=== PATIENT | male | born 1930 | race Caucasian/White ===

== ENCOUNTER 2017-01-13 08:23 | Inpatient (IN) | payer OTHER ==
[~2017-01-13] VITALS: Ht 170.2 cm; Wt 98.9 kg
[~2017-01-13 08:23] MED LIST: AMBIEN (MONOGRAP5 MG PO; ATORVASTATIN CA10 MG PO; AUGMENTIN 875875 MG PO; CARDIZEM CD360 MG PO; CENTRUM SILVER1 CTB PO; CLARITIN10 MG PO; CLOPIDOGREL75 MG PO; COUMADIN 3 MG TA3 MG PO; COZAAR 100MG T100 MG PO; CRESTOR20 MG PO; DILTIAZEM HCL180 MG PO; DILTIAZEM HCL240 MG PO; DILTIAZEM HCL300 MG PO; FUROSEMIDE20 MG PO; LEVAQUIN500 M1 PO; LOSARTAN POTAS100 MG PO; MASON NATURAL1200 MG PO; NATURAL IRON65 MG PO; NITROGLYCER PAT; NITROSTAT0.4 MG; NITROSTAT0.4 MG PO; PERCOCET 5-3251 EACH PO; PROAIR HFA0.09 MG/Ac INH; TESSALON PERLE100 MG PO; TRAMADOL50 MG PO; VITAMIN B121000 MC2 PO; WARFARIN SODIU2.5 MG PO; WARFARIN SODIUM5 MG PO; XARELTO20 MG PO
--- NOTE | 2017-01-13 08:56 | ED UPPER/LOWER EXTREMITY COMPL ---
History of Present Illness General Chief Complaint: Lower Extremity Problems Stated Complaint: LEFT LEG PAIN Source: patient, family Exam Limitations: no limitations Vital Signs & Intake/Output Vital Signs & Intake/Output Vital Signs Date Time Temp Pulse Resp B/P B/P Pulse O2 O2 Flow FiO2 Mean Ox Delivery Rate 01/13 2238 99.7 89 20 108/52 94 Nasal 3.0L Cannula 01/130 Nasal 3.0L Cannula 01/13 2007 99.0 01/13 1744 99.0 105 22 122/60 96 Nasal 3.0L Cannula 01/13 1717 96 Nasal 3.0L Cannula 01/13 1700 100.1 01/13 1657 92 20 97 Aerosol Mask 01/13 1648 96 01/13 1646 100.1 90 22 92 Room Air 01/13 1516 99.2 65 120/59 01/13 1415 79 20 97/55 94 Room Air 01/13 1346 100.6 84 18 97/55 94 01/13 1324 98 01/13 1304 99.1 01/13 1304 99.1 01/13 1116 98.9 81 18 112/53 95 Room Air 01/13 0827 98.7 110 16 128/84 96 Room Air Allergies Coded Allergies: NO KNOWN ALLERGIES (11/15/15) Reconcile Medications Albuterol Sulfate (Proair Hfa) 0.09 MG/Actuation KANWAL 2 PUFF INH Q4-6H PRN DYSPNEA (Reported) Atorvastatin Calcium (Lipitor) 10 MG TABLET 1 TAB PO DAILY CHOLESTEROL ( Reported) DILTIAZEM HCL (Cardizem Cd) 360 MG C24 1 CAP PO DAILY HEART (Reported) Furosemide 20 MG TAB 1 TAB PO DAILY WATER PILL (Reported) Losartan (Cozaar) 100 MG TABLET 1 TAB PO DAILY BP/HEART (Reported) Rivaroxaban (Xarelto) 20 MG TAB 1 TAB PO QPM BLOOD THINNER (Reported) with food Triage Note: 87 Y/O MALE C/O L LOWER EXTREMITY PAIN AND SWELLING SINCE YESTERDAY. DENIES INJURIES OR TRAUMA STATING PAIN BEGAN SUDDENLY. SWELLING NOTED TO L KNEE. PT REPORTS PAIN FROM KNEE DOWN INTO FOOT. REQUIRING MUCH ASSISTANCE TO GET FROM W/C TO STRETCHER Triage Nurses Notes Reviewed? yes Onset: Abrupt Duration: day(s): (1) Timing: multiple episodes today Severity: moderate, severe Method of Injury: unknown Modifying Factors: Worsens With: movement. Associated Symptoms: swelling, fever, chills HPI: 87 year old male presents to the ER with moderate to severe left knee pain that [facility] He states that he was sitting at a computer and when he went to stand up noted severe pain. He used a cane yesterday to walk. He reported shakes and chills yesterday. Today he needed a walker and needed a wheelchair to get to the ER today. Denies trauma to the knee. It appears swollen but not red. Patient states he cannot bear any weight on the knee. Past History Travel History Traveled to [place] past 21 day No Medical History Any Pertinent Medical History? 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 No Review of Systems Review of Systems Constitutional: Reports: chills, fever. EENTM: Reports: no symptoms. Respiratory: Reports: short of breath. Denies: cough, sputum production. Cardiovascular: Denies: chest pain, palpitations, peripheral edema. Gastrointestinal/Abdominal: Denies: abdominal pain. Genitourinary: Reports: no symptoms. Musculoskeletal: Reports: joint pain, joint swelling. Denies: muscle pain, muscle stiffness. Skin: Reports: no symptoms. Neurological/Psychological: Reports: no symptoms. Hematologic/Endocrine: Denies: bruising, bleeding, polyuria, polydipsia. Immunological: Reports: no symptoms. All Other Systems: Reviewed and Negative Physical Exam Physical Exam General Appearance: well developed/nourished, alert, awake, mild distress Head: atraumatic Eyes: Bilateral: PERRL, EOMI. Ears, Nose, Throat: normal pharynx, normal ENT inspection, hearing grossly normal Neck: normal inspection, supple Cardiovascular/Respiratory: regular rate/rhythm Peripheral Pulses: 2+ radial (R), 2+ radial (L) Gastrointestinal: soft nontender, obese Back: normal inspection Leg Left: normal range of motion, normal inspection Leg Right: normal range of motion, normal inspection Hip Left: normal range of motion, normal inspection Hip Right: normal range of motion, normal inspection Knee Left: swelling, tenderness, joint effusion, pain, limited range of motion Knee Right: normal range of motion, normal inspection, SURGICAL SCAR Foot Left: normal inspection, normal range of motion Foot Right: normal inspection, normal range of motion Neurologic/Tendon: normal sensation, normal motor functions, normal tendon functions Skin: intact, normal color, warm/dry Lymphatic: no anterior cervical precious ED Sepsis Exam Date of Focused Sepsis Exam: 01/13/17 Time of Focused Sepsis Exam: 1304 Sepsis Cardiac Exam: Tachycardia Sepsis Resp Exam: WHEEZING Sepsis Cap Refill Exam: <2 Sec Sepsis Peripheral Pulse Exam: Normal Sepsis Peripheral Pulse Location: Radial Sepsis Skin Color Exam: Normal for Ethnicity Skin Temp/Moisture Exam: Warm/Dry Progress Differential Diagnosis: SEPTIC JOINT, UTI, PNEUMONIA, Plan of Care: Orders Procedure Date/time Status Nothing by Mouth 01/14 B Active CBC WITHOUT DIFFERENTIAL 01/14 06 Active BASIC ELECTROLYTES PLUS BUN&CR 01/14 06 Active Consistent Carbohydrate 2 01/13 D Complete RT: Evaluation 01/13 2217 Active OXYGEN SETUP (GEN) 01/13 2152 Complete THERAPIST ORDERS 01/13 2150 Complete FingerStick- Glucose 01/13 2028 Active Vital Signs 01/13 1835 Active Teach/Educate 01/13 1835 Active Pain Treatment and Response 01/13 183 Active Nutritional Intake, Monitor 01/13 1835 Active Isolation 01/13 1835 Active Intake & Output 01/13 1835 Active Patient Care Conference 01/13 1835 Active Activity/Ambulation 01/13 1835 Active URINE TOTAL PROT/CREAT RATIO 01/13 1713 Active RT ED ORDERS 01/13 1642 Active LACTIC ACID 01/13 1632 Active Pathway - chart 01/13 1558 Active TRC EVALUATION (GEN) 01/13 1557 Complete Pathway - chart 01/13 1557 Active House Staff 01/13 1557 Active Code Status 01/13 1557 Active LACTIC ACID 01/13 1548 Active CULTURE,BODY FLUID 01/13 1448 Complete Patient Data 01/13 1447 Active ED Holding Orders 01/13 1445 Active Admit to inpatient 01/13 1445 Active Vital Signs 01/13 1445 Active Code Status 01/13 1445 Complete SYNOVIAL FLUID CELL COUNT 01/13 1405 Complete Add-on Test (ER Only) 01/13 1332 Active LACTIC ACID 01/13 1332 Active CULTURE,URINE 01/13 1251 Active URINALYSIS 01/13 1251 Complete RT ED ORDERS 01/13 1249 Active BLOOD CULTURE 01/13 1248 Active LACTIC ACID 01/13 1248 Active EKG 01/13 1248 Active CULTURE,BODY FLUID 01/13 1038 Active SYNOVIAL FLUID CELL COUNT 01/13 1038 Complete BODY FLUID TOTAL PROTEIN 01/13 1038 Complete BODY FLUID GLUCOSE 01/13 1038 Complete LACTIC ACID 01/13 0907 Active GLYCOSYLATED HGB 01/13 0907 Active GAMMA GLUTAMYL TRANSFERASE 01/13 0907 Active WESTERGREN SED RATE 01/13 0855 Complete COMPREHENSIVE METABOLIC PANEL 01/13 0855 Active CBC WITHOUT DIFFERENTIAL 01/13 0855 Complete Intake & Output 01/13 0847 Active US-LIMITED ABDOMEN 01/13 UNK Active TRC EVALUATION (GEN) 01/13 UNK Complete Lab Add-on Test 01/13 UNK Active VTE Mechanical Prophylaxis 01/13 UNK Active Current Medications Sig/Festus Start time Last Medication Dose Stop Time Status Admin Ceftriaxone Sodium 2,000 MG DAILY@1400 01/14 1400 AC (Rocephin) Albuterol Sulfate 3 ML TID 01/14 1000 AC (Proventil) Diltiazem HCl 360 MG DAILY 01/14 1000 AC (Cardizem CD) Rivaroxaban 15 MG DAILY 01/14 1000 AC (Xarelto) Insulin Aspart 0 TIDAC 01/14 0800 AC (NovoLOG) Albuterol Sulfate 3 ML Q4H PRN 01/13 1645 AC (Proventil) Ipratropium [place] 2.5 ML Q4 HRS NEEDED PRN 01/13 1645 AC (Atrovent) Atorvastatin Calcium 10 MG DAILY 01/13 1642 AC 01/13 (Lipitor) 2012 Acetaminophen 650 MG Q6P PRN 01/13 1600 AC 01/13 (Tylenol) 1700 Acetaminophen 1,000 MG Q6P PRN 01/13 1600 AC (Ofirmev) Lidocaine 1 PAT Q24H 01/13 1600 AC 01/13 (Lidoderm) 2017 Morphine Sulfate 2 MG Q4P PRN 01/13 1600 AC (Morphine) Laboratory Tests 01/13/17 1656: Urine Color YEL, Urine Clarity CLDY H, Urine pH 6.0, Ur Specific [place] 1.025, Urine Protein 100 H, Urine Ketones NEG, Urine Nitrite NEG, Urine Bilirubin NEG, Urine Urobilinogen 1.0, Ur Leukocyte Esterase NEG, Ur Microscopic SEDIMENT EXAMINED, Urine RBC 15-25 H, Urine WBC 5-10 H, Ur Epithelial Cells MOD H, Urine Bacteria FEW H, Urine Hemoglobin MOD H, Urine Glucose NEG 01/13/17 1405: Lymphocytes 1, % Normal PMNs 94, Misc Hematology Test , Fluid WBC 206524 H, Fld Total RBCs Counted 6050 H 01/13/17 1040: Fluid WBC 54491 H, Fld Mesothelial Cells , Fld Total RBCs Counted 3658 H 01/13/17 1040: Lymphocytes 5, % Normal PMNs 92, Fluid Glucose ND, Fluid Total Protein ND 01/13/17 0907: Anion Gap 14, Estimated GFR 25 L, BUN/Creatinine Ratio 14.8, Glucose 125 H, Hemoglobin A1c Pending, Lactic Acid 2.1, Calcium 8.8, Total Bilirubin 1.4 H, GGT 119 H, AST 26, ALT 29, Alkaline Phosphatase 138 H, Total Protein 7.1, Albumin 4.1, Globulin 3.0, Albumin/Globulin Ratio 1.4, CBC w Diff NO MAN DIFF REQ, RBC 3.99 L, MCV 89.5, MCH 28.8, RDW 14.3, MPV 8.4, Gran % 82.4 H, Lymphocytes % 7.0 L, Monocytes % 9.9 H, Eosinophils % 0.1, Basophils % 0.6, Absolute Granulocytes 6.7 H, Absolute Lymphocytes 0.6 L, Absolute Monocytes 0.8 H, Absolute Eosinophils 0, Absolute Basophils 0, PUBS MCHC 32.1 L, ESR Westergren 69 H Microbiology 01/13 1656 URINE ROUT: Urine Culture - RECD 01/13 1455 BODY FLUID: Body Fluid Culture - COMP 01/13 1455 BODY FLUID: Gram Stain - COMP 01/13 1405 BLOOD: Blood Culture - RECD 01/13 1347 BLOOD: Blood Culture - RECD 01/13 1040 BODY FLUID: Body Fluid Culture - RES 01/13 1040 BODY FLUID: Gram Stain - RES xray, u/s ,labs, sed rate ordered. radiographic studies negative, arthrocentesis performed. 40 ml viscous/turbid yellow fluid obtained. d/w dr delacruz, will consult on patient in the ED 12:49 PM PATIENT NOW RIGORING. TEMP 99.1. IV, CULTUERS ORDERED. DUONEB, CXR ORDERED. I DISCUSSSED CASE WITH DR DELACRUZ REGARDING CELL COUNT. PENDING GRAM STAIN. 1:15 PM D/W DR DELACRUZ. DR SALGADO PAGED FOR ADMISSION. (EMILY THOMPSON,IBETH) Diagnostic Imaging: Viewed by Me: Radiology Read, Ultrasound. Discussed w/RAD: Radiology Read, Ultrasound. Radiology Impression: PATIENT: FARTUN SIM PRESENT AGE: 87 PATIENT ACCOUNT NO: [id number] : 30 LOCATION: ER ORDERING PHYSICIAN: IBETH DIAZ MD SERVICE DATE: 01/13/17 EXAM TYPE: RAD - XRY -KNEE COMPLETE LEFT EXAMINATION: LEFT KNEE 3 VIEWS CLINICAL INFORMATION: Left knee pain. COMPARISON: None. TECHNIQUE: AP, lateral, oblique views of the left knee were obtained. FINDINGS: A left knee prosthesis is intact. There is a moderate knee joint effusion. There are no acute fractures. IMPRESSION: Intact left knee prosthesis. Moderate knee joint effusion. DICTATED BY: MARY ARROYO MD DATE/TIME DICTATED:01/13/17934 [employer] DATE/TIME TRANSCRIBED:01/13/17934 CONFIDENTIAL, DO NOT COPY WITHOUT APPROPRIATE AUTHORIZATION. <Electronically signed in Other Vendor System> SIGNED BY: MARY ARROYO MD 01/13/17 0939, PATIENT: FARTUN SIM PRESENT AGE: 87 PATIENT ACCOUNT NO: [id number] : 30 LOCATION: ER ORDERING PHYSICIAN: IBETH DIAZ MD SERVICE DATE: 01/13/17 EXAM TYPE: US - US-UNILATERAL VENOUS DOPPLER EXAMINATION: US TRIPLEX LOWER EXTREMITY, LEFT CLINICAL INFORMATION: Left lower extremity pain. COMPARISON: None TECHNIQUE: Color-flow triplex imaging with spectral analysis and compression Doppler were performed on the lower extremity. FINDINGS: Respiratory variation, normal compression and augmented flow are noted throughout the left lower extremity. The visualized common femoral vein, superficial femoral vein, profunda femoral vein, popliteal vein and midcalf peroneal and posterior tibial venous segments show no evidence of deep venous thrombosis. There is no Rodriguez's cyst. IMPRESSION : Normal triplex scan without evidence of deep venous thrombosis involving the lower extremity. DICTATED BY: MARY ARROYO MD DATE/TIME DICTATED:01/13/17947 [employer] DATE/TIME TRANSCRIBED:01/13/17947 CONFIDENTIAL, DO NOT COPY WITHOUT APPROPRIATE AUTHORIZATION. <Electronically signed in Other Vendor System> SIGNED BY: MARY ARROYO MD 01/13/17950 CXR Impression: PATIENT: FARTUN SIM PRESENT AGE: 87 PATIENT ACCOUNT NO: [id number] : 30 LOCATION: [facility] ORDERING PHYSICIAN: IBETH DIAZ MD SERVICE DATE: 01/13/17 EXAM TYPE: RAD - XRY-PORTABLE CHEST XRAY EXAMINATION: XR PORTABLE CHEST CLINICAL INFORMATION: Wheezing. Chills. Evaluate for pneumonia. COMPARISON: Previous chest x-rays most recent June [address] scans most recent April 2016 TECHNIQUE: Portable frontal view of the chest was obtained. FINDINGS: The cardiac silhouette is enlarged but stable. There is a left subclavian single chamber pacemaker in satisfactory position. Hilar and mediastinal contours are unremarkable. The lungs are clear without evidence of pneumonia. There is no pleural effusion or pneumothorax. There are degenerative changes of the spine and at the shoulder joints. IMPRESSION: Stable enlargement of the cardiac silhouette. No evidence of pneumonia. DICTATED BY: IVETTE NAIR MD DATE/TIME DICTATED:01/13/171329 [employer] DATE/TIME TRANSCRIBED:01/13/171329 CONFIDENTIAL, DO NOT COPY WITHOUT APPROPRIATE AUTHORIZATION. <Electronically signed in Other Vendor System> SIGNED BY: IVETTE NAIR MD 01/13/171334 Pre-Hospital EKG: AFIB Departure Departure Disposition: STILL A PATIENT Condition: Stable Clinical Impression Primary Impression: Septic joint Secondary Impressions: Effusion of left knee joint, Lactic acidosis Referrals: ANJALI SALGADO MD (PCP/Family) Departure Forms: Customer Survey General Discharge Information Admission Note Spoke With: ANJALI SALGADO MD Documentation of Exam: Documentation of any treatments & extenuating circumstances including Concerns Regarding Discharge (functional status, medication knowledge or non-compliance, living conditions, etc.) that warrant an admission rather than observation: [IV ABX, IV FLUIDS, pain control, rest of the leg, for washout in OR with dr delacruz, f/u blood and arthrocentesis culture, urine culture] Procedures Additional Procedures Additional Procedures: LEFT KNEE ARTHROCENTESIS Progress: Patient sterily prepared and draped. 2% lidocaine 3ml used for local. Patient sprayed with ethyl chloride. With 16G needle 40 cc of viscous yellow fluid removed. patient tolerated procedure well.
[2017-01-13 09:25] LABS: ABSOLUTE BASOPHIL COUNT 0 /CUMM (0.0-0.2); ABSOLUTE EOSINOPHIL COUNT 0 /CUMM (0.0-0.7); ABSOLUTE GRANULOCYTE CT 6.7 /CUMM (1.4-6.5); ABSOLUTE LYMPH COUNT 0.6 /CUMM (1.2-3.4); ABSOLUTE MONOCYTE COUNT 0.8 /CUMM (0.10-0.60); BASOPHIL % 0.6 % (0.0-2.0); EOSINOPHIL % 0.1 % (0-5); GRANULOCYTE % 82.4 % (42.2-75.2); HEMATOCRIT 35.8 % (42-52); MEAN CORPUSCULAR HGB 28.8 PG (27.0-31.0); MEAN CORPUSCULAR HGB CONC 32.1 G/DL (33.0-37.0); MEAN CORPUSCULAR VOLUME 89.5 FL (80.0-94.0); MEAN PLATELET VOLUME 8.4 FL (7.4-10.4); PLATELET COUNT 210 /CUMM (130-400); RBC DISTRIBUTION WIDTH 14.3 % (11.5-14.5); RED BLOOD CELL CT 3.99 /CUMM (4.70-6.10); WHITE BLOOD CELL COUNT 8.1 /CUMM (4.8-10.8)
--- NOTE | 2017-01-13 09:39 | RADIOLOGY REPORT ---
EXAMINATION: LEFT KNEE 3 VIEWS CLINICAL INFORMATION: Left knee pain. COMPARISON: None. TECHNIQUE: AP, lateral, oblique views of the left knee were obtained. FINDINGS: A left knee prosthesis is intact. There is a moderate knee joint effusion. There are no acute fractures. IMPRESSION: Intact left knee prosthesis. Moderate knee joint effusion.
--- NOTE | 2017-01-13 09:51 | ULTRASOUND REPORT ---
EXAMINATION: US TRIPLEX LOWER EXTREMITY, LEFT CLINICAL INFORMATION: Left lower extremity pain. COMPARISON: None TECHNIQUE: Color-flow triplex imaging with spectral analysis and compression Doppler were performed on the lower extremity. FINDINGS: Respiratory variation, normal compression and augmented flow are noted throughout the left lower extremity. The visualized common femoral vein, superficial femoral vein, profunda femoral vein, popliteal vein and midcalf peroneal and posterior tibial venous segments show no evidence of deep venous thrombosis. There is no Rodriguez's cyst. IMPRESSION: Normal triplex scan without evidence of deep venous thrombosis involving the lower extremity.
--- NOTE | 2017-01-13 13:35 | RADIOLOGY REPORT ---
EXAMINATION: XR PORTABLE CHEST CLINICAL INFORMATION: Wheezing. Chills. Evaluate for pneumonia. COMPARISON: Previous chest x-rays most recent June [address] scans most recent April 2016 TECHNIQUE: Portable frontal view of the chest was obtained. FINDINGS: The cardiac silhouette is enlarged but stable. There is a left subclavian single chamber pacemaker in satisfactory position. Hilar and mediastinal contours are unremarkable. The lungs are clear without evidence of pneumonia. There is no pleural effusion or pneumothorax. There are degenerative changes of the spine and at the shoulder joints. IMPRESSION: Stable enlargement of the cardiac silhouette. No evidence of pneumonia.
--- NOTE | 2017-01-13 15:23 | History & Physical ---
See Addendum General Information and HPI MD Statement: I have seen and personally examined FARTUN SIM and documented this H&P. The patient is a 87 year old M who presented with a patient stated chief complaint of [join pain]. Source of Information: patient, family, old records Exam Limitations: no limitations History of Present Illness: 87-year-old gentleman was brought in for left knee pain and swelling. 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 According to patient, he was at his normal state of health up until yesterday. When he reportedly has episodes of Gio's has spikes of temperature. By the time patient reported minor soreness in his left knee. The remainder of the review of system I that time was negative. This morning patient found his left knee swelled, red, warm, with severely restricted range of motion due to effusion and pain. Patient denies any systematic symptoms including fever, Riggors, dizziness, chest pain, palpitation. Allergies/Medications Allergies: Coded Allergies: NO KNOWN ALLERGIES (11/15/15) Home Med list Albuterol Sulfate (Proair Hfa) 0.09 MG/Actuation KANWAL 2 PUFF INH Q4-6H PRN DYSPNEA (Reported) Atorvastatin Calcium (Lipitor) 10 MG TABLET 1 TAB PO DAILY CHOLESTEROL ( Reported) DILTIAZEM HCL (Cardizem Cd) 360 MG C24 1 CAP PO DAILY HEART (Reported) Furosemide 20 MG TAB 1 TAB PO DAILY WATER PILL (Reported) Losartan (Cozaar) 100 MG TABLET 1 TAB PO DAILY BP/HEART (Reported) Rivaroxaban (Xarelto) 20 MG TAB 1 TAB PO QPM BLOOD THINNER (Reported) with food Compliance With Home Meds: GOOD Past History Travel History Traveled to [place] past 21 day No Medical History Neurological: NONE EENT: NONE Cardiovascular: AFIB, HTN, 1 STENT, 4 ANGIOPLAS Respiratory: asthma Gastrointestinal: PANCREATITIS Hepatic: NONE Renal: NONE Musculoskeletal: CHRONIC BACK PAIN Psychiatric: NONE Endocrine: NONE Blood Disorders: NONE Cancer(s): 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 yes Functional Ability ADLs Independent: dressing, eating, toileting, bathing. Ambulation: independent IADLs Independent: shopping, housework, finances, food prep, telephone, transportation , medication admin. Review of Systems Review of Systems Constitutional: Reports: see HPI, chills, fever. Cardiovascular: Reports: see HPI. Denies: chest pain, edema, orthopena, palpitations, peripheral edema, syncope. Respiratory: Reports: see HPI. GI: Reports: see HPI. Genitourinary: Reports: see HPI. Musculoskeletal: Reports: see HPI, joint pain, joint swelling. Skin: Reports: see HPI, change in skin color, erythema. Neurological/Psychological: Reports: see HPI. Exam & Diagnostic Data Last 24 Hrs of Vital Signs/I&O Vital Signs Date Time Temp Pulse Resp B/P B/P Pulse O2 O2 Flow FiO2 Mean Ox Delivery Rate 01/13 1516 99.2 65 120/59 01/13 1415 79 20 97/55 94 Room Air 01/13 1346 100.6 84 18 97/55 94 01/13 1324 98 01/13 1304 99.1 01/13 1304 99.1 01/13 1116 98.9 81 18 112/53 95 Room Air 01/13 0827 98.7 110 16 128/84 96 Room Air Intake & Output 01/13 1600 01/13 0800 01/13 0000 Intake Total 2000 Output Total 300 Balance 1700 Intake, IV 2000 Intake, Oral 0 Output, Urine 300 Patient 218 lb Weight Weight Reported by Patient Measurement Method Physical Exam General Appearance Alert, Oriented X3, Cooperative, No Acute Distress Skin redness and warmth of the left knee HEENT Atraumatic, PERRLA, EOMI, Mucous Membr. moist/pink Neck No JVD, No thryomegaly, +2 Carotid Pulse wo Bruit Lymphatic Axillary nl, Cervical nl Cardiovascular Normal S1, Normal S2, No Murmurs, pacemaker on the left upper chest Lungs mild end expiratory wheezing, decreased air entery Abdomen Soft, No Tenderness Neurological Normal Speech Extremities No Cyanosis, No Edema, erythema and redness of the left knee, restricted ROM Assessment/Plan Assessment: 87 years old man with multiple comorbidities and significant PMH was admitted for septic joint of the left knee. Pertinent data Left knee XRAY: A left knee prosthesis is intact. There is a moderate knee joint effusion. There are no acute fractures No DVT on dopp;er US. CBC: WBC 8.1 with left shift or bandemia, H&H: 11.5/35.8, platelet 210, sodium 140, BUN 37, creatinine 2.5 Vital signs: 100.6/80/79/18/97/55 received 2 L of normal saline blood pressure increased to 120s systolic. Left knee arthrocentesis: Cell counts [id number] WBC, Gross Pus, joint fluid cultures and gram stain are pending List of active problems #1 septic joint: Immunocompetent patients/ based on description of fluid joints (Gorge Pus), and W BC count of more than 50,000, There is a high chance for MRSA infection. preliminary report from lab showed Gram nagrative rods x2. * Admit to general medical floor * Awaiting orthopedic procedure this evening for joint wash out * Started patient on vancomycin 1000 mg IV daily * Check Vanco trough on the fourth day * Check C BC and BEP, daily; follow-up on infection and kidney function * Follow microbiology tests including blood culture and joints fluids Gram stain and cultures #2 history of atrial fibrillation status post pacemaker placement, currently rate controlled-continue Cardizem 360 mg CD for rate control; elevated CHA2D2- VASc and on Xarelto 20 mg po daily. #3 history of diabetes not on diabetic medication. Diabetes diets, fingersticks 3 times a day before meals, insulin aspart ss 3 times a day before meals, check HbA1c #4 History of hypertension- hold lisinopril and Lasix #5 history of CKD (gradual worsening of renal function) possibly due to uncontrolled diabetes or uncontrolled hypertension. Placed nephrology consult in the a.m. check urine creatinine albumin ratio. #6 history of COPD on albuterol- incentive spirometry, TRC Neb [id number]-mte-parsf as needed, patient was to see Evan Cantu MD on Sunday #7 history of coronary artery disease: Atorvastatin 10 mg po daily Pain management with Tylenol and morphine-avoidance NSAIDs Full code As Ranked By This Provider Problem List: 1. Afib 2. Septic joint Core Measures/Miscellaneous Acute Coronary Syndrome ACS Diagnosis: No Cerebrovascular Accident CVA/TIA Diagnosis: No Congestive Heart Failure CHF Diagnosis: No VTE (View Protocol) VTE Risk Factors: Acute medical illness, Age > 40, Immobility, paresis No Mech VTE prophylaxis d/t: No contraindications No VTE Pharm Prophylaxis d/t: No contraindications VTE Diagnosis: No VTE Type: NONE VTE Confirmed by (Test): NONE Sepsis (View Protocol) Severe Sepsis Present: No Septic Shock Septic Shock Present: No BC x2: Yes Lactic Acid: No IV ABX Broad Spectrum: Yes Focused Exam Completed: Yes NS/LR 30ml/kg w/in 3hrs: Yes IV Vasopressors started: No Miscellaneous Documentation Attending Case Discussed With: ANJALI SALGADO MD Primary Care Physician: ANJALI SALGADO MD 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
[2017-01-13 17:44] VITALS: BP 122/60
--- NOTE | 2017-01-13 18:24 | Cons- Orthopedic ---
General Information and HPI Consulting Request Date of Consult: 01/13/17 Requested By: ANJALI SALGADO MD Reason for Consult: SWELLING PAIN LEFT KNEE ACUTE ONSET History of Present Illness: THE PATIENT STATES HE WAS in his usual state of health until yesterday when he started to have some pain in the left knee. He did not have any trauma to the knee 2 days ago he did have his nails clipped by a branch examiner but they did not, blood they did not cause any septicemia. He states otherwise he has been feeling good. He has bilateral total knee prostheses in that a been in for about 18 years. He denies any other recent infectious processes. I came in consult on him in the emergency room aspirated his left knee and the fluid did look very thick and deep yellow. This was sent and cell count came back at 100, 000 cells he also had some rare gram-negative rods we are waiting on the cultures. I had a long discussion with the patient and the family today that we have an taken to the operating room for an arthroscopic washout of his knee trying to retain the prosthesis. I did tell him that we may at some point have to remove the prosthesis in place an antibiotic spacer in his knee. We then try to avoid that due to his age. They are agreeable with the arthroscopic irrigation debridement to start off with. Allergies/Medications Allergies: Coded Allergies: NO KNOWN ALLERGIES (11/15/15) Home Med List: Albuterol Sulfate (Proair Hfa) 0.09 MG/Actuation KANWAL 2 PUFF INH Q4-6H PRN DYSPNEA (Reported) Atorvastatin Calcium (Lipitor) 10 MG TABLET 1 TAB PO DAILY CHOLESTEROL ( Reported) DILTIAZEM HCL (Cardizem Cd) 360 MG C24 1 CAP PO DAILY HEART (Reported) Furosemide 20 MG TAB 1 TAB PO DAILY WATER PILL (Reported) Losartan (Cozaar) 100 MG TABLET 1 TAB PO DAILY BP/HEART (Reported) Rivaroxaban (Xarelto) 20 MG TAB 1 TAB PO QPM BLOOD THINNER (Reported) with food Past History Medical History Neurological: NONE EENT: NONE Cardiovascular: AFIB, HTN, 1 STENT, 4 ANGIOPLAS Respiratory: asthma Gastrointestinal: PANCREATITIS Hepatic: NONE Renal: NONE Musculoskeletal: CHRONIC BACK PAIN Psychiatric: NONE Endocrine: NONE Blood Disorders: NONE 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 yes Functional Ability ADLs Independent: dressing, eating, toileting, bathing. Ambulation: independent IADLs Independent: shopping, housework, finances, food prep, telephone, transportation , medication admin. Exam & Diagnostic Data Vital Signs and I&O Vital Signs Date Time Temp Pulse Resp B/P B/P Pulse O2 O2 Flow FiO2 Mean Ox Delivery Rate 01/13 1744 99.0 105 22 122/60 96 Nasal 3.0L Cannula 01/13 1700 100.1 01/13 1657 92 20 97 Aerosol Mask 01/13 1648 96 01/13 1646 100.1 90 22 92 Room Air 01/13 1516 99.2 65 120/59 01/13 1415 79 20 97/55 94 Room Air 01/13 1346 100.6 84 18 97/55 94 01/13 1324 98 01/13 1304 99.1 01/13 1304 99.1 01/13 1116 98.9 81 18 112/53 95 Room Air 01/13 0827 98.7 110 16 128/84 96 Room Air Intake & Output 01/13 1600 01/13 0800 01/13 0000 01/12 1600 01/12 0800 01/12 0000 Intake Total 2000 Output Total 300 Balance 1700 Intake, IV 2000 Intake, Oral 0 Output, Urine 300 Patient 218 lb Weight Weight Reported by Patient Measurement Method Physical Exam: PATIENT ANJU NOW HAD SWELLING LEFT KLNE i TAPPEDTHIS IN THE er FLUID CAME BACK 100,000 WBC AND RARE GRAM NEG RODS . I COULD BEND HIS KNE FROM 0-60 BUT HAS PAIN NO ERYTHEMA LIGAMENTS NORMAL.NO OTHER OBVIOUS SOURCE. Assessment/Plan Assessment/Plan PATIENT HAS PROBABLE SEPTIC LEFT KNEE WILL PLAN ON ARTHROSCOPIC IRRIGATION AND DEBRIDEMENT IN THE AM. I SPOKE WITH THE PATIENT AND FAMILY ABOUT THE CHANCE OF HAVING TO TAKE THE PROSTHESIS OUT WE WILL TRY TO RETAIN THE PROSTHESIS. THE FAMILY AND THE PATIENT ARE AGREEABLE AND A CONSENT WAS SIGNED. Consult Acknowledgment - Thank you for your consult request.
--- NOTE | 2017-01-13 18:45 | Admission Certification ---
Admission Certification Certification Statement - As attending physician, I certify that at the time of - admission, based on clinical presentation, severity of - symptoms, need for further diagnostic testing and - therapeutic interventions, and risk of adverse outcomes - without in-hospital treatment, in my clinical assessment, - this patient requires an acute hospital stay for a minimum - of two nights or longer. I have also considered psychsocial - factors such as support system, advanced age, financial - issues, cognitive issues, and failed out-patient treatments, - past re-admission history, safety of patient, and lack of - compliance as applicable. Specific rationale supporting this admission is: Knee pain, septic joint
--- NOTE | 2017-01-13 18:48 | PN- Att Addend ---
Attending Addendum Attending Brief Note 87-year-old active male with many comorbidities my had seen him couple of days ago for his routine visit. Stated after that that having pain in the knee he denies any trauma. Patient is on anticoagulation. He came to the emergency room was examined was tapped was seen in orthopedic consultation by Dr. Leyva who is taking him to the operating room tomorrow to wash the joint, also patient will continue on antibiotics per infectious diseases recommendations. Follow his white count. Laboratory Tests 01/13 01/13 01/13 1656 1405 1040 Hematology Lymphocytes (%) 1 % Normal PMNs (%) 94 Misc Hematology Test (%) Other Body Source Fluid WBC (0 - 5 /CUMM) 110015 H 93386 H Fld Mesothelial Cells (%) Fld Total RBCs Counted (0 /CUMM) 6050 H 3658 H Urines Urine Color (YEL,AMB,STR) YEL Urine Clarity (CLEAR) CLDY H Urine pH (5.0 - 8.0) 6.0 Ur Specific [place] (1.001 - 1.035) 1.025 Urine Protein (NEG,<30 MG/DL) 100 H Urine Ketones (NEG) NEG Urine Nitrite (NEG) NEG Urine Bilirubin (NEG) NEG Urine Urobilinogen (0.1 - 1.0 EU/dl) 1.0 Ur Leukocyte Esterase (NEG) NEG Ur Microscopic SEDIMENT EXAMINED Urine RBC (0 - 5 /HPF) 15-25 H Urine WBC (0 - 2 /HPF) 5-10 H Ur Epithelial Cells (NONE,FEW) MOD H Urine Bacteria (NEG/NONE) FEW H Urine Hemoglobin (NEG) MOD H Urine Glucose (N MG/DL) NEG 01/13 01/13 1040 0907 Chemistry Sodium (137 - 145 mmol/L) 140 Potassium (3.5 - 5.1 mmol/L) 4.0 Chloride (98 - 107 mmol/L) 104 Carbon Dioxide (22 - 30 mmol/L) 22 Anion Gap (5 - 16) 14 BUN (9 - 20 mg/dL) 37 H Creatinine (0.7 - 1.2 mg/dL) 2.5 H Estimated GFR (>60 ml/min) 25 L BUN/Creatinine Ratio (7 - 25 %) 14.8 Glucose (65 - 99 mg/dL) 125 H Hemoglobin A1c (4.2 - 5.8 %) Pending Lactic Acid (0.7 - 2.1 mmol/L) 2.1 Calcium (8.4 - 10.2 mg/dL) 8.8 Total Bilirubin (0.2 - 1.3 mg/dL) 1.4 H GGT (15 - 73 U/L) 119 H AST (17 - 59 U/L) 26 ALT (21 - 72 U/L) 29 Alkaline Phosphatase (< 127 U/L) 138 H Total Protein (6.3 - 8.2 g/dL) 7.1 Albumin (3.5 - 5.0 g/dL) 4.1 Globulin (1.9 - 4.2 gm/dL) 3.0 Albumin/Globulin Ratio (1.1 - 2.2 %) 1.4 Hematology CBC w Diff NO MAN DIFF REQ WBC (4.8 - 10.8 /CUMM) 8.1 RBC (4.70 - 6.10 /CUMM) 3.99 L Hgb (14.0 - 18.0 G/DL) 11.5 L Hct (42 - 52 %) 35.8 L MCV (80.0 - 94.0 FL) 89.5 MCH (27.0 - 31.0 PG) 28.8 RDW (11.5 - 14.5 %) 14.3 Plt Count (130 - 400 /CUMM) 210 MPV (7.4 - 10.4 FL) 8.4 Gran % (42.2 - 75.2 %) 82.4 H Lymphocytes % (20.5 - 51.1 %) 7.0 L Monocytes % (1.7 - 9.3 %) 9.9 H Eosinophils % (0 - 5 %) 0.1 Basophils % (0.0 - 2.0 %) 0.6 Absolute Granulocytes (1.4 - 6.5 /CUMM) 6.7 H Absolute Lymphocytes (1.2 - 3.4 /CUMM) 0.6 L Lymphocytes (%) 5 Absolute Monocytes (0.10 - 0.60 /CUMM) 0.8 H Absolute Eosinophils (0.0 - 0.7 /CUMM) 0 Absolute Basophils (0.0 - 0.2 /CUMM) 0 % Normal PMNs (%) 92 PUBS MCHC (33.0 - 37.0 G/DL) 32.1 L ESR [place] (0 - 10 MM) 69 H Other Body Source Fluid Glucose (mg/dL) ND Fluid Total Protein (g/dL) ND
[2017-01-13 22:38] VITALS: BP 108/52
[2017-01-14 07:29] VITALS: BP 142/64
--- NOTE | 2017-01-14 08:19 | PN- Housestaff ---
See Addendum Subjective Follow-up For: Left knee septic arthritis Acute kidney injury Chronic kidney disease History of atrial fibrillation Complaints: pain scale (0-10) Subjective: Patient was seen and examined this afternoon. He is alert awake and oriented to time place and person. No acute events noticed overnight. He is status post Left knee arthroscopic irrigation and debridement with synovectomy. toletrated the procedure Still nothing by mouth waiting to go for abdominal ultrasound Offers no complaints at bedside Vitals stable afebrile, heart rate 80, respiratory rate 20, blood pressure 130/ 70, saturating at 95 on room air. Watch sugar 96 Review of Systems Constitutional: Reports: see HPI. Objective Last 24 Hrs of Vital Signs/I&O Vital Signs Date Time Temp Pulse Resp B/P B/P Pulse O2 O2 Flow FiO2 Mean Ox Delivery Rate 01/14 0800 99 Nasal 3.0L Cannula 01/14 0729 99.6 98 20 142/64 98 01/14 0000 93 Nasal 3.0L Cannula 01/13 2238 99.7 89 20 108/52 94 Nasal 3.0L Cannula 01/13 2150 Nasal 3.0L Cannula 01/13 2007 99.0 01/13 1744 99.0 105 22 122/60 96 Nasal 3.0L Cannula 01/13 1717 96 Nasal 3.0L Cannula 01/13 1700 100.1 01/13 1657 92 20 97 Aerosol Mask 01/13 1648 96 01/13 1646 100.1 90 22 92 Room Air 01/13 1516 99.2 65 120/59 01/13 1415 79 20 97/55 94 Room Air 01/13 1346 100.6 84 18 97/55 94 01/13 1324 98 01/13 1304 99.1 01/13 1304 99.1 Intake & Output 01/14 1600 01/14 0800 01/14 0000 Intake Total 200 Output Total 250 350 Balance -250 -150 Intake, Oral 200 Output, Urine 250 350 Patient 98.883 kg Weight Weight Reported by Patient Measurement Method Physical Exam General Appearance: Alert, Oriented X3, Cooperative, No Acute Distress Skin: No Rashes, No Breakdown, left knee dressing intact HEENT: Atraumatic, PERRLA, EOMI, Mucous Membr. moist/pink Neck: Supple, No JVD Lymphatic: Cervical nl Cardiovascular: Normal S1, Normal S2 Lungs: Normal Air Movement Abdomen: Normal Bowel Sounds, Soft, No Tenderness Neurological: Strength at 5/5 X4 Ext, Sensation Intact, Cranial Nerves 3-12 NL Extremities: No Clubbing, No Cyanosis, No Edema Vascular: Pulses Symmetrical Current Medications: Current Medications Sig/Festus Start time Last Medication Dose Route Stop Time Status Admin Acetaminophen 0 .STK-MED ONE 01/13 1704 DC PO Acetaminophen 650 MG Q6P PRN 01/13 1600 AC 01/13 PO 1700 Acetaminophen 1,000 MG Q6P PRN 01/13 1600 AC IV Acetaminophen 0 .STK-MED ONE 01/13 1306 DC IV Acetaminophen 1,000 MG ONCE ONE 01/13 1300 DC 01/13 N/A 1 UNIT IV 01/13 1314 1304 Albuterol Sulfate 3 ML TID 01/14 1000 AC INH Albuterol Sulfate 3 ML ONCE ONE 01/13 1645 DC 01/13 INH 01/13 1646 1643 Albuterol Sulfate 3 ML Q4H PRN 01/13 1645 AC INH Albuterol Sulfate 3 ML ONCE ONE 01/13 1300 DC 01/13 INH 01/13 1301 1300 Atorvastatin Calcium 10 MG DAILY 01/13 1642 AC 01/13 PO 2012 Ceftriaxone Sodium 2,000 MG DAILY@1400 01/14 1400 AC IV Ceftriaxone Sodium 0 .STK-MED ONE 01/13 1411 DC .ROUTE Ceftriaxone Sodium 2,000 MG ONCE ONE 01/13 1345 DC 01/13 IV 01/13 1346 1413 Diltiazem HCl 360 MG DAILY 01/14 1000 AC PO Insulin Aspart 0 TIDAC 01/14 0800 AC SC Ipratropium [place] 2.5 ML ONCE ONE 01/13 1645 DC 01/13 INH 01/13 1646 1643 Ipratropium [place] 2.5 ML Q4 HRS NEEDED PRN 01/13 1645 AC INH Ipratropium [place] 2.5 ML ONCE ONE 01/13 1300 DC 01/13 INH 01/13 1301 1300 Lidocaine 1 PAT Q24H 01/13 1600 AC 01/13 EXT 2017 Lidocaine 0 .STK-MED ONE 01/13 1441 DC .ROUTE Morphine Sulfate 2 MG Q4P PRN 01/13 1600 AC IV Rivaroxaban 15 MG DAILY 01/14 1000 AC PO Sodium Chloride 1,000 ML BOLUS ONE 01/13 1500 DC 01/13 IV 01/13 1559 1500 Sodium Chloride 1,000 ML BOLUS ONE 01/13 1345 DC 01/13 IV 01/13 1444 1413 Vancomycin HCl 1,000 MG DAILY@1600 01/13 1600 DC Sodium Chloride 250 ML IV Last 24 Hrs of Lab/Federico Results Last 24 Hrs of Labs/Mics: Laboratory Tests 01/14/17 0614: Anion Gap 10, Estimated GFR 21 L, BUN/Creatinine Ratio 14.8, CBC w Diff NO MAN DIFF REQ, RBC 3.60 L, MCV 89.5, MCH 29.0, RDW 14.4, MPV 8.5, Gran % 82.3 H, Lymphocytes % 7.4 L, Monocytes % 10.1 H, Eosinophils % 0, Basophils % 0.2, Absolute Granulocytes 7.7 H, Absolute Lymphocytes 0.7 L, Absolute Monocytes 0.9 H, Absolute Eosinophils 0, Absolute Basophils 0, PUBS MCHC 32.4 L 01/13/17 1713: Ur Random Creatinine Cancelled, U Random Total Protein Cancelled 01/13/17 1656: Urine Color YEL, Urine Clarity CLDY H, Urine pH 6.0, Ur Specific [place] 1.025, Urine Protein 100 H, Urine Ketones NEG, Urine Nitrite NEG, Urine Bilirubin NEG, Urine Urobilinogen 1.0, Ur Leukocyte Esterase NEG, Ur Microscopic SEDIMENT EXAMINED, Urine RBC 15-25 H, Urine WBC 5-10 H, Ur Epithelial Cells MOD H, Urine Bacteria FEW H, Urine Hemoglobin MOD H, Urine Glucose NEG 01/13/17 1632: Lactic Acid Cancelled 01/13/17 1548: Lactic Acid Cancelled 01/13/17 1405: Lymphocytes 1, % Normal PMNs 94, Misc Hematology Test , Fluid WBC 547702 H, Fld Total RBCs Counted 6050 H 01/13/17 1332: Lactic Acid Cancelled Microbiology 01/14 UNK EXTREMITIE: Gross Specimen Examination - CAN Cancelled: OE 01/14 UNK EXTREMITIE: Gram Stain - CAN Cancelled: OE 01/14 0847 BODY FLUID: Body Fluid Culture - RES 01/14 0847 BODY FLUID: Gram Stain - RES 01/13 1656 URINE ROUT: Urine Culture - COMP 01/13 1455 BODY FLUID: Body Fluid Culture - COMP 01/13 1455 BODY FLUID: Gram Stain - COMP 01/13 1405 BLOOD: Blood Culture - RES 01/13 1347 BLOOD: Blood Culture - RES Assessment/Plan Assessment: This is a 87-year-old male with past medical history significant for coronary artery disease status post angioplasty left circumflex artery 3 times, atrial fibrillation on Cardizem and xaralto, 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 Vitals on presentation afebrile, heart rate 110 respiratory rate 16, blood pressure 128/54, saturating at 96 on room air. Hemoglobin 11.5 and hematocrit 35.8, WBC 8.1. Creatinine 2.5 on admission left knee xray A left knee prosthesis is intact. There is a moderate knee joint effusion. There are no acute fractures No DVT on doppler US. cxr- negative Problem list 1. Left knee septic arthritis 2. Status post left knee arthroscopy 3. Coronary artery disease status post angioplasty 4. History of atrial fibrillation 5. Diabetes mellitus 6. Hypertension 7. Hyperlipidemia 8. Chronic lower extremity swelling 9. COPD history Left knee septic arthritis Patient presented to the hospital with left knee pain, swelling, redness. Off note he is status post bilateral knee replacements 12 years ago. On admission he is afebrile however spiked a temperature 100.6 after several hours. WBC count 8000. Left knee x-ray showed Intact prosthesis with moderate joint effusion. He is status post a left knee joint arthrocentesis twice in the emergency room. Fluid WBC were elevated [id number]. cultures positive for gram-negative rods * Admitted to general medicine floor for further management and surgical procedure * He is status post left knee arthroscopic irrigation and debridement with synovectomy- day1 * he may be able to resolve this infection without removal of the prosthesis, * His bilirubin and alkaline phosphatase are elevated, suggesting a possible biliary source, though he has no GI symptoms and his abdominal exam is benign. * Ultrasound abdomen to rule out GI source * Continue antibiotics ceftriaxone 2000 g daily IV- day 2 * Follow-up or cultures * Out of bed with physical therapy * patient is weightbearing as tolerated * PRN pain medication * GI and DVT prophylaxis * Okay to restart Xarelto * Tight glycemic control Left knee arthrocentesis Left knee arthrocentesis twice in the emergency room * Left knee arthrocentesis: Cell counts [id number] WBC, * Gross Pus, * Positive for gram-negative rods * joint fluid final cultures and gram stain are pending #2 history of atrial fibrillation status post pacemaker placement, currently rate controlled-continue Cardizem 360 mg CD for rate control; elevated [id number] and on Xarelto 20 mg po daily. #3 history of diabetes not on diabetic medication. Diabetes diets, fingersticks 3 times a day before meals, insulin aspart ss 3 times a day before meals, check HbA1c #4 History of hypertension- hold losartan and Lasix cr 2.9 on admission Avoid nsaids Avoid nephrotoxins Will provide gentle hydration #5 history of CKD (gradual worsening of renal function) possibly due to uncontrolled diabetes or uncontrolled hypertension. Placed nephrology consult in the a.m. check urine creatinine albumin ratio. 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 Chronic extremity swelling Lasix 20 mg at home Hold the Lasix for now Because of acute kidney injury Pain management with Tylenol and morphine-avoidance NSAIDs Full code DVT prophylaxis-xaralto cc2 diet Problem List: 1. Acute kidney injury 2. Effusion of left knee joint 3. Septic joint Pain Ratin Pain Location: left knee Pain Goal: Remain pain free Pain Plan: tylinol Tomorrow's Labs & Rationales: cbc bep
[2017-01-14 08:31] LABS: ABSOLUTE BASOPHIL COUNT 0 /CUMM (0.0-0.2); ABSOLUTE EOSINOPHIL COUNT 0 /CUMM (0.0-0.7); ABSOLUTE GRANULOCYTE CT 7.7 /CUMM (1.4-6.5); ABSOLUTE LYMPH COUNT 0.7 /CUMM (1.2-3.4); ABSOLUTE MONOCYTE COUNT 0.9 /CUMM (0.10-0.60); BASOPHIL % 0.2 % (0.0-2.0); EOSINOPHIL % 0 % (0-5); GRANULOCYTE % 82.3 % (42.2-75.2); HEMATOCRIT 32.3 % (42-52); MEAN CORPUSCULAR HGB CONC 32.4 G/DL (33.0-37.0); MEAN CORPUSCULAR VOLUME 89.5 FL (80.0-94.0); MEAN PLATELET VOLUME 8.5 FL (7.4-10.4); PLATELET COUNT 168 /CUMM (130-400); RBC DISTRIBUTION WIDTH 14.4 % (11.5-14.5); WHITE BLOOD CELL COUNT 9.3 /CUMM (4.8-10.8)
--- NOTE | 2017-01-14 08:45 | Cons- Infect Disease ---
General Information and HPI Consulting Request Date of Consult: 01/14/17 Requested By: ANJALI SALGADO MD Reason for Consult: Septic left knee joint Source of Information: patient, old records History of Present Illness: This is an 87-year-old man with a history of hypertension, diabetes, chronic renal insufficiency, coronary artery disease, status post angioplasty, atrial fibrillation, maintained on Xarelto, tachybradycardia syndrome, status post pacemaker placement 2 years prior to admission, status post post bilateral knee replacements 12 years prior to admission, status post clipping of his toenails several days prior to admission admitted on January 13 with the acute onset of pain and swelling of the left knee. On admission he was initially afebrile but did develop a low-grade fever to 100.6 after several hours. Laboratory data revealed a white blood cell count of 8000, ESR 69, BUN/creatinine 37 and 2.5, lactic acid 2.1, bilirubin 1.4, alk phosphatase 138, GGT 119. Urinalysis 15-25 RBC/5-10 WBC. Chest x-ray was negative for any acute process. X-ray of the left knee revealed an intact prosthesis with a moderate joint effusion. Doppler of the left leg was negative. He underwent arthrocentesis in the emergency room which yielded thick and deep yellow fluid, with cell count initially revealing over 75,000 white blood cells, with a repeat cell count revealing over 114,000 white blood cells and with the gram stain revealing gram-negative rods. He was begun on Ceftriaxone. He has been afebrile overnight and is being taken to the OR today for an arthroscopic irrigation and debridement. At present he does report pain in the left knee but has no other complaints. Allergies/Medications Allergies: Coded Allergies: NO KNOWN ALLERGIES (11/15/15) Home Med List: Albuterol Sulfate (Proair Hfa) 0.09 MG/Actuation KANWAL 2 PUFF INH Q4-6H PRN DYSPNEA (Reported) Atorvastatin Calcium (Lipitor) 10 MG TABLET 1 TAB PO DAILY CHOLESTEROL ( Reported) DILTIAZEM HCL (Cardizem Cd) 360 MG C24 1 CAP PO DAILY HEART (Reported) Furosemide 20 MG TAB 1 TAB PO DAILY WATER PILL (Reported) Losartan (Cozaar) 100 MG TABLET 1 TAB PO DAILY BP/HEART (Reported) Rivaroxaban (Xarelto) 20 MG TAB 1 TAB PO QPM BLOOD THINNER (Reported) with food Past History Travel History Traveled to [place] past 21 day No Medical History Neurological: NONE EENT: NONE Cardiovascular: AFIB, CAD (s/p angioplasty), hypertension, tachy-rosalva syndrome Respiratory: asthma Gastrointestinal: PANCREATITIS Hepatic: NONE Renal: NONE Musculoskeletal: CHRONIC BACK PAIN Psychiatric: NONE Endocrine: diabetes Blood Disorders: NONE Cancer(s): bladder cancer 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 yes Functional Ability ADLs Independent: dressing, eating, toileting, bathing. Ambulation: independent IADLs Independent: shopping, housework, finances, food prep, telephone, transportation , medication admin. Review of Systems Review of Systems All Other Systems: Reviewed and Negative Exam & Diagnostic Data Last 24 Hrs of Vital Signs/I&O Vital Signs Date Time Temp Pulse Resp B/P B/P Pulse O2 O2 Flow FiO2 Mean Ox Delivery Rate 01/14 0729 99.6 98 20 142/64 98 01/14 0000 93 Nasal 3.0L Cannula 01/13 2238 99.7 89 20 108/52 94 Nasal 3.0L Cannula 01/13 2150 Nasal 3.0L Cannula 01/13 2007 99.0 01/13 1744 99.0 105 22 122/60 96 Nasal 3.0L Cannula 01/13 1717 96 Nasal 3.0L Cannula 01/13 1700 100.1 01/13 1657 92 20 97 Aerosol Mask 01/13 1648 96 01/13 1646 100.1 90 22 92 Room Air 01/13 1516 99.2 65 120/59 01/13 1415 79 20 97/55 94 Room Air 01/13 1346 100.6 84 18 97/55 94 01/13 1324 98 01/13 1304 99.1 01/13 1304 99.1 01/13 1116 98.9 81 18 112/53 95 Room Air Intake & Output 01/14 1600 01/14 0800 01/14 0000 Intake Total 200 Output Total 250 350 Balance -250 -150 Intake, Oral 200 Output, Urine 250 350 Patient 218 lb Weight Weight Reported by Patient Measurement Method Physical Exam Other Physical Findings: He is awake and alert in no acute distress. MAXIMUM TEMPERATURE 100.6. Skin reveals no rash. HEENT exam [address]. Neck is supple with no adenopathy. Lungs are clear. Heart irregular rhythm with no murmur. Abdomen is soft, nontender with positive bowel sounds. Back no CVA tenderness. Extremities left knee warmth, swelling and tenderness, with no erythema; decreased range of motion; left foot with no inflammation; no cyanosis, clubbing or edema of the lower extremities; right knee with no inflammation. Neuro is without focality. Last 24 Hours of Lab Results: Laboratory Tests 01/14 01/13 01/13 0614 1656 1405 Chemistry Sodium (137 - 145 mmol/L) 138 Potassium (3.5 - 5.1 mmol/L) 4.5 Chloride (98 - 107 mmol/L) 106 Carbon Dioxide (22 - 30 mmol/L) 22 Anion Gap (5 - 16) 10 BUN (9 - 20 mg/dL) 43 H Creatinine (0.7 - 1.2 mg/dL) 2.9 H Estimated GFR (>60 ml/min) 21 L BUN/Creatinine Ratio (7 - 25 %) 14.8 Hematology CBC w Diff Pending WBC Pending RBC Pending Hgb Pending Hct Pending MCV Pending MCH Pending RDW Pending Plt Count Pending MPV Pending Lymphocytes (%) 1 % Normal PMNs (%) 94 PUBS MCHC Pending [facility] [place] Hematology Test (%) Other Body Source Fluid WBC (0 - 5 /CUMM) 799386 H Fld Total RBCs Counted (0 /CUMM) 6050 H Urines Urine Color (YEL,AMB,STR) YEL Urine Clarity (CLEAR) CLDY H Urine pH (5.0 - 8.0) 6.0 Ur Specific [place] (1.001 - 1.035) 1.025 Urine Protein (NEG,<30 MG/DL) 100 H Urine Ketones (NEG) NEG Urine Nitrite (NEG) NEG Urine Bilirubin (NEG) NEG Urine Urobilinogen (0.1 - 1.0 EU/dl) 1.0 Ur Leukocyte Esterase (NEG) NEG Ur Microscopic SEDIMENT EXAMINED Urine RBC (0 - 5 /HPF) 15-25 H Urine WBC (0 - 2 /HPF) 5-10 H Ur Epithelial Cells (NONE,FEW) MOD H Urine Bacteria (NEG/NONE) FEW H Urine Hemoglobin (NEG) MOD H Urine Glucose (N MG/DL) NEG 01/13 01/13 01/13 1040 1040 0907 Chemistry Sodium (137 - 145 mmol/L) 140 Potassium (3.5 - 5.1 mmol/L) 4.0 Chloride (98 - 107 mmol/L) 104 Carbon Dioxide (22 - 30 mmol/L) 22 Anion Gap (5 - 16) 14 BUN (9 - 20 mg/dL) 37 H Creatinine (0.7 - 1.2 mg/dL) 2.5 H Estimated GFR (>60 ml/min) 25 L BUN/Creatinine Ratio (7 - 25 %) 14.8 Glucose (65 - 99 mg/dL) 125 H Hemoglobin A1c (4.2 - 5.8 %) Pending Lactic Acid (0.7 - 2.1 mmol/L) 2.1 Calcium (8.4 - 10.2 mg/dL) 8.8 Total Bilirubin (0.2 - 1.3 mg/dL) 1.4 H GGT (15 - 73 U/L) 119 H AST (17 - 59 U/L) 26 ALT (21 - 72 U/L) 29 Alkaline Phosphatase (< 127 U/L) 138 H Total Protein (6.3 - 8.2 g/dL) 7.1 Albumin (3.5 - 5.0 g/dL) 4.1 Globulin (1.9 - 4.2 gm/dL) 3.0 Albumin/Globulin Ratio (1.1 - 2.2 %) 1.4 Hematology CBC w Diff NO MAN DIFF REQ WBC (4.8 - 10.8 /CUMM) 8.1 RBC (4.70 - 6.10 /CUMM) 3.99 L Hgb (14.0 - 18.0 G/DL) 11.5 L Hct (42 - 52 %) 35.8 L MCV (80.0 - 94.0 FL) 89.5 MCH (27.0 - 31.0 PG) 28.8 RDW (11.5 - 14.5 %) 14.3 Plt Count (130 - 400 /CUMM) 210 MPV (7.4 - 10.4 FL) 8.4 Gran % (42.2 - 75.2 %) 82.4 H Lymphocytes % (20.5 - 51.1 %) 7.0 L Monocytes % (1.7 - 9.3 %) 9.9 H Eosinophils % (0 - 5 %) 0.1 Basophils % (0.0 - 2.0 %) 0.6 Absolute Granulocytes (1.4 - 6.5 /CUMM) 6.7 H Absolute Lymphocytes (1.2 - 3.4 /CUMM) 0.6 L Lymphocytes (%) 5 Absolute Monocytes (0.10 - 0.60 /CUMM) 0.8 H Absolute Eosinophils (0.0 - 0.7 /CUMM) 0 Absolute Basophils (0.0 - 0.2 /CUMM) 0 % Normal PMNs (%) 92 PUBS MCHC (33.0 - 37.0 G/DL) 32.1 L ESR Westergren (0 - 10 MM) 69 H Other Body Source Fluid WBC (0 - 5 /CUMM) 89233 H Fld Mesothelial Cells (%) Fld Total RBCs Counted (0 /CUMM) 3658 H Fluid Glucose (mg/dL) ND Fluid Total Protein (g/dL) ND Last 24 Hours of Federico Results: Blood cultures 2 January 13 negative Urine culture January 13 pending Left knee synovial fluid culture positive for Escherichia coli Diagnostic Data Recent Imaging Findings: Chest x-ray was negative for any acute process. X-ray of the left knee revealed an intact prosthesis with a moderate joint effusion. Doppler of the left leg was negative. Assessment/Plan Assessment/Plan Impression: This is an 87-year-old man with diabetes, hypertension, chronic renal insufficiency, coronary artery disease, atrial fibrillation, status post pacemaker, status post bilateral knee replacements 12 years prior to admission, admitted on January 13 with a one-day history of pain and swelling of the left knee , found to have a significantly elevated white blood cell count in the synovial fluid with the culture growing Escherichia coli. His clinical picture is consistent with a septic left knee prosthesis and he is being taken to the OR today for arthroscopic irrigation and debridement. Given the acuity of his symptoms he may be able to resolve this infection without removal of the prosthesis, though this remains a possibility and, if he does not improve, this may be necessary. The source of his Escherichia coli infection is unclear. He did have recent podiatric intervention though this would be an unusual source for gram-negative rods. His bilirubin and alkaline phosphatase are elevated, suggesting a possible biliary source, though he has no GI symptoms and his abdominal exam is benign. He does have a history of bladder cancer and his urinalysis does reveal 5-10 white blood cells but he has no urinary symptoms. Of note his creatinine has increased further today, possibly secondary to ATN from sepsis or prerenal and this may warrant further evaluation. Suggestion: 1. Await arthroscopic irrigation and debridement today 2. Consider Renal evaluation if his creatinine does not improve 3. Follow-up recent cultures 4. Will consider further evaluation for the source of his gram negative rods based on above 5. Continue Ceftriaxone 2 g IV every 24 hours Consult Acknowledgment - Thank you for your consult request.
--- NOTE | 2017-01-14 09:33 | Operative Report ---
Operative/Inv Procedure Report Surgery Date: 01/14/17 Name of Procedure: Left knee arthroscopic irrigation and debridement with synovectomy Pre-Operative Diagnosis: Left knee septic arthritis Post-Operative Diagnosis: Left knee septic arthritis Estimated Blood Loss: scant Surgeon/Triage Registered Nurse: Dr. Keyon Leyva Anesthesia: laryngeal mask airway Microbiology: Fluid from the left knee joint was sent to microbiology for culture and Gram stain and cell count. Operative/Procedure Note Note: Patient was brought to the operating room placed on the operative table in the supine position. His left knee was placed in the standard knee kahn. Left knee was then prepped and draped in usual sterile fashion. 2 arthroscopy portals were made at the inferior patellar area. Fluid from the knee joint was sent for culture. 2 g of Kefzol antibiotics were given to the patient. We did an appropriate timeout prior to procedure indicate left knee was indeed the operative knee. Diagnostic exam of the knee was then carried out. In this patella pouch she had significant hypertrophic synovitis using a motorized resector this was all resected. The patellar prosthesis seemed to be stable that was probed. Scope was then brought down into the medial compartment and again hypertrophic synovitis noted. Again using arthroscopic shaver that was removed. Scope was brought into the intercondylar notch again the femoral component seemed intact. Some more synovitis was removed from the intercondylar notch and from the anterior aspect of the lateral compartment. Tibial component was also seemed to be intact. After extensive debridement and synovectomy in the knee itself and removal of all free loose tissue thorough irrigation was carried out we did use one 3 L bag of bacitracin irrigation. There were used to other bags of straight saline. All instruments were then removed and the portals were closed with nylon sutures each and the patient was sent back to recovery room in stable condition complications and a dictation by Dr. Leyva thank you
--- NOTE | 2017-01-14 09:45 | PN- Orthopedic ---
Subjective Subjective: The patient is seen this morning postoperatively. He reports that his pain is under adequate control and has no other complaints at the current time. Objective Vital Signs and I&Os Vital Signs Date Time Temp Pulse Resp B/P B/P Pulse O2 O2 Flow FiO2 Mean Ox Delivery Rate 01/14 0729 99.6 98 20 142/64 98 01/14 0000 93 Nasal 3.0L Cannula 01/13 2238 99.7 89 20 108/52 94 Nasal 3.0L Cannula 01/13 2150 Nasal 3.0L Cannula 01/13 2007 99.0 01/13 1744 99.0 105 22 122/60 96 Nasal 3.0L Cannula 01/13 1717 96 Nasal 3.0L Cannula 01/13 1700 100.1 01/13 1657 92 20 97 Aerosol Mask 01/13 1648 96 01/13 1646 100.1 90 22 92 Room Air 01/13 1516 99.2 65 120/59 01/13 1415 79 20 97/55 94 Room Air 01/13 1346 100.6 84 18 97/55 94 01/13 1324 98 01/13 1304 99.1 01/13 1304 99.1 01/13 1116 98.9 81 18 112/53 95 Room Air Intake & Output 01/14 1600 01/14 0800 01/14 0000 01/13 1600 01/13 0800 01/13 0000 Intake Total 200 2000 Output Total 250 350 300 Balance -250 -150 1700 Intake, IV 2000 Intake, Oral 200 0 Output, Urine 250 350 300 Patient 218 lb 218 lb Weight Weight Reported by Patient Reported by Patient Measurement Method Physical Exam: Gen.: Alert and in no obvious distress Skin: Warm and dry Extremities: Bilateral lower extremities are warm without calf tenderness or significant edema. Gross motor and sensory are intact. Left knee surgical dressing is clean, dry, and intact. Assessment/Plan Assessment/Plan Assessment: 87-year-old male status post arthroscopic I&D/debridement of left infected knee. Postoperative the patient is progressing as expected and his pain is under adequate control. Recommendations: Continue antibiotics per infectious disease recommendations Follow-up or cultures Out of bed with physical therapy patient is weightbearing as tolerated PRN pain medication GI and DVT prophylaxis Okay to restart Xarelto today Tight glycemic control Continue care per primary team
[2017-01-14 14:25] VITALS: BP 121/83
--- NOTE | 2017-01-14 15:47 | Event Note ---
Event Note Event Note: 345 Rapid Response Called Patient had increased work of breathing and desaturated to 84%. Respiratory arrived and began the patient on breathing treatment. Other vitals stable. Attending physician Dr. Aguillon was present. Chest x-ray, VQ scan, ABG ordered. Recommended that the patient should be transferred to the intensive care unit for close monitoring. Resident signed out to the ICU Team. Formal paper work filled by the resident.
--- NOTE | 2017-01-14 16:37 | RADIOLOGY REPORT ---
EXAMINATION: XR PORTABLE CHEST CLINICAL INFORMATION: Shortness of breath, desaturation to 84% COMPARISON: Multiple previous, most recent 01/13/2017 TECHNIQUE: Portable AP view of the chest was obtained. FINDINGS: There is persistent cardiac enlargement. A single lead pacemaker projects over the left upper chest. There is bibasilar atelectasis, left greater than right. There is partial obscuration of the left hemidiaphragm posterior to the cardiac silhouette. No definite effusion.. IMPRESSION: Possible left lower lobe consolidation. Lateral view would be helpful. Otherwise, stable examination compared to previous.
--- NOTE | 2017-01-14 19:35 | RADIOLOGY REPORT ---
EXAMINATION:\H\ \N\XR CHEST CLINICAL INFORMATION: Shortness of breath, fever, desaturation. COMPARISON: Multiple priors, most recent chest radiograph done 01/14/2017 at 3:48 PM. TECHNIQUE: Lateral view of the chest was obtained. FINDINGS: No left lower lobe consolidation. Cardiomegaly is redemonstrated. An AICD is again noted. IMPRESSION: No left lower lobe consolidation.
[2017-01-14 22:00] VITALS: BP 117/59
[2017-01-15 05:25] LABS: ABSOLUTE BASOPHIL COUNT 0 /CUMM (0.0-0.2); ABSOLUTE EOSINOPHIL COUNT 0 /CUMM (0.0-0.7); ABSOLUTE GRANULOCYTE CT 4.8 /CUMM (1.4-6.5); ABSOLUTE LYMPH COUNT 0.5 /CUMM (1.2-3.4); ABSOLUTE MONOCYTE COUNT 0.9 /CUMM (0.10-0.60); BASOPHIL % 0.1 % (0.0-2.0); EOSINOPHIL % 0.6 % (0-5); GRANULOCYTE % 76.9 % (42.2-75.2); HEMATOCRIT 29.3 % (42-52); MEAN CORPUSCULAR HGB CONC 32.3 G/DL (33.0-37.0); MEAN CORPUSCULAR VOLUME 89.7 FL (80.0-94.0); MEAN PLATELET VOLUME 8.8 FL (7.4-10.4); PLATELET COUNT 157 /CUMM (130-400); RBC DISTRIBUTION WIDTH 14.9 % (11.5-14.5); RED BLOOD CELL CT 3.27 /CUMM (4.70-6.10); WHITE BLOOD CELL COUNT 6.2 /CUMM (4.8-10.8)
--- NOTE | 2017-01-15 07:35 | PN- Housestaff ---
Assessment/Plan Assessment: This is a 87-year-old male with past medical history significant for coronary artery disease status post angioplasty left circumflex artery 3 times, atrial fibrillation on Cardizem and xaralto, 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 Vitals on presentation afebrile, heart rate 110 respiratory rate 16, blood pressure 128/54, saturating at 96 on room air. Hemoglobin 11.5 and hematocrit 35.8, WBC 8.1. Creatinine 2.5 on admission left knee xray A left knee prosthesis is intact. There is a moderate knee joint effusion. There are no acute fractures No DVT on doppler US. cxr- negative Problem list 1. Left knee septic arthritis 2. Status post left knee arthroscopy 3. Coronary artery disease status post angioplasty 4. History of atrial fibrillation 5. Diabetes mellitus 6. Hypertension 7. Hyperlipidemia 8. Chronic lower extremity swelling 9. COPD history Left knee septic arthritis Patient presented to the hospital with left knee pain, swelling, redness. Off note he is status post bilateral knee replacements 12 years ago. On admission he is afebrile however spiked a temperature 100.6 after several hours. WBC count 8000. Left knee x-ray showed Intact prosthesis with moderate joint effusion. He is status post a left knee joint arthrocentesis twice in the emergency room. Fluid WBC were elevated 162008. cultures positive for gram-negative rods * Admitted to general medicine floor for further management and surgical procedure * He is status post left knee arthroscopic irrigation and debridement with synovectomy- day1 * he may be able to resolve this infection without removal of the prosthesis, * His bilirubin and alkaline phosphatase are elevated, suggesting a possible biliary source, though he has no GI symptoms and his abdominal exam is benign. * Ultrasound abdomen to rule out GI source * Continue antibiotics ceftriaxone 2000 g daily IV- day 2 * Follow-up or cultures * Out of bed with physical therapy * patient is weightbearing as tolerated * PRN pain medication * GI and DVT prophylaxis * Okay to restart Xarelto * Tight glycemic control Left knee arthrocentesis Left knee arthrocentesis twice in the emergency room * Left knee arthrocentesis: Cell counts 513342 WBC, * Gross Pus, * Positive for gram-negative rods * joint fluid final cultures and gram stain are pending #2 history of atrial fibrillation status post pacemaker placement, currently rate controlled-continue Cardizem 360 mg CD for rate control; elevated [id number] and on Xarelto 20 mg po daily. #3 history of diabetes not on diabetic medication. Diabetes diets, fingersticks 3 times a day before meals, insulin aspart ss 3 times a day before meals, check HbA1c #4 History of hypertension- hold losartan and Lasix cr 2.9 on admission Avoid nsaids Avoid nephrotoxins Will provide gentle hydration #5 history of CKD (gradual worsening of renal function) possibly due to uncontrolled diabetes or uncontrolled hypertension. Placed nephrology consult in the a.m. check urine creatinine albumin ratio. cr 2.9 on admission Avoid nsaids Avoid nephrotoxins Will provide gentle hydration #6 history of COPD on albuterol- incentive spirometry, TRC Neb [id number] as needed, patient want to see Evan Cantu MD on Sunday #7 history of coronary artery disease: status post angioplasty left circumflex artery Atorvastatin 10 mg po daily #8. tachy-rosalva syndrome Status post single pacemaker placement 9. Chronic extremity swelling Lasix 20 mg at home Hold the Lasix for now Because of acute kidney injury Pain management with Tylenol and morphine-avoidance NSAIDs Full code DVT prophylaxis-xaralto cc2 diet
--- NOTE | 2017-01-15 07:35 | PN- Resident CRCU ---
Subjective HPI/CRCU Issues: Left knee septic arthritis Acute kidney injury Chronic kidney disease History of atrial fibrillation 24 Hour Events: VS stable. Does not endrose any complaint. No acute o/n event. Objective Vital Signs & I&O Last 8 Hrs of Vitals and I&O: Intake & Output 01/16 0800 Intake Total 840 Output Total 350 Balance 490 Intake, IV 600 Intake, Oral 240 Number 0 Bowel Movements Output, Urine 350 Exam General Appearance: well developed/nourished, no apparent distress, alert, awake Current Medications: Current Medications Sig/Festus Start time Last Medication Dose Route Stop Time Status Admin Acetaminophen 650 MG Q6P PRN 01/13 1600 AC 01/14 PO 1726 Acetaminophen 1,000 MG Q6P PRN 01/13 1600 AC 01/15 IV 0528 Albuterol Sulfate 3 ML TID 01/14 1000 AC 01/15 INH 2026 Albuterol Sulfate 3 ML Q4H PRN 01/13 1645 AC INH Atorvastatin Calcium 10 MG DAILY 01/13 1642 AC 01/15 PO 1516 Ceftriaxone Sodium 2,000 MG DAILY@1400 01/14 1400 DC 01/14 IV 1529 Ciprofloxacin 750 MG DAILY 01/15 1119 AC 01/15 PO 01/19 1118 1516 Diltiazem HCl 360 MG DAILY 01/14 1000 AC 01/15 PO 1516 Insulin Aspart 0 TIDAC 01/14 0800 AC SC Ipratropium [place] 2.5 ML Q4 HRS NEEDED PRN 01/13 1645 AC INH Lidocaine 1 PAT Q24H 01/13 1600 AC 01/15 EXT 1650 Morphine Sulfate 2 MG ONCE ONE 01/16 0100 DC 01/16 IV 01/16 0101 0056 Morphine Sulfate 2 MG Q4P PRN 01/13 1600 AC 01/16 IV 0558 Rivaroxaban 15 MG DAILY 01/14 1000 AC 01/15 PO 1517 Sodium Chloride 1,000 ML Q13H 01/15 1330 DC 01/15 IV 01/16 0229 1517 Impression/Plan Impression/Problem List Impression: This is a 87-year-old male with past medical history significant for coronary artery disease status post angioplasty left circumflex artery 3 times, atrial fibrillation on Cardizem and xaralto, 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 Vitals on presentation afebrile, heart rate 110 respiratory rate 16, blood pressure 128/54, saturating at 96 on room air. Hemoglobin 11.5 and hematocrit 35.8, WBC 8.1. Creatinine 2.5 on admission left knee xray A left knee prosthesis is intact. There is a moderate knee joint effusion. There are no acute fractures No DVT on doppler US. cxr- negative Problem list 1. Left knee septic arthritis 2. Status post left knee arthroscopy 3. Coronary artery disease status post angioplasty 4. History of atrial fibrillation 5. Diabetes mellitus 6. Hypertension 7. Hyperlipidemia 8. Chronic lower extremity swelling 9. COPD history Left knee septic arthritis Patient presented to the hospital with left knee pain, swelling, redness. Off note he is status post bilateral knee replacements 12 years ago. On admission he is afebrile however spiked a temperature 100.6 after several hours. WBC count 8000. Left knee x-ray showed Intact prosthesis with moderate joint effusion. He is status post a left knee joint arthrocentesis twice in the emergency room. Fluid WBC were elevated [id number]. cultures positive for gram-negative rods * He is status post left knee arthroscopic irrigation and debridement with synovectomy- day2 * Gram negative rods, which is not typical pathogen for prostethic septic arthritis. His bilirubin and alkaline phosphatase are elevated, suggesting a possible biliary source, However U/S in negative for any biliary pathology, denies any abdominal pain. * Switched to Cipro 750 mg po qd * Follow-up or cultures * Out of bed with physical therapy * patient is weightbearing as tolerated * PRN pain medication * GI and DVT prophylaxis * Okay to restart Xarelto * Tight glycemic control Left knee arthrocentesis Left knee arthrocentesis twice in the emergency room * Left knee arthrocentesis: Cell counts [id number] WBC, * Gross Pus, * Positive for gram-negative rods growing vail sensitive E.coli. #2 history of atrial fibrillation status post pacemaker placement, currently rate controlled-continue Cardizem 360 mg CD for rate control; elevated [id number] and on Xarelto 20 mg po daily. #3 history of diabetes not on diabetic medication. Diabetes diets, fingersticks 3 times a day before meals, insulin aspart ss 3 times a day before meals, check HbA1c #4 History of hypertension- hold on Lasix for now cr3.6 today Avoid nsaids Avoid nephrotoxins Will provide gentle hydration #5Acute on chronic CKD (gradual worsening of renal function) possibly in the setting of infectious etiology (which increases risk for ATN), prerenal azotemia could be contributory , however will await spot sodium and creatinine to further assess. Placed nephrology consult in the a.m. 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 Chronic extremity swelling Hold the Lasix for now 2/2 to acute worsening of renal function Problem List: 1. Septic joint 2. Effusion of left knee joint 3. Acute kidney injury Pain Ratin Tomorrow's Labs & Rationales: ICU BUNDLE Plan DVT/Prophylaxis: pharmacological
--- NOTE | 2017-01-15 07:49 | PN- Orthopedic ---
Subjective Subjective: Pt transferred to ICU overnight due to decreased saturation This morning, awake, alert, feels well, no specific complaints, pain controlled Objective Vital Signs and I&Os Vital Signs Date Time Temp Pulse Resp B/P B/P Pulse O2 O2 Flow FiO2 Mean Ox Delivery Rate 01/15 0642 101.0 01/15 0528 101.4 01/15 0400 97 Nasal 2.0L Cannula 01/15 0017 93 Nasal 2.0L Cannula 01/14 2200 97.6 72 14 117/59 95 Nasal 2.0L Cannula 01/14 2001 97 Nasal 2.0L Cannula 01/14 1833 97.9 01/14 1726 100.7 01/14 1723 98 Nasal 2.0L Cannula 01/14 1545 92 Nasal 6.0L Cannula 01/14 1425 98.4 83 20 121/83 98 Nasal 4.0L Cannula 01/14 1300 95 Nasal 4.0L Cannula 01/14 0800 99 Nasal 3.0L Cannula Intake & Output 01/15 0800 01/15 0000 01/14 1600 01/14 0800 01/14 0000 01/13 1600 Intake Total 500 800 370 155 5551 Output Total 200 350 250 350 300 Balance 300 800 130 -250 -150 1700 Intake, IV 477 954 8200 Intake, Oral 300 480 200 0 Number 0 Bowel Movements Output, Urine 200 350 250 350 300 Patient 218 lb 218 lb Weight Weight Reported by Patient Reported by Patient Measurement Method Physical Exam: Tmax 101.4 Sat 97% on 2LNC RR 14 General: alert and oriented times three Chest: clear anteriorly bilaterally, RRR Abd: soft, good bs Ext: warm, no edema Wound: dressed, dry Current Medications: Current Medications Sig/Festus Start time Last Medication Dose Route Stop Time Status Admin Acetaminophen 650 MG .STK-MED ONE 01/14 1716 DC PO 01/14 1717 Acetaminophen 650 MG Q6P PRN 01/13 1600 AC 01/14 PO 1726 Acetaminophen 1,000 MG Q6P PRN 01/13 1600 AC 01/15 IV 0528 Albuterol Sulfate 3 ML TID 01/14 1000 AC 01/14 INH 1558 Albuterol Sulfate 3 ML Q4H PRN 01/13 1645 AC INH Atorvastatin Calcium 10 MG DAILY 01/13 1642 AC 01/14 PO 1528 Ceftriaxone Sodium 2,000 MG DAILY@1400 01/14 1400 AC 01/14 IV 1529 Diltiazem HCl 360 MG DAILY 01/14 1000 AC 01/14 PO 1527 Hydromorphone HCl 2 MG .STK-MED ONE 01/14 1005 DC IM 01/14 1006 Hydromorphone HCl 2 MG .STK-MED ONE 01/14 0949 DC IM 01/14 0950 Insulin Aspart 0 TIDAC 01/14 0800 AC SC Ipratropium [place] 2.5 ML Q4 HRS NEEDED PRN 01/13 1645 AC INH Lidocaine 1 PAT Q24H 01/13 1600 AC 01/14 EXT 1833 Meperidine HCl 50 MG .STK-MED ONE 01/14 0949 DC IM 01/14 0950 Morphine Sulfate 2 MG Q4P PRN 01/13 1600 AC 01/14 IV 1852 Rivaroxaban 15 MG DAILY 01/14 1000 AC 01/14 PO 1528 Sodium Chloride 1,000 ML Q10H 01/14 1800 DC 01/14 IV 01/15 0359 1833 Results Last 48 Hours of Labs: Laboratory Tests 01/15 01/14 01/14 0430 1655 1620 Chemistry Sodium (137 - 145 mmol/L) 138 Cancelled 139 Potassium (3.5 - 5.1 mmol/L) 4.5 Cancelled 4.6 Chloride (98 - 107 mmol/L) 107 Cancelled 104 Carbon Dioxide (22 - 30 mmol/L) 19 L Cancelled 21 L Anion Gap (5 - 16) 12 Cancelled 13 BUN (9 - 20 mg/dL) 51 H Cancelled 47 H Creatinine (0.7 - 1.2 mg/dL) 3.6 H Cancelled 3.1 H Estimated GFR (>60 ml/min) 16 L 19 L Glucose (65 - 99 mg/dL) 105 H Cancelled 96 Calcium (8.4 - 10.2 mg/dL) 7.9 L Cancelled 8.3 L Phosphorus (2.5 - 4.5 mg/dL) 4.5 Cancelled 4.7 H Magnesium (1.6 - 2.3 mg/dL) 2.2 Cancelled 2.1 Total Bilirubin (0.2 - 1.3 mg/dL) 0.8 Cancelled 1.2 Direct Bilirubin (< 0.4 mg/dL) 1.0 H AST (17 - 59 U/L) 50 Cancelled 65 H ALT (21 - 72 U/L) 29 Cancelled 34 Alkaline Phosphatase (< 127 U/L) 124 Troponin I (<0.11 ng/ml) 0.03 Total Protein (6.3 - 8.2 g/dL) 6.7 Albumin (3.5 - 5.0 g/dL) 3.1 L Cancelled 3.6 Coagulation D-Dimer High Sensitivty (0 - 243 ng/ml) 530 H Hematology CBC w Diff NO MAN DIFF REQ WBC (4.8 - 10.8 /CUMM) 6.2 RBC (4.70 - 6.10 /CUMM) 3.27 L Hgb (14.0 - 18.0 G/DL) 9.5 L Hct (42 - 52 %) 29.3 L MCV (80.0 - 94.0 FL) 89.7 MCH (27.0 - 31.0 PG) 29.0 RDW (11.5 - 14.5 %) 14.9 H Plt Count (130 - 400 /CUMM) 157 MPV (7.4 - 10.4 FL) 8.8 Gran % (42.2 - 75.2 %) 76.9 H Lymphocytes % (20.5 - 51.1 %) 8.6 L Monocytes % (1.7 - 9.3 %) 13.8 H Eosinophils % (0 - 5 %) 0.6 Basophils % (0.0 - 2.0 %) 0.1 Absolute Granulocytes (1.4 - 6.5 /CUMM) 4.8 Absolute Lymphocytes (1.2 - 3.4 /CUMM) 0.5 L Absolute Monocytes (0.10 - 0.60 /CUMM) 0.9 H Absolute Eosinophils (0.0 - 0.7 /CUMM) 0 Absolute Basophils (0.0 - 0.2 /CUMM) 0 PUBS MCHC (33.0 - 37.0 G/DL) 32.3 L 01/14 01/14 1610 UNK Blood Gas pH (7.35 - 7.45 PH) 7.34 L pCO2 (35 - 45 TORR) 36 pO2 (80 - 100 TORR) 87 HCO3 (21 - 28 MEQ/L) 19 L ABG O2 Sat (Measured) (>96.0 %) 96.0 Carboxyhemoglobin (1.5 - 5.0 %) 1.2 L O2 Concentration % 6L O2 Delivery Method NC Chemistry Sodium Cancelled Potassium Cancelled Chloride Cancelled Carbon Dioxide Cancelled Anion Gap Cancelled BUN Cancelled Creatinine Cancelled Glucose Cancelled Calcium Cancelled Phosphorus Cancelled Magnesium Cancelled Total Bilirubin Cancelled AST Cancelled ALT Cancelled Albumin Cancelled Miscellaneous Phlebotomy Draw Site RIGHT RADIAL 01/14 01/13 6248 9235 Chemistry Sodium (137 - 145 mmol/L) 138 Potassium (3.5 - 5.1 mmol/L) 4.5 Chloride (98 - 107 mmol/L) 106 Carbon Dioxide (22 - 30 mmol/L) 22 Anion Gap (5 - 16) 10 BUN (9 - 20 mg/dL) 43 H Creatinine (0.7 - 1.2 mg/dL) 2.9 H Estimated GFR (>60 ml/min) 21 L BUN/Creatinine Ratio (7 - 25 %) 14.8 Hematology CBC w Diff NO MAN DIFF REQ WBC (4.8 - 10.8 /CUMM) 9.3 RBC (4.70 - 6.10 /CUMM) 3.60 L Hgb (14.0 - 18.0 G/DL) 10.5 L Hct (42 - 52 %) 32.3 L MCV (80.0 - 94.0 FL) 89.5 MCH (27.0 - 31.0 PG) 29.0 RDW (11.5 - 14.5 %) 14.4 Plt Count (130 - 400 /CUMM) 168 MPV (7.4 - 10.4 FL) 8.5 Gran % (42.2 - 75.2 %) 82.3 H Lymphocytes % (20.5 - 51.1 %) 7.4 L Monocytes % (1.7 - 9.3 %) 10.1 H Eosinophils % (0 - 5 %) 0 Basophils % (0.0 - 2.0 %) 0.2 Absolute Granulocytes (1.4 - 6.5 /CUMM) 7.7 H Absolute Lymphocytes (1.2 - 3.4 /CUMM) 0.7 L Absolute Monocytes (0.10 - 0.60 /CUMM) 0.9 H Absolute Eosinophils (0.0 - 0.7 /CUMM) 0 Absolute Basophils (0.0 - 0.2 /CUMM) 0 PUBS MCHC (33.0 - 37.0 G/DL) 32.4 L Urines Ur Random Creatinine Cancelled U Random Total Protein Cancelled 01/13 01/13 1656 1632 Chemistry Lactic Acid Cancelled Urines Urine Color (YEL,AMB,STR) YEL Urine Clarity (CLEAR) CLDY H Urine pH (5.0 - 8.0) 6.0 Ur Specific [place] (1.001 - 1.035) 1.025 Urine Protein (NEG,<30 MG/DL) 100 H Urine Ketones (NEG) NEG Urine Nitrite (NEG) NEG Urine Bilirubin (NEG) NEG Urine Urobilinogen (0.1 - 1.0 EU/dl) 1.0 Ur Leukocyte Esterase (NEG) NEG Ur Microscopic SEDIMENT EXAMINED Urine RBC (0 - 5 /HPF) 15-25 H Urine WBC (0 - 2 /HPF) 5-10 H Ur Epithelial Cells (NONE,FEW) MOD H Urine Bacteria (NEG/NONE) FEW H Urine Hemoglobin (NEG) MOD H Urine Glucose (N MG/DL) NEG 01/13 01/13 01/13 01/13 1548 1405 1332 1248 Chemistry Lactic Acid Cancelled Cancelled Cancelled Hematology Lymphocytes (%) 1 % Normal PMNs (%) 94 Misc Hematology Test (%) Other Body Source Fluid WBC (0 - 5 /CUMM) 300957 H Fld Total RBCs Counted (0 /CUMM) 6050 H 01/13 01/13 01/13 1040 1040 0907 Chemistry Sodium (137 - 145 mmol/L) 140 Potassium (3.5 - 5.1 mmol/L) 4.0 Chloride (98 - 107 mmol/L) 104 Carbon Dioxide (22 - 30 mmol/L) 22 Anion Gap (5 - 16) 14 BUN (9 - 20 mg/dL) 37 H Creatinine (0.7 - 1.2 mg/dL) 2.5 H Estimated GFR (>60 ml/min) 25 L BUN/Creatinine Ratio (7 - 25 %) 14.8 Glucose (65 - 99 mg/dL) 125 H Hemoglobin A1c (4.2 - 5.8 %) Pending Lactic Acid (0.7 - 2.1 mmol/L) 2.1 Calcium (8.4 - 10.2 mg/dL) 8.8 Total Bilirubin (0.2 - 1.3 mg/dL) 1.4 H GGT (15 - 73 U/L) 119 H AST (17 - 59 U/L) 26 ALT (21 - 72 U/L) 29 Alkaline Phosphatase (< 127 U/L) 138 H Total Protein (6.3 - 8.2 g/dL) 7.1 Albumin (3.5 - 5.0 g/dL) 4.1 Globulin (1.9 - 4.2 gm/dL) 3.0 Albumin/Globulin Ratio (1.1 - 2.2 %) 1.4 Hematology CBC w Diff NO MAN DIFF REQ WBC (4.8 - 10.8 /CUMM) 8.1 RBC (4.70 - 6.10 /CUMM) 3.99 L Hgb (14.0 - 18.0 G/DL) 11.5 L Hct (42 - 52 %) 35.8 L MCV (80.0 - 94.0 FL) 89.5 MCH (27.0 - 31.0 PG) 28.8 RDW (11.5 - 14.5 %) 14.3 Plt Count (130 - 400 /CUMM) 210 MPV (7.4 - 10.4 FL) 8.4 Gran % (42.2 - 75.2 %) 82.4 H Lymphocytes % (20.5 - 51.1 %) 7.0 L Monocytes % (1.7 - 9.3 %) 9.9 H Eosinophils % (0 - 5 %) 0.1 Basophils % (0.0 - 2.0 %) 0.6 Absolute Granulocytes (1.4 - 6.5 /CUMM) 6.7 H Absolute Lymphocytes (1.2 - 3.4 /CUMM) 0.6 L Lymphocytes (%) 5 Absolute Monocytes (0.10 - 0.60 /CUMM) 0.8 H Absolute Eosinophils (0.0 - 0.7 /CUMM) 0 Absolute Basophils (0.0 - 0.2 /CUMM) 0 % Normal PMNs (%) 92 PUBS MCHC (33.0 - 37.0 G/DL) 32.1 L ESR Westergren (0 - 10 MM) 69 H Other Body Source Fluid WBC (0 - 5 /CUMM) 15336 H Fld Mesothelial Cells (%) Fld Total RBCs Counted (0 /CUMM) 3658 H Fluid Glucose (mg/dL) ND Fluid Total Protein (g/dL) ND Recent Imaging Studies: CXR last night - LLL consolidation Assessment/Plan Assessment/Plan 87 yo male s/p L septic knee washout POD 1 with multiple medical comorbidities including tachy/rosalva syndrome, s/p ppm, chronic renal insufficiency Pt will be weight bear as tolerated Recommend PT if safe to get OOB Acute on chronic renal failure - creatinine 3.6 today - ?renal consult Continue xarelto rocephin per ID follow up OR cultures Plans per medical team Core Measures/Miscellaneous Venous Thromboembolism VTE Risk Factors: Age > 40, Surgery VTE Contraindications: No Contraindications VTE Diagnosis: No VTE Type: NONE VTE Confirmed by (Test): NONE Beta Mary Beth Is Beta Mary Beth a Home Med? No Antibiotics Is Patient on Antibiotics? Yes If Yes: infection
[2017-01-15 08:00] VITALS: BP 98/58
--- NOTE | 2017-01-15 10:02 | ULTRASOUND REPORT ---
EXAMINATION: US ABDOMEN LIMITED CLINICAL INFORMATION: Bilirubin elevation. COMPARISON: None TECHNIQUE: Real-time imaging of the right upper quadrant abdominal viscera. FINDINGS: PANCREAS: Normal. LIVER: Normal. The liver has normal size, contour and echotexture. No focal lesion or intrahepatic biliary duct dilatation. GALLBLADDER: Normal. The gallbladder is physiologically distended without evidence of stones, sludge, polyps, wall thickening or pericholecystic fluid. COMMON BILE DUCT: Normal in caliber measuring 0.4 cm in diameter. RIGHT KIDNEY: Normal. No hydronephrosis. No renal calculi or focal parenchymal lesions. The kidney measures 12.6 cm in maximum dimension. FREE FLUID: None. IMPRESSION: No significant sonographic abnormalities in the examined right upper quadrant. Liver echotexture is within normal range. No evidence of cholelithiasis or biliary tract obstruction.
--- NOTE | 2017-01-15 10:52 | PN- Infect Dx ---
Subjective Subjective: MAXIMUM TEMPERATURE 101.4. He was moved to ICU yesterday afternoon because of respiratory distress and hypoxia. He feels comfortable presently with no pain in the left knee and with no respiratory distress. Objective Last 24 Hrs of Vital Signs/I&O Vital Signs Date Time Temp Pulse Resp B/P B/P Pulse O2 O2 Flow FiO2 Mean Ox Delivery Rate 01/15 0810 98 Nasal 2.0L Cannula 01/15 0642 101.0 01/15 0528 101.4 01/15 0400 97 Nasal 2.0L Cannula 01/15 0017 93 Nasal 2.0L Cannula 01/14 2200 97.6 72 14 117/59 95 Nasal 2.0L Cannula 01/14 2001 97 Nasal 2.0L Cannula 01/14 1833 97.9 01/14 1726 100.7 01/14 1723 98 Nasal 2.0L Cannula 01/14 1545 92 Nasal 6.0L Cannula 01/14 1425 98.4 83 20 121/83 98 Nasal 4.0L Cannula 01/14 1300 95 Nasal 4.0L Cannula Intake & Output 01/15 1600 01/15 0800 01/15 0000 Intake Total 500 800 Output Total 200 Balance 300 800 Intake, IV 500 500 Intake, Oral 300 Output, Urine 200 Physical Exam Other Physical Findings: He appears comfortable in no acute distress Chest pacemaker in the left upper chest with no inflammation at the site Lungs are clear Heart regular rhythm with no murmur Abdomen is soft, nontender with positive bowel sounds Extremities left knee dressing intact Results Last 24 Hours of Lab Results: Laboratory Tests 01/15 01/14 01/14 0430 1655 1620 Chemistry Sodium (137 - 145 mmol/L) 138 Cancelled 139 Potassium (3.5 - 5.1 mmol/L) 4.5 Cancelled 4.6 Chloride (98 - 107 mmol/L) 107 Cancelled 104 Carbon Dioxide (22 - 30 mmol/L) 19 L Cancelled 21 L Anion Gap (5 - 16) 12 Cancelled 13 BUN (9 - 20 mg/dL) 51 H Cancelled 47 H Creatinine (0.7 - 1.2 mg/dL) 3.6 H Cancelled 3.1 H Estimated GFR (>60 ml/min) 16 L 19 L Glucose (65 - 99 mg/dL) 105 H Cancelled 96 Calcium (8.4 - 10.2 mg/dL) 7.9 L Cancelled 8.3 L Phosphorus (2.5 - 4.5 mg/dL) 4.5 Cancelled 4.7 H Magnesium (1.6 - 2.3 mg/dL) 2.2 Cancelled 2.1 Total Bilirubin (0.2 - 1.3 mg/dL) 0.8 Cancelled 1.2 Direct Bilirubin (< 0.4 mg/dL) 1.0 H AST (17 - 59 U/L) 50 Cancelled 65 H ALT (21 - 72 U/L) 29 Cancelled 34 Alkaline Phosphatase (< 127 U/L) 124 Troponin I (<0.11 ng/ml) 0.03 Total Protein (6.3 - 8.2 g/dL) 6.7 Albumin (3.5 - 5.0 g/dL) 3.1 L Cancelled 3.6 Coagulation D-Dimer High Sensitivty (0 - 243 ng/ml) 530 H Hematology CBC w Diff NO MAN DIFF REQ WBC (4.8 - 10.8 /CUMM) 6.2 RBC (4.70 - 6.10 /CUMM) 3.27 L Hgb (14.0 - 18.0 G/DL) 9.5 L Hct (42 - 52 %) 29.3 L MCV (80.0 - 94.0 FL) 89.7 MCH (27.0 - 31.0 PG) 29.0 RDW (11.5 - 14.5 %) 14.9 H Plt Count (130 - 400 /CUMM) 157 MPV (7.4 - 10.4 FL) 8.8 Gran % (42.2 - 75.2 %) 76.9 H Lymphocytes % (20.5 - 51.1 %) 8.6 L Monocytes % (1.7 - 9.3 %) 13.8 H Eosinophils % (0 - 5 %) 0.6 Basophils % (0.0 - 2.0 %) 0.1 Absolute Granulocytes (1.4 - 6.5 /CUMM) 4.8 Absolute Lymphocytes (1.2 - 3.4 /CUMM) 0.5 L Absolute Monocytes (0.10 - 0.60 /CUMM) 0.9 H Absolute Eosinophils (0.0 - 0.7 /CUMM) 0 Absolute Basophils (0.0 - 0.2 /CUMM) 0 PUBS MCHC (33.0 - 37.0 G/DL) 32.3 L 01/14 1610 Blood Gas pH (7.35 - 7.45 PH) 7.34 L pCO2 (35 - 45 TORR) 36 pO2 (80 - 100 TORR) 87 HCO3 (21 - 28 MEQ/L) 19 L ABG O2 Sat (Measured) (>96.0 %) 96.0 Carboxyhemoglobin (1.5 - 5.0 %) 1.2 L O2 Concentration % 6L O2 Delivery Method NC Miscellaneous Phlebotomy Draw Site RIGHT RADIAL Last 24 Hours of Federico Results: Blood cultures January 13 negative Blood cultures January 14 negative Left knee synovial fluid culture January 13 positive for Escherichia coli sensitive to all antibiotics tested OR culture left knee synovial fluid January 14 negative Urine culture January 13 multiple colony types consistent with contamination Recent Imaging Studies: Chest x-ray January 14 negative Right upper quadrant ultrasound January 15 negative Assessment/Plan Impression: Stable status post arthroscopic irrigation and debridement yesterday for 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 He was febrile overnight though his white blood cell count remains normal on Ceftriaxone. His creatinine continues to increase, possibly secondary to urinary retention versus ATN from sepsis and he will need further evaluation. His respiratory status appears to be stable with recent chest x-ray negative. The source of his Escherichia coli remains unclear. It is unlikely related to his recent podiatric visit, as he only had his toenails clipped, and a gram-negative zackary would be unusual in this setting. I am more concerned about a GI, though he has no GI symptoms or abdominal tenderness and his right upper quadrant ultrasound is negative, or a process, with chronic urinary complaints of hesitancy and occasional dysuria, with his urine culture contaminated with mixed gram-positive organisms. Suggestion: 1. Bladder scan and straight cath if high residual 2. CT of the abdomen and pelvis without IV contrast 3. Renal consult 4. Follow-up final cultures 5. Discontinue Ceftriaxone 6. Begin Ciprofloxacin 750 mg po every 24 hours
--- NOTE | 2017-01-15 10:57 | PN- Att Addend ---
Attending Addendum Attending Brief Note Events from yesterday noted patient originally admitted for a septic joint, had surgical procedure done the morning he did well but later on that afternoon, a rapid response was called due to increased shortness of breath and hypoxemia transferred to ICU, to be followed by cardiology and pulmonary today is feeling better not short of breath workup continues to find out the etiology of the episode. The cultures of the knee were noted also working up the cause of the infection infectious diseases involved in the decision of the antibiotic treatment, he will be needing long time antibiotic therapy.. 24 TOTALS 01/15 0000 01/14 0000 Intake Total 1280 2200 Output Total 600 650 Balance 680 1550 Intake, IV 500 2000 Intake, Oral 780 200 Number 0 Bowel Movements Output, Urine 600 650 Patient 218 lb Weight Weight Reported by Patient Measurement Method Current Medications Sig/Festus Start time Last Medication Dose Route Stop Time Status Admin Acetaminophen 650 MG .STK-MED ONE 01/14 1716 DC PO 01/14 1717 Acetaminophen 650 MG Q6P PRN 01/13 1600 AC 01/14 PO 1726 Acetaminophen 1,000 MG Q6P PRN 01/13 1600 AC 01/15 IV 0528 Albuterol Sulfate 3 ML TID 01/14 1000 AC 01/15 INH 0807 Albuterol Sulfate 3 ML Q4H PRN 01/13 1645 AC INH Atorvastatin Calcium 10 MG DAILY 01/13 1642 AC 01/14 PO 1528 Ceftriaxone Sodium 2,000 MG DAILY@1400 01/14 1400 AC 01/14 IV 1529 Diltiazem HCl 360 MG DAILY 01/14 1000 AC 01/14 PO 1527 Insulin Aspart 0 TIDAC 01/14 0800 AC SC Ipratropium [place] 2.5 ML Q4 HRS NEEDED PRN 01/13 1645 AC INH Lidocaine 1 PAT Q24H 01/13 1600 AC 01/14 EXT 1833 Morphine Sulfate 2 MG Q4P PRN 01/13 1600 AC 01/14 IV 1852 Rivaroxaban 15 MG DAILY 01/14 1000 AC 01/14 PO 1528 Sodium Chloride 1,000 ML Q10H 01/14 1800 DC 01/14 IV 01/15 0359 1833 Laboratory Tests 01/15/ 0430: Anion Gap 12, Estimated GFR 16 L, Glucose 105 H, Calcium 7.9 L, Phosphorus 4.5, Magnesium 2.2, Total Bilirubin 0.8, AST 50, ALT 29, Albumin 3.1 L, CBC w Diff NO MAN DIFF REQ, RBC 3.27 L, MCV 89.7, MCH 29.0, RDW 14.9 H, MPV 8.8, Gran % 76.9 H, Lymphocytes % 8.6 L, Monocytes % 13.8 H, Eosinophils % 0.6, Basophils % 0.1, Absolute Granulocytes 4.8, Absolute Lymphocytes 0.5 L, Absolute Monocytes 0.9 H, Absolute Eosinophils 0, Absolute Basophils 0, PUBS MCHC 32.3 L 01/14/17 1655: Sodium Cancelled, Potassium Cancelled, Chloride Cancelled, Carbon Dioxide Cancelled, Anion Gap Cancelled, BUN Cancelled, Creatinine Cancelled, Glucose Cancelled, Calcium Cancelled, Phosphorus Cancelled, Magnesium Cancelled, Total Bilirubin Cancelled, AST Cancelled, ALT Cancelled, Albumin Cancelled 01/14/17 1620: Anion Gap 13, Estimated GFR 19 L, Glucose 96, Calcium 8.3 L, Phosphorus 4.7 H , Magnesium 2.1, Total Bilirubin 1.2, Direct Bilirubin 1.0 H, AST 65 H, ALT 34 , Alkaline Phosphatase 124, Troponin I 0.03, Total Protein 6.7, Albumin 3.6, D- Dimer High Sensitivty 530 H 01/14/17 1610: pH 7.34 L, pCO2 36, pO2 87, HCO3 19 L, ABG O2 Sat (Measured) 96.0, Carboxyhemoglobin 1.2 L, O2 Concentration % 6L, O2 Delivery Method NC, Phlebotomy Draw Site RIGHT RADIAL 01/14/17 1000: Sodium Cancelled, Potassium Cancelled, Chloride Cancelled, Carbon Dioxide Cancelled, Anion Gap Cancelled, BUN Cancelled, Creatinine Cancelled, Glucose Cancelled, Calcium Cancelled, Phosphorus Cancelled, Magnesium Cancelled, Total Bilirubin Cancelled, AST Cancelled, ALT Cancelled, Albumin Cancelled 01/14/17 0614: Anion Gap 10, Estimated GFR 21 L, BUN/Creatinine Ratio 14.8, CBC w Diff NO MAN DIFF REQ, RBC 3.60 L, MCV 89.5, MCH 29.0, RDW 14.4, MPV 8.5, Gran % 82.3 H, Lymphocytes % 7.4 L, Monocytes % 10.1 H, Eosinophils % 0, Basophils % 0.2, Absolute Granulocytes 7.7 H, Absolute Lymphocytes 0.7 L, Absolute Monocytes 0.9 H, Absolute Eosinophils 0, Absolute Basophils 0, PUBS MCHC 32.4 L 01/13/17 1713: Ur Random Creatinine Cancelled, U Random Total Protein Cancelled 01/13/17 1656: Urine Color YEL, Urine Clarity CLDY H, Urine pH 6.0, Ur Specific [place] 1.025, Urine Protein 100 H, Urine Ketones NEG, Urine Nitrite NEG, Urine Bilirubin NEG, Urine Urobilinogen 1.0, Ur Leukocyte Esterase NEG, Ur Microscopic SEDIMENT EXAMINED, Urine RBC 15-25 H, Urine WBC 5-10 H, Ur Epithelial Cells MOD H, Urine Bacteria FEW H, Urine Hemoglobin MOD H, Urine Glucose NEG 01/13/17 1632: Lactic Acid Cancelled 01/13/17 1548: Lactic Acid Cancelled 01/13/17 1405: Lymphocytes 1, % Normal PMNs 94, Misc Hematology Test , Fluid WBC 264446 H, Fld Total RBCs Counted 6050 H 01/13/17 1332: Lactic Acid Cancelled 01/13/17 1248: Lactic Acid Cancelled Microbiology 01/13 1656 URINE ROUT: Urine Culture - COMP 01/13 1455 BODY FLUID: Body Fluid Culture - COMP 01/13 1455 BODY FLUID: Gram Stain - COMP Monitoring renal function closely.
--- NOTE | 2017-01-15 13:05 | NUCLEAR MEDICINE REPORT ---
EXAMINATION: PULMONARY VENTILATION PERFUSION STUDY CLINICAL INFORMATION: Hypoxic, increasing O2 requirements. COMPARISON: No previous radionuclide lung scan is available for comparison. Radiographs of the chest dated 01/14/2017 are available for comparison. TECHNIQUE: Serial gamma scintillation camera images were obtained over the posterior chest during the single breath, equilibrium rebreathing and washout of 10.1 mCi Xe 133 gas. The patient then received 4.4 mCi Tc-99m MAA intravenously and a 6-view perfusion study was performed. FINDINGS: Ventilation images: On the single breath and equilibrium images there is homogeneous distribution of gas bilaterally. During the washout phase there is no abnormal retention. Perfusion images: No segmental perfusion defects are present. There is homogeneous distribution of activity bilaterally. There are no focal anatomic appearing perfusion defects present. The cardiac silhouette and mediastinum appear dilated. IMPRESSION: Very low probability of pulmonary embolism. Cardiomegaly.
--- NOTE | 2017-01-15 13:35 | CT SCAN REPORT ---
EXAMINATION: CT ABDOMEN AND PELVIS WITHOUT CONTRAST CLINICAL INFORMATION: GI acute infection. Gram-negative growth in knee aspirate. COMPARISON: CT chest abdomen pelvis 11/15/2015. TECHNIQUE: Multidetector volumetric imaging was performed from the superior aspect of the liver through the pubic symphysis. Sagittal and coronal reformatted images were obtained on the technologist's workstation. DLP: 1008 mGy-cm FINDINGS: Examination is limited secondary to intravenous contrast. LUNG BASES: There is a chronic 0.4 cm right lower lobe pulmonary nodule on image 8/97. Nonspecific tiny subpleural nodular opacity at the left lung base on image 13/97, unchanged compared to prior exam. No pleural effusion. LIVER, GALLBLADDER, AND BILIARY TREE: The liver is normal in size, shape, and attenuation. No focal hepatic lesion or biliary ductal dilatation is present. Hyperdense biliary sludge within the gallbladder lumen. No calcified gallstones or evidence of cholecystitis. PANCREAS: Unremarkable. SPLEEN: Mildly enlarged at 13.6 cm (previously 12.4 cm). ADRENAL GLANDS: Unremarkable. KIDNEYS AND URETERS: There is nonspecific bilateral perinephric stranding which was present on prior exam. No hydronephrosis. No renal or ureteral calculi demonstrated. Chronic cyst along the posterior medial right mid kidney measuring 1.7 cm in diameter BLADDER: Incompletely distended. GASTROINTESTINAL TRACT: Bowel gas pattern is nonobstructive. Equivocal mural thickening of the transverse colon, which is incompletely distended. No other evidence of acute large or small bowel inflammation. Scattered clonic diverticula. ABDOMINAL WALL: No significant hernia is appreciated. LYMPH NODES: No adenopathy. VASCULAR: Scattered atherosclerotic calcification including coronary artery calcification. Pacing lead in the right heart. PELVIC VISCERA: Punctate calcifications in the central prostate gland. Seminal vesicles are unremarkable. No free pelvic fluid. Surgical clips in the right inguinal region. OSSEOUS STRUCTURES: No acute osseous abnormalities. Multilevel degenerative changes of the spine. Degenerative changes at the hips. IMPRESSION: 1. Equivocal mild mural thickening of the transverse colon, which is incompletely distended. It is unclear whether this reflects technical factors or low level bowel inflammation. No surrounding inflammatory stranding. 2. Bilateral nonspecific perinephric stranding was present on prior CT scan. Please correlate with urinalysis to assess for genitourinary infection. 3. Scattered atherosclerotic disease including coronary artery calcification. 4. Examination mildly limited secondary to lack of intravenous contrast. 5. Additional findings as above.
--- NOTE | 2017-01-15 14:55 | Cons- Nephrology ---
General Information and HPI Consulting Request Date of Consult: 01/15/17 Requested By: ANJALI SALGADO MD Reason for Consult: Acute Superimposed on chronic kidney disease Source of Information: patient, old records Exam Limitations: no limitations History of Present Illness: Is 87-year-old gentleman was admitted with left knee pain, found to have an infected left knee with Escherichia coli. He says he was feeling well up until then. His his son reports that his father did look poorly and had pain on Father's Day. He then went for a washout of the knee yesterday. Otherwise he has a history of chronic kidney disease for which he had been seen by Sumit Donohue MD. His most recent visit was in April of this year. Serum creatinine was 2.0 time. Otherwise he has no history of kidney stones kidney infections. Reports feeling much better since the left knee was drained. Otherwise no history of kidney stones kidney infections. Allergies/Medications Allergies: Coded Allergies: NO KNOWN ALLERGIES (11/15/15) Home Med List: Albuterol Sulfate (Proair Hfa) 0.09 MG/Actuation [place]ANWAL 2 PUFF INH Q4-6H PRN DYSPNEA (Reported) Atorvastatin Calcium (Lipitor) 10 MG TABLET 1 TAB PO DAILY CHOLESTEROL ( Reported) DILTIAZEM HCL (Cardizem Cd) 360 MG C24 1 CAP PO DAILY HEART (Reported) Furosemide 20 MG TAB 1 TAB PO DAILY WATER PILL (Reported) Losartan (Cozaar) 100 MG TABLET 1 TAB PO DAILY BP/HEART (Reported) Rivaroxaban (Xarelto) 20 MG TAB 1 TAB PO QPM BLOOD THINNER (Reported) with food Review of Systems Review of Systems Constitutional: Denies: chills, malaise, weakness. EENTM: Reports: blurred vision, visual changes. Denies: double vision, throat pain, throat swelling, mouth pain. Cardiovascular: Denies: chest pain, edema, orthopena, palpitations, peripheral edema. Respiratory: Reports: short of breath. Denies: cough, orthopnea. GI: Reports: constipation, distention. Denies: bloating, diarrhea, melena, nausea, vomiting. Genitourinary: Denies: dysuria, frequency, hematuria, hesitation. Musculoskeletal: Denies: back pain, joint pain, joint swelling. Skin: Denies: rash. Neurological/Psychological: Denies: tremors, tonic-clonic seizures. Hematologic/Endocrine: Denies: bruising, bleeding. Past History Travel History Traveled to [place] past 21 day No Medical History Neurological: NONE EENT: reports that he has issues with his vision. He is due to see his hospital carrier on February 08. He apparently had implants presumably after cataracts. 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 His creatinine at that point was 2.0. 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 yes Functional Ability ADLs Independent: dressing, eating, toileting, bathing. Ambulation: independent IADLs Independent: shopping, housework, finances, food prep, telephone, transportation , medication admin. Exam & Diagnostic Data Vital Signs and I&O Vital Signs Date Time Temp Pulse Resp B/P B/P Pulse O2 O2 Flow FiO2 Mean Ox Delivery Rate 01/15 0810 98 Nasal 2.0L Cannula 01/15 0642 101.0 01/15 0528 101.4 01/15 0400 97 Nasal 2.0L Cannula 01/15 0017 93 Nasal 2.0L Cannula 01/14 2200 97.6 72 14 117/59 95 Nasal 2.0L Cannula 01/14 2001 97 Nasal 2.0L Cannula 01/14 1833 97.9 01/14 1726 100.7 01/14 1723 98 Nasal 2.0L Cannula 01/14 1545 92 Nasal 6.0L Cannula Intake & Output 01/15 1600 01/15 0400 01/14 1600 01/14 0400 01/13 1600 01/13 040 Intake Total 500 800 059 803 8601 Output Total 200 600 350 300 Balance 300 800 -120 -150 1700 Intake, IV 249 563 2871 Intake, Oral 300 480 200 0 Number 0 Bowel Movements Output, Urine 200 600 350 300 Patient 218 lb 218 lb Weight Weight Reported by Patient Reported by Patient Measurement Method Physical Exam General Appearance: well developed/nourished, no apparent distress, obese Head: atraumatic Eyes: Bilateral: EOMI, pale conjunctivae. Neck: trachea mid line, no midline tenderness Respiratory: decreased breath sounds, both bases Cardiovascular: regular rate/rhythm Gastrointestinal: normal bowel sounds, soft, non-tender Back: normal inspection Extremities: pedal edema Neurologic/Psych: part of hearing Skin: intact Results Pertinent Lab Results: Laboratory Tests 01/15 01/14 01/14 0430 1655 1620 Chemistry Sodium (137 - 145 mmol/L) 138 Cancelled 139 Potassium (3.5 - 5.1 mmol/L) 4.5 Cancelled 4.6 Chloride (98 - 107 mmol/L) 107 Cancelled 104 Carbon Dioxide (22 - 30 mmol/L) 19 L Cancelled 21 L Anion Gap (5 - 16) 12 Cancelled 13 BUN (9 - 20 mg/dL) 51 H Cancelled 47 H Creatinine (0.7 - 1.2 mg/dL) 3.6 H Cancelled 3.1 H Estimated GFR (>60 ml/min) 16 L 19 L Glucose (65 - 99 mg/dL) 105 H Cancelled 96 Calcium (8.4 - 10.2 mg/dL) 7.9 L Cancelled 8.3 L Phosphorus (2.5 - 4.5 mg/dL) 4.5 Cancelled 4.7 H Magnesium (1.6 - 2.3 mg/dL) 2.2 Cancelled 2.1 Total Bilirubin (0.2 - 1.3 mg/dL) 0.8 Cancelled 1.2 Direct Bilirubin (< 0.4 mg/dL) 1.0 H AST (17 - 59 U/L) 50 Cancelled 65 H ALT (21 - 72 U/L) 29 Cancelled 34 Alkaline Phosphatase (< 127 U/L) 124 Troponin I (<0.11 ng/ml) 0.03 Total Protein (6.3 - 8.2 g/dL) 6.7 Albumin (3.5 - 5.0 g/dL) 3.1 L Cancelled 3.6 Coagulation D-Dimer High Sensitivty (0 - 243 ng/ml) 530 H Hematology CBC w Diff NO MAN DIFF REQ WBC (4.8 - 10.8 /CUMM) 6.2 RBC (4.70 - 6.10 /CUMM) 3.27 L Hgb (14.0 - 18.0 G/DL) 9.5 L Hct (42 - 52 %) 29.3 L MCV (80.0 - 94.0 FL) 89.7 MCH (27.0 - 31.0 PG) 29.0 RDW (11.5 - 14.5 %) 14.9 H Plt Count (130 - 400 /CUMM) 157 MPV (7.4 - 10.4 FL) 8.8 Gran % (42.2 - 75.2 %) 76.9 H Lymphocytes % (20.5 - 51.1 %) 8.6 L Monocytes % (1.7 - 9.3 %) 13.8 H Eosinophils % (0 - 5 %) 0.6 Basophils % (0.0 - 2.0 %) 0.1 Absolute Granulocytes (1.4 - 6.5 /CUMM) 4.8 Absolute Lymphocytes (1.2 - 3.4 /CUMM) 0.5 L Absolute Monocytes (0.10 - 0.60 /CUMM) 0.9 H Absolute Eosinophils (0.0 - 0.7 /CUMM) 0 Absolute Basophils (0.0 - 0.2 /CUMM) 0 PUBS MCHC (33.0 - 37.0 G/DL) 32.3 L 01/14 01/14 1610 UNK Blood Gas pH (7.35 - 7.45 PH) 7.34 L pCO2 (35 - 45 TORR) 36 pO2 (80 - 100 TORR) 87 HCO3 (21 - 28 MEQ/L) 19 L ABG O2 Sat (Measured) (>96.0 %) 96.0 Carboxyhemoglobin (1.5 - 5.0 %) 1.2 L O2 Concentration % 6L O2 Delivery Method NC Chemistry Sodium Cancelled Potassium Cancelled Chloride Cancelled Carbon Dioxide Cancelled Anion Gap Cancelled BUN Cancelled Creatinine Cancelled Glucose Cancelled Calcium Cancelled Phosphorus Cancelled Magnesium Cancelled Total Bilirubin Cancelled AST Cancelled ALT Cancelled Albumin Cancelled Miscellaneous Phlebotomy Draw Site RIGHT RADIAL 01/14 01/13 1792 1713 Chemistry Sodium (137 - 145 mmol/L) 138 Potassium (3.5 - 5.1 mmol/L) 4.5 Chloride (98 - 107 mmol/L) 106 Carbon Dioxide (22 - 30 mmol/L) 22 Anion Gap (5 - 16) 10 BUN (9 - 20 mg/dL) 43 H Creatinine (0.7 - 1.2 mg/dL) 2.9 H Estimated GFR (>60 ml/min) 21 L BUN/Creatinine Ratio (7 - 25 %) 14.8 Hematology CBC w Diff NO MAN DIFF REQ WBC (4.8 - 10.8 /CUMM) 9.3 RBC (4.70 - 6.10 /CUMM) 3.60 L Hgb (14.0 - 18.0 G/DL) 10.5 L Hct (42 - 52 %) 32.3 L MCV (80.0 - 94.0 FL) 89.5 MCH (27.0 - 31.0 PG) 29.0 RDW (11.5 - 14.5 %) 14.4 Plt Count (130 - 400 /CUMM) 168 MPV (7.4 - 10.4 FL) 8.5 Gran % (42.2 - 75.2 %) 82.3 H Lymphocytes % (20.5 - 51.1 %) 7.4 L Monocytes % (1.7 - 9.3 %) 10.1 H Eosinophils % (0 - 5 %) 0 Basophils % (0.0 - 2.0 %) 0.2 Absolute Granulocytes (1.4 - 6.5 /CUMM) 7.7 H Absolute Lymphocytes (1.2 - 3.4 /CUMM) 0.7 L Absolute Monocytes (0.10 - 0.60 /CUMM) 0.9 H Absolute Eosinophils (0.0 - 0.7 /CUMM) 0 Absolute Basophils (0.0 - 0.2 /CUMM) 0 PUBS MCHC (33.0 - 37.0 G/DL) 32.4 L Urines Ur Random Creatinine Cancelled U Random Total Protein Cancelled 01/13 01/13 1656 1632 Chemistry Lactic Acid Cancelled Urines Urine Color (YEL,AMB,STR) YEL Urine Clarity (CLEAR) CLDY H Urine pH (5.0 - 8.0) 6.0 Ur Specific [place] (1.001 - 1.035) 1.025 Urine Protein (NEG,<30 MG/DL) 100 H Urine Ketones (NEG) NEG Urine Nitrite (NEG) NEG Urine Bilirubin (NEG) NEG Urine Urobilinogen (0.1 - 1.0 EU/dl) 1.0 Ur Leukocyte Esterase (NEG) NEG Ur Microscopic SEDIMENT EXAMINED Urine RBC (0 - 5 /HPF) 15-25 H Urine WBC (0 - 2 /HPF) 5-10 H Ur Epithelial Cells (NONE,FEW) MOD H Urine Bacteria (NEG/NONE) FEW H Urine Hemoglobin (NEG) MOD H Urine Glucose (N MG/DL) NEG 01/13 01/13 01/13 01/13 1548 1405 1332 1248 Chemistry Lactic Acid Cancelled Cancelled Cancelled Hematology Lymphocytes (%) 1 % Normal PMNs (%) 94 Misc Hematology Test (%) Other Body Source Fluid WBC (0 - 5 /CUMM) 886130 H Fld Total RBCs Counted (0 /CUMM) 6050 H 01/13 01/13 01/13 1040 1040 0907 Chemistry Sodium (137 - 145 mmol/L) 140 Potassium (3.5 - 5.1 mmol/L) 4.0 Chloride (98 - 107 mmol/L) 104 Carbon Dioxide (22 - 30 mmol/L) 22 Anion Gap (5 - 16) 14 BUN (9 - 20 mg/dL) 37 H Creatinine (0.7 - 1.2 mg/dL) 2.5 H Estimated GFR (>60 ml/min) 25 L BUN/Creatinine Ratio (7 - 25 %) 14.8 Glucose (65 - 99 mg/dL) 125 H Hemoglobin A1c (4.2 - 5.8 %) 6.1 H Lactic Acid (0.7 - 2.1 mmol/L) 2.1 Calcium (8.4 - 10.2 mg/dL) 8.8 Total Bilirubin (0.2 - 1.3 mg/dL) 1.4 H GGT (15 - 73 U/L) 119 H AST (17 - 59 U/L) 26 ALT (21 - 72 U/L) 29 Alkaline Phosphatase (< 127 U/L) 138 H Total Protein (6.3 - 8.2 g/dL) 7.1 Albumin (3.5 - 5.0 g/dL) 4.1 Globulin (1.9 - 4.2 gm/dL) 3.0 Albumin/Globulin Ratio (1.1 - 2.2 %) 1.4 Hematology CBC w Diff NO MAN DIFF REQ WBC (4.8 - 10.8 /CUMM) 8.1 RBC (4.70 - 6.10 /CUMM) 3.99 L Hgb (14.0 - 18.0 G/DL) 11.5 L Hct (42 - 52 %) 35.8 L MCV (80.0 - 94.0 FL) 89.5 MCH (27.0 - 31.0 PG) 28.8 RDW (11.5 - 14.5 %) 14.3 Plt Count (130 - 400 /CUMM) 210 MPV (7.4 - 10.4 FL) 8.4 Gran % (42.2 - 75.2 %) 82.4 H Lymphocytes % (20.5 - 51.1 %) 7.0 L Monocytes % (1.7 - 9.3 %) 9.9 H Eosinophils % (0 - 5 %) 0.1 Basophils % (0.0 - 2.0 %) 0.6 Absolute Granulocytes (1.4 - 6.5 /CUMM) 6.7 H Absolute Lymphocytes (1.2 - 3.4 /CUMM) 0.6 L Lymphocytes (%) 5 Absolute Monocytes (0.10 - 0.60 /CUMM) 0.8 H Absolute Eosinophils (0.0 - 0.7 /CUMM) 0 Absolute Basophils (0.0 - 0.2 /CUMM) 0 % Normal PMNs (%) 92 PUBS MCHC (33.0 - 37.0 G/DL) 32.1 L ESR Westergren (0 - 10 MM) 69 H Other Body Source Fluid WBC (0 - 5 /CUMM) 49571 H Fld Mesothelial Cells (%) Fld Total RBCs Counted (0 /CUMM) 3658 H Fluid Glucose (mg/dL) ND Fluid Total Protein (g/dL) ND Assessment/Plan Assessment/Recommendations Assessment: 1. Acute kidney injury. Gentleman with left knee pain also Escherichia coli in his left knee. No blood cultures are positive. Nonsteroidal anti-inflammatory drugs taken. He received 1 dose of Vanco. He is not received any gentamicin. This may represent ATN related to his knee. Of note, his blood cultures have been negative. 2. Chronic kidney disease. [place] to be hypertensive nephrosclerosis. 3. Coronary artery disease 4. History of pancreatitis Recommendations: 1. Send a urine sodium and creatinine. If the fractional excretion of sodium is less than 1 or the urinary sodium is low and this may reflect some degree of intravascular volume depletion. 2. Strict intakes and outputs daily weights 3. Check BMP in the morning. 4. Recheck bladder scan, may need to consider Knott catheter.
[2017-01-15 16:00] VITALS: BP 118/70
[2017-01-16] VITALS: BP 124/58
[2017-01-16 04:14] LABS: ABSOLUTE BASOPHIL COUNT 0 /CUMM (0.0-0.2); ABSOLUTE EOSINOPHIL COUNT 0.1 /CUMM (0.0-0.7); ABSOLUTE GRANULOCYTE CT 5.3 /CUMM (1.4-6.5); ABSOLUTE LYMPH COUNT 0.5 /CUMM (1.2-3.4); ABSOLUTE MONOCYTE COUNT 0.7 /CUMM (0.10-0.60); BASOPHIL % 0.2 % (0.0-2.0); EOSINOPHIL % 0.8 % (0-5); GRANULOCYTE % 80.1 % (42.2-75.2); HEMATOCRIT 28.4 % (42-52); MEAN CORPUSCULAR HGB 28.8 PG (27.0-31.0); MEAN CORPUSCULAR HGB CONC 32.3 G/DL (33.0-37.0); MEAN CORPUSCULAR VOLUME 89.3 FL (80.0-94.0); MEAN PLATELET VOLUME 8.6 FL (7.4-10.4); PLATELET COUNT 152 /CUMM (130-400); RBC DISTRIBUTION WIDTH 14.6 % (11.5-14.5); RED BLOOD CELL CT 3.17 /CUMM (4.70-6.10); WHITE BLOOD CELL COUNT 6.6 /CUMM (4.8-10.8)
--- NOTE | 2017-01-16 07:47 | PN- Resident CRCU ---
Subjective HPI/CRCU Issues: Left knee septic arthritis Acute kidney injury Chronic kidney disease History of atrial fibrillation 24 Hour Events: [facility] O/n event of mild hematuria s/p painting catheter noted. VS stable. no other acute o/n event reported. Objective Vital Signs & I&O Last 8 Hrs of Vitals and I&O: Vital Signs Date Time Temp Pulse Resp B/P B/P Pulse O2 O2 Flow FiO2 Mean Ox Delivery Rate 01/16 0921 99.4 01/16 0850 94 Room Air 01/16 0000 97 Nasal 1.0L Cannula 01/16 0000 98.3 88 20 124/58 97 Nasal 1.0L Cannula 01/158 94 Nasal 1.0L Cannula 01/15 1600 98 Nasal 1.0L Cannula 01/15 1600 99.5 66 17 118/70 99 Nasal 1.0L Cannula Intake & Output 01/16 1600 01/16 0800 01/16 0000 Intake Total 840 1050 Output Total 350 500 Balance 490 550 Intake, IV 600 700 Intake, Oral 240 350 Number 0 Bowel Movements Output, Urine 350 500 Exam General Appearance: alert, awake Other Physical Findings: Skin: No Rashes, No Breakdown, left knee dressing intact HEENT: Atraumatic, PERRLA, EOMI, Mucous Membr. moist/pink Neck: Supple, No JVD Lymphatic: Cervical nl Cardiovascular: Normal S1, Normal S2 Lungs: Normal Air Movement Abdomen: Normal Bowel Sounds, Soft, No Tenderness Neurological: Strength at 5/5 X4 Ext, Sensation Intact, Cranial Nerves 3-12 NL Extremities: No Clubbing, No Cyanosis, No Edema Vascular: Pulses Symmetrical Other: Painting intact. Slight Hematuria noted in painting bag. No clots seen. Current Medications: Current Medications Sig/Festus Start time Last Medication Dose Route Stop Time Status Admin Acetaminophen 1,000 MG .STK-MED ONE 01/16 1844 DC IV 01/16 1845 Acetaminophen 650 MG Q6P PRN 01/13 1600 AC 01/14 PO 1726 Acetaminophen 1,000 MG Q6P PRN 01/13 1600 AC 01/16 IV 1841 Albuterol Sulfate 3 ML TID 01/14 1000 AC 01/17 INH 0556 Albuterol Sulfate 3 ML Q4H PRN 01/13 1645 AC INH Atorvastatin Calcium 10 MG 1500 01/17 1500 AC PO Atorvastatin Calcium 10 MG DAILY 01/13 1642 DC 01/16 PO 1620 Bisacodyl 10 MG ONCE ONE 01/16 0830 DC 01/16 CO 01/16 0831 0919 Ciprofloxacin 750 MG DAILY 01/15 1119 AC 01/16 PO 01/19 1118 1620 Diltiazem HCl 360 MG 1500 01/17 1500 AC PO Diltiazem HCl 360 MG DAILY 01/14 1000 DC 01/16 PO 1620 Finasteride 5 MG DAILY 01/17 1000 AC PO Insulin Aspart 0 TIDAC 01/14 0800 AC 01/16 SC 1200 Ipratropium [place] 2.5 ML Q4 HRS NEEDED PRN 01/13 1645 AC INH Lidocaine 1 PAT Q24H 01/13 1600 AC 01/16 EXT 1620 Morphine Sulfate 2 MG Q4P PRN 01/13 1600 AC 01/16 IV 0558 Rivaroxaban 15 MG DAILY 01/14 1000 DC 01/15 PO 1517 Sodium Chloride 1,000 ML Q13H 01/16 1615 DC 01/16 IV 01/17 0514 1620 Impression/Plan Impression/Problem List Impression: This is a 87-year-old male with past medical history significant for coronary artery disease status post angioplasty left circumflex artery 3 times, atrial fibrillation on Cardizem and xaralto, 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 Vitals on presentation afebrile, heart rate 110 respiratory rate 16, blood pressure 128/54, saturating at 96 on room air. Hemoglobin 11.5 and hematocrit 35.8, WBC 8.1. Creatinine 2.5 on admission left knee xray A left knee prosthesis is intact. There is a moderate knee joint effusion. There are no acute fractures No DVT on doppler US. cxr- negative Problem list 1. Left knee septic arthritis and Bacteremia 2. Status post left knee arthroscopy 3. Hematuria 4. History of atrial fibrillation 5. Diabetes mellitus 6. Hypertension 7. Hyperlipidemia 8. Chronic lower extremity swelling 9. COPD history 10,3. Coronary artery disease status post angioplasty Left knee septic arthritis Left knee arthrocentesis cultures positive for E.coli, with his 01/13 BC positive for E.coli too.Patient presented to the hospital with left knee pain, swelling, redness. Off note he is status post bilateral knee replacements 12 years ago. On admission he is afebrile however spiked a temperature 100.6 after several hours. WBC count 8000. Left knee x-ray showed Intact prosthesis with moderate joint effusion. He is status post a left knee joint arthrocentesis twice in the emergency room. Fluid WBC were elevated [id number]. cultures positive for gram-negative rods. * He is status post left knee arthroscopic irrigation and debridement with synovectomy- day4. Knee area examined today with surgical PA. No acute obvious sign of infection. * Gram negative rods, which is not typical pathogen for prostethic septic arthritis. His bilirubin and alkaline phosphatase are elevated, suggesting a possible biliary source, However U/S in negative for any biliary pathology, denies any abdominal pain. * Continue Cipro 750 mg po qd * Out of bed with physical therapy * patient is weightbearing as tolerated, underwent PT today. * PRN pain medication * GI and DVT prophylaxis * Okay to restart Xarelto * Tight glycemic control #Hematuria Most likely secondry to painting trauma as patient reports tagging and inadverdently pulling painting. Worsened by Xarelto use. H/H stable. Will irrigate prn q shift and continue to monitor for any worsening hematuria. Will hold Xarelto today, per urology reccomendation (Consult placed, will be seen by Dr Henderson). Left knee arthrocentesis Left knee arthrocentesis twice in the emergency room * Left knee arthrocentesis: Cell counts [id number] WBC, on cipro * Gross Pus, * Positive for gram-negative rods (E.COLI) #history of atrial fibrillation status post pacemaker placement, currently rate controlled-continue Cardizem 360 mg CD for rate control; elevated [id number] and on Xarelto 20 mg po daily. #history of diabetes not on diabetic medication. Diabetes diets, fingersticks 3 times a day before meals, insulin aspart ss 3 times a day before meals, check HbA1c # History of hypertension- hold on Lasix for now cr3.6 today Avoid nsaids Avoid nephrotoxins Will provide gentle hydration #Acute on chronic CKD Improving s/p NS hydartion. The gradual worsening of renal function seen on previous days is possibly in the setting of infectious etiology (which increases risk for ATN), prerenal azotemia could be contributory, however will await spot sodium and creatinine to further assess. #history of COPD on albuterol- incentive spirometry, TRC Neb [id number] as needed, #history of coronary artery disease: status post angioplasty left circumflex artery Atorvastatin 10 mg po daily #tachy-rosalva syndrome Status post single pacemaker placement. 9. Chronic extremity swelling Hold the Lasix for now 2/2 to acute worsening of renal function Problem List: 1. Septic joint 2. Effusion of left knee joint 3. Acute kidney injury Pain Ratin Tomorrow's Labs & Rationales: ICU BUNDLE Plan DVT/Prophylaxis: mechanical
[2017-01-16 08:00] VITALS: BP 132/64
--- NOTE | 2017-01-16 08:52 | PN- Orthopedic ---
Subjective Subjective: pod#2 s/p arthoscopic washout of left tka no knee complaints today Objective Vital Signs and I&Os Vital Signs Date Time Temp Pulse Resp B/P B/P Pulse O2 O2 Flow FiO2 Mean Ox Delivery Rate 01/16 0000 97 Nasal 1.0L Cannula 01/16 0000 98.3 88 20 124/58 97 Nasal 1.0L Cannula 01/16 2028 94 Nasal 1.0L Cannula 01/16 1600 98 Nasal 1.0L Cannula 01/15 1600 99.5 66 17 118/70 99 Nasal 1.0L Cannula Intake & Output 01/16 1600 01/16 0800 01/16 0000 01/15 1600 01/15 0800 01/15 0000 Intake Total 840 1050 400 500 800 Output Total 350 500 300 200 Balance 490 550 100 300 800 Intake, IV 600 700 500 500 Intake, Oral 240 350 400 300 Number 0 0 Bowel Movements Output, Urine 350 500 300 200 Physical Exam: left knee: no effusion present w/o erythema, warmth no pain with passive rom no wound drainage Assessment/Plan Assessment/Plan pod#2 s/p left knee arthoscopic i+d plan cxs' to date for left knee - e.coli on cipro po per id will await final recs fro abx by id dry sterile drsg daily may be oob wbat left le left knee sutures may be removed in 10 days f/u with dr delacruz upon d/c - call for appt
--- NOTE | 2017-01-16 09:51 | PN- Att Addend ---
Attending Addendum Attending Brief Note Patient in no acute distress, states he needs to have a bowel movement. A Knott catheter was inserted for better intake and output measurements noted appreciate nephrologists input and recommendations. Patient is a febrile. Blood cultures seem negative,BUN 50 creatinine 3.2 white count within normal limits. We'll continue IV antibiotics, continue monitoring blood work 24 TOTALS 01/16 0000 01/15 0000 Intake Total 1950 1280 Output Total 1000 600 Balance 950 680 Intake, IV 1200 500 Intake, Oral 750 780 Number 0 0 Bowel Movements Output, Urine 1000 600 Current Medications Sig/Festus Start time Last Medication Dose Route Stop Time Status Admin Acetaminophen 650 MG Q6P PRN 01/13 1600 AC 01/14 PO 1726 Acetaminophen 1,000 MG Q6P PRN 01/13 1600 AC 01/16 IV 0921 Albuterol Sulfate 3 ML TID 01/14 1000 AC 01/16 INH 0840 Albuterol Sulfate 3 ML Q4H PRN 01/13 1645 AC INH Atorvastatin Calcium 10 MG DAILY 01/13 1642 AC 01/15 PO 1516 Bisacodyl 10 MG ONCE ONE 01/16 0830 DC 01/16 VA 01/16 0831 0919 Ceftriaxone Sodium 2,000 MG DAILY@1400 01/14 1400 DC 01/14 IV 1529 Ciprofloxacin 750 MG DAILY 01/15 1119 AC 01/15 PO 01/19 1118 1516 Diltiazem HCl 360 MG DAILY 01/14 1000 AC 01/15 PO 1516 Insulin Aspart 0 TIDAC 01/14 0800 AC SC Ipratropium [place] 2.5 ML Q4 HRS NEEDED PRN 01/13 1645 AC INH Lidocaine 1 PAT Q24H 01/13 1600 AC 01/15 EXT 1650 Morphine Sulfate 2 MG ONCE ONE 01/16 0100 DC 01/16 IV 01/16 0101 0056 Morphine Sulfate 2 MG Q4P PRN 01/13 1600 AC 01/16 IV 0558 Rivaroxaban 15 MG DAILY 01/14 1000 AC 01/15 PO 1517 Sodium Chloride 1,000 ML Q13H 01/15 1330 DC 01/15 IV 01/16 0229 1517 Laboratory Tests 01/16/17 0347: Anion Gap 11, Estimated GFR 18 L, Glucose 116 H, Calcium 8.0 L, Phosphorus 3.8, Magnesium 2.4 H, Total Bilirubin 0.8, AST 50, ALT 37, Albumin 3.2 L, CBC w Diff NO MAN DIFF REQ, RBC 3.17 L, MCV 89.3, MCH 28.8, RDW 14.6 H, MPV 8.6, Gran % 80.1 H, Lymphocytes % 8.1 L, Monocytes % 10.8 H, Eosinophils % 0.8, Basophils % 0.2, Absolute Granulocytes 5.3, Absolute Lymphocytes 0.5 L, Absolute Monocytes 0.7 H, Absolute Eosinophils 0.1, Absolute Basophils 0, PUBS MCHC 32.3 L 01/15/17 1630: Urinalysis MOD H, Urine Color FRANCES, Urine Clarity HAZY H, Urine pH 6.0, Ur Specific [place] 1.025, Urine Protein 100 H, Urine Ketones NEG, Urine Nitrite NEG, Urine Bilirubin NEG, Urine Urobilinogen 1.0, Ur Leukocyte Esterase NEG, Ur Microscopic SEDIMENT EXAMINED, Urine RBC 25-50 H, Urine WBC 15-25 H, Ur Epithelial Cells FEW, Urine Bacteria MANY H, Urine Hemoglobin LARGE H, Urine Glucose NEG 01/15/17 1630: Ur Random Creatinine 166.2, Ur Random Sodium 18 L, Ur Random Potassium 40.4, Fraction Sodium Excret 0.3 01/15/17 0430: Anion Gap 12, Estimated GFR 16 L, Glucose 105 H, Calcium 7.9 L, Phosphorus 4.5, Magnesium 2.2, Total Bilirubin 0.8, AST 50, ALT 29, Albumin 3.1 L, CBC w Diff NO MAN DIFF REQ, RBC 3.27 L, MCV 89.7, MCH 29.0, RDW 14.9 H, MPV 8.8, Gran % 76.9 H, Lymphocytes % 8.6 L, Monocytes % 13.8 H, Eosinophils % 0.6, Basophils % 0.1, Absolute Granulocytes 4.8, Absolute Lymphocytes 0.5 L, Absolute Monocytes 0.9 H, Absolute Eosinophils 0, Absolute Basophils 0, PUBS MCHC 32.3 L 01/14/17 1655: Sodium Cancelled, Potassium Cancelled, Chloride Cancelled, Carbon Dioxide Cancelled, Anion Gap Cancelled, BUN Cancelled, Creatinine Cancelled, Glucose Cancelled, Calcium Cancelled, Phosphorus Cancelled, Magnesium Cancelled, Total Bilirubin Cancelled, AST Cancelled, ALT Cancelled, Albumin Cancelled 01/14/17 1620: Anion Gap 13, Estimated GFR 19 L, Glucose 96, Calcium 8.3 L, Phosphorus 4.7 H , Magnesium 2.1, Total Bilirubin 1.2, Direct Bilirubin 1.0 H, AST 65 H, ALT 34 , Alkaline Phosphatase 124, Troponin I 0.03, Total Protein 6.7, Albumin 3.6, D- Dimer High Sensitivty 530 H 01/14/17 1610: pH 7.34 L, pCO2 36, pO2 87, HCO3 19 L, ABG O2 Sat (Measured) 96.0, Carboxyhemoglobin 1.2 L, O2 Concentration % 6L, O2 Delivery Method NC, Phlebotomy Draw Site RIGHT RADIAL 01/14/17 1000: Sodium Cancelled, Potassium Cancelled, Chloride Cancelled, Carbon Dioxide Cancelled, Anion Gap Cancelled, BUN Cancelled, Creatinine Cancelled, Glucose Cancelled, Calcium Cancelled, Phosphorus Cancelled, Magnesium Cancelled, Total Bilirubin Cancelled, AST Cancelled, ALT Cancelled, Albumin Cancelled Microbiology 01/14 1635 UPPER RESP: Surveillance Culture - COMP 01/14 1635 GI: Surveillance Culture - COMP Microbiology Date/Time Procedure - Status Source Growth 01/15 163 Urine Culture - RES URINE ROUT
--- NOTE | 2017-01-16 11:17 | PN- Infect Dx ---
Subjective Subjective: Afebrile. He feels poorly with abdominal discomfort and depression Objective Last 24 Hrs of Vital Signs/I&O Vital Signs Date Time Temp Pulse Resp B/P B/P Pulse O2 O2 Flow FiO2 Mean Ox Delivery Rate 01/16 0921 99.4 01/16 0850 94 Room Air 01/16 0000 97 Nasal 1.0L Cannula 01/16 0000 98.3 88 20 124/58 97 Nasal 1.0L Cannula 01/158 94 Nasal 1.0L Cannula 01/15 1600 98 Nasal 1.0L Cannula 01/15 1600 99.5 66 17 118/70 99 Nasal 1.0L Cannula Intake & Output 01/16 1600 01/16 0800 01/16 0000 Intake Total 840 1050 Output Total 350 500 Balance 490 550 Intake, IV 600 700 Intake, Oral 240 350 Number 0 Bowel Movements Output, Urine 350 500 Physical Exam Other Physical Findings: He appears dejected but in no acute distress Lungs are clear Heart regular rhythm with no murmur Abdomen is distended, nontender with positive bowel sounds Extremities left knee mildly tender to palpation, with decreased range of motion Knott catheter is in place Results Last 24 Hours of Lab Results: Laboratory Tests 01/16 01/15 0347 1630 Chemistry Sodium (137 - 145 mmol/L) 138 Potassium (3.5 - 5.1 mmol/L) 4.5 Chloride (98 - 107 mmol/L) 107 Carbon Dioxide (22 - 30 mmol/L) 20 L Anion Gap (5 - 16) 11 BUN (9 - 20 mg/dL) 50 H Creatinine (0.7 - 1.2 mg/dL) 3.2 H Estimated GFR (>60 ml/min) 18 L Glucose (65 - 99 mg/dL) 116 H Calcium (8.4 - 10.2 mg/dL) 8.0 L Phosphorus (2.5 - 4.5 mg/dL) 3.8 Magnesium (1.6 - 2.3 mg/dL) 2.4 H Total Bilirubin (0.2 - 1.3 mg/dL) 0.8 AST (17 - 59 U/L) 50 ALT (21 - 72 U/L) 37 Albumin (3.5 - 5.0 g/dL) 3.2 L Hematology CBC w Diff NO MAN DIFF REQ WBC (4.8 - 10.8 /CUMM) 6.6 RBC (4.70 - 6.10 /CUMM) 3.17 L Hgb (14.0 - 18.0 G/DL) 9.1 L Hct (42 - 52 %) 28.4 L MCV (80.0 - 94.0 FL) 89.3 MCH (27.0 - 31.0 PG) 28.8 RDW (11.5 - 14.5 %) 14.6 H Plt Count (130 - 400 /CUMM) 152 MPV (7.4 - 10.4 FL) 8.6 Gran % (42.2 - 75.2 %) 80.1 H Lymphocytes % (20.5 - 51.1 %) 8.1 L Monocytes % (1.7 - 9.3 %) 10.8 H Eosinophils % (0 - 5 %) 0.8 Basophils % (0.0 - 2.0 %) 0.2 Absolute Granulocytes (1.4 - 6.5 /CUMM) 5.3 Absolute Lymphocytes (1.2 - 3.4 /CUMM) 0.5 L Absolute Monocytes (0.10 - 0.60 /CUMM) 0.7 H Absolute Eosinophils (0.0 - 0.7 /CUMM) 0.1 Absolute Basophils (0.0 - 0.2 /CUMM) 0 PUBS MCHC (33.0 - 37.0 G/DL) 32.3 L Urines Urinalysis MOD H Urine Color (YEL,AMB,STR) FRANCES Urine Clarity (CLEAR) HAZY H Urine pH (5.0 - 8.0) 6.0 Ur Specific [place] (1.001 - 1.035) 1.025 Urine Protein (NEG,<30 MG/DL) 100 H Urine Ketones (NEG) NEG Urine Nitrite (NEG) NEG Urine Bilirubin (NEG) NEG Urine Urobilinogen (0.1 - 1.0 EU/dl) 1.0 Ur Leukocyte Esterase (NEG) NEG Ur Microscopic SEDIMENT EXAMINED Urine RBC (0 - 5 /HPF) 25-50 H Urine WBC (0 - 2 /HPF) 15-25 H Ur Epithelial Cells (NONE,FEW) FEW Urine Bacteria (NEG/NONE) MANY H Urine Hemoglobin (NEG) LARGE H Urine Glucose (N MG/DL) NEG 01/15 1630 Urines Ur Random Creatinine (mg/dL) 166.2 Ur Random Sodium (30 - 90 mmol/L) 18 L Ur Random Potassium (mmol/L) 40.4 Fraction Sodium Excret (<1% %) 0.3 Last 24 Hours of Federico Results: Blood cultures January 13 negative Blood cultures January 14 negative Urine culture January 15 negative OR culture January 14 left knee synovial fluid positive for Escherichia coli Recent Imaging Studies: V/Q scan January [address] of the abdomen and pelvis without contrast January 15 reveals equivocal mild mural thickening of the transverse colon; bilateral perinephric stranding Assessment/Plan Impression: Stable status post arthroscopic irrigation and debridement 2 days ago for 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 He is afebrile with white blood cell count remaining normal now on Ciprofloxacin. His renal function is improving, with no evidence of urinary retention, and was likely secondary to ATN from sepsis. The source of his Escherichia coli remains unclear, with the recent right upper quadrant ultrasound and CT of the abdomen and pelvis nonrevealing. It is unlikely related to his recent podiatric visit, as he only had his toenails clipped, and a gram-negative zackary would be unusual in this setting. Suggestion: 1. Would remove Knott catheter when okay with Renal 2. Continue Ciprofloxacin
--- NOTE | 2017-01-16 12:26 | PN- Nephrology ---
Assessment/Plan Assessment: 1. Acute kidney injury. 850 mL out so far today 2. Infection of the left knee. 3. History of chronic kidney disease previous baseline around 2 4. Hematuria. Likely Knott trauma. Suggestion: 1. Would maintain Knott for now 2. Continue with strict I's and O's daily weights Subjective Subjective: Patient sitting up in a bedside chair. Objective Vital Signs and I&Os Vital Signs Date Time Temp Pulse Resp B/P B/P Pulse O2 O2 Flow FiO2 Mean Ox Delivery Rate 01/16 0921 99.4 01/16 0850 94 Room Air 01/16 0000 97 Nasal 1.0L Cannula 01/16 0000 98.3 88 20 124/58 97 Nasal 1.0L Cannula 01/16 2028 94 Nasal 1.0L Cannula 01/15 1600 98 Nasal 1.0L Cannula 01/15 1600 99.5 66 17 118/70 99 Nasal 1.0L Cannula Intake & Output 01/16 1600 01/16 0400 01/15 1600 01/15 0400 01/14 1600 01/14 0400 Intake Total 840 1050 900 800 480 200 Output Total 350 500 500 600 350 Balance 490 550 400 800 -120 -150 Intake, IV 600 700 500 500 Intake, Oral 240 350 400 300 480 200 Number 0 0 0 Bowel Movements Output, Urine 350 500 500 600 350 Patient 218 lb 218 lb Weight Weight Reported by Patient Measurement Method Physical Exam: General Appearance: well developed/nourished, no apparent distress, obese Head: atraumatic Eyes: Bilateral: EOMI, pale conjunctivae. Neck: trachea mid line, no midline tenderness Respiratory: Clear to auscultation and percussion Cardiovascular: regular rate/rhythm Gastrointestinal: normal bowel sounds, soft, non-tender Back: normal inspection Extremities: pedal edema left knee not examined Neurologic/Psych: Hard of hearing, aside from that, no gross neurologic deficit. Skin: intact Current Medications: Current Medications Sig/Festus Start time Last Medication Dose Route Stop Time Status Admin Acetaminophen 650 MG Q6P PRN 01/13 1600 AC 01/14 PO 1726 Acetaminophen 1,000 MG Q6P PRN 01/13 1600 AC 01/16 IV 0921 Albuterol Sulfate 3 ML TID 01/14 1000 AC 01/16 INH 0840 Albuterol Sulfate 3 ML Q4H PRN 01/13 1645 AC INH Atorvastatin Calcium 10 MG DAILY 01/13 1642 AC 01/15 PO 1516 Bisacodyl 10 MG ONCE ONE 01/16 0830 DC 01/16 ID 01/16 0831 0919 Ciprofloxacin 750 MG DAILY 01/15 1119 AC 01/15 PO 01/19 1118 1516 Diltiazem HCl 360 MG DAILY 01/14 1000 AC 01/15 PO 1516 Insulin Aspart 0 TIDAC 01/14 0800 AC SC Ipratropium [place] 2.5 ML Q4 HRS NEEDED PRN 01/13 1645 AC INH Lidocaine 1 PAT Q24H 01/13 1600 AC 01/15 EXT 1650 Morphine Sulfate 2 MG ONCE ONE 01/16 0100 DC 01/16 IV 01/16 0101 0056 Morphine Sulfate 2 MG Q4P PRN 01/13 1600 AC 01/16 IV 0558 Rivaroxaban 15 MG DAILY 01/14 1000 AC 01/15 PO 1517 Sodium Chloride 1,000 ML Q13H 01/15 1330 DC 01/15 IV 01/16 0229 1517 Results Pertinent Lab Results: Laboratory Tests 01/16 01/15 0347 1630 Chemistry Sodium (137 - 145 mmol/L) 138 Potassium (3.5 - 5.1 mmol/L) 4.5 Chloride (98 - 107 mmol/L) 107 Carbon Dioxide (22 - 30 mmol/L) 20 L Anion Gap (5 - 16) 11 BUN (9 - 20 mg/dL) 50 H Creatinine (0.7 - 1.2 mg/dL) 3.2 H Estimated GFR (>60 ml/min) 18 L Glucose (65 - 99 mg/dL) 116 H Calcium (8.4 - 10.2 mg/dL) 8.0 L Phosphorus (2.5 - 4.5 mg/dL) 3.8 Magnesium (1.6 - 2.3 mg/dL) 2.4 H Total Bilirubin (0.2 - 1.3 mg/dL) 0.8 AST (17 - 59 U/L) 50 ALT (21 - 72 U/L) 37 Albumin (3.5 - 5.0 g/dL) 3.2 L Hematology CBC w Diff NO MAN DIFF REQ WBC (4.8 - 10.8 /CUMM) 6.6 RBC (4.70 - 6.10 /CUMM) 3.17 L Hgb (14.0 - 18.0 G/DL) 9.1 L Hct (42 - 52 %) 28.4 L MCV (80.0 - 94.0 FL) 89.3 MCH (27.0 - 31.0 PG) 28.8 RDW (11.5 - 14.5 %) 14.6 H Plt Count (130 - 400 /CUMM) 152 MPV (7.4 - 10.4 FL) 8.6 Gran % (42.2 - 75.2 %) 80.1 H Lymphocytes % (20.5 - 51.1 %) 8.1 L Monocytes % (1.7 - 9.3 %) 10.8 H Eosinophils % (0 - 5 %) 0.8 Basophils % (0.0 - 2.0 %) 0.2 Absolute Granulocytes (1.4 - 6.5 /CUMM) 5.3 Absolute Lymphocytes (1.2 - 3.4 /CUMM) 0.5 L Absolute Monocytes (0.10 - 0.60 /CUMM) 0.7 H Absolute Eosinophils (0.0 - 0.7 /CUMM) 0.1 Absolute Basophils (0.0 - 0.2 /CUMM) 0 PUBS MCHC (33.0 - 37.0 G/DL) 32.3 L Urines Urinalysis MOD H Urine Color (YEL,AMB,STR) FRANCES Urine Clarity (CLEAR) HAZY H Urine pH (5.0 - 8.0) 6.0 Ur Specific [place] (1.001 - 1.035) 1.025 Urine Protein (NEG,<30 MG/DL) 100 H Urine Ketones (NEG) NEG Urine Nitrite (NEG) NEG Urine Bilirubin (NEG) NEG Urine Urobilinogen (0.1 - 1.0 EU/dl) 1.0 Ur Leukocyte Esterase (NEG) NEG Ur Microscopic SEDIMENT EXAMINED Urine RBC (0 - 5 /HPF) 25-50 H Urine WBC (0 - 2 /HPF) 15-25 H Ur Epithelial Cells (NONE,FEW) FEW Urine Bacteria (NEG/NONE) MANY H Urine Hemoglobin (NEG) LARGE H Urine Glucose (N MG/DL) NEG 01/15 01/15 01/14 1630 0430 1655 Chemistry Sodium (137 - 145 mmol/L) 138 Cancelled Potassium (3.5 - 5.1 mmol/L) 4.5 Cancelled Chloride (98 - 107 mmol/L) 107 Cancelled Carbon Dioxide (22 - 30 mmol/L) 19 L Cancelled Anion Gap (5 - 16) 12 Cancelled BUN (9 - 20 mg/dL) 51 H Cancelled Creatinine (0.7 - 1.2 mg/dL) 3.6 H Cancelled Estimated GFR (>60 ml/min) 16 L Glucose (65 - 99 mg/dL) 105 H Cancelled Calcium (8.4 - 10.2 mg/dL) 7.9 L Cancelled Phosphorus (2.5 - 4.5 mg/dL) 4.5 Cancelled Magnesium (1.6 - 2.3 mg/dL) 2.2 Cancelled Total Bilirubin (0.2 - 1.3 mg/dL) 0.8 Cancelled AST (17 - 59 U/L) 50 Cancelled ALT (21 - 72 U/L) 29 Cancelled Albumin (3.5 - 5.0 g/dL) 3.1 L Cancelled Hematology CBC w Diff NO MAN DIFF REQ WBC (4.8 - 10.8 /CUMM) 6.2 RBC (4.70 - 6.10 /CUMM) 3.27 L Hgb (14.0 - 18.0 G/DL) 9.5 L Hct (42 - 52 %) 29.3 L MCV (80.0 - 94.0 FL) 89.7 MCH (27.0 - 31.0 PG) 29.0 RDW (11.5 - 14.5 %) 14.9 H Plt Count (130 - 400 /CUMM) 157 MPV (7.4 - 10.4 FL) 8.8 Gran % (42.2 - 75.2 %) 76.9 H Lymphocytes % (20.5 - 51.1 %) 8.6 L Monocytes % (1.7 - 9.3 %) 13.8 H Eosinophils % (0 - 5 %) 0.6 Basophils % (0.0 - 2.0 %) 0.1 Absolute Granulocytes (1.4 - 6.5 /CUMM) 4.8 Absolute Lymphocytes (1.2 - 3.4 /CUMM) 0.5 L Absolute Monocytes (0.10 - 0.60 /CUMM) 0.9 H Absolute Eosinophils (0.0 - 0.7 /CUMM) 0 Absolute Basophils (0.0 - 0.2 /CUMM) 0 PUBS MCHC (33.0 - 37.0 G/DL) 32.3 L Urines Ur Random Creatinine (mg/dL) 166.2 Ur Random Sodium (30 - 90 mmol/L) 18 L Ur Random Potassium (mmol/L) 40.4 Fraction Sodium Excret (<1% %) 0.3 01/14 01/14 01/14 1620 1610 UNK Blood Gas pH (7.35 - 7.45 PH) 7.34 L pCO2 (35 - 45 TORR) 36 pO2 (80 - 100 TORR) 87 HCO3 (21 - 28 MEQ/L) 19 L ABG O2 Sat (Measured) (>96.0 %) 96.0 Carboxyhemoglobin (1.5 - 5.0 %) 1.2 L O2 Concentration % 6L O2 Delivery Method NC Chemistry Sodium (137 - 145 mmol/L) 139 Cancelled Potassium (3.5 - 5.1 mmol/L) 4.6 Cancelled Chloride (98 - 107 mmol/L) 104 Cancelled Carbon Dioxide (22 - 30 mmol/L) 21 L Cancelled Anion Gap (5 - 16) 13 Cancelled BUN (9 - 20 mg/dL) 47 H Cancelled Creatinine (0.7 - 1.2 mg/dL) 3.1 H Cancelled Estimated GFR (>60 ml/min) 19 L Glucose (65 - 99 mg/dL) 96 Cancelled Calcium (8.4 - 10.2 mg/dL) 8.3 L Cancelled Phosphorus (2.5 - 4.5 mg/dL) 4.7 H Cancelled Magnesium (1.6 - 2.3 mg/dL) 2.1 Cancelled Total Bilirubin (0.2 - 1.3 mg/dL) 1.2 Cancelled Direct Bilirubin (< 0.4 mg/dL) 1.0 H AST (17 - 59 U/L) 65 H Cancelled ALT (21 - 72 U/L) 34 Cancelled Alkaline Phosphatase (< 127 U/L) 124 Troponin I (<0.11 ng/ml) 0.03 Total Protein (6.3 - 8.2 g/dL) 6.7 Albumin (3.5 - 5.0 g/dL) 3.6 Cancelled Coagulation D-Dimer High Sensitivty (0 - 243 ng/ml) 530 H Miscellaneous Phlebotomy Draw Site RIGHT RADIAL 01/14 01/13 0614 1713 Chemistry Sodium (137 - 145 mmol/L) 138 Potassium (3.5 - 5.1 mmol/L) 4.5 Chloride (98 - 107 mmol/L) 106 Carbon Dioxide (22 - 30 mmol/L) 22 Anion Gap (5 - 16) 10 BUN (9 - 20 mg/dL) 43 H Creatinine (0.7 - 1.2 mg/dL) 2.9 H Estimated GFR (>60 ml/min) 21 L BUN/Creatinine Ratio (7 - 25 %) 14.8 Hematology CBC w Diff NO MAN DIFF REQ WBC (4.8 - 10.8 /CUMM) 9.3 RBC (4.70 - 6.10 /CUMM) 3.60 L Hgb (14.0 - 18.0 G/DL) 10.5 L Hct (42 - 52 %) 32.3 L MCV (80.0 - 94.0 FL) 89.5 MCH (27.0 - 31.0 PG) 29.0 RDW (11.5 - 14.5 %) 14.4 Plt Count (130 - 400 /CUMM) 168 MPV (7.4 - 10.4 FL) 8.5 Gran % (42.2 - 75.2 %) 82.3 H Lymphocytes % (20.5 - 51.1 %) 7.4 L Monocytes % (1.7 - 9.3 %) 10.1 H Eosinophils % (0 - 5 %) 0 Basophils % (0.0 - 2.0 %) 0.2 Absolute Granulocytes (1.4 - 6.5 /CUMM) 7.7 H Absolute Lymphocytes (1.2 - 3.4 /CUMM) 0.7 L Absolute Monocytes (0.10 - 0.60 /CUMM) 0.9 H Absolute Eosinophils (0.0 - 0.7 /CUMM) 0 Absolute Basophils (0.0 - 0.2 /CUMM) 0 PUBS MCHC (33.0 - 37.0 G/DL) 32.4 L Urines Ur Random Creatinine Cancelled U Random Total Protein Cancelled 01/13 01/13 1656 1632 Chemistry Lactic Acid Cancelled Urines Urine Color (YEL,AMB,STR) YEL Urine Clarity (CLEAR) CLDY H Urine pH (5.0 - 8.0) 6.0 Ur Specific [place] (1.001 - 1.035) 1.025 Urine Protein (NEG,<30 MG/DL) 100 H Urine Ketones (NEG) NEG Urine Nitrite (NEG) NEG Urine Bilirubin (NEG) NEG Urine Urobilinogen (0.1 - 1.0 EU/dl) 1.0 Ur Leukocyte Esterase (NEG) NEG Ur Microscopic SEDIMENT EXAMINED Urine RBC (0 - 5 /HPF) 15-25 H Urine WBC (0 - 2 /HPF) 5-10 H Ur Epithelial Cells (NONE,FEW) MOD H Urine Bacteria (NEG/NONE) FEW H Urine Hemoglobin (NEG) MOD H Urine Glucose (N MG/DL) NEG 01/13 01/13 01/13 01/13 1548 1405 1332 1248 Chemistry Lactic Acid Cancelled Cancelled Cancelled Hematology Lymphocytes (%) 1 % Normal PMNs (%) 94 Misc Hematology Test (%) Other Body Source Fluid WBC (0 - 5 /CUMM) 670367 H Fld Total RBCs Counted (0 /CUMM) 6050 H
[2017-01-16 16:00] VITALS: BP 110/60
[2017-01-16 18:46] LABS: ABSOLUTE BASOPHIL COUNT 0 /CUMM (0.0-0.2); ABSOLUTE EOSINOPHIL COUNT 0.1 /CUMM (0.0-0.7); ABSOLUTE GRANULOCYTE CT 5.8 /CUMM (1.4-6.5); ABSOLUTE LYMPH COUNT 0.4 /CUMM (1.2-3.4); ABSOLUTE MONOCYTE COUNT 0.7 /CUMM (0.10-0.60); BASOPHIL % 0.1 % (0.0-2.0); EOSINOPHIL % 1.9 % (0-5); GRANULOCYTE % 82.5 % (42.2-75.2); HEMATOCRIT 28.1 % (42-52); MEAN CORPUSCULAR HGB 28.9 PG (27.0-31.0); MEAN CORPUSCULAR HGB CONC 32.6 G/DL (33.0-37.0); MEAN CORPUSCULAR VOLUME 88.8 FL (80.0-94.0); MEAN PLATELET VOLUME 8.6 FL (7.4-10.4); PLATELET COUNT 168 /CUMM (130-400); RBC DISTRIBUTION WIDTH 14.9 % (11.5-14.5); RED BLOOD CELL CT 3.17 /CUMM (4.70-6.10); WHITE BLOOD CELL COUNT 7.1 /CUMM (4.8-10.8)
--- NOTE | 2017-01-16 19:17 | Cons- Urology ---
General Information and HPI Consulting Request Date of Consult: 01/16/17 Requested By: ANJALI SALGADO MD Reason for Consult: gross hematuria post painting insertion Source of Information: patient, old records Exam Limitations: dementia, poor historian History of Present Illness: 87 year old with ARF, and multiple med hx. admitted with Gio's exacerbation and left knee pain/swelling. painting inserted for Iand O and resulted in light pink U/O-no clots. Pt reports minimal voiding difficulties at home. Allergies/Medications Allergies: Coded Allergies: NO KNOWN ALLERGIES (11/15/15) Home Med List: Albuterol Sulfate (Proair Hfa) 0.09 MG/Actuation KANWAL 2 PUFF INH Q4-6H PRN DYSPNEA (Reported) Atorvastatin Calcium (Lipitor) 10 MG TABLET 1 TAB PO DAILY CHOLESTEROL ( Reported) Ciprofloxacin HCl 750 MG TABLET 1 TAB PO DAILY knee infection please take ciprofloxacin daily one tablet till February 25. DILTIAZEM HCL (Cardizem Cd) 360 MG C24 1 CAP PO DAILY HEART (Reported) Finasteride 5 MG TABLET 5 MG PO DAILY urine retention Furosemide 20 MG TAB 1 TAB PO DAILY WATER PILL (Reported) Losartan (Cozaar) 100 MG TABLET 1 TAB PO DAILY BP/HEART (Reported) Rivaroxaban (Xarelto) 20 MG TAB 1 TAB PO QPM BLOOD THINNER (Reported) with food Tamsulosin HCl (Flomax) 0.4 MG CAP.ER.24H 1 TAB PO DAILY BPH Current Medications: Current Medications Sig/Festus Start time Last Medication Dose Route Stop Time Status Admin Acetaminophen 650 MG Q6P PRN 01/13 1600 AC 01/14 PO 1726 Acetaminophen 1,000 MG Q6P PRN 01/13 1600 AC 01/16 IV 1841 Albuterol Sulfate 3 ML TID 01/14 1000 AC 01/16 INH 1634 Albuterol Sulfate 3 ML Q4H PRN 01/13 1645 AC INH Atorvastatin Calcium 10 MG DAILY 01/13 1642 AC 01/16 PO 1620 Bisacodyl 10 MG ONCE ONE 01/16 0830 DC 01/16 UT 01/16 0831 0919 Ciprofloxacin 750 MG DAILY 01/15 1119 AC 01/16 PO 01/19 1118 1620 Diltiazem HCl 360 MG DAILY 01/14 1000 AC 01/16 PO 1620 Insulin Aspart 0 TIDAC 01/14 0800 AC 01/16 SC 1200 Ipratropium [place] 2.5 ML Q4 HRS NEEDED PRN 01/13 1645 AC INH Lidocaine 1 PAT Q24H 01/13 1600 AC 01/16 EXT 1620 Morphine Sulfate 2 MG ONCE ONE 01/16 0100 DC 01/16 IV 01/16 0101 0056 Morphine Sulfate 2 MG Q4P PRN 01/13 1600 AC 01/16 IV 0558 Rivaroxaban 15 MG DAILY 01/14 1000 AC 01/15 PO 1517 Sodium Chloride 1,000 ML Q13H 01/16 1615 AC 01/16 IV 01/17 0514 1620 Sodium Chloride 1,000 ML Q13H 01/15 1330 DC 01/15 IV 01/16 0229 1517 Past History Medical History Neurological: NONE EENT: reports that he has issues with his vision. 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 He apparently had implants presumably after cataracts. 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 His creatinine at that point was 2.0. 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 yes Functional Ability ADLs Independent: dressing, eating, toileting, bathing. Ambulation: independent IADLs Independent: shopping, housework, finances, food prep, telephone, transportation , medication admin. Employment History Retired? yes Review of Systems Review of Systems Constitutional: Reports: weakness. EENTM: Denies: no symptoms. Cardiovascular: Denies: no symptoms. Respiratory: Denies: no symptoms. Genitourinary: Reports: frequency. Musculoskeletal: Reports: muscle stiffness. Skin: Denies: no symptoms. Exam & Diagnostic Data Vital Signs and I&O Vital Signs Date Time Temp Pulse Resp B/P B/P Pulse O2 O2 Flow FiO2 Mean Ox Delivery Rate 01/16 1636 92 Room Air Room Air 01/16 1600 98.4 87 18 110/60 92 Room Air 01/16 0921 99.4 01/16 0850 94 Room Air 01/16 0800 99.7 96 18 132/64 92 Nasal 1.0L Cannula 01/16 0000 97 Nasal 1.0L Cannula 01/16 0000 98.3 88 20 124/58 97 Nasal 1.0L Cannula 01/16 2028 94 Nasal 1.0L Cannula Intake & Output 01/16 1600 01/16 0800 01/16 0000 01/15 1600 01/15 0800 01/15 0000 Intake Total 406 954 4225 400 500 800 Output Total 400 350 500 300 200 Balance 440 490 550 100 300 800 Intake, IV 120 600 700 500 500 Intake, Oral 660 240 350 400 300 Intake, Other 60 Number 1 0 0 Bowel Movements Output, Urine 400 350 500 300 200 Patient 218 lb Weight Physical Exam General Appearance: well developed/nourished, no apparent distress, obese Head: atraumatic Eyes: Bilateral: normal appearance. Ears, Nose, Throat: normal pharynx Neck: normal inspection, supple, full range of motion Respiratory: normal breath sounds Cardiovascular: regular rate/rhythm Gastrointestinal: normal bowel sounds, soft, non-tender Back: no vertebral tenderness Extremities: normal inspection Skin: intact, normal color, warm/dry Reproductive: Normal male genitalia (painting in place; foreskin exces) Last 24 Hours of Labs: Laboratory Tests 01/16 01/16 1800 0347 Chemistry Sodium (137 - 145 mmol/L) 138 Potassium (3.5 - 5.1 mmol/L) 4.5 Chloride (98 - 107 mmol/L) 107 Carbon Dioxide (22 - 30 mmol/L) 20 L Anion Gap (5 - 16) 11 BUN (9 - 20 mg/dL) 50 H Creatinine (0.7 - 1.2 mg/dL) 3.2 H Estimated GFR (>60 ml/min) 18 L Glucose (65 - 99 mg/dL) 116 H Calcium (8.4 - 10.2 mg/dL) 8.0 L Phosphorus (2.5 - 4.5 mg/dL) 3.8 Magnesium (1.6 - 2.3 mg/dL) 2.4 H Total Bilirubin (0.2 - 1.3 mg/dL) 0.8 AST (17 - 59 U/L) 50 ALT (21 - 72 U/L) 37 Albumin (3.5 - 5.0 g/dL) 3.2 L Hematology CBC w Diff NO MAN DIFF REQ NO MAN DIFF REQ WBC (4.8 - 10.8 /CUMM) 7.1 6.6 RBC (4.70 - 6.10 /CUMM) 3.17 L 3.17 L Hgb (14.0 - 18.0 G/DL) 9.2 L 9.1 L Hct (42 - 52 %) 28.1 L 28.4 L MCV (80.0 - 94.0 FL) 88.8 89.3 MCH (27.0 - 31.0 PG) 28.9 28.8 RDW (11.5 - 14.5 %) 14.9 H 14.6 H Plt Count (130 - 400 /CUMM) 168 152 MPV (7.4 - 10.4 FL) 8.6 8.6 Gran % (42.2 - 75.2 %) 82.5 H 80.1 H Lymphocytes % (20.5 - 51.1 %) 5.1 L 8.1 L Monocytes % (1.7 - 9.3 %) 10.4 H 10.8 H Eosinophils % (0 - 5 %) 1.9 0.8 Basophils % (0.0 - 2.0 %) 0.1 0.2 Absolute Granulocytes (1.4 - 6.5 /CUMM) 5.8 5.3 Absolute Lymphocytes (1.2 - 3.4 /CUMM) 0.4 L 0.5 L Absolute Monocytes (0.10 - 0.60 /CUMM) 0.7 H 0.7 H Absolute Eosinophils (0.0 - 0.7 /CUMM) 0.1 0.1 Absolute Basophils (0.0 - 0.2 /CUMM) 0 0 PUBS MCHC (33.0 - 37.0 G/DL) 32.6 L 32.3 L Imaging Results: PATIENT: FARTUN SIM PRESENT AGE: 87 PATIENT ACCOUNT NO: [id number] : 30 LOCATION: [facility] ORDERING PHYSICIAN: CYNDY PAULINO MD SERVICE DATE: 01/15/17- EXAM TYPE: CAT - CT ABD & PELVIS W/O IV CONTRAS EXAMINATION: CT ABDOMEN AND PELVIS WITHOUT CONTRAST CLINICAL INFORMATION: GI acute infection. Gram-negative growth in knee aspirate. COMPARISON: CT chest abdomen pelvis 11/15/2015. TECHNIQUE: Multidetector volumetric imaging was performed from the superior aspect of the liver through the pubic symphysis. Sagittal and coronal reformatted images were obtained on the technologist's workstation. DLP: 1008 mGy-cm FINDINGS: Examination is limited secondary to intravenous contrast. LUNG BASES: There is a chronic 0.4 cm right lower lobe pulmonary nodule on image 8/97. Nonspecific tiny subpleural nodular opacity at the left lung base on image 13/97, unchanged compared to prior exam. No pleural effusion. LIVER, GALLBLADDER, AND BILIARY TREE: The liver is normal in size, shape, and attenuation. No focal hepatic lesion or biliary ductal dilatation is present. Hyperdense biliary sludge within the gallbladder lumen. No calcified gallstones or evidence of cholecystitis. PANCREAS: Unremarkable. SPLEEN: Mildly enlarged at 13.6 cm (previously 12.4 cm). ADRENAL GLANDS: Unremarkable. KIDNEYS AND URETERS: There is nonspecific bilateral perinephric stranding which was present on prior exam. No hydronephrosis. No renal or ureteral calculi demonstrated. Chronic cyst along the posterior medial right mid kidney measuring 1.7 cm in diameter BLADDER: Incompletely distended. GASTROINTESTINAL TRACT: Bowel gas pattern is nonobstructive. Equivocal mural thickening of the transverse colon, which is incompletely distended. No other evidence of acute large or small bowel inflammation. Scattered clonic diverticula. ABDOMINAL WALL: No significant hernia is appreciated. LYMPH NODES: No adenopathy. VASCULAR: Scattered atherosclerotic calcification including coronary artery calcification. Pacing lead in the right heart. PELVIC VISCERA: Punctate calcifications in the central prostate gland. Seminal vesicles are unremarkable. No free pelvic fluid. Surgical clips in the right inguinal region. OSSEOUS STRUCTURES: No acute osseous abnormalities. Multilevel degenerative changes of the spine. Degenerative changes at the hips. IMPRESSION: 1. Equivocal mild mural thickening of the transverse colon, which is incompletely distended. It is unclear whether this reflects technical factors or low level bowel inflammation. No surrounding inflammatory stranding. 2. Bilateral nonspecific perinephric stranding was present on prior CT scan. Please correlate with urinalysis to assess for genitourinary infection. 3. Scattered atherosclerotic disease including coronary artery calcification. 4. Examination mildly limited secondary to lack of intravenous contrast. 5. Additional findings as above. Assessment/Plan Assessment/Plan gross hematuria exacerbated by painting insertion (for strict I&O) while pt on xeralto. Plan: hold anti-coag. today and manually irrigate painting q 2 hrs PRN gross hematuria with 30ccsterile H2O. Resume xeralto tomorrow if urine output clear. Start Proscar 5mg PO daily. Void trial when pt ready for discharge. Copies To: HELEN THOMPSON,HAIR Consult Acknowledgment - Thank you for your consult request. Attending MD Review Statement Attending Statement Attending MD Statement: examined this patient, discuss w/resident/PA/[employer] Attending Assessment/Plan: gross hematuria likely due to mild trauma from painting insertion, exacerbated by Xeralto. If no improvement in 24-48 hours, or if hematuria worsens with obstructing clots, will cystoscope.
[2017-01-16 22:11] VITALS: BP 122/60
[2017-01-17 06:39] VITALS: BP 118/70
--- NOTE | 2017-01-17 08:13 | PN- Housestaff ---
Subjective Follow-up For: Left knee septic arthritis-s/p wasout procedure Acute kidney injury Chronic kidney disease Bacteremia Gross hematuria secondary to Painting's trauma History of atrial fibrillation Complaints: pain scale (0-10) Subjective: Patient was seen and examined this afternoon. He is alert awake and oriented to time place and person. No acute events noticed overnight. He is status post Left knee arthroscopic irrigation and debridement with synovectomy. toletrated the procedure Reports mild pain and discomfort to left knee Continues to have blood in urine 950 mL urine overnight Offers no other complaints at bedside Raymond any fever, chills, abdominal pain, change in bladder or bowel habits. Vitals stable afebrile, heart rate 80, respiratory rate 20, blood pressure 130/ 70, saturating at 95 on room air. Review of Systems Constitutional: Reports: see HPI. Objective Last 24 Hrs of Vital Signs/I&O Vital Signs Date Time Temp Pulse Resp B/P B/P Pulse O2 O2 Flow FiO2 Mean Ox Delivery Rate 01/17 0639 97.8 87 22 118/70 91 Room Air 01/17 0557 Room Air 01/16 2211 97.6 90 24 122/60 93 Room Air 01/16 1636 92 Room Air Room Air 01/16 1600 92 Room Air 01/16 1600 98.4 87 18 110/60 92 Room Air Intake & Output 01/17 1600 01/17 0800 01/17 0000 Intake Total 300 720 590 Output Total 600 375 Balance 300 120 215 Intake, IV 600 300 Intake, Oral 300 120 200 Intake, Other 90 Number 0 Bowel Movements Output, Urine 600 375 Physical Exam General Appearance: Alert, Oriented X3, Cooperative, No Acute Distress Skin: No Rashes, No Breakdown, left knee synovectomy HEENT: Atraumatic, PERRLA, EOMI, Mucous Membr. moist/pink Neck: Supple, No JVD, No thryomegaly Lymphatic: Cervical nl Cardiovascular: Normal S1, Normal S2 Lungs: Normal Air Movement Abdomen: Normal Bowel Sounds, Soft, No Tenderness Extremities: No Clubbing, No Cyanosis, No Edema Vascular: Pulses Symmetrical Current Medications: Current Medications Sig/Festus Start time Last Medication Dose Route Stop Time Status Admin Acetaminophen 1,000 MG .STK-MED ONE 01/16 1844 DC IV 01/16 184 Acetaminophen 650 MG Q6P PRN 01/13 1600 AC 01/14 PO 1726 Acetaminophen 1,000 MG Q6P PRN 01/13 1600 AC 01/16 IV 1841 Albuterol Sulfate 3 ML TID 01/14 1000 AC 01/17 INH 0556 Albuterol Sulfate 3 ML Q4H PRN 01/13 1645 AC INH Atorvastatin Calcium 10 MG 1500 01/17 1500 AC PO Atorvastatin Calcium 10 MG DAILY 01/13 1642 DC 01/16 PO 1620 Ciprofloxacin 750 MG DAILY 01/15 1119 AC 01/17 PO 01/19 1118 0912 Diltiazem HCl 360 MG 1500 01/17 1500 AC PO Diltiazem HCl 360 MG DAILY 01/14 1000 DC 01/16 PO 1620 Finasteride 5 MG DAILY 01/17 1000 AC 01/17 PO 0912 Insulin Aspart 0 TIDAC 01/14 0800 AC 01/16 SC 1200 Ipratropium [place] 2.5 ML Q4 HRS NEEDED PRN 01/13 1645 AC INH Lidocaine 1 PAT Q24H 01/13 1600 AC 01/16 EXT 1620 Morphine Sulfate 2 MG Q4P PRN 01/13 1600 AC 01/17 IV 1222 Patient Medication 1 ED .STK-MED ONE 01/17 1336 TX Teaching ED 01/17 1337 Rivaroxaban 15 MG DAILY 01/14 1000 DC 01/15 PO 1517 Sodium Chloride 1,000 ML Q13H 01/16 1615 DC 01/16 IV 01/17 0514 1620 Last 24 Hrs of Lab/Federico Results Last 24 Hrs of Labs/Mics: Laboratory Tests 01/17/17 1312: Anion Gap 11, Estimated GFR 23 L, BUN/Creatinine Ratio 19.2, CBC w Diff Pending , WBC Pending, RBC Pending, Hgb Pending, Hct Pending, MCV Pending, MCH Pending, RDW Pending, Plt Count Pending, MPV Pending, Gran % Pending, Lymphocytes % Pending, Monocytes % Pending, Eosinophils % Pending, Basophils % Pending, Absolute Granulocytes Pending, Absolute Lymphocytes Pending, Absolute Monocytes Pending, Absolute Eosinophils Pending, Absolute Basophils Pending, PUBS MCHC Pending, ESR [place] Pending 01/16/17 1800: CBC w Diff NO MAN DIFF REQ, RBC 3.17 L, MCV 88.8, MCH 28.9, RDW 14.9 H, MPV 8.6, Gran % 82.5 H, Lymphocytes % 5.1 L, Monocytes % 10.4 H, Eosinophils % 1.9, Basophils % 0.1, Absolute Granulocytes 5.8, Absolute Lymphocytes 0.4 L, Absolute Monocytes 0.7 H, Absolute Eosinophils 0.1, Absolute Basophils 0, PUBS MCHC 32.6 L Assessment/Plan Assessment: This is a 87-year-old male with past medical history significant for coronary artery disease status post angioplasty left circumflex artery 3 times, atrial fibrillation on Cardizem and xaralto, 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 Vitals on presentation afebrile, heart rate 110 respiratory rate 16, blood pressure 128/54, saturating at 96 on room air. Hemoglobin 11.5 and hematocrit 35.8, WBC 8.1. Creatinine 2.5 on admission left knee xray A left knee prosthesis is intact. There is a moderate knee joint effusion. There are no acute fractures No DVT on doppler US. cxr- negative Problem list 1. Left knee septic arthritis 2. Status post left knee arthroscopy 3. Coronary artery disease status post angioplasty 4. History of atrial fibrillation 5. Diabetes mellitus 6. Hypertension 7. Hyperlipidemia 8. Chronic lower extremity swelling 9. COPD history Left knee septic arthritis Patient presented to the hospital with left knee pain, swelling, redness. Off note he is status post bilateral knee replacements 12 years ago. On admission he is afebrile however spiked a temperature 100.6 after several hours. WBC count 8000. Left knee x-ray showed Intact prosthesis with moderate joint effusion. He is status post a left knee joint arthrocentesis twice in the emergency room. Fluid WBC were elevated [id number]. cultures positive for gram-negative rods- ecoli. * Admitted to general medicine floor for further management and surgical procedure * He is status post left knee arthroscopic irrigation and debridement with synovectomy- day4 * he is able to resolve this infection without removal of the prosthesis, * His bilirubin and alkaline phosphatase are elevated, suggesting a possible biliary source, though he has no GI symptoms and his abdominal exam is benign. * Ultrasound abdomen and CT ABDOMEN was done- to rule out GI source -negative * Continue antibiotics -ciprofloxicin 750 mg by mouth daily - day 3 * Follow-up or cultures- ecoli * blood culturesx2 - ecoli- no source of infection found so far * Out of bed with physical therapy * patient is weightbearing as tolerated * PRN pain medication * GI and DVT prophylaxis Left knee arthrocentesis Left knee arthrocentesis twice in the emergency room * Left knee arthrocentesis: Cell counts 555123 WBC, * Gross Pus, * Positive for gram-negative rods- e.coli * blood cultures positive for Escherichia coli bacteremia #2 history of atrial fibrillation status post pacemaker placement, currently rate controlled-continue Cardizem 360 mg CD for rate control; elevated [id number] and on Xarelto 20 mg po daily. holding Xarelto for now because of gross hematuria #3 history of diabetes not on diabetic medication. Diabetes diets, fingersticks 3 times a day before meals, insulin aspart ss 3 times a day before meals, HbA1c - 6.1 #4 History of hypertension- hold losartan and Lasix cr 2.9, raised to 3.6 on admission Avoid nsaids Avoid nephrotoxins on gentle hydration #5. LALO ON history of CKD (gradual worsening of renal function) possibly due to sepsis versus uncontrolled diabetes or uncontrolled hypertension. * Placed nephrology consult in the a.m. * cr 2.9 on admission * cr raised to 3.6 * Avoid nsaids * Avoid nephrotoxins * gentle hydration- improved to 2.6 * On Foleys catheter * Monitoring ins and outs * nephrology on board Gross hematuria s/p Foleys insertion painting was inserted for I and O and resulted in light pink U/O-no clots. Pt reports minimal voiding difficulties at home. * gross hematuria likely due to mild trauma from painting insertion, exacerbated by Xeralto. * hold anti-coag- xaralto. * manually irrigate painting q 2 hrs PRN gross hematuria with 30ccsterile H2O. * will Resume xeralto if urine output clear. * Started Proscar 5mg PO daily. * Appreciate urology recommendations * If no improvement in 24-48 hours, or if hematuria worsens with obstructing clots, will cystoscope. 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 Chronic extremity swelling Lasix 20 mg at home Hold the Lasix for now Because of acute kidney injury Pain management with Tylenol and morphine-avoidance NSAIDs Full code DVT prophylaxis-xaralto cc2 diet Problem List: 1. Septic joint 2. Acute kidney injury Pain Ratin Pain Location: left knee Pain Goal: Remain pain free Pain Plan: tylinol Tomorrow's Labs & Rationales: cbc bep
--- NOTE | 2017-01-17 09:01 | PN- Nephrology ---
Assessment/Plan Assessment: 1. Acute kidney injury. Await today's labs. 975 mL of urine out so far today. Again, he had an infected knee coupled with Escherichia coli bacteremia. 2. Infection of the left knee. 3. History of chronic kidney disease previous baseline around 2 4. Hematuria. Likely Knott trauma. Suggestion: 1. Would maintain Knott for now 2. Continue with strict I's and O's daily weights Subjective Subjective: Patient feels okay. He is about to eat breakfast. This consisted of eggs and stokes. Given his history, the sodium restriction may need to be revisited. Objective Vital Signs and I&Os Vital Signs Date Time Temp Pulse Resp B/P B/P Pulse O2 O2 Flow FiO2 Mean Ox Delivery Rate 01/17 0639 97.8 87 22 118/70 91 Room Air 01/17 0557 Room Air 01/16 2211 97.6 90 24 122/60 93 Room Air 01/16 1636 92 Room Air Room Air 01/16 1600 92 Room Air 01/16 1600 98.4 87 18 110/60 92 Room Air Intake & Output 01/17 1600 01/17 0400 01/16 1600 01/16 0400 01/15 1600 01/15 0400 Intake Total 068 208 5197 1050 900 800 Output Total 600 375 750 500 500 Balance 120 215 930 550 400 800 Intake, IV 600 300 720 700 500 500 Intake, Oral 120 200 900 350 400 300 Intake, Other 90 60 Number 0 1 0 Bowel Movements Output, Urine 600 375 750 500 500 Patient 218 lb Weight Physical Exam: General Appearance: well developed/nourished, no apparent distress, obese Head: atraumatic Eyes: Bilateral: EOMI, pale conjunctivae. Neck: trachea mid line, no midline tenderness Respiratory: Clear to auscultation and percussion Cardiovascular: regular rate/rhythm Gastrointestinal: normal bowel sounds, soft, non-tender Back: normal inspection Extremities: pedal edema, left knee not examined Neurologic/Psych: Hard of hearing, aside from that, no gross neurologic deficit. Skin: intact Current Medications: Current Medications Sig/Festus Start time Last Medication Dose Route Stop Time Status Admin Acetaminophen 1,000 MG .STK-MED ONE 01/16 1844 DC IV 01/16 184 Acetaminophen 650 MG Q6P PRN 01/13 1600 AC 01/14 PO 1726 Acetaminophen 1,000 MG Q6P PRN 01/13 1600 AC 01/16 IV 1841 Albuterol Sulfate 3 ML TID 01/14 1000 AC 01/17 INH 0556 Albuterol Sulfate 3 ML Q4H PRN 01/13 1645 AC INH Atorvastatin Calcium 10 MG 1500 01/17 1500 AC PO Atorvastatin Calcium 10 MG DAILY 01/13 1642 DC 01/16 PO 1620 Ciprofloxacin 750 MG DAILY 01/15 1119 AC 01/16 PO 01/19 1118 1620 Diltiazem HCl 360 MG 1500 01/17 1500 AC PO Diltiazem HCl 360 MG DAILY 01/14 1000 DC 01/16 PO 1620 Finasteride 5 MG DAILY 01/17 1000 AC PO Insulin Aspart 0 TIDAC 01/14 0800 AC 01/16 SC 1200 Ipratropium [place] 2.5 ML Q4 HRS NEEDED PRN 01/13 1645 AC INH Lidocaine 1 PAT Q24H 01/13 1600 AC 01/16 EXT 1620 Morphine Sulfate 2 MG Q4P PRN 01/13 1600 AC 01/17 IV 0831 Rivaroxaban 15 MG DAILY 01/14 1000 DC 01/15 PO 1517 Sodium Chloride 1,000 ML Q13H 01/16 1615 DC 01/16 IV 01/17 0514 1620 Results Pertinent Lab Results: Laboratory Tests 01/16 01/16 1800 0347 Chemistry Sodium (137 - 145 mmol/L) 138 Potassium (3.5 - 5.1 mmol/L) 4.5 Chloride (98 - 107 mmol/L) 107 Carbon Dioxide (22 - 30 mmol/L) 20 L Anion Gap (5 - 16) 11 BUN (9 - 20 mg/dL) 50 H Creatinine (0.7 - 1.2 mg/dL) 3.2 H Estimated GFR (>60 ml/min) 18 L Glucose (65 - 99 mg/dL) 116 H Calcium (8.4 - 10.2 mg/dL) 8.0 L Phosphorus (2.5 - 4.5 mg/dL) 3.8 Magnesium (1.6 - 2.3 mg/dL) 2.4 H Total Bilirubin (0.2 - 1.3 mg/dL) 0.8 AST (17 - 59 U/L) 50 ALT (21 - 72 U/L) 37 Albumin (3.5 - 5.0 g/dL) 3.2 L Hematology CBC w Diff NO MAN DIFF REQ NO MAN DIFF REQ WBC (4.8 - 10.8 /CUMM) 7.1 6.6 RBC (4.70 - 6.10 /CUMM) 3.17 L 3.17 L Hgb (14.0 - 18.0 G/DL) 9.2 L 9.1 L Hct (42 - 52 %) 28.1 L 28.4 L MCV (80.0 - 94.0 FL) 88.8 89.3 MCH (27.0 - 31.0 PG) 28.9 28.8 RDW (11.5 - 14.5 %) 14.9 H 14.6 H Plt Count (130 - 400 /CUMM) 168 152 MPV (7.4 - 10.4 FL) 8.6 8.6 Gran % (42.2 - 75.2 %) 82.5 H 80.1 H Lymphocytes % (20.5 - 51.1 %) 5.1 L 8.1 L Monocytes % (1.7 - 9.3 %) 10.4 H 10.8 H Eosinophils % (0 - 5 %) 1.9 0.8 Basophils % (0.0 - 2.0 %) 0.1 0.2 Absolute Granulocytes (1.4 - 6.5 /CUMM) 5.8 5.3 Absolute Lymphocytes (1.2 - 3.4 /CUMM) 0.4 L 0.5 L Absolute Monocytes (0.10 - 0.60 /CUMM) 0.7 H 0.7 H Absolute Eosinophils (0.0 - 0.7 /CUMM) 0.1 0.1 Absolute Basophils (0.0 - 0.2 /CUMM) 0 0 PUBS MCHC (33.0 - 37.0 G/DL) 32.6 L 32.3 L 01/15 01/15 1630 1630 Urines Urinalysis MOD H Urine Color (YEL,AMB,STR) FRANCES Urine Clarity (CLEAR) HAZY H Urine pH (5.0 - 8.0) 6.0 Ur Specific [place] (1.001 - 1.035) 1.025 Urine Protein (NEG,<30 MG/DL) 100 H Urine Ketones (NEG) NEG Urine Nitrite (NEG) NEG Urine Bilirubin (NEG) NEG Urine Urobilinogen (0.1 - 1.0 EU/dl) 1.0 Ur Leukocyte Esterase (NEG) NEG Ur Microscopic SEDIMENT EXAMINED Urine RBC (0 - 5 /HPF) 25-50 H Urine WBC (0 - 2 /HPF) 15-25 H Ur Epithelial Cells (NONE,FEW) FEW Urine Bacteria (NEG/NONE) MANY H Urine Hemoglobin (NEG) LARGE H Ur Random Creatinine (mg/dL) 166.2 Ur Random Sodium (30 - 90 mmol/L) 18 L Ur Random Potassium (mmol/L) 40.4 Fraction Sodium Excret (<1% %) 0.3 Urine Glucose (N MG/DL) NEG 01/15 01/14 01/14 0430 1655 1620 Chemistry Sodium (137 - 145 mmol/L) 138 Cancelled 139 Potassium (3.5 - 5.1 mmol/L) 4.5 Cancelled 4.6 Chloride (98 - 107 mmol/L) 107 Cancelled 104 Carbon Dioxide (22 - 30 mmol/L) 19 L Cancelled 21 L Anion Gap (5 - 16) 12 Cancelled 13 BUN (9 - 20 mg/dL) 51 H Cancelled 47 H Creatinine (0.7 - 1.2 mg/dL) 3.6 H Cancelled 3.1 H Estimated GFR (>60 ml/min) 16 L 19 L Glucose (65 - 99 mg/dL) 105 H Cancelled 96 Calcium (8.4 - 10.2 mg/dL) 7.9 L Cancelled 8.3 L Phosphorus (2.5 - 4.5 mg/dL) 4.5 Cancelled 4.7 H Magnesium (1.6 - 2.3 mg/dL) 2.2 Cancelled 2.1 Total Bilirubin (0.2 - 1.3 mg/dL) 0.8 Cancelled 1.2 Direct Bilirubin (< 0.4 mg/dL) 1.0 H AST (17 - 59 U/L) 50 Cancelled 65 H ALT (21 - 72 U/L) 29 Cancelled 34 Alkaline Phosphatase (< 127 U/L) 124 Troponin I (<0.11 ng/ml) 0.03 Total Protein (6.3 - 8.2 g/dL) 6.7 Albumin (3.5 - 5.0 g/dL) 3.1 L Cancelled 3.6 Coagulation D-Dimer High Sensitivty (0 - 243 ng/ml) 530 H Hematology CBC w Diff NO MAN DIFF REQ WBC (4.8 - 10.8 /CUMM) 6.2 RBC (4.70 - 6.10 /CUMM) 3.27 L Hgb (14.0 - 18.0 G/DL) 9.5 L Hct (42 - 52 %) 29.3 L MCV (80.0 - 94.0 FL) 89.7 MCH (27.0 - 31.0 PG) 29.0 RDW (11.5 - 14.5 %) 14.9 H Plt Count (130 - 400 /CUMM) 157 MPV (7.4 - 10.4 FL) 8.8 Gran % (42.2 - 75.2 %) 76.9 H Lymphocytes % (20.5 - 51.1 %) 8.6 L Monocytes % (1.7 - 9.3 %) 13.8 H Eosinophils % (0 - 5 %) 0.6 Basophils % (0.0 - 2.0 %) 0.1 Absolute Granulocytes (1.4 - 6.5 /CUMM) 4.8 Absolute Lymphocytes (1.2 - 3.4 /CUMM) 0.5 L Absolute Monocytes (0.10 - 0.60 /CUMM) 0.9 H Absolute Eosinophils (0.0 - 0.7 /CUMM) 0 Absolute Basophils (0.0 - 0.2 /CUMM) 0 PUBS MCHC (33.0 - 37.0 G/DL) 32.3 L 01/14 01/14 1610 UNK Blood Gas pH (7.35 - 7.45 PH) 7.34 L pCO2 (35 - 45 TORR) 36 pO2 (80 - 100 TORR) 87 HCO3 (21 - 28 MEQ/L) 19 L ABG O2 Sat (Measured) (>96.0 %) 96.0 Carboxyhemoglobin (1.5 - 5.0 %) 1.2 L O2 Concentration % 6L O2 Delivery Method NC Chemistry Sodium Cancelled Potassium Cancelled Chloride Cancelled Carbon Dioxide Cancelled Anion Gap Cancelled BUN Cancelled Creatinine Cancelled Glucose Cancelled Calcium Cancelled Phosphorus Cancelled Magnesium Cancelled Total Bilirubin Cancelled AST Cancelled ALT Cancelled Albumin Cancelled Miscellaneous Phlebotomy Draw Site RIGHT RADIAL
--- NOTE | 2017-01-17 11:02 | PN- Orthopedic ---
Subjective Subjective: PATIENT states doing better mild pain in the knee minimal swelling on oral cipro. ambulated with PT today. Objective Vital Signs and I&Os Vital Signs Date Time Temp Pulse Resp B/P B/P Pulse O2 O2 Flow FiO2 Mean Ox Delivery Rate 01/17 0639 97.8 87 22 118/70 91 Room Air 01/17 0557 Room Air 01/16 2211 97.6 90 24 122/60 93 Room Air 01/16 1636 92 Room Air Room Air 01/16 1600 92 Room Air 01/16 1600 98.4 87 18 110/60 92 Room Air Intake & Output 01/17 1600 01/17 0800 01/17 0000 01/16 1600 01/16 0800 01/16 0000 Intake Total 720 590 081 085 9369 Output Total 600 375 400 350 500 Balance 120 215 440 490 550 Intake, IV 600 300 120 600 700 Intake, Oral 120 200 660 240 350 Intake, Other 90 60 Number 0 1 0 Bowel Movements Output, Urine 600 375 400 350 500 Patient 218 lb Weight Physical Exam: patient alert oriented left knee minimal swelling. moving the knee better did ambulate should use walker for safety. Assessment/Plan Assessment/Plan doing well on oral antibiotics trying to save his knee joint he can ambulate WBAT will follow Core Measures/Miscellaneous Venous Thromboembolism VTE Risk Factors: Age > 40, Surgery VTE Contraindications: No Contraindications VTE Diagnosis: No VTE Type: NONE VTE Confirmed by (Test): NONE Beta Mary Beth Is Beta Mary Beth a Home Med? No Antibiotics Is Patient on Antibiotics? Yes If Yes: infection Attending MD Review Statement Attending Statement Attending MD Statement: examined this patient
--- NOTE | 2017-01-17 13:01 | PN- Infect Dx ---
Subjective Subjective: Afebrile. He notes mild discomfort in the left knee. He continues to feel depressed at times and was apparently tearful this morning Objective Last 24 Hrs of Vital Signs/I&O Vital Signs Date Time Temp Pulse Resp B/P B/P Pulse O2 O2 Flow FiO2 Mean Ox Delivery Rate 01/17 0639 97.8 87 22 118/70 91 Room Air 01/17 0557 Room Air 01/16 2211 97.6 90 24 122/60 93 Room Air 01/16 1636 92 Room Air Room Air 01/16 1600 92 Room Air 01/16 1600 98.4 87 18 110/60 92 Room Air Intake & Output 01/17 1600 01/17 0800 01/17 0000 Intake Total 300 720 590 Output Total 600 375 Balance 300 120 215 Intake, IV 600 300 Intake, Oral 300 120 200 Intake, Other 90 Number 0 Bowel Movements Output, Urine 600 375 Physical Exam Other Physical Findings: He appears comfortable in no acute distress Lungs are clear Heart regular rhythm with no murmur Extremities increased range of motion left knee with no erythema or drainage Knott catheter remains in place Results Last 24 Hours of Lab Results: Laboratory Tests 01/16 1800 Hematology CBC w Diff NO MAN DIFF REQ WBC (4.8 - 10.8 /CUMM) 7.1 RBC (4.70 - 6.10 /CUMM) 3.17 L Hgb (14.0 - 18.0 G/DL) 9.2 L Hct (42 - 52 %) 28.1 L MCV (80.0 - 94.0 FL) 88.8 MCH (27.0 - 31.0 PG) 28.9 RDW (11.5 - 14.5 %) 14.9 H Plt Count (130 - 400 /CUMM) 168 MPV (7.4 - 10.4 FL) 8.6 Gran % (42.2 - 75.2 %) 82.5 H Lymphocytes % (20.5 - 51.1 %) 5.1 L Monocytes % (1.7 - 9.3 %) 10.4 H Eosinophils % (0 - 5 %) 1.9 Basophils % (0.0 - 2.0 %) 0.1 Absolute Granulocytes (1.4 - 6.5 /CUMM) 5.8 Absolute Lymphocytes (1.2 - 3.4 /CUMM) 0.4 L Absolute Monocytes (0.10 - 0.60 /CUMM) 0.7 H Absolute Eosinophils (0.0 - 0.7 /CUMM) 0.1 Absolute Basophils (0.0 - 0.2 /CUMM) 0 PUBS MCHC (33.0 - 37.0 G/DL) 32.6 L Last 24 Hours of Federico Results: Blood cultures January 13 positive for Escherichia coli Blood cultures January 14 negative Urine culture January 15 negative Assessment/Plan Impression: Stable with temperatures and white blood cell count remaining normal on Ciprofloxacin now 3 days status post arthroscopic irrigation and debridement for 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 His blood cultures from admission are also positive for Escherichia coli, suggesting that he seeded the left knee from the bacteremia, though the source of this bacteremia remains unclear, with CT of the abdomen and pelvis and right upper quadrant ultrasound nonrevealing and with his urine culture contaminated with mixed gram-positive cocci. His renal function was slightly improved yesterday, with no labs obtained yet today. He was offered psychiatric input for his depression, which he declines at this time.. Suggestion: 1. Repeat BUN/creatinine 2. Would check a new postop baseline ESR 3. Would remove Knott catheter as soon as feasible 4. Continue Ciprofloxacin
[2017-01-17 13:24] LABS: ABSOLUTE BASOPHIL COUNT 0 /CUMM (0.0-0.2); ABSOLUTE EOSINOPHIL COUNT 0.1 /CUMM (0.0-0.7); ABSOLUTE GRANULOCYTE CT 5.5 /CUMM (1.4-6.5); ABSOLUTE LYMPH COUNT 0.3 /CUMM (1.2-3.4); ABSOLUTE MONOCYTE COUNT 0.6 /CUMM (0.10-0.60); BASOPHIL % 0.1 % (0.0-2.0); HEMATOCRIT 27.3 % (42-52); MEAN CORPUSCULAR HGB 28.5 PG (27.0-31.0); MEAN CORPUSCULAR VOLUME 89.1 FL (80.0-94.0); MEAN PLATELET VOLUME 8.3 FL (7.4-10.4); PLATELET COUNT 183 /CUMM (130-400); RBC DISTRIBUTION WIDTH 14.7 % (11.5-14.5); RED BLOOD CELL CT 3.07 /CUMM (4.70-6.10); WHITE BLOOD CELL COUNT 6.6 /CUMM (4.8-10.8)
[2017-01-17 14:08] LABS: GRANULOCYTE % 84.6 % (42.2-75.2)
[2017-01-17 15:11] VITALS: BP 130/80
--- NOTE | 2017-01-17 15:13 | PN- Att Addend ---
Attending Addendum Attending Brief Note Patient sitting in the chair little discouraged about situation. Vital signs are stable no fever no major changes on physical the knee still is sore. His white count is still within normal limits. Appreciate infectious diseases input and recommendations regarding how patient got an infected knee. The first 2 blood cultures were positive for Escherichia coli the patient on Cipro delay this 2 blood cultures were negative so far is still having some hematuria we'll monitor him I need neurology follow-up for this will be able to discontinue the K[place]t soon after his labs 24 TOTALS 01/17 0000 01/16 0000 Intake Total 2270 1950 Output Total 1125 1000 Balance 1145 950 Intake, IV 1020 1200 Intake, Oral 1100 750 Intake, Other 150 Number 1 0 Bowel Movements Output, Urine 1125 1000 Patient 218 lb Weight Current Medications Sig/Festus Start time Last Medication Dose Route Stop Time Status Admin Acetaminophen 1,000 MG .STK-MED ONE 01/16 1844 DC IV 01/16 1845 Acetaminophen 650 MG Q6P PRN 01/13 1600 AC 01/14 PO 1726 Acetaminophen 1,000 MG Q6P PRN 01/13 1600 AC 01/16 IV 1841 Albuterol Sulfate 3 ML TID 01/14 1000 AC 01/17 INH 1354 Albuterol Sulfate 3 ML Q4H PRN 01/13 1645 AC INH Atorvastatin Calcium 10 MG 1500 01/17 1500 AC PO Atorvastatin Calcium 10 MG DAILY 01/13 1642 DC 01/16 PO 1620 Ciprofloxacin 750 MG DAILY 01/15 1119 AC 01/17 PO 01/19 1118 0912 Diltiazem HCl 360 MG 1500 01/17 1500 AC PO Diltiazem HCl 360 MG DAILY 01/14 1000 DC 01/16 PO 1620 Finasteride 5 MG DAILY 01/17 1000 AC 01/17 PO 0912 Insulin Aspart 0 TIDAC 01/14 0800 AC 01/16 SC 1200 Ipratropium [place] 2.5 ML Q4 HRS NEEDED PRN 01/13 1645 AC INH Lidocaine 1 PAT Q24H 01/13 1600 AC 01/16 EXT 1620 Morphine Sulfate 2 MG Q4P PRN 01/13 1600 AC 01/17 IV 1222 Patient Medication 1 ED .STK-MED ONE 01/17 1336 DC Teaching ED 01/17 1337 Rivaroxaban 15 MG DAILY 01/14 1000 DC 01/15 PO 1517 Sodium Chloride 1,000 ML Q13H 01/16 1615 DC 01/16 IV 01/17 0514 1620 Laboratory Tests 01/17/17 1312: Anion Gap 11, Estimated GFR 23 L, BUN/Creatinine Ratio 19.2, CBC w Diff NO MAN DIFF REQ, RBC 3.07 L, MCV 89.1, MCH 28.5, RDW 14.7 H, MPV 8.3, Gran % 84.6 H, Lymphocytes % 4.8 L, Monocytes % 9.5 H, Eosinophils % 1.0, Basophils % 0.1, Absolute Granulocytes 5.5, Absolute Lymphocytes 0.3 L, Absolute Monocytes 0.6, Absolute Eosinophils 0.1, Absolute Basophils 0, PUBS MCHC 32.0 L, ESR [place] 130 H 01/16/17 1800: CBC w Diff NO MAN DIFF REQ, RBC 3.17 L, MCV 88.8, MCH 28.9, RDW 14.9 H, MPV 8.6, Gran % 82.5 H, Lymphocytes % 5.1 L, Monocytes % 10.4 H, Eosinophils % 1.9, Basophils % 0.1, Absolute Granulocytes 5.8, Absolute Lymphocytes 0.4 L, Absolute Monocytes 0.7 H, Absolute Eosinophils 0.1, Absolute Basophils 0, PUBS MCHC 32.6 L 01/16/17 0347: Anion Gap 11, Estimated GFR 18 L, Glucose 116 H, Calcium 8.0 L, Phosphorus 3.8, Magnesium 2.4 H, Total Bilirubin 0.8, AST 50, ALT 37, Albumin 3.2 L, CBC w Diff NO MAN DIFF REQ, RBC 3.17 L, MCV 89.3, MCH 28.8, RDW 14.6 H, MPV 8.6, Gran % 80.1 H, Lymphocytes % 8.1 L, Monocytes % 10.8 H, Eosinophils % 0.8, Basophils % 0.2, Absolute Granulocytes 5.3, Absolute Lymphocytes 0.5 L, Absolute Monocytes 0.7 H, Absolute Eosinophils 0.1, Absolute Basophils 0, PUBS MCHC 32.3 L 01/15/17 1630: Urinalysis MOD H, Urine Color FRANCES, Urine Clarity HAZY H, Urine pH 6.0, Ur Specific [place] 1.025, Urine Protein 100 H, Urine Ketones NEG, Urine Nitrite NEG, Urine Bilirubin NEG, Urine Urobilinogen 1.0, Ur Leukocyte Esterase NEG, Ur Microscopic SEDIMENT EXAMINED, Urine RBC 25-50 H, Urine WBC 15-25 H, Ur Epithelial Cells FEW, Urine Bacteria MANY H, Urine Hemoglobin LARGE H, Urine Glucose NEG 01/15/17 1630: Ur Random Creatinine 166.2, Ur Random Sodium 18 L, Ur Random Potassium 40.4, Fraction Sodium Excret 0.3 01/15/17 0430: Anion Gap 12, Estimated GFR 16 L, Glucose 105 H, Calcium 7.9 L, Phosphorus 4.5, Magnesium 2.2, Total Bilirubin 0.8, AST 50, ALT 29, Albumin 3.1 L, CBC w Diff NO MAN DIFF REQ, RBC 3.27 L, MCV 89.7, MCH 29.0, RDW 14.9 H, MPV 8.8, Gran % 76.9 H, Lymphocytes % 8.6 L, Monocytes % 13.8 H, Eosinophils % 0.6, Basophils % 0.1, Absolute Granulocytes 4.8, Absolute Lymphocytes 0.5 L, Absolute Monocytes 0.9 H, Absolute Eosinophils 0, Absolute Basophils 0, PUBS MCHC 32.3 L 01/14/17 1655: Sodium Cancelled, Potassium Cancelled, Chloride Cancelled, Carbon Dioxide Cancelled, Anion Gap Cancelled, BUN Cancelled, Creatinine Cancelled, Glucose Cancelled, Calcium Cancelled, Phosphorus Cancelled, Magnesium Cancelled, Total Bilirubin Cancelled, AST Cancelled, ALT Cancelled, Albumin Cancelled 01/14/17 1620: Anion Gap 13, Estimated GFR 19 L, Glucose 96, Calcium 8.3 L, Phosphorus 4.7 H , Magnesium 2.1, Total Bilirubin 1.2, Direct Bilirubin 1.0 H, AST 65 H, ALT 34 , Alkaline Phosphatase 124, Troponin I 0.03, Total Protein 6.7, Albumin 3.6, D- Dimer High Sensitivty 530 H 01/14/17 1610: pH 7.34 L, pCO2 36, pO2 87, HCO3 19 L, ABG O2 Sat (Measured) 96.0, Carboxyhemoglobin 1.2 L, O2 Concentration % 6L, O2 Delivery Method NC, Phlebotomy Draw Site RIGHT RADIAL Microbiology 01/15 163 URINE ROUT: Urine Culture - COMP 01/14 1800 BLOOD: Blood Culture - RES 01/14 1800 BLOOD: Blood Culture - RES 01/14 1728 LOWER RESP: Respiratory Culture - CAN Cancelled: SPECIMEN NOT RECEIVED IN LABORATORY 01/14 1728 LOWER RESP: Gram Stain - CAN Cancelled: SPECIMEN NOT RECEIVED IN LABORATORY 01/14 1635 UPPER RESP: Surveillance Culture - COMP 01/14 1635 GI: Surveillance Culture - COMP Microbiology 01/15 1630 URINE ROUT: Urine Culture - COMP 01/14 1800 BLOOD: Blood Culture - RES 01/14 1800 BLOOD: Blood Culture - RES 01/14 1728 LOWER RESP: Respiratory Culture - CAN Cancelled: SPECIMEN NOT RECEIVED IN LABORATORY 01/14 172 LOWER RESP: Gram Stain - CAN Cancelled: SPECIMEN NOT RECEIVED IN LABORATORY 01/14 163 UPPER RESP: Surveillance Culture - COMP 01/14 163 GI: Surveillance Culture - COMP Vital Signs Date Time Temp Pulse Resp B/P B/P Pulse O2 O2 Flow FiO2 Mean Ox Delivery Rate 01/17 1511 99.1 96 22 130/80 99 01/17 0639 97.8 87 22 118/70 91 Room Air 01/17 0557 Room Air 01/16 2211 97.6 90 24 122/60 93 Room Air 01/16 1636 92 Room Air Room Air 01/16 1600 92 Room Air 01/16 1600 98.4 87 18 110/60 92 Room Air
[2017-01-17 23:04] VITALS: BP 132/58
[2017-01-18 05:58] VITALS: BP 120/70
--- NOTE | 2017-01-18 07:32 | PN- Housestaff ---
Subjective Follow-up For: Left knee septic arthritis-s/p washout procedure Acute kidney injury Chronic kidney disease Bacteremia Gross hematuria secondary to Painting's trauma History of atrial fibrillation Complaints: pain scale (0-10) Subjective: Patient was seen and examined this afternoon. He is alert awake and oriented to time place and person. No acute events noticed overnight. He is status post Left knee arthroscopic irrigation and debridement with synovectomy. toletrated the procedure Reports mild pain and discomfort to left knee denies any blood in urine Offers no other complaints at bedside Raymond any fever, chills, abdominal pain, change in bladder or bowel habits. Vitals stable afebrile, heart rate 80, respiratory rate 20, blood pressure 130/ 70, saturating at 95 on room air. Foleys Catheter removed Review of Systems Constitutional: Reports: see HPI. Objective Last 24 Hrs of Vital Signs/I&O Vital Signs Date Time Temp Pulse Resp B/P B/P Pulse O2 O2 Flow FiO2 Mean Ox Delivery Rate 01/18 0827 94 Room Air 01/18 0558 99.2 82 20 120/70 94 Room Air 01/17 2304 98.4 96 22 132/58 92 Room Air 01/17 1720 94 Room Air Room Air 01/17 1511 99.1 96 22 130/80 99 Intake & Output 01/18 1600 01/18 0800 01/18 0000 Intake Total 780 Output Total 600 350 350 Balance -600 -350 430 Intake, IV 600 Intake, Oral 180 Output, Urine 600 350 350 Physical Exam General Appearance: Alert, Oriented X3, Cooperative, No Acute Distress Skin: No Rashes, No Breakdown HEENT: Atraumatic, PERRLA, EOMI, Mucous Membr. moist/pink Neck: Supple, No JVD Lymphatic: Cervical nl Cardiovascular: Normal S1, Normal S2, No Murmurs Lungs: Normal Air Movement Abdomen: Normal Bowel Sounds, Soft, No Tenderness Extremities: No Clubbing, No Cyanosis, No Edema Vascular: Pulses Symmetrical Current Medications: Current Medications Sig/Festus Start time Last Medication Dose Route Stop Time Status Admin Acetaminophen 650 MG Q6P PRN 01/13 1600 AC 01/18 PO 0940 Acetaminophen 1,000 MG Q6P PRN 01/13 1600 AC 01/16 IV 1841 Albuterol Sulfate 3 ML TID 01/14 1000 AC 01/18 INH 1325 Albuterol Sulfate 3 ML Q4H PRN 01/13 1645 AC INH Atorvastatin Calcium 10 MG 1500 01/17 1500 AC 01/17 PO 1607 Ciprofloxacin 750 MG DAILY 01/15 1119 AC 01/18 PO 01/19 1118 0920 Diltiazem HCl 360 MG 1500 01/17 1500 AC 01/17 PO 1607 Finasteride 5 MG DAILY 01/17 1000 AC 01/18 PO 0920 Insulin Aspart 0 TIDAC 01/14 0800 AC 01/16 SC 1200 Ipratropium [place] 2.5 ML Q4 HRS NEEDED PRN 01/13 1645 AC INH Lidocaine 1 PAT Q24H 01/13 1600 AC 01/17 EXT 1609 Morphine Sulfate 2 MG ONCE ONE 01/18 1045 DC 01/18 IV 01/18 1046 1041 Morphine Sulfate 2 MG Q4P PRN 01/13 1600 AC 01/18 IV 0648 Rivaroxaban 15 MG DAILY 01/18 1000 AC 01/18 PO 1204 Sodium Chloride 1,000 ML Q13H 01/18 0845 AC 01/18 IV 01/18 2144 0920 Sodium Chloride 1,000 ML Q13H 01/17 1800 DC 01/17 IV 01/18 0659 1825 Last 24 Hrs of Lab/Federico Results Last 24 Hrs of Labs/Mics: Laboratory Tests 01/18/17 0620: Anion Gap 8, Estimated GFR 25 L, BUN/Creatinine Ratio 19.2, CBC w Diff NO MAN DIFF REQ, RBC 2.88 L, MCV 88.4, MCH 29.2, RDW 14.3, MPV 8.9, Gran % 76.0 H, Lymphocytes % 11.2 L, Monocytes % 8.9, Eosinophils % 3.7, Basophils % 0.2, Absolute Granulocytes 4.5, Absolute Lymphocytes 0.7 L, Absolute Monocytes 0.5, Absolute Eosinophils 0.2, Absolute Basophils 0, PUBS MCHC 33.1 Assessment/Plan Assessment: This is a 87-year-old male with past medical history significant for coronary artery disease status post angioplasty left circumflex artery 3 times, atrial fibrillation on Cardizem and xaralto, 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 Vitals on presentation afebrile, heart rate 110 respiratory rate 16, blood pressure 128/54, saturating at 96 on room air. Hemoglobin 11.5 and hematocrit 35.8, WBC 8.1. Creatinine 2.5 on admission left knee xray A left knee prosthesis is intact. There is a moderate knee joint effusion. There are no acute fractures No DVT on doppler US. cxr- negative Problem list 1. Left knee septic arthritis 2. Status post left knee arthroscopy 3. Coronary artery disease status post angioplasty 4. History of atrial fibrillation 5. Diabetes mellitus 6. Hypertension 7. Hyperlipidemia 8. Chronic lower extremity swelling 9. COPD history Left knee septic arthritis Patient presented to the hospital with left knee pain, swelling, redness. Off note he is status post bilateral knee replacements 14 years ago. On admission he is afebrile however spiked a temperature 100.6 after several hours. WBC count 8000. Left knee x-ray showed Intact prosthesis with moderate joint effusion. He is status post a left knee joint arthrocentesis twice in the emergency room. Fluid WBC were elevated [id number]. cultures positive for gram-negative rods- ecoli. * Admitted to general medicine floor for further management and surgical procedure * He is status post left knee arthroscopic irrigation and debridement with synovectomy- day5 * he is able to resolve this infection without removal of the prosthesis, * His bilirubin and alkaline phosphatase are elevated, suggesting a possible biliary source, though he has no GI symptoms and his abdominal exam is benign. * Ultrasound abdomen and CT ABDOMEN was done- to rule out GI source -negative * Continue antibiotics -ciprofloxicin 750 mg by mouth daily - day4. he needs 4-6 weeks of antibiotics. * Follow-up or cultures- ecoli * blood culturesx2 - ecoli- no source of infection found so far * Out of bed with physical therapy * patient is weightbearing as tolerated * Recommended short-term rehabilitation * PRN pain medication * GI and DVT prophylaxis Left knee arthrocentesis Left knee arthrocentesis twice in the emergency room * Left knee arthrocentesis: Cell counts [id number] WBC, * Gross Pus, * Positive for gram-negative rods- e.coli * blood cultures positive for Escherichia coli bacteremia * On ciprofloxacin day4. * Needs 4-6 weeks of antibiotics as per ID #2 history of atrial fibrillation status post pacemaker placement, currently rate controlled-continue Cardizem 360 mg CD for rate control; elevated [id number] and on Xarelto 20 mg po daily. Resumed xaralto as urine is clear now without blood #3 history of diabetes not on diabetic medication. Diabetes diets, fingersticks 3 times a day before meals, insulin aspart ss 3 times a day before meals, HbA1c - 6.1 #4 History of hypertension- hold losartan and Lasix cr 2.9, raised to 3.6 on admission. Improving creatinine with hydration Avoid nsaids Avoid nephrotoxins continue gentle hydration #5. LALO ON history of CKD (gradual worsening of renal function) possibly due to sepsis versus uncontrolled diabetes or uncontrolled hypertension. * nephrology consulted * cr 2.9 on admission * cr raised to 3.6 * Avoid nsaids * Avoid nephrotoxins * gentle hydration- improved to 2.6 * Foleys catheter d/c * Monitoring ins and outs * Daily weights * nephrology on board Gross hematuria s/p Foleys insertion painting was inserted for I and O and resulted in light pink U/O-no clots. Pt reports minimal voiding difficulties at home. * gross hematuria likely due to mild trauma from painting insertion, exacerbated by Xeralto. * Resumed xeralto as urine output clear now. * Started Proscar 5mg PO daily. * Appreciate urology recommendations. 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 Chronic extremity swelling Lasix 20 mg at home Hold the Lasix for now Because of acute kidney injury Pain management with Tylenol and morphine-avoidance NSAIDs Full code DVT prophylaxis-xaralto cc2 diet Problem List: 1. Septic joint Pain Ratin Pain Location: left knee Pain Goal: Remain pain free Pain Plan: Tylenol Morphine Tomorrow's Labs & Rationales: CB C in the setting of anemia and hematuria BEP in the setting of acute kidney
[2017-01-18 08:02] LABS: ABSOLUTE BASOPHIL COUNT 0 /CUMM (0.0-0.2); ABSOLUTE EOSINOPHIL COUNT 0.2 /CUMM (0.0-0.7); ABSOLUTE GRANULOCYTE CT 4.5 /CUMM (1.4-6.5); ABSOLUTE LYMPH COUNT 0.7 /CUMM (1.2-3.4); ABSOLUTE MONOCYTE COUNT 0.5 /CUMM (0.10-0.60); BASOPHIL % 0.2 % (0.0-2.0); EOSINOPHIL % 3.7 % (0-5); HEMATOCRIT 25.5 % (42-52); MEAN CORPUSCULAR HGB 29.2 PG (27.0-31.0); MEAN CORPUSCULAR HGB CONC 33.1 G/DL (33.0-37.0); MEAN CORPUSCULAR VOLUME 88.4 FL (80.0-94.0); MEAN PLATELET VOLUME 8.9 FL (7.4-10.4); PLATELET COUNT 178 /CUMM (130-400); RBC DISTRIBUTION WIDTH 14.3 % (11.5-14.5); RED BLOOD CELL CT 2.88 /CUMM (4.70-6.10)
--- NOTE | 2017-01-18 09:01 | Discharge Summary ---
See Addendum Visit Information Visit Dates Admission Date: 01/13/17 Discharge Date: 01/22/2017 Hospital Course Course Attending Physician: DAMIAN THOMPSON,ANJALI Primary Care Physician: DAMIAN THOMPSON,[facility] Course: This is an 87-year-old man with a history of hypertension, diabetes, chronic renal insufficiency, coronary artery disease, status post angioplasty, atrial fibrillation, maintained on Xarelto, tachybradycardia syndrome, status post pacemaker placement 2 years prior to admission, status post post bilateral knee replacements 12 years prior to admission. CC: January 13 he came in with the acute onset of pain and swelling of the left knee status post clipping of his toenails several days prior to admission. During course of admission pt required transient ICU admission for hypoxia and palpitation but required no aggressive intervention and was subsequently transferred back to [facility] for reminder of hospital admission. ED work up showed: Laboratory data revealed a white blood cell count of 8000, ESR 69, BUN/ creatinine 37 and 2.5, lactic acid 2.1, bilirubin 1.4, alk phosphatase 138, GGT 119. Urinalysis 15-25 RBC/5-10 WBC. Chest x-ray was negative for any acute process. X-ray of the left knee revealed an intact prosthesis with a moderate joint effusion. Doppler of the left leg was negative. Pt seen for following problems: Septic joint: He underwent arthrocentesis in the emergency room which yielded thick and deep yellow fluid, with cell count initially revealing over 75,000 white blood cells, with a repeat cell count revealing over 114,000 white blood cells and with the gram stain revealing gram-negative rods. He was begun on Ceftriaxone. * His joint aspirates and blood Cx grew Ecoli and Antibiotic was switched from cefteriaxone to PO Ciprofloxacin for total duration of 4-6 weeks per ID * On the second day patient went underwent left knee arthroscopic irrigation and debridement with synovectomy. * Overnight patient had rapid response and was trasferred to ICU for palpitation and hypoxia. During his stay in ICU patient did not requrired any life support measure. LALO on CKD: Patient also was seen by food service utility worker for gradual increase in BUN and Cr and hematuria. 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 There was Hx of bladder scar and food service utility worker recommended painting placment, which inadverantely traumatized the patient and casued hematuria without any significant hemodynamic compromise. * Pt recommended to go out on Painting catheter until he sees Dr. Henderson, urologist on 01/25 * Cont' proscar Concern for urologic malignancy: During work up of hematura pt had urine cytology with " MARKEDLY ATYPICAL EPITHELIAL CELLS FAVORING DIAGNOSIS OF CARCINOMA. RECOMMEND CYSTOSCOPY." The matter was discussed with the family and patient. They are aware. * Cystoscopy with Dr. Henderson on 01/25. Complications: Painting catheter placement resulted in hematuria. Patient was discharged with painting catheter to follow up with Dr. Henderson. Allergies: Coded Allergies: NO KNOWN ALLERGIES (11/15/15) Pertinent Lab Results: Ct scan of the abdomen and pelvic w/o IV contrast was done to screen for the occult (source)/cause(s) bacteremia. Ct scan reveals equivocal mild mural thickening of the transverse colon; bilateral perinephric stranding. Laboratory Tests 01/21 01/20 0755 0725 Chemistry Sodium (137 - 145 mmol/L) 139 139 Potassium (3.5 - 5.1 mmol/L) 5.0 5.2 H Chloride (98 - 107 mmol/L) 107 107 Carbon Dioxide (22 - 30 mmol/L) 21 L 21 L Anion Gap (5 - 16) 11 12 BUN (9 - 20 mg/dL) 40 H 44 H Creatinine (0.7 - 1.2 mg/dL) 2.0 H 2.2 H Estimated GFR (>60 ml/min) 32 L 28 L BUN/Creatinine Ratio (7 - 25 %) 20.0 20.0 Hematology CBC w Diff NO MAN DIFF REQ NO MAN DIFF REQ WBC (4.8 - 10.8 /CUMM) 7.1 6.7 RBC (4.70 - 6.10 /CUMM) 3.09 L 3.06 L Hgb (14.0 - 18.0 G/DL) 8.9 L 8.9 L Hct (42 - 52 %) 27.2 L 27.4 L MCV (80.0 - 94.0 FL) 88.1 89.6 MCH (27.0 - 31.0 PG) 28.7 29.2 RDW (11.5 - 14.5 %) 14.6 H 14.6 H Plt Count (130 - 400 /CUMM) 356 290 MPV (7.4 - 10.4 FL) 8.4 8.3 Gran % (42.2 - 75.2 %) 78.3 H 74.3 Lymphocytes % (20.5 - 51.1 %) 7.6 L 10.3 L Monocytes % (1.7 - 9.3 %) 10.0 H 12.1 H Eosinophils % (0 - 5 %) 3.8 3.0 Basophils % (0.0 - 2.0 %) 0.3 0.3 Absolute Granulocytes (1.4 - 6.5 /CUMM) 5.5 4.9 Absolute Lymphocytes (1.2 - 3.4 /CUMM) 0.5 L 0.7 L Absolute Monocytes (0.10 - 0.60 /CUMM) 0.7 H 0.8 H Absolute Eosinophils (0.0 - 0.7 /CUMM) 0.3 0.2 Absolute Basophils (0.0 - 0.2 /CUMM) 0 0 PUBS MCHC (33.0 - 37.0 G/DL) 32.6 L 32.6 L 01/19 01/19 01/19 1130 0635 0449 Chemistry Sodium (137 - 145 mmol/L) 141 Potassium (3.5 - 5.1 mmol/L) 4.8 Chloride (98 - 107 mmol/L) 109 H Carbon Dioxide (22 - 30 mmol/L) 19 L Anion Gap (5 - 16) 13 BUN (9 - 20 mg/dL) 46 H Creatinine (0.7 - 1.2 mg/dL) 2.3 H Estimated GFR (>60 ml/min) 27 L BUN/Creatinine Ratio (7 - 25 %) 20.0 Troponin I (<0.11 ng/ml) < 0.01 Hematology CBC w Diff NO MAN DIFF REQ WBC (4.8 - 10.8 /CUMM) 7.2 RBC (4.70 - 6.10 /CUMM) 3.27 L Hgb (14.0 - 18.0 G/DL) 9.5 L Hct (42 - 52 %) 29.1 L MCV (80.0 - 94.0 FL) 89.2 MCH (27.0 - 31.0 PG) 28.9 RDW (11.5 - 14.5 %) 14.6 H Plt Count (130 - 400 /CUMM) 249 MPV (7.4 - 10.4 FL) 8.6 Gran % (42.2 - 75.2 %) 83.9 H Lymphocytes % (20.5 - 51.1 %) 4.6 L Monocytes % (1.7 - 9.3 %) 8.8 Eosinophils % (0 - 5 %) 2.4 Basophils % (0.0 - 2.0 %) 0.3 Absolute Granulocytes (1.4 - 6.5 /CUMM) 6.0 Absolute Lymphocytes (1.2 - 3.4 /CUMM) 0.3 L Absolute Monocytes (0.10 - 0.60 /CUMM) 0.6 Absolute Eosinophils (0.0 - 0.7 /CUMM) 0.2 Absolute Basophils (0.0 - 0.2 /CUMM) 0 PUBS MCHC (33.0 - 37.0 G/DL) 32.5 L Urines Urine Color Cancelled Urine Clarity Cancelled Urine pH Cancelled Ur Specific [place] Cancelled Urine Protein Cancelled Urine Ketones Cancelled Urine Nitrite Cancelled Urine Bilirubin Cancelled Urine Urobilinogen Cancelled Ur Leukocyte Esterase Cancelled Ur Microscopic Cancelled Urine Hemoglobin Cancelled Urine Glucose Cancelled Disposition Summary Disposition Principal Diagnosis: Septic joint Additional Diagnosis: 1) URINE: MARKEDLY ATYPICAL EPITHELIAL CELLS FAVORING DIAGNOSIS OF CARCINOMA. RECOMMEND CYSTOSCOPY. 2) BPH 3) COPD 4) CKD Discharge Disposition: SNF Discharge Instructions General Discharge Information Code Status: Full Code Patient's Diet: heart healty Patient's Activity: as tolertad Follow-Up Instructions/Appts: Follow up with Dr. Negron within 2 weeks Follow up with your PCP w/ in one week Medications at Discharge Discharge Medications: Continue taking these medications: Atorvastatin Calcium (Lipitor) 10 MG TABLET 1 Tablet ORAL DAILY Comments: Last Taken: 12/10/14 Time: 8:30 pm Albuterol Sulfate (Proair Hfa) 0.09 MG/Actuation KANWAL 2 PUFF Inhale through mouth Q4-6H as needed for DYSPNEA Qty = 9 Losartan (Cozaar) 100 MG TABLET 1 Tablet ORAL DAILY Comments: Last Taken:12/11/14 Time:10am Rivaroxaban (Xarelto) 20 MG TAB 1 Tablet ORAL Every night Qty = 90 Instructions: with food DILTIAZEM HCL (Cardizem Cd) 360 MG C24 1 Capsule ORAL DAILY Qty = 90 Furosemide (Furosemide) 20 MG TAB 1 Tablet ORAL DAILY Qty = 30 Start taking the following new medications: Ciprofloxacin HCl (Ciprofloxacin HCl) 750 MG TABLET 1 Tablet ORAL DAILY Qty = 34 No Refills Instructions: please take ciprofloxacin daily one tablet till February 25. Finasteride (Finasteride) 5 MG TABLET 5 Milligram ORAL DAILY Qty = 30 No Refills Tamsulosin HCl (Flomax) 0.4 MG CAP.ER.24H 1 Tablet ORAL DAILY Qty = 30 No Refills Copies To: DAMIAN THOMPSON,ANJALI Lara MD Review Statement Other Findings: Urine cytology URINE: MARKEDLY ATYPICAL EPITHELIAL CELLS FAVORING DIAGNOSIS OF CARCINOMA. RECOMMEND CYSTOSCOPY. PATIENT: FARTUN SIM PRESENT AGE: 87 PATIENT ACCOUNT NO: [id number] : 30 LOCATION: [facility] ORDERING PHYSICIAN: CYNDY PAULINO MD SERVICE DATE: 01/15/17- EXAM TYPE: CAT - CT ABD & PELVIS W/O IV CONTRAS EXAMINATION: CT ABDOMEN AND PELVIS WITHOUT CONTRAST CLINICAL INFORMATION: GI acute infection. Gram-negative growth in knee aspirate. COMPARISON: CT chest abdomen pelvis 11/15/2015. TECHNIQUE: Multidetector volumetric imaging was performed from the superior aspect of the liver through the pubic symphysis. Sagittal and coronal reformatted images were obtained on the technologist's workstation. DLP: 1008 mGy-cm FINDINGS: Examination is limited secondary to intravenous contrast. LUNG BASES: There is a chronic 0.4 cm right lower lobe pulmonary nodule on image 8/97. Nonspecific tiny subpleural nodular opacity at the left lung base on image 13/97, unchanged compared to prior exam. No pleural effusion. LIVER, GALLBLADDER, AND BILIARY TREE: The liver is normal in size, shape, and attenuation. No focal hepatic lesion or biliary ductal dilatation is present. Hyperdense biliary sludge within the gallbladder lumen. No calcified gallstones or evidence of cholecystitis. PANCREAS: Unremarkable. SPLEEN: Mildly enlarged at 13.6 cm (previously 12.4 cm). ADRENAL GLANDS: Unremarkable. KIDNEYS AND URETERS: There is nonspecific bilateral perinephric stranding which was present on prior exam. No hydronephrosis. No renal or ureteral calculi demonstrated. Chronic cyst along the posterior medial right mid kidney measuring 1.7 cm in diameter BLADDER: Incompletely distended. GASTROINTESTINAL TRACT: Bowel gas pattern is nonobstructive. Equivocal mural thickening of the transverse colon, which is incompletely distended. No other evidence of acute large or small bowel inflammation. Scattered clonic diverticula. ABDOMINAL WALL: No significant hernia is appreciated. LYMPH NODES: No adenopathy. VASCULAR: Scattered atherosclerotic calcification including coronary artery calcification. Pacing lead in the right heart. PELVIC VISCERA: Punctate calcifications in the central prostate gland. Seminal vesicles are unremarkable. No free pelvic fluid. Surgical clips in the right inguinal region. OSSEOUS STRUCTURES: No acute osseous abnormalities. Multilevel degenerative changes of the spine. Degenerative changes at the hips. IMPRESSION: 1. Equivocal mild mural thickening of the transverse colon, which is incompletely distended. It is unclear whether this reflects technical factors or low level bowel inflammation. No surrounding inflammatory stranding. 2. Bilateral nonspecific perinephric stranding was present on prior CT scan. Please correlate with urinalysis to assess for genitourinary infection. 3. Scattered atherosclerotic disease including coronary artery calcification. 4. Examination mildly limited secondary to lack of intravenous contrast. 5. Additional findings as above. DICTATED BY: ABBIE OCONNOR MD DATE/TIME DICTATED:01/15/171320 LACQUER SIZER:CEDRIC DATE/TIME TRANSCRIBED:01/15/171320 CONFIDENTIAL, DO NOT COPY WITHOUT APPROPRIATE AUTHORIZATION. <Electronically signed in Other Vendor System> SIGNED BY: ABBIE OCONNOR MD 01/15/17 2304
--- NOTE | 2017-01-18 11:01 | PN- Att Addend ---
Attending Addendum Attending Brief Note Patient sitting in the chair still having some pain difficulty ambulating with physical therapy. Vital signs are stable his febrile, no major changes on physical. Continuing Cipro for up to 4-6 weeks for the catheter still in urine is clear creatinine seems close to baseline. We'll check with nephrology see if we can DC the Knott catheter and continue physical therapy and check if they recommended short-term rehabilitation. The patient can go home with home PT 24 TOTALS 01/18 0000 01/17 0000 Intake Total 2600 2270 Output Total 1350 1125 Balance 1250 1145 Intake, IV 1200 1020 Intake, Oral 1400 1100 Intake, Other 150 Number 1 Bowel Movements Output, Urine 1350 1125 Patient 218 lb Weight Laboratory Tests 01/18/17 0620: Anion Gap 8, Estimated GFR 25 L, BUN/Creatinine Ratio 19.2, CBC w Diff NO MAN DIFF REQ, RBC 2.88 L, MCV 88.4, MCH 29.2, RDW 14.3, MPV 8.9, Gran % 76.0 H, Lymphocytes % 11.2 L, Monocytes % 8.9, Eosinophils % 3.7, Basophils % 0.2, Absolute Granulocytes 4.5, Absolute Lymphocytes 0.7 L, Absolute Monocytes 0.5, Absolute Eosinophils 0.2, Absolute Basophils 0, PUBS MCHC 33.1 01/17/17 1312: Anion Gap 11, Estimated GFR 23 L, BUN/Creatinine Ratio 19.2, CBC w Diff NO MAN DIFF REQ, RBC 3.07 L, MCV 89.1, MCH 28.5, RDW 14.7 H, MPV 8.3, Gran % 84.6 H, Lymphocytes % 4.8 L, Monocytes % 9.5 H, Eosinophils % 1.0, Basophils % 0.1, Absolute Granulocytes 5.5, Absolute Lymphocytes 0.3 L, Absolute Monocytes 0.6, Absolute Eosinophils 0.1, Absolute Basophils 0, PUBS MCHC 32.0 L, ESR Westergren 130 H 01/16/17 1800: CBC w Diff NO MAN DIFF REQ, RBC 3.17 L, MCV 88.8, MCH 28.9, RDW 14.9 H, MPV 8.6, Gran % 82.5 H, Lymphocytes % 5.1 L, Monocytes % 10.4 H, Eosinophils % 1.9, Basophils % 0.1, Absolute Granulocytes 5.8, Absolute Lymphocytes 0.4 L, Absolute Monocytes 0.7 H, Absolute Eosinophils 0.1, Absolute Basophils 0, PUBS MCHC 32.6 L Vital Signs Date Time Temp Pulse Resp B/P B/P Pulse O2 O2 Flow FiO2 Mean Ox Delivery Rate 01/18 0827 94 Room Air 01/18 0558 99.2 82 20 120/70 94 Room Air 01/17 2304 98.4 96 22 132/58 92 Room Air 01/17 1720 94 Room Air Room Air 01/17 1511 99.1 96 22 130/80 99
--- NOTE | 2017-01-18 12:02 | PN- Nephrology ---
Assessment/Plan Assessment: 1. Acute kidney injury. Likely related to his Escherichia coli bacteremia 2. Infection of the left knee. 3. History of chronic kidney disease previous baseline around 2 Suggestion: 1. Would discontinue the Knott today. 2. Continue with strict I's and O's daily weights Subjective Subjective: Patient feels well. His is visiting. We discussed the fact that his creatinine is getting close to his previous baseline of 2.0 Objective Vital Signs and I&Os Vital Signs Date Time Temp Pulse Resp B/P B/P Pulse O2 O2 Flow FiO2 Mean Ox Delivery Rate 01/18 0827 94 Room Air 01/18 0558 99.2 82 20 120/70 94 Room Air 01/17 2304 98.4 96 22 132/58 92 Room Air 01/17 1720 94 Room Air Room Air 01/17 1511 99.1 96 22 130/80 99 Intake & Output 01/18 1600 01/18 0400 01/17 1600 01/17 0400 01/16 1600 01/16 0400 Intake Total 780 3270 379 9658 1050 Output Total 537 662 6492 375 750 500 Balance -350 430 820 215 930 550 Intake, IV 600 600 300 720 700 Intake, Oral 180 1220 200 900 350 Intake, Other 90 60 Number 0 1 Bowel Movements Output, Urine 318 004 1619 375 750 500 Patient 218 lb Weight Physical Exam: General Appearance: well developed/nourished, no apparent distress, obese Head: atraumatic Eyes: Bilateral: EOMI, pale conjunctivae. Neck: trachea mid line, no midline tenderness Respiratory: Clear to auscultation and percussion Cardiovascular: regular rate/rhythm Gastrointestinal: normal bowel sounds, soft, non-tender Back: normal inspection Extremities: pedal edema, left knee not examined Neurologic/Psych: Hard of hearing, aside from that, no gross neurologic deficit. Skin: intact Current Medications: Current Medications Sig/Festus Start time Last Medication Dose Route Stop Time Status Admin Acetaminophen 650 MG Q6P PRN 01/13 1600 AC 01/18 PO 0940 Acetaminophen 1,000 MG Q6P PRN 01/13 1600 AC 01/16 IV 1841 Albuterol Sulfate 3 ML TID 01/14 1000 AC 01/18 INH 0814 Albuterol Sulfate 3 ML Q4H PRN 01/13 1645 AC INH Atorvastatin Calcium 10 MG 1500 01/17 1500 AC 01/17 PO 1607 Ciprofloxacin 750 MG DAILY 01/15 1119 AC 01/18 PO 01/19 1118 0920 Diltiazem HCl 360 MG 1500 01/17 1500 AC 01/17 PO 1607 Finasteride 5 MG DAILY 01/17 1000 AC 01/18 PO 0920 Insulin Aspart 0 TIDAC 01/14 0800 AC 01/16 SC 1200 Ipratropium [place] 2.5 ML Q4 HRS NEEDED PRN 01/13 1645 AC INH Lidocaine 1 PAT Q24H 01/13 1600 AC 01/17 EXT 1609 Morphine Sulfate 2 MG ONCE ONE 01/18 1045 DC 01/18 IV 01/18 1046 1041 Morphine Sulfate 2 MG Q4P PRN 01/13 1600 AC 01/18 IV 0648 Patient Medication 1 ED .STK-MED ONE 01/17 1336 DC Teaching ED 01/17 1337 Rivaroxaban 15 MG DAILY 01/18 1000 AC PO Sodium Chloride 1,000 ML Q13H 01/18 0845 AC 01/18 IV 01/18 2144 0920 Sodium Chloride 1,000 ML Q13H 01/17 1800 DC 01/17 IV 01/18 0659 1825 Results Pertinent Lab Results: Laboratory Tests 01/18 01/17 0620 1312 Chemistry Sodium (137 - 145 mmol/L) 138 137 Potassium (3.5 - 5.1 mmol/L) 4.9 4.9 Chloride (98 - 107 mmol/L) 110 H 105 Carbon Dioxide (22 - 30 mmol/L) 20 L 21 L Anion Gap (5 - 16) 8 11 BUN (9 - 20 mg/dL) 48 H 50 H Creatinine (0.7 - 1.2 mg/dL) 2.5 H 2.6 H Estimated GFR (>60 ml/min) 25 L 23 L BUN/Creatinine Ratio (7 - 25 %) 19.2 19.2 Hematology CBC w Diff NO MAN DIFF REQ NO MAN DIFF REQ WBC (4.8 - 10.8 /CUMM) 6.0 6.6 RBC (4.70 - 6.10 /CUMM) 2.88 L 3.07 L Hgb (14.0 - 18.0 G/DL) 8.4 L 8.8 L Hct (42 - 52 %) 25.5 L 27.3 L MCV (80.0 - 94.0 FL) 88.4 89.1 MCH (27.0 - 31.0 PG) 29.2 28.5 RDW (11.5 - 14.5 %) 14.3 14.7 H Plt Count (130 - 400 /CUMM) 178 183 MPV (7.4 - 10.4 FL) 8.9 8.3 Gran % (42.2 - 75.2 %) 76.0 H 84.6 H Lymphocytes % (20.5 - 51.1 %) 11.2 L 4.8 L Monocytes % (1.7 - 9.3 %) 8.9 9.5 H Eosinophils % (0 - 5 %) 3.7 1.0 Basophils % (0.0 - 2.0 %) 0.2 0.1 Absolute Granulocytes (1.4 - 6.5 /CUMM) 4.5 5.5 Absolute Lymphocytes (1.2 - 3.4 /CUMM) 0.7 L 0.3 L Absolute Monocytes (0.10 - 0.60 /CUMM) 0.5 0.6 Absolute Eosinophils (0.0 - 0.7 /CUMM) 0.2 0.1 Absolute Basophils (0.0 - 0.2 /CUMM) 0 0 PUBS MCHC (33.0 - 37.0 G/DL) 33.1 32.0 L ESR Westergren (0 - 10 MM) 130 H 01/16 01/16 1800 0347 Chemistry Sodium (137 - 145 mmol/L) 138 Potassium (3.5 - 5.1 mmol/L) 4.5 Chloride (98 - 107 mmol/L) 107 Carbon Dioxide (22 - 30 mmol/L) 20 L Anion Gap (5 - 16) 11 BUN (9 - 20 mg/dL) 50 H Creatinine (0.7 - 1.2 mg/dL) 3.2 H Estimated GFR (>60 ml/min) 18 L Glucose (65 - 99 mg/dL) 116 H Calcium (8.4 - 10.2 mg/dL) 8.0 L Phosphorus (2.5 - 4.5 mg/dL) 3.8 Magnesium (1.6 - 2.3 mg/dL) 2.4 H Total Bilirubin (0.2 - 1.3 mg/dL) 0.8 AST (17 - 59 U/L) 50 ALT (21 - 72 U/L) 37 Albumin (3.5 - 5.0 g/dL) 3.2 L Hematology CBC w Diff NO MAN DIFF REQ NO MAN DIFF REQ WBC (4.8 - 10.8 /CUMM) 7.1 6.6 RBC (4.70 - 6.10 /CUMM) 3.17 L 3.17 L Hgb (14.0 - 18.0 G/DL) 9.2 L 9.1 L Hct (42 - 52 %) 28.1 L 28.4 L MCV (80.0 - 94.0 FL) 88.8 89.3 MCH (27.0 - 31.0 PG) 28.9 28.8 RDW (11.5 - 14.5 %) 14.9 H 14.6 H Plt Count (130 - 400 /CUMM) 168 152 MPV (7.4 - 10.4 FL) 8.6 8.6 Gran % (42.2 - 75.2 %) 82.5 H 80.1 H Lymphocytes % (20.5 - 51.1 %) 5.1 L 8.1 L Monocytes % (1.7 - 9.3 %) 10.4 H 10.8 H Eosinophils % (0 - 5 %) 1.9 0.8 Basophils % (0.0 - 2.0 %) 0.1 0.2 Absolute Granulocytes (1.4 - 6.5 /CUMM) 5.8 5.3 Absolute Lymphocytes (1.2 - 3.4 /CUMM) 0.4 L 0.5 L Absolute Monocytes (0.10 - 0.60 /CUMM) 0.7 H 0.7 H Absolute Eosinophils (0.0 - 0.7 /CUMM) 0.1 0.1 Absolute Basophils (0.0 - 0.2 /CUMM) 0 0 PUBS MCHC (33.0 - 37.0 G/DL) 32.6 L 32.3 L 01/15 01/15 1630 1630 Urines Urinalysis MOD H Urine Color (YEL,AMB,STR) FRANCES Urine Clarity (CLEAR) HAZY H Urine pH (5.0 - 8.0) 6.0 Ur Specific [place] (1.001 - 1.035) 1.025 Urine Protein (NEG,<30 MG/DL) 100 H Urine Ketones (NEG) NEG Urine Nitrite (NEG) NEG Urine Bilirubin (NEG) NEG Urine Urobilinogen (0.1 - 1.0 EU/dl) 1.0 Ur Leukocyte Esterase (NEG) NEG Ur Microscopic SEDIMENT EXAMINED Urine RBC (0 - 5 /HPF) 25-50 H Urine WBC (0 - 2 /HPF) 15-25 H Ur Epithelial Cells (NONE,FEW) FEW Urine Bacteria (NEG/NONE) MANY H Urine Hemoglobin (NEG) LARGE H Ur Random Creatinine (mg/dL) 166.2 Ur Random Sodium (30 - 90 mmol/L) 18 L Ur Random Potassium (mmol/L) 40.4 Fraction Sodium Excret (<1% %) 0.3 Urine Glucose (N MG/DL) NEG
[2017-01-18 14:21] VITALS: BP 122/74
--- NOTE | 2017-01-18 15:07 | PN- Infect Dx ---
Subjective Subjective: Afebrile. He continues to note discomfort in the left knee. Objective Last 24 Hrs of Vital Signs/I&O Vital Signs Date Time Temp Pulse Resp B/P B/P Pulse O2 O2 Flow FiO2 Mean Ox Delivery Rate 01/18 1421 98.0 87 20 122/74 92 Room Air 01/18 1415 Room Air Room Air 01/18 0827 94 Room Air 01/18 0558 99.2 82 20 120/70 94 Room Air 01/17 2304 98.4 96 22 132/58 92 Room Air 01/17 1720 94 Room Air Room Air 01/17 1511 99.1 96 22 130/80 99 Intake & Output 01/18 1600 01/18 0800 01/18 0000 Intake Total 1400 780 Output Total 600 350 350 Balance 800 -350 430 Intake, IV 600 Intake, Oral 1400 180 Output, Urine 600 350 350 Physical Exam Other Physical Findings: He appears comfortable in no acute distress Extremities left knee swelling and mild warmth persist, with decreased range of motion Results Last 24 Hours of Lab Results: Laboratory Tests 01/18 0620 Chemistry Sodium (137 - 145 mmol/L) 138 Potassium (3.5 - 5.1 mmol/L) 4.9 Chloride (98 - 107 mmol/L) 110 H Carbon Dioxide (22 - 30 mmol/L) 20 L Anion Gap (5 - 16) 8 BUN (9 - 20 mg/dL) 48 H Creatinine (0.7 - 1.2 mg/dL) 2.5 H Estimated GFR (>60 ml/min) 25 L BUN/Creatinine Ratio (7 - 25 %) 19.2 Hematology CBC w Diff NO MAN DIFF REQ WBC (4.8 - 10.8 /CUMM) 6.0 RBC (4.70 - 6.10 /CUMM) 2.88 L Hgb (14.0 - 18.0 G/DL) 8.4 L Hct (42 - 52 %) 25.5 L MCV (80.0 - 94.0 FL) 88.4 MCH (27.0 - 31.0 PG) 29.2 RDW (11.5 - 14.5 %) 14.3 Plt Count (130 - 400 /CUMM) 178 MPV (7.4 - 10.4 FL) 8.9 Gran % (42.2 - 75.2 %) 76.0 H Lymphocytes % (20.5 - 51.1 %) 11.2 L Monocytes % (1.7 - 9.3 %) 8.9 Eosinophils % (0 - 5 %) 3.7 Basophils % (0.0 - 2.0 %) 0.2 Absolute Granulocytes (1.4 - 6.5 /CUMM) 4.5 Absolute Lymphocytes (1.2 - 3.4 /CUMM) 0.7 L Absolute Monocytes (0.10 - 0.60 /CUMM) 0.5 Absolute Eosinophils (0.0 - 0.7 /CUMM) 0.2 Absolute Basophils (0.0 - 0.2 /CUMM) 0 PUBS MCHC (33.0 - 37.0 G/DL) 33.1 Last 24 Hours of Federico Results: Blood cultures 2 January 14 remain negative Assessment/Plan Impression: Stable with temperatures and white blood cell count remaining normal on Ciprofloxacin now 4 days status post arthroscopic irrigation and debridement for 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 His blood cultures from admission are also positive for Escherichia coli, suggesting that he seeded the left knee from the bacteremia, though the source of this bacteremia remains unclear, with CT of the abdomen and pelvis and right upper quadrant ultrasound nonrevealing and with his urine culture contaminated with mixed gram-positive cocci. His renal function appears to be back to his baseline, and the Knott catheter has been removed. Suggestion: 1. Continue Ciprofloxacin for 6 weeks (until February 25), after which will need to consider lifelong antibiotic suppression 2. Weekly ESR while on Ciprofloxacin
[2017-01-18] MEDS ORDERED: CIPROFLOXACIN750 M1 PO (16:03)
[2017-01-18] MEDS ORDERED: FINASTERIDE5 M1 PO (16:03)
--- NOTE | 2017-01-18 16:12 | Patient Discharge Instructions ---
Discharge Instructions General Discharge Information You were seen/treated for: Left knee septic arthritis- s/p washout procedure Acute kidney injury You had these procedures: Left knee arthroscopic irrigation and debridement with synovectomy Watch for these problems: Fever, nausea, vomiting, increasing pain, or inability to urinate Other wound care: follow up with surgeon recommendations Special Instructions: Follow-up with PCP 1 week after discharge Follow-up with orthopedics 1 week after discharge Follow-up with Dr. Henderson on THURSDAY 01/25 for cystoscopy!! Follow-up with Casey Yusuf MD in 2-3 weeks after discharge. Continue Ciprofloxacin for 6 weeks (until February 25) Weekly ESR while on Ciprofloxacin Continue Knott catheter until you see Dr. Henderson. Diet Continue normal diet: Yes Recommended Diet: Heart Healthy Activity Activity Self Limited: Yes Acute Coronary Syndrome Inclusion Criteria At DC or during hospital stay patient has or had the following: ACS DIAGNOSIS No Discharge Core Measures Meds if any: Prescribed or Continued at Discharge Meds if any: NOT Prescribed or Continued at Discharge Congestive Heart Failure Inclusion Criteria At DC or during hospital stay patient has or had the following: CHF DIAGNOSIS No Discharge Core Measures Meds if any: Prescribed or Continued at Discharge Meds if any: NOT Prescribed or Continued at Discharge Cerebrovascular accident Inclusion Criteria At DC or during hospital stay patient has or had the following: CVA/TIA Diagnosis No Discharge Core Measures Meds if any: Prescribed or Continued at Discharge Meds if any: NOT Prescribed or Continued at Discharge Venous thromboembolism Inclusion Criteria VTE Diagnosis No VTE Type NONE VTE Confirmed by (Test) NONE Discharge Core Measures - Per Current guidelines, there needs to be overlap - treatment for the first 5 days of Warfarin therapy. - If discharged on Warfarin prior to 5 days of - overlap therapy, the patient will need to be - assessed for post discharge needs including - *Post discharge parental anticoagulation - *Warfarin and/or parental anticoagulation education - *Follow up date to check INR post discharge At least 5 days overlap therapy as Inpatient No Meds if any: Prescribed or Continued at Discharge Note: Overlap Therapy is Warfarin and Anticoagulant Meds if any: NOT Prescribed or Continued at Discharge
[2017-01-18 22:24] VITALS: BP 136/64
--- NOTE | 2017-01-19 06:14 | Event Note ---
Event Note Event Note: Patient had difficulty urinating yestersay, had a straight cath yesterday at 8 PM as BladderScan around 350 mL and patient was complaining of lower abdominal pain and and unable to void. Later in the night patient void 100 mL. Situation At 5:30 AM, nurse paged me that patient is unable to void, BladderScan showed 373 and patient in severe lower abdomen pain, received morphine 2 mg at 3:30 and acetaminophen IV at 4 am without improvement. Background This is an 87-year-old man with a history of hypertension, diabetes, chronic renal insufficiency, coronary artery disease, status post angioplasty, atrial fibrillation, maintained on Xarelto, tachybradycardia syndrome, status post pacemaker placement 2 years prior to admission, status post post bilateral knee replacements 12 years prior to admission, status post clipping of his toenails several days prior to admission admitted on January 13 with the acute onset of pain and swelling of the left knee. UA 01/15 is negative for nitrate or leukocyte esterase, 15-25 RBC/5-10 WBC. Urine culture 01/15 negative after [address] abdomen and pelvis, limited abdomen on 01/15 dictated he feel any hydronephrosis or renal abnormality Patient was evaluated by Dr. Henderson on 01/16 for hematuria that resolved Knott catheter was removed yesterday 01/18 Assessment I evaluated patient, vital signs are stable, reported severe lower abdominal pain, unable to void by himself. I did the BladderScan again that revealed 230 mL. Knott catheter failed to advance3, patient had some urine dribbling, clear urine. Recommendation -We will hold off trying inserting Knott catheter or straight cath as 3 trials failed and patient is on xaralto. Recent history of hematuria -I called Dr. Henderson answering services for a callback -Order renal ultrasound to assess for hydronephrosis given lower abdominal pain and difficulty voiding -Repeat UA and urine culture -Consider starting flomax if blood pressure allows -We will continue to follow -Resident was made aware
[2017-01-19 07:04] VITALS: BP 150/80
[2017-01-19 08:28] LABS: ABSOLUTE BASOPHIL COUNT 0 /CUMM (0.0-0.2); ABSOLUTE EOSINOPHIL COUNT 0.2 /CUMM (0.0-0.7); ABSOLUTE LYMPH COUNT 0.3 /CUMM (1.2-3.4); ABSOLUTE MONOCYTE COUNT 0.6 /CUMM (0.10-0.60); BASOPHIL % 0.3 % (0.0-2.0); EOSINOPHIL % 2.4 % (0-5); HEMATOCRIT 29.1 % (42-52); MEAN CORPUSCULAR HGB 28.9 PG (27.0-31.0); MEAN CORPUSCULAR HGB CONC 32.5 G/DL (33.0-37.0); MEAN CORPUSCULAR VOLUME 89.2 FL (80.0-94.0); MEAN PLATELET VOLUME 8.6 FL (7.4-10.4); PLATELET COUNT 249 /CUMM (130-400); RBC DISTRIBUTION WIDTH 14.6 % (11.5-14.5); RED BLOOD CELL CT 3.27 /CUMM (4.70-6.10); WHITE BLOOD CELL COUNT 7.2 /CUMM (4.8-10.8)
--- NOTE | 2017-01-19 08:28 | PN- Housestaff ---
Subjective Follow-up For: Left knee septic arthritis-s/p washout procedure Acute kidney injury Chronic kidney disease Bacteremia Gross hematuria secondary to Painting's trauma History of atrial fibrillation Atypical epithelial cells in urine favoring diagnosis of carcinoma Complaints: pain scale (0-10) Subjective: Patient was seen and examined this afternoon. He is alert awake and oriented to time place and person. He is status post Left knee arthroscopic irrigation and debridement with synovectomy. toletrated the procedure Reports mild pain and discomfort to left knee Reports severe abdominal pain, 10 out of 10, abdominal distention. Foleys was removed yesterday. He couldn't pee since last night. Bladder scan showed 980 ML. Raymond any fever, chills, abdominal pain, change in bladder or bowel habits. Vitals stable afebrile, heart rate 80, respiratory rate 20, blood pressure 130/ 70, saturating at 95 on room air. Review of Systems Constitutional: Reports: see HPI. Objective Last 24 Hrs of Vital Signs/I&O Vital Signs Date Time Temp Pulse Resp B/P B/P Pulse O2 O2 Flow FiO2 Mean Ox Delivery Rate 01/19 1426 Room Air Room Air 01/19 1422 98.8 100 20 100/60 97 Room Air 01/19 1036 140/80 01/19 0909 93 Room Air Room Air 01/19 0704 97.7 106 20 150/80 92 Room Air 01/19 0012 93 Room Air 01/19 0000 Room Air 01/18 2224 97.8 97 20 136/64 91 Room Air 01/18 1925 95 Room Air Intake & Output 01/19 1600 01/19 0800 01/19 0000 Intake Total 650 200 955 Output Total 190 575 Balance 650 10 380 Intake, IV 100 475 Intake, Oral 650 100 480 Number 0 Bowel Movements Output, Chest Tube Drainage Output, Urine 190 575 Physical Exam General Appearance: Alert, Oriented X3, Cooperative, No Acute Distress Skin: No Rashes, No Breakdown HEENT: Atraumatic, PERRLA, EOMI, Mucous Membr. moist/pink Neck: Supple, No JVD, No thryomegaly Lymphatic: Cervical nl Cardiovascular: Normal S1, Normal S2 Lungs: Normal Air Movement Abdomen: Normal Bowel Sounds, Soft, No Tenderness Extremities: No Clubbing, No Cyanosis, No Edema Vascular: Pulses Symmetrical Current Medications: Current Medications Sig/Festus Start time Last Medication Dose Route Stop Time Status Admin Acetaminophen 1,000 MG .STK-MED ONE 01/19 0430 DC IV 01/19 0431 Acetaminophen 1,000 MG .STK-MED ONE 01/18 1736 DC IV 01/18 1737 Acetaminophen 650 MG Q6P PRN 01/13 1600 AC 01/18 PO 0940 Acetaminophen 1,000 MG Q6P PRN 01/13 1600 AC 01/19 IV 0431 Albuterol Sulfate 3 ML TID 01/14 1000 AC 01/19 INH 1355 Albuterol Sulfate 3 ML Q4H PRN 01/13 1645 AC INH Atorvastatin Calcium 10 MG 1500 01/17 1500 AC 01/18 PO 1644 Ciprofloxacin 750 MG DAILY 01/15 1119 DC 01/19 PO 01/19 1118 1035 Diltiazem HCl 360 MG 1500 01/17 1500 AC 01/18 PO 1645 Docusate Sodium 100 MG DAILY NEEDED PRN 01/19 0615 AC PO Finasteride 5 MG DAILY 01/17 1000 AC 01/19 PO 1036 Hydromorphone HCl 2 MG ONCE PRN 01/19 1100 AC IV Hydromorphone HCl 2 MG ONCE PRN 01/19 0745 DC 01/19 IV 01/19 1345 0743 Hydromorphone HCl 1 MG ONCE ONE 01/19 0615 DC 01/19 IV 01/19 0616 0621 Insulin Aspart 0 TIDAC 01/14 0800 AC 01/16 SC 1200 Ipratropium [place] 2.5 ML Q4 HRS NEEDED PRN 01/13 1645 DC INH Lidocaine 1 PAT Q24H 01/13 1600 AC 01/18 EXT 1645 Morphine Sulfate 2 MG Q4P PRN 01/13 1600 AC 01/19 IV 1432 Nystatin 1 EVARISTO TID 01/18 2200 AC 01/19 TOP 1035 Patient Medication 1 ED .STK-MED ONE 01/19 1412 DC Teaching ED 01/19 1413 Polyethylene Glycol 17 GM DAILY 01/19 1000 AC 01/19 PO 1035 Rivaroxaban 15 MG DAILY 01/18 1000 AC 01/19 PO 1036 Senna 187 MG AT BEDTIME 01/19 2200 AC PO Sodium Chloride 1,000 ML Q13H 01/18 0845 DC 01/18 IV 01/18 2144 0920 Tamsulosin HCl 0.4 MG DAILY 01/19 1000 AC 06/30 PO 1036 Last 24 Hrs of Lab/Federico Results Last 24 Hrs of Labs/Mics: Laboratory Tests 01/19/17 1130: Troponin I < 0.01 01/19/17 0635: Anion Gap 13, Estimated GFR 27 L, BUN/Creatinine Ratio 20.0, CBC w Diff NO MAN DIFF REQ, RBC 3.27 L, MCV 89.2, MCH 28.9, RDW 14.6 H, MPV 8.6, Gran % 83.9 H, Lymphocytes % 4.6 L, Monocytes % 8.8, Eosinophils % 2.4, Basophils % 0.3, Absolute Granulocytes 6.0, Absolute Lymphocytes 0.3 L, Absolute Monocytes 0.6, Absolute Eosinophils 0.2, Absolute Basophils 0, PUBS MCHC 32.5 L Microbiology 01/19 0449 URINE ROUT: Urine Culture - COLB Assessment/Plan Assessment: This is a 87-year-old male with past medical history significant for coronary artery disease status post angioplasty left circumflex artery 3 times, atrial fibrillation on Cardizem and xaralto, single pacemaker placement status post tachycardia bradycardia syndrome, syncope, borderline diabetes mellitus, hyperlipidemia, chronic lower extremity swelling, hypertension, history of COPD, and smoking history, status post bilateral knee replacements 12 years prior to the admission, status post clipping of his toenails several days prior to admission presented to the [facility] emergency department with chief complaint of left knee pain, swelling, redness. Vitals on presentation afebrile, heart rate 110 respiratory rate 16, blood pressure 128/54, saturating at 96 on room air. Hemoglobin 11.5 and hematocrit 35.8, WBC 8.1. Creatinine 2.5 on admission left knee xray A left knee prosthesis is intact. There is a moderate knee joint effusion. There are no acute fractures No DVT on doppler US. cxr- negative Problem list 1. Left knee septic arthritis 2. Status post left knee arthroscopy 3. Coronary artery disease status post angioplasty 4. History of atrial fibrillation 5. Diabetes mellitus 6. Hypertension 7. Hyperlipidemia 8. Chronic lower extremity swelling 9. COPD history Left knee septic arthritis Patient presented to the hospital with left knee pain, swelling, redness. Off note he is status post bilateral knee replacements 14 years ago. On admission he is afebrile however spiked a temperature 100.6 after several hours. WBC count 8000. Left knee x-ray showed Intact prosthesis with moderate joint effusion. He is status post a left knee joint arthrocentesis twice in the emergency room. Fluid WBC were elevated [id number]. cultures positive for gram-negative rods- ecoli. * Admitted to general medicine floor for further management and surgical procedure * He is status post left knee arthroscopic irrigation and debridement with synovectomy- day6 * His bilirubin and alkaline phosphatase are elevated, suggesting a possible biliary source, though he has no GI symptoms and his abdominal exam is benign. * Ultrasound abdomen and CT ABDOMEN was done- to rule out GI source -negative * Continue antibiotics -ciprofloxicin 750 mg by mouth daily - day5. he needs 4-6 weeks of antibiotics.check weekly ESR. * Continue Ciprofloxacin for 6 weeks (until February 25), after which will need to consider lifelong antibiotic suppression * Follow-up or cultures- ecoli * blood culturesx2 - ecoli- no source of infection found so far * Out of bed with physical therapy * patient is weightbearing as tolerated * Recommended short-term rehabilitation * PRN pain medication * GI and DVT prophylaxis Left knee arthrocentesis Left knee arthrocentesis twice in the emergency room * Left knee arthrocentesis: Cell counts [id number] WBC, * Gross Pus, * Positive for gram-negative rods- e.coli * blood cultures positive for Escherichia coli bacteremia * On ciprofloxacin day5. * Needs 4-6 weeks of antibiotics as per ID #2 history of atrial fibrillation status post pacemaker placement, currently rate controlled-continue Cardizem 360 mg CD for rate control; elevated [id number] and on Xarelto 20 mg po daily. #3 history of diabetes not on diabetic medication. Diabetes diets, fingersticks 3 times a day before meals, insulin aspart ss 3 times a day before meals, HbA1c - 6.1 #4 History of hypertension- hold losartan and Lasix cr 2.9, raised to 3.6 on admission. Improving creatinine with hydration Avoid nsaids Avoid nephrotoxins continue gentle hydration #5. LALO ON history of CKD (gradual worsening of renal function) possibly due to sepsis versus uncontrolled diabetes or uncontrolled hypertension. * nephrology consulted * cr 2.9 on admission * cr raised to 3.6 * Avoid nsaids * Avoid nephrotoxins * gentle hydration- improved to 2.3 * Monitoring ins and outs * Daily weights * nephrology on board Gross hematuria s/p Foleys insertion painting was inserted for I and O and resulted in light pink U/O-no clots. Pt reports minimal voiding difficulties at home. gross hematuria likely due to mild trauma from painting insertion, exacerbated by Xeralto. * Started Proscar 5mg PO daily. * Started Flomax * Appreciate urology recommendations. * Patient has problems with urination after removal of Painting's catheter 2016. Dr. Henderson on board. He placed him on Foleys catheter again. * Patient needs long-term Foleys catheter. * RECOMMENDED TURP procedure in future. * URINE: MARKEDLY ATYPICAL EPITHELIAL CELLS FAVORING DIAGNOSIS OF CARCINOMA. RECOMMEND CYSTOSCOPY. dr. Fernando was notified. Advised to follow him with Dr. Henderson as an outpatient #6 history of COPD on albuterol- incentive spirometry, TRC Neb [id number] as needed, #7 history of coronary artery disease: status post angioplasty left circumflex artery Atorvastatin 10 mg po daily #8. tachy-rosalva syndrome Status post single pacemaker placement 9. Chronic extremity swelling Lasix 20 mg at home Hold the Lasix for now Because of acute kidney injury Pain management with Tylenol and morphine-avoidance NSAIDs Full code DVT prophylaxis-xaralto cc2 diet Problem List: 1. Septic joint 2. Acute kidney injury Pain Ratin Pain Location: abdomen Pain Goal: Remain pain free Pain Plan: tylinol dilaudid Tomorrow's Labs & Rationales: cbc bep
--- NOTE | 2017-01-19 09:56 | ULTRASOUND REPORT ---
EXAMINATION: US RETROPERITONEAL COMPLETE (RENAL) CLINICAL INFORMATION: Abdominal pain. Difficulty voiding.. COMPARISON: 01/15/2017 TECHNIQUE: Real-time imaging of the kidneys and bladder. FINDINGS: RIGHT KIDNEY: 12 x 5.6 x 5.8 cm (SAG x AP x TRV). The kidney is normal in size, contour, and echogenicity. Renal cortical thickness is normal. No calculi or focal parenchymal lesions. No hydronephrosis. LEFT KIDNEY: 10.8 x 6.6 x 5.5 cm (SAG x AP x TRV). The kidney is normal in size, contour, and echogenicity. Renal cortical thickness is normal. No calculi or focal parenchymal lesions. No hydronephrosis. BLADDER: Well-distended and normal. Bilateral ureteral jets are not demonstrated. Prevoid bladder volume is 486 mL. IMPRESSION: Unremarkable appearance of the kidneys. No hydronephrosis. Of note, no post void imaging of the bladder was performed.
[2017-01-19 10:06] LABS: GRANULOCYTE % 83.9 % (42.2-75.2)
--- NOTE | 2017-01-19 11:56 | PN- Infect Dx ---
Subjective Subjective: Afebrile. He has had problems with urinary retention since removal of the Knott yesterday and had a rapid response this morning because of discomfort and persistent urinary retention. Objective Last 24 Hrs of Vital Signs/I&O Vital Signs Date Time Temp Pulse Resp B/P B/P Pulse O2 O2 Flow FiO2 Mean Ox Delivery Rate 01/19 1036 140/80 01/19 0909 93 Room Air Room Air 01/19 0704 97.7 106 20 150/80 92 Room Air 01/19 0012 93 Room Air 01/19 0000 Room Air 01/18 2224 97.8 97 20 136/64 91 Room Air 01/18 1925 95 Room Air 01/18 1421 98.0 87 20 122/74 92 Room Air 01/18 1415 Room Air Room Air Intake & Output 01/19 1600 01/19 0800 01/19 0000 Intake Total 200 955 Output Total 190 575 Balance 10 380 Intake, IV 100 475 Intake, Oral 100 480 Number 0 Bowel Movements Output, Chest Tube Drainage Output, Urine 190 575 Physical Exam Other Physical Findings: He is awake and alert in no acute distress but appears anxious. Lungs are clear Heart regular rhythm with no murmur Extremities left knee swelling with decreased range of motion, minimally tender to palpation Results Last 24 Hours of Lab Results: Laboratory Tests 01/19 01/19 1130 0635 Chemistry Sodium (137 - 145 mmol/L) 141 Potassium (3.5 - 5.1 mmol/L) 4.8 Chloride (98 - 107 mmol/L) 109 H Carbon Dioxide (22 - 30 mmol/L) 19 L Anion Gap (5 - 16) 13 BUN (9 - 20 mg/dL) 46 H Creatinine (0.7 - 1.2 mg/dL) 2.3 H Estimated GFR (>60 ml/min) 27 L BUN/Creatinine Ratio (7 - 25 %) 20.0 Troponin I Pending Hematology CBC w Diff NO MAN DIFF REQ WBC (4.8 - 10.8 /CUMM) 7.2 RBC (4.70 - 6.10 /CUMM) 3.27 L Hgb (14.0 - 18.0 G/DL) 9.5 L Hct (42 - 52 %) 29.1 L MCV (80.0 - 94.0 FL) 89.2 MCH (27.0 - 31.0 PG) 28.9 RDW (11.5 - 14.5 %) 14.6 H Plt Count (130 - 400 /CUMM) 249 MPV (7.4 - 10.4 FL) 8.6 Gran % (42.2 - 75.2 %) 83.9 H Lymphocytes % (20.5 - 51.1 %) 4.6 L Monocytes % (1.7 - 9.3 %) 8.8 Eosinophils % (0 - 5 %) 2.4 Basophils % (0.0 - 2.0 %) 0.3 Absolute Granulocytes (1.4 - 6.5 /CUMM) 6.0 Absolute Lymphocytes (1.2 - 3.4 /CUMM) 0.3 L Absolute Monocytes (0.10 - 0.60 /CUMM) 0.6 Absolute Eosinophils (0.0 - 0.7 /CUMM) 0.2 Absolute Basophils (0.0 - 0.2 /CUMM) 0 PUBS MCHC (33.0 - 37.0 G/DL) 32.5 L Last 24 Hours of Federico Results: No recent cultures Recent Imaging Studies: Renal ultrasound January 19 no hydronephrosis Assessment/Plan Impression: Recent complication of urinary retention since removal of the Knott catheter with a new Knott catheter now inserted by Urology. He is otherwise stable with temperatures and white blood cell count remaining normal on Ciprofloxacin now 5 days status post arthroscopic irrigation and debridement for an infected left knee prosthesis secondary to Escherichia coli, presumably secondary to seeding from his bacteremia, with the source of the bacteremia never identified. Suggestion: 1. Continue Ciprofloxacin for 6 weeks (until February 25), after which will need to consider lifelong antibiotic suppression 2. Weekly ESR while on Ciprofloxacin
--- NOTE | 2017-01-19 12:40 | PN- Nephrology ---
Assessment/Plan Assessment: 1. Acute kidney injury. Likely related to his Escherichia coli bacteremia his serum creatinine is near his previous baseline. 2. Infection of the left knee. 3. History of chronic kidney disease previous baseline around 2.0, serum creatinine is 2.3 today. 4. Urinary retention. Likely due to benign prostatic hypertrophy. Suggestion: 1. Check BMP 2. Knott management as per urology Subjective Subjective: Patient is eating hisamateur lunch. No shortness of breath or cough. He felt better with placement of a Knott. Objective Vital Signs and I&Os Vital Signs Date Time Temp Pulse Resp B/P B/P Pulse O2 O2 Flow FiO2 Mean Ox Delivery Rate 01/19 1036 140/80 01/19 0909 93 Room Air Room Air 01/19 0704 97.7 106 20 150/80 92 Room Air 01/19 0012 93 Room Air 01/19 0000 Room Air 01/18 2224 97.8 97 20 136/64 91 Room Air 01/18 1925 95 Room Air 01/18 1421 98.0 87 20 122/74 92 Room Air 01/18 1415 Room Air Room Air Intake & Output 01/19 1600 01/19 0400 01/18 1600 01/18 0400 01/17 1600 01/17 0400 Intake Total 881 644 3527 780 1820 590 Output Total 190 575 623 094 8694 375 Balance 10 380 450 430 820 215 Intake, IV 100 475 600 600 300 Intake, Oral 933 842 1704 180 1220 200 Intake, Other 90 Number 0 0 Bowel Movements Output, Chest Tube Drainage Output, Urine 190 575 471 471 2332 375 Physical Exam: General Appearance: well developed/nourished, no apparent distress, obese Head: atraumatic Eyes: Bilateral: EOMI, pale conjunctivae. Neck: trachea mid line, no midline tenderness Respiratory: Clear to auscultation and percussion Cardiovascular: regular rate/rhythm Gastrointestinal: normal bowel sounds, soft, non-tender Back: normal inspection Extremities: pedal edema, left knee not examined Neurologic/Psych: Hard of hearing, aside from that, no gross neurologic deficit. Skin: intact Results Pertinent Lab Results: Laboratory Tests 01/19 01/19 1130 0635 Chemistry Sodium (137 - 145 mmol/L) 141 Potassium (3.5 - 5.1 mmol/L) 4.8 Chloride (98 - 107 mmol/L) 109 H Carbon Dioxide (22 - 30 mmol/L) 19 L Anion Gap (5 - 16) 13 BUN (9 - 20 mg/dL) 46 H Creatinine (0.7 - 1.2 mg/dL) 2.3 H Estimated GFR (>60 ml/min) 27 L BUN/Creatinine Ratio (7 - 25 %) 20.0 Troponin I Pending Hematology CBC w Diff NO MAN DIFF REQ WBC (4.8 - 10.8 /CUMM) 7.2 RBC (4.70 - 6.10 /CUMM) 3.27 L Hgb (14.0 - 18.0 G/DL) 9.5 L Hct (42 - 52 %) 29.1 L MCV (80.0 - 94.0 FL) 89.2 MCH (27.0 - 31.0 PG) 28.9 RDW (11.5 - 14.5 %) 14.6 H Plt Count (130 - 400 /CUMM) 249 MPV (7.4 - 10.4 FL) 8.6 Gran % (42.2 - 75.2 %) 83.9 H Lymphocytes % (20.5 - 51.1 %) 4.6 L Monocytes % (1.7 - 9.3 %) 8.8 Eosinophils % (0 - 5 %) 2.4 Basophils % (0.0 - 2.0 %) 0.3 Absolute Granulocytes (1.4 - 6.5 /CUMM) 6.0 Absolute Lymphocytes (1.2 - 3.4 /CUMM) 0.3 L Absolute Monocytes (0.10 - 0.60 /CUMM) 0.6 Absolute Eosinophils (0.0 - 0.7 /CUMM) 0.2 Absolute Basophils (0.0 - 0.2 /CUMM) 0 PUBS MCHC (33.0 - 37.0 G/DL) 32.5 L 01/18 01/17 0620 1312 Chemistry Sodium (137 - 145 mmol/L) 138 137 Potassium (3.5 - 5.1 mmol/L) 4.9 4.9 Chloride (98 - 107 mmol/L) 110 H 105 Carbon Dioxide (22 - 30 mmol/L) 20 L 21 L Anion Gap (5 - 16) 8 11 BUN (9 - 20 mg/dL) 48 H 50 H Creatinine (0.7 - 1.2 mg/dL) 2.5 H 2.6 H Estimated GFR (>60 ml/min) 25 L 23 L BUN/Creatinine Ratio (7 - 25 %) 19.2 19.2 Hematology CBC w Diff NO MAN DIFF REQ NO MAN DIFF REQ WBC (4.8 - 10.8 /CUMM) 6.0 6.6 RBC (4.70 - 6.10 /CUMM) 2.88 L 3.07 L Hgb (14.0 - 18.0 G/DL) 8.4 L 8.8 L Hct (42 - 52 %) 25.5 L 27.3 L MCV (80.0 - 94.0 FL) 88.4 89.1 MCH (27.0 - 31.0 PG) 29.2 28.5 RDW (11.5 - 14.5 %) 14.3 14.7 H Plt Count (130 - 400 /CUMM) 178 183 MPV (7.4 - 10.4 FL) 8.9 8.3 Gran % (42.2 - 75.2 %) 76.0 H 84.6 H Lymphocytes % (20.5 - 51.1 %) 11.2 L 4.8 L Monocytes % (1.7 - 9.3 %) 8.9 9.5 H Eosinophils % (0 - 5 %) 3.7 1.0 Basophils % (0.0 - 2.0 %) 0.2 0.1 Absolute Granulocytes (1.4 - 6.5 /CUMM) 4.5 5.5 Absolute Lymphocytes (1.2 - 3.4 /CUMM) 0.7 L 0.3 L Absolute Monocytes (0.10 - 0.60 /CUMM) 0.5 0.6 Absolute Eosinophils (0.0 - 0.7 /CUMM) 0.2 0.1 Absolute Basophils (0.0 - 0.2 /CUMM) 0 0 PUBS MCHC (33.0 - 37.0 G/DL) 33.1 32.0 L ESR Westergren (0 - 10 MM) 130 H 01/16 1800 Hematology CBC w Diff NO MAN DIFF REQ WBC (4.8 - 10.8 /CUMM) 7.1 RBC (4.70 - 6.10 /CUMM) 3.17 L Hgb (14.0 - 18.0 G/DL) 9.2 L Hct (42 - 52 %) 28.1 L MCV (80.0 - 94.0 FL) 88.8 MCH (27.0 - 31.0 PG) 28.9 RDW (11.5 - 14.5 %) 14.9 H Plt Count (130 - 400 /CUMM) 168 MPV (7.4 - 10.4 FL) 8.6 Gran % (42.2 - 75.2 %) 82.5 H Lymphocytes % (20.5 - 51.1 %) 5.1 L Monocytes % (1.7 - 9.3 %) 10.4 H Eosinophils % (0 - 5 %) 1.9 Basophils % (0.0 - 2.0 %) 0.1 Absolute Granulocytes (1.4 - 6.5 /CUMM) 5.8 Absolute Lymphocytes (1.2 - 3.4 /CUMM) 0.4 L Absolute Monocytes (0.10 - 0.60 /CUMM) 0.7 H Absolute Eosinophils (0.0 - 0.7 /CUMM) 0.1 Absolute Basophils (0.0 - 0.2 /CUMM) 0 PUBS MCHC (33.0 - 37.0 G/DL) 32.6 L
[2017-01-19 14:22] VITALS: BP 100/60
--- NOTE | 2017-01-19 15:23 | Event Note ---
Event Note Event Note: Rapid response was called this morning at around 11 AM Situation-abdomen distention, pain, dysuria and urinary obstruction * Bladder scan showed 870 mL. * Patient was screaming with pain * Vitals- tachycardia * he was desaturating to 85 on room air, placed on nasal cannula * Dr. Tubbs was contacted * Dr. tubbs placed a Knott's catheter at bedside * Urine obstruction was relieved, abdominal pain improved * Dr. Tubbs recommended to continue Foleys catheter at the time of discharge. Follow up with him as an outpatient for further Procedures-TURP * Meanwhile irrigate Foleys catheter every week with 30ML normal saline
--- NOTE | 2017-01-19 18:26 | PN- Att Addend ---
Attending Addendum Attending Brief Note Patient's Knott was discontinued yesterday, earlier today patient is abdomen became distended was unable to urinate so uncomfortable that they ended up calling a rapid response once funny catheter was reinserted with amount of urinary note the patient got relief and start feeling better. Dr. Henderson was then checked the patient recommended to continue the Knott even if she goes to short-term rehabilitation and reassess later on as an outpatient in pathologist called and stated that the urine cytology might have some abnormal cells and this will be related to Dr. Henderson to follow as an outpatient patient continues with antibiotic to Cipro for his infection and patient will be going to short- term rehabilitation when bed is available Intake & Output 01/19 1600 01/19 0800 01/19 0000 01/18 1600 01/18 0801/18 0000 Intake Total 650 078 348 4764 780 Output Total 190 575 600 350 350 Balance 650 10 380 800 -350 430 Intake, IV 100 475 600 Intake, Oral 650 852 537 0639 180 Number 0 Bowel Movements Output, Chest Tube Drainage Output, Urine 190 575 600 350 350 24 TOTALS 01/19 0000 01/18 0000 Intake Total 2355 2600 Output Total 1525 1350 Balance 830 1250 Intake, IV 475 1200 Intake, Oral 1880 1400 Output, Chest Tube Drainage Output, Urine 1525 1350 Current Medications Sig/Festus Start time Last Medication Dose Route Stop Time Status Admin Acetaminophen 1,000 MG .STK-MED ONE 01/19 0430 DC IV 01/19 0431 Acetaminophen 650 MG Q6P PRN 01/13 1600 AC 01/18 PO 0940 Acetaminophen 1,000 MG Q6P PRN 01/13 1600 AC 01/19 IV 0431 Albuterol Sulfate 3 ML TID 01/14 1000 AC 01/19 INH 1355 Albuterol Sulfate 3 ML Q4H PRN 01/13 1645 AC INH Atorvastatin Calcium 10 MG 1500 01/17 1500 AC 01/19 PO 1637 Ciprofloxacin 750 MG DAILY 01/15 1119 DC 01/19 PO 01/19 1118 1035 Diltiazem HCl 360 MG 1500 01/17 1500 AC 01/19 PO 1637 Docusate Sodium 100 MG DAILY NEEDED PRN 01/19 0615 AC PO Finasteride 5 MG DAILY 01/17 1000 AC 01/19 PO 1036 Hydromorphone HCl 2 MG ONCE PRN 01/19 1100 AC IV Hydromorphone HCl 2 MG ONCE PRN 01/19 0745 DC 01/19 IV 01/19 1345 0743 Hydromorphone HCl 1 MG ONCE ONE 01/19 0615 DC 01/19 IV 01/19 0616 0621 Insulin Aspart 0 TIDAC 01/14 0800 AC 01/16 SC 1200 Ipratropium [place] 2.5 ML Q4 HRS NEEDED PRN 01/13 1645 DC INH Lidocaine 1 PAT Q24H 01/13 1600 AC 01/19 EXT 1637 Morphine Sulfate 2 MG Q4P PRN 01/13 1600 AC 01/19 IV 1432 Nystatin 1 EVARISTO TID 01/18 2200 AC 01/19 TOP 1637 Patient Medication 1 ED .STK-MED ONE 01/19 1412 DC Teaching ED 01/19 1413 Polyethylene Glycol 17 GM DAILY 01/19 1000 AC 01/19 PO 1035 Rivaroxaban 15 MG DAILY 01/18 1000 AC 01/19 PO 1036 Senna 187 MG AT BEDTIME 01/19 2200 AC PO Sodium Chloride 1,000 ML Q13H 01/18 0845 DC 01/18 IV 01/18 2144 0920 Tamsulosin HCl 0.4 MG DAILY 01/19 1000 AC 01/19 PO 1036 Laboratory Tests 01/19/17 1130: Troponin I < 0.01 01/19/17 0635: Anion Gap 13, Estimated GFR 27 L, BUN/Creatinine Ratio 20.0, CBC w Diff NO MAN DIFF REQ, RBC 3.27 L, MCV 89.2, MCH 28.9, RDW 14.6 H, MPV 8.6, Gran % 83.9 H, Lymphocytes % 4.6 L, Monocytes % 8.8, Eosinophils % 2.4, Basophils % 0.3, Absolute Granulocytes 6.0, Absolute Lymphocytes 0.3 L, Absolute Monocytes 0.6, Absolute Eosinophils 0.2, Absolute Basophils 0, PUBS MCHC 32.5 L 01/18/17 0620: Anion Gap 8, Estimated GFR 25 L, BUN/Creatinine Ratio 19.2, CBC w Diff NO MAN DIFF REQ, RBC 2.88 L, MCV 88.4, MCH 29.2, RDW 14.3, MPV 8.9, Gran % 76.0 H, Lymphocytes % 11.2 L, Monocytes % 8.9, Eosinophils % 3.7, Basophils % 0.2, Absolute Granulocytes 4.5, Absolute Lymphocytes 0.7 L, Absolute Monocytes 0.5, Absolute Eosinophils 0.2, Absolute Basophils 0, PUBS MCHC 33.1 Microbiology Date/Time Procedure - Status Source Growth 01/19 0449 Urine Culture - COLB URINE ROUT
[2017-01-19 22:18] VITALS: BP 118/70
[2017-01-20 00:11] VITALS: BP 140/76
[2017-01-20 06:28] VITALS: BP 130/70
--- NOTE | 2017-01-20 08:31 | PN- Att Addend ---
Attending Addendum Attending Brief Note Covering attending note. Patient is resting comfortably in bed on oxygen. He has indwelling Knott catheter, apparently his urinalysis came out to be positive for epithelial cells which are atypical which of favoring a diagnosis of carcinoma. His Escherichia coli sepsis which seeded into his the left knee joint causing a septic arthritis. He is currently on Cipro Intake & Output 01/20 1600 01/20 0800 01/20 0000 Intake Total 120 Output Total 400 550 Balance -280 -550 Intake, Oral 120 Output, Urine 400 550 Current Medications Sig/Festus Start time Last Medication Dose Route Stop Time Status Admin Acetaminophen 650 MG Q6P PRN 01/13 1600 AC 01/18 PO 0940 Acetaminophen 1,000 MG Q6P PRN 01/13 1600 AC 01/19 IV 0431 Albuterol Sulfate 3 ML TID 01/14 1000 AC 01/20 INH 0811 Albuterol Sulfate 3 ML Q4H PRN 01/13 1645 AC INH Atorvastatin Calcium 10 MG 1500 01/17 1500 AC 01/19 PO 1637 Ciprofloxacin 750 MG DAILY 01/15 1119 DC 01/19 PO 01/19 1118 1035 Diltiazem HCl 360 MG 1500 01/17 1500 AC 01/19 PO 1637 Docusate Sodium 100 MG DAILY NEEDED PRN 01/19 0615 AC 01/20 PO 0802 Finasteride 5 MG DAILY 01/17 1000 AC 01/20 PO 0752 Hydromorphone HCl 2 MG ONCE PRN 01/19 1100 AC IV Hydromorphone HCl 2 MG ONCE PRN 01/19 0745 DC 01/19 IV 01/19 1345 0743 Insulin Aspart 0 TIDAC 01/14 0800 AC 01/16 SC 1200 Ipratropium [place] 2.5 ML Q4 HRS NEEDED PRN 01/13 1645 DC INH Lidocaine 1 PAT Q24H 01/13 1600 AC 01/19 EXT 1637 Morphine Sulfate 2 MG Q4P PRN 01/13 1600 AC 01/20 IV 0751 Nystatin 1 EVARISTO TID 01/18 2200 AC 01/20 TOP 0809 Patient Medication 1 ED .STK-MED ONE 01/19 1412 DC Teaching ED 01/19 1413 Polyethylene Glycol 17 GM DAILY 01/19 1000 AC 01/20 PO 0751 Rivaroxaban 15 MG DAILY 01/18 1000 AC 01/20 PO 0752 Senna 187 MG AT BEDTIME 01/19 2200 AC 01/19 PO 2230 Tamsulosin HCl 0.4 MG DAILY 01/19 1000 AC 01/20 PO 0752 Laboratory Tests 01/20 01/19 0725 1130 Chemistry Sodium Pending Potassium Pending Chloride Pending Carbon Dioxide Pending Anion Gap Pending BUN Pending Creatinine Pending BUN/Creatinine Ratio Pending Troponin I (<0.11 ng/ml) < 0.01 Hematology CBC w Diff Pending WBC Pending RBC Pending Hgb Pending Hct Pending MCV Pending MCH Pending RDW Pending Plt Count Pending MPV Pending PUBS MCHC Pending Vital Signs Date Time Temp Pulse Resp B/P B/P Pulse O2 O2 Flow FiO2 Mean Ox Delivery Rate 01/20 0752 63 18 130/70 01/20 0628 98.5 63 18 130/70 97 Nasal Cannula 01/20 0011 98.6 90 22 140/76 98 Nasal Cannula 01/20 0002 98 Nasal 2.0L Cannula 01/20 0000 98 Nasal 2.0L Cannula 01/19 2218 98.3 88 20 118/70 99 Nasal Cannula 01/19 1924 96 Nasal 2.0L Cannula 01/19 1426 Room Air Room Air 01/19 1422 98.8 100 20 100/60 97 Room Air 01/19 1036 140/80 01/19 0909 93 Room Air Room Air Intake & Output 01/20 1600 01/20 0800 01/20 0000 Intake Total 120 Output Total 400 550 Balance -280 -550 Intake, Oral 120 Output, Urine 400 550 Examination patient is awake alert. Neck is supple Conjunctivae is pale , S1-S2 is normal Lungs shows diminished breath sounds both bases Abdomen is soft globular nontender bowel sounds are present Bipedal edema left more than the right Labs reveal ultrasound was negative. Assessment #1 Escherichia coli sepsis secondary to BPH and urinary retention currently on Cipro. #2 Escherichia coli sepsis of the left knee. Per ID patient will be on Cipro for 6 weeks Status post drainage currently on Cipro #3 presence of atypical malignant cells in the urine etiology not very clear need urology evaluation #4 acute kidney injury the patient recovering from it history of chronic kidney disease stage III. #5 patient needs physical therapy evaluation and fall prevention also needs to go to short-term rehabilitation
--- NOTE | 2017-01-20 08:31 | PN- Housestaff ---
Subjective Follow-up For: Left knee septic arthritis-s/p washout procedure Acute kidney injury on Chronic kidney disease Bacterimia Gross hematuria secondary to Painting's trauma History of atrial fibrillation Atypical epithelial cells in urine favoring diagnosis of carcinoma Subjective: I saw the patient in the morning. He is resting comfortably in the bed. He does not complain of any pain. He has an indwelling Painting's catheter. He does not complain of any chest pain palpitation or shortness of breath Review of Systems Constitutional: Denies: chills, diaphoresis, fever. Cardiovascular: Denies: no symptoms, chest pain, palpitations. Respiratory: Denies: no symptoms. Gastrointestinal: Reports: distention. Denies: no symptoms. Genitourinary: Denies: no symptoms. Musculoskeletal: Denies: no symptoms. Skin: Denies: no symptoms. Neurological/Psychological: Denies: no symptoms. Objective Last 24 Hrs of Vital Signs/I&O Vital Signs Date Time Temp Pulse Resp B/P B/P Pulse O2 O2 Flow FiO2 Mean Ox Delivery Rate 01/20 0826 97 Nasal 1.0L Cannula 01/20 0752 63 18 130/70 01/20 0628 98.5 63 18 130/70 97 Nasal Cannula 01/20 0011 98.6 90 22 140/76 98 Nasal Cannula 01/20 0002 98 Nasal 2.0L Cannula 01/20 0000 98 Nasal 2.0L Cannula 01/19 2218 98.3 88 20 118/70 99 Nasal Cannula 01/19 1924 96 Nasal 2.0L Cannula 01/19 1426 Room Air Room Air 01/19 1422 98.8 100 20 100/60 97 Room Air 01/19 1036 140/80 Intake & Output 01/20 1600 01/20 0800 07 0000 Intake Total 120 Output Total 400 550 Balance -280 -550 Intake, Oral 120 Output, Urine 400 550 Physical Exam General Appearance: Alert, Oriented X3, Cooperative, No Acute Distress Skin: Non vesicular aand non dermatomal rash lower abd and lower back HEENT: conjunctiva is pale. Neck: Supple Cardiovascular: Normal S1, Normal S2 Lungs: diminished breath sounds on both sides at the base Abdomen: Soft, No Tenderness, abdomen is globular bowel sounds are present. Neurological: Normal Speech Extremities: bipedal edema Current Medications: Current Medications Sig/Festus Start time Last Medication Dose Route Stop Time Status Admin Acetaminophen 650 MG Q6P PRN 01/13 1600 AC 01/18 PO 0940 Acetaminophen 1,000 MG Q6P PRN 01/13 1600 AC 01/19 IV 0431 Albuterol Sulfate 3 ML TID 01/14 1000 AC 01/20 INH 0811 Albuterol Sulfate 3 ML Q4H PRN 01/13 1645 AC INH Atorvastatin Calcium 10 MG 1500 01/17 1500 AC 01/19 PO 1637 Ciprofloxacin 750 MG DAILY 01/20 1026 AC PO 01/24 1025 Ciprofloxacin 750 MG DAILY 01/15 1119 DC 01/19 PO 01/19 1118 1035 Diltiazem HCl 360 MG 1500 01/17 1500 AC 01/19 PO 1637 Docusate Sodium 100 MG DAILY NEEDED PRN 01/19 0615 AC 01/20 PO 0802 Finasteride 5 MG DAILY 01/17 1000 AC 01/20 PO 0752 Hydromorphone HCl 2 MG ONCE PRN 01/19 1100 AC IV Hydromorphone HCl 2 MG ONCE PRN 01/19 0745 DC 01/19 IV 01/19 1345 0743 Insulin Aspart 0 TIDAC 01/14 0800 AC 01/16 SC 1200 Ipratropium [place] 2.5 ML Q4 HRS NEEDED PRN 01/13 1645 DC INH Lidocaine 1 PAT Q24H 01/13 1600 AC 01/19 EXT 1637 Morphine Sulfate 2 MG Q4P PRN 01/13 1600 AC 01/20 IV 0751 Nystatin 1 EVARISTO TID 01/18 2200 AC 01/20 TOP 0809 Patient Medication 1 ED .STK-MED ONE 01/19 1412 DC Teaching ED 01/19 1413 Polyethylene Glycol 17 GM DAILY 01/19 1000 AC 01/20 PO 0751 Rivaroxaban 15 MG DAILY 01/18 1000 AC 01/20 PO 0752 Senna 187 MG AT BEDTIME 01/19 2200 AC 01/19 PO 2230 Tamsulosin HCl 0.4 MG DAILY 01/19 1000 AC 01/20 PO 0752 Last 24 Hrs of Lab/Federico Results Last 24 Hrs of Labs/Mics: Laboratory Tests 01/20/17 0725: Anion Gap 12, Estimated GFR 28 L, BUN/Creatinine Ratio 20.0, CBC w Diff NO MAN DIFF REQ, RBC 3.06 L, MCV 89.6, MCH 29.2, RDW 14.6 H, MPV 8.3, Gran % 74.3, Lymphocytes % 10.3 L, Monocytes % 12.1 H, Eosinophils % 3.0, Basophils % 0.3, Absolute Granulocytes 4.9, Absolute Lymphocytes 0.7 L, Absolute Monocytes 0.8 H, Absolute Eosinophils 0.2, Absolute Basophils 0, PUBS MCHC 32.6 L 01/19/17 1130: Troponin I < 0.01 Lines/Diet/Fluids Catheters/Tubes: painting Painting Still Needed? Yes Assessment/Plan Assessment: This is a 87-year-old male presented to the [facility] emergency department with chief complaint of left knee pain, swelling, redness. 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 There is a moderate knee joint effusion.There are no acute fractures -No DVT on doppler US. -cxr- negative #Left knee septic arthritis Patient presented to the hospital with left knee pain, swelling, redness. Off note he is status post bilateral knee replacements 14 years ago. On admission he is afebrile however spiked a temperature 100.6 after several hours. WBC count 8000. Left knee x-ray showed Intact prosthesis with moderate joint effusion. He is status post a left knee joint arthrocentesis twice in the emergency room. Fluid WBC were elevated [id number]. cultures positive for gram-negative rods- ecoli. * He is status post left knee arthroscopic irrigation and debridement with synovectomy- day7 * Continue antibiotics -ciprofloxicin 750 mg by mouth daily - day7. he needs 4-6 weeks of antibiotics.check weekly ESR. * Continue Ciprofloxacin for 6 weeks (until February 25), after which will need to consider lifelong antibiotic suppression * blood culturesx2 - ecoli- no source of infection found so far * Out of bed with physical therapy * patient is weightbearing as tolerated * Recommended short-term rehabilitation * PRN pain medication * GI and DVT prophylaxis * Urine shows atypical cells favoring carcinoma (likely source) cystoscopy recommended #Left knee arthrocentesis Left knee arthrocentesis twice in the emergency room * Left knee arthrocentesis: Cell counts 010535 WBC, Gross Pus, Positive for gram -negative rods- e.coli * blood cultures positive for Escherichia coli bacteremia * On ciprofloxacin day 7. * Needs 4-6 weeks of antibiotics as per ID recommendation till february 25 # atrial fibrillation status post pacemaker placement, currently rate controlled -continue Cardizem 360 mg CD for rate control; -elevated [id number] and on Xarelto 20 mg po daily. #diabetes not on diabetic medication. -Diabetes diets, -fingersticks 3 times a day before meals, -insulin aspart ss 3 times a day before meals, -HbA1c - 6.1 # History of hypertension- hold losartan and Lasix cr 2.9, raised to 3.6 on admission. now trending down 2.2 Improving creatinine with hydration Avoid nsaids Avoid nephrotoxins continue gentle hydration #.LALO ON history of CKD (gradual worsening of renal function) possibly due to sepsis versus uncontrolled diabetes or uncontrolled hypertension. * nephrology consulted * cr 2.9 on admission trending down 2.2 today * Avoid nsaids * Avoid nephrotoxins * Monitoring ins and outs * Daily weights * nephrology on board Gross hematuria s/p Foleys insertion painting was inserted for I and O and resulted in light pink U/O-no clots. Pt reports minimal voiding difficulties at home. gross hematuria likely due to mild trauma from painting insertion, exacerbated by Xeralto. * Started Proscar 5mg PO daily. * Started Flomax * Appreciate urology recommendations. * Patient has problems with urination after removal of Painting's catheter 2016. Dr. Henderson on board. He placed him on Foleys catheter again. * Patient needs long-term Foleys catheter. * RECOMMENDED TURP procedure in future. * URINE: MARKEDLY ATYPICAL EPITHELIAL CELLS FAVORING DIAGNOSIS OF CARCINOMA. RECOMMEND CYSTOSCOPY. dr. Fernando was notified.Advised to follow him wit Dr. 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 Chronic extremity swelling Lasix 20 mg at home Hold the Lasix for now Because of acute kidney injury Pain management with Tylenol and morphine-avoidance NSAIDs Full code DVT prophylaxis-xaralto cc2 diet
[2017-01-20 08:36] LABS: ABSOLUTE BASOPHIL COUNT 0 /CUMM (0.0-0.2); ABSOLUTE EOSINOPHIL COUNT 0.2 /CUMM (0.0-0.7); ABSOLUTE GRANULOCYTE CT 4.9 /CUMM (1.4-6.5); ABSOLUTE LYMPH COUNT 0.7 /CUMM (1.2-3.4); ABSOLUTE MONOCYTE COUNT 0.8 /CUMM (0.10-0.60); BASOPHIL % 0.3 % (0.0-2.0); GRANULOCYTE % 74.3 % (42.2-75.2); HEMATOCRIT 27.4 % (42-52); MEAN CORPUSCULAR HGB 29.2 PG (27.0-31.0); MEAN CORPUSCULAR HGB CONC 32.6 G/DL (33.0-37.0); MEAN CORPUSCULAR VOLUME 89.6 FL (80.0-94.0); MEAN PLATELET VOLUME 8.3 FL (7.4-10.4); PLATELET COUNT 290 /CUMM (130-400); RBC DISTRIBUTION WIDTH 14.6 % (11.5-14.5); RED BLOOD CELL CT 3.06 /CUMM (4.70-6.10); WHITE BLOOD CELL COUNT 6.7 /CUMM (4.8-10.8)
[2017-01-20 14:52] VITALS: BP 120/70
--- NOTE | 2017-01-20 16:00 | Event Note ---
Event Note Event Note: I communicated findings of atypical cells noted in urine, which are suspicous for urologic malignancy with Dr. Henderson. Anticipate cystoscopy this January. If pt d/c by then will return for same day procedure.
[2017-01-20 21:56] VITALS: BP 126/70
[2017-01-21 06:30] VITALS: BP 132/78
--- NOTE | 2017-01-21 07:42 | PN- Housestaff ---
Subjective Follow-up For: Left knee septic arthritis-s/p washout procedure Acute kidney injury on Chronic kidney disease Bacterimia Gross hematuria secondary to Painting's trauma History of atrial fibrillation Atypical epithelial cells in urine favoring diagnosis of carcinoma Complaints: pain scale (0-10) (pain scale4 to5) Subjective: I have seen and examined the patient. The patient is sitting comfortably in the chair on oxygen. He has an indwelling Painting's catheter. he complains of mild to moderate pain. Overnight he complained of pain while urinating. was comfortable after getting Tylenol. He does not complain of any shortness of breath chest pain or palpitations. Review of Systems Constitutional: Reports: no symptoms. Denies: chills. EENTM: Reports: no symptoms. Cardiovascular: Denies: chest pain, palpitations. Respiratory: Reports: no symptoms. Denies: cough, short of breath, sputum production. Gastrointestinal: Denies: constipation, diarrhea, nausea, vomiting. Genitourinary: Reports: no symptoms. Musculoskeletal: Reports: no symptoms. Skin: Reports: no symptoms. Denies: rash. Objective Last 24 Hrs of Vital Signs/I&O Vital Signs Date Time Temp Pulse Resp B/P B/P Pulse O2 O2 Flow FiO2 Mean Ox Delivery Rate 01/21 0957 90 20 132/78 07/ 0836 97 Room Air / 0630 99.1 90 20 132/78 95 Room Air 07/ 2156 98.0 96 20 126/70 96 Room Air 07/ 1850 95 Room Air / 1452 98.7 74 20 120/70 95 Intake & Output 01/21 1600 /02 0800 07/ 0000 Intake Total 410 Output Total 600 360 Balance -600 50 Intake, IV 130 Intake, Oral 280 Number 1 Bowel Movements Output, Urine 600 360 Physical Exam General Appearance: Alert, Oriented X3, Cooperative, No Acute Distress Skin: Non vesicular aand non dermatomal rash lower abd and lower back Skin Temp/Moisture Exam: Cool/Dry HEENT: pale conjuctiva Neck: Supple Cardiovascular: Normal S1, Normal S2 Lungs: diminished breath sounds on both sides at the base Abdomen: Soft, No Tenderness, abdomen is globular bowel sounds are present Neurological: Normal Speech Extremities: bipedal edema. Current Medications: Current Medications Sig/Festus Start time Last Medication Dose Route Stop Time Status Admin Acetaminophen 1,000 MG .STK-MED ONE 01/20 1606 DC IV 01/20 1607 Acetaminophen 650 MG Q6P PRN 01/13 1600 AC 01/21 PO 0958 Acetaminophen 1,000 MG Q6P PRN 01/13 1600 AC 01/21 IV 0514 Albuterol Sulfate 3 ML TID 01/14 1000 AC 01/21 INH 0833 Albuterol Sulfate 3 ML Q4H PRN 01/13 1645 AC INH Atorvastatin Calcium 10 MG 1500 01/17 1500 AC 01/20 PO 1649 Ciprofloxacin 750 MG DAILY 01/20 1026 AC 01/21 PO 01/24 1025 0958 Diltiazem HCl 360 MG 1500 01/17 1500 AC 01/20 PO 1648 Docusate Sodium 100 MG DAILY NEEDED PRN 01/19 0615 AC 01/20 PO 0802 Finasteride 5 MG DAILY 01/17 1000 AC 01/21 PO 0957 Hydromorphone HCl 2 MG ONCE PRN 01/19 1100 AC IV Insulin Aspart 0 TIDAC 01/14 0800 AC 01/16 SC 1200 Lidocaine 1 PAT Q24H 01/13 1600 AC 01/20 EXT 1649 Morphine Sulfate 2 MG Q4P PRN 01/13 1600 DC 01/20 IV 0751 Nystatin 1 EVARISTO TID 01/18 2200 AC 01/21 TOP 0959 Polyethylene Glycol 17 GM DAILY 01/19 1000 AC 01/21 PO 0959 Rivaroxaban 15 MG DAILY 01/18 1000 AC 01/21 PO 0958 Senna 187 MG AT BEDTIME 01/19 2200 AC 01/20 PO 2121 Tamsulosin HCl 0.4 MG DAILY 01/19 1000 AC 01/21 PO 0957 Last 24 Hrs of Lab/Federico Results Last 24 Hrs of Labs/Mics: Laboratory Tests 01/21/17 0755: Anion Gap 11, Estimated GFR 32 L, BUN/Creatinine Ratio 20.0, CBC w Diff NO MAN DIFF REQ, RBC 3.09 L, MCV 88.1, MCH 28.7, RDW 14.6 H, MPV 8.4, Gran % 78.3 H, Lymphocytes % 7.6 L, Monocytes % 10.0 H, Eosinophils % 3.8, Basophils % 0.3, Absolute Granulocytes 5.5, Absolute Lymphocytes 0.5 L, Absolute Monocytes 0.7 H, Absolute Eosinophils 0.3, Absolute Basophils 0, PUBS MCHC 32.6 L Lines/Diet/Fluids Catheters/Tubes: painting Painting Still Needed? Yes (DONOT remove) Assessment/Plan Assessment: This is a 87-year-old male presented to the [facility] emergency department with chief complaint of left knee pain, swelling, redness. 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 There is a moderate knee joint effusion.There are no acute fractures -No DVT on doppler US. -cxr- negative Left knee arthrocentesis twice in the emergency room Cell counts [id number] WBC, Gross Pus, Positive for gram-negative rods- e.coli Blood cultures positive for Escherichia coli bacteremia #Left knee septic arthritis * He is status post left knee arthroscopic irrigation and debridement with synovectomy- day8 * Continue antibiotics -ciprofloxicin 750 mg by mouth daily - day8. he needs 4-6 weeks of antibiotics.check weekly ESR. * Continue Ciprofloxacin for 6 weeks (until February 25), after which will need to consider lifelong antibiotic suppression * blood culturesx2 - ecoli- no source of infection found so far * Out of bed with physical therapy * patient is weightbearing as tolerated * Recommended short-term rehabilitation * PRN pain medication * GI and DVT prophylaxis * Urine shows atypical cells favoring carcinoma (likely source) Cystoscopy planned on # atrial fibrillation status post pacemaker placement, currently rate controlled -continue Cardizem 360 mg CD for rate control; -elevated [id number] and on Xarelto 20 mg po daily. #diabetes not on diabetic medication. -Diabetes diets, -fingersticks 3 times a day before meals, -insulin aspart ss 3 times a day before meals, -HbA1c - 6.1 # History of hypertension- hold losartan and Lasix cr 2.9, raised to 3.6 on admission. trending down 2.0 today Improving creatinine with hydration Avoid nsaids Avoid nephrotoxins continue gentle hydration #.LALO ON history of CKD (gradual worsening of renal function) possibly due to sepsis versus uncontrolled diabetes or uncontrolled hypertension. * nephrology consulted * cr 2.9 on admission trending down 2.2 today * Avoid nsaids and nephrotoxins * Monitoring ins and outs * Daily weights * nephrology on board Gross hematuria s/p Foleys insertion painting was inserted for I and O and resulted in light pink U/O-no clots. Pt reports minimal voiding difficulties at home. gross hematuria likely due to mild trauma from painting insertion, exacerbated by Xeralto. * Started Proscar 5mg PO daily. * Started Flomax * Patient has problems with urination after removal of Painting's catheter 2016. Dr. Henderson on board. He placed him on Foleys catheter again. * Patient needs long-term Foleys catheter. RECOMMENDED TURP procedure in future. * URINE: MARKEDLY ATYPICAL EPITHELIAL CELLS FAVORING DIAGNOSIS OF CARCINOMA. RECOMMEND CYSTOSCOPY. dr. Fernando was notified. 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 Septic joint Pain Ratin Pain Location: none Pain Goal: Pain 4 or less Pain Plan: current Tomorrow's Labs & Rationales: cbc bep Pain management with Tylenol and morphine-avoidance NSAIDs Full code DVT prophylaxis-xaralto cc2 diet Problem List: 1. Septic joint
[2017-01-21 09:24] LABS: ABSOLUTE BASOPHIL COUNT 0 /CUMM (0.0-0.2); ABSOLUTE EOSINOPHIL COUNT 0.3 /CUMM (0.0-0.7); ABSOLUTE GRANULOCYTE CT 5.5 /CUMM (1.4-6.5); ABSOLUTE LYMPH COUNT 0.5 /CUMM (1.2-3.4); ABSOLUTE MONOCYTE COUNT 0.7 /CUMM (0.10-0.60); BASOPHIL % 0.3 % (0.0-2.0); EOSINOPHIL % 3.8 % (0-5); GRANULOCYTE % 78.3 % (42.2-75.2); HEMATOCRIT 27.2 % (42-52); MEAN CORPUSCULAR HGB 28.7 PG (27.0-31.0); MEAN CORPUSCULAR HGB CONC 32.6 G/DL (33.0-37.0); MEAN CORPUSCULAR VOLUME 88.1 FL (80.0-94.0); MEAN PLATELET VOLUME 8.4 FL (7.4-10.4); PLATELET COUNT 356 /CUMM (130-400); RBC DISTRIBUTION WIDTH 14.6 % (11.5-14.5); RED BLOOD CELL CT 3.09 /CUMM (4.70-6.10); WHITE BLOOD CELL COUNT 7.1 /CUMM (4.8-10.8)
--- NOTE | 2017-01-21 10:48 | PN- Att Addend ---
Attending Addendum Attending Brief Note Covering attending note. Patient is comfortable sitting out of bed in the chair surrounded by his family. He has indwelling Knott catheter and the pain in his left knee is markedly decreased. Intake & Output 01/21 1600 01/21 0800 01/21 0000 Intake Total 410 Output Total 600 360 Balance -600 50 Intake, IV 130 Intake, Oral 280 Number 1 Bowel Movements Output, Urine 600 360 Current Medications Sig/Festus Start time Last Medication Dose Route Stop Time Status Admin Acetaminophen 1,000 MG .STK-MED ONE 01/20 1606 DC IV 01/20 1607 Acetaminophen 650 MG Q6P PRN 01/13 1600 AC 01/21 PO 0958 Acetaminophen 1,000 MG Q6P PRN 01/13 1600 AC 01/21 IV 0514 Albuterol Sulfate 3 ML TID 01/14 1000 AC 01/21 INH 0833 Albuterol Sulfate 3 ML Q4H PRN 01/13 1645 AC INH Atorvastatin Calcium 10 MG 1500 01/17 1500 AC 01/20 PO 1649 Ciprofloxacin 750 MG DAILY 01/20 1026 AC 01/21 PO 01/24 1025 0958 Diltiazem HCl 360 MG 1500 01/17 1500 AC 01/20 PO 1648 Docusate Sodium 100 MG DAILY NEEDED PRN 01/19 0615 AC 01/20 PO 0802 Finasteride 5 MG DAILY 01/17 1000 AC 01/21 PO 0957 Hydromorphone HCl 2 MG ONCE PRN 01/19 1100 AC IV Insulin Aspart 0 TIDAC 01/14 0800 AC 01/16 SC 1200 Lidocaine 1 PAT Q24H 01/13 1600 AC 01/20 EXT 1649 Morphine Sulfate 2 MG Q4P PRN 01/13 1600 DC 01/20 IV 0751 Nystatin 1 EVARISTO TID 01/18 2200 AC 01/21 TOP 0959 Polyethylene Glycol 17 GM DAILY 01/19 1000 AC 01/21 PO 0959 Rivaroxaban 15 MG DAILY 01/18 1000 AC 01/21 PO 0958 Senna 187 MG AT BEDTIME 01/19 2200 AC 01/20 PO 2121 Tamsulosin HCl 0.4 MG DAILY 01/19 1000 AC 01/21 PO 0957 Laboratory Tests 01/215 Chemistry Sodium (137 - 145 mmol/L) 139 Potassium (3.5 - 5.1 mmol/L) 5.0 Chloride (98 - 107 mmol/L) 107 Carbon Dioxide (22 - 30 mmol/L) 21 L Anion Gap (5 - 16) 11 BUN (9 - 20 mg/dL) 40 H Creatinine (0.7 - 1.2 mg/dL) 2.0 H Estimated GFR (>60 ml/min) 32 L BUN/Creatinine Ratio (7 - 25 %) 20.0 Hematology CBC w Diff NO MAN DIFF REQ WBC (4.8 - 10.8 /CUMM) 7.1 RBC (4.70 - 6.10 /CUMM) 3.09 L Hgb (14.0 - 18.0 G/DL) 8.9 L Hct (42 - 52 %) 27.2 L MCV (80.0 - 94.0 FL) 88.1 MCH (27.0 - 31.0 PG) 28.7 RDW (11.5 - 14.5 %) 14.6 H Plt Count (130 - 400 /CUMM) 356 MPV (7.4 - 10.4 FL) 8.4 Gran % (42.2 - 75.2 %) 78.3 H Lymphocytes % (20.5 - 51.1 %) 7.6 L Monocytes % (1.7 - 9.3 %) 10.0 H Eosinophils % (0 - 5 %) 3.8 Basophils % (0.0 - 2.0 %) 0.3 Absolute Granulocytes (1.4 - 6.5 /CUMM) 5.5 Absolute Lymphocytes (1.2 - 3.4 /CUMM) 0.5 L Absolute Monocytes (0.10 - 0.60 /CUMM) 0.7 H Absolute Eosinophils (0.0 - 0.7 /CUMM) 0.3 Absolute Basophils (0.0 - 0.2 /CUMM) 0 PUBS MCHC (33.0 - 37.0 G/DL) 32.6 L Vital Signs Date Time Temp Pulse Resp B/P B/P Pulse O2 O2 Flow FiO2 Mean Ox Delivery Rate 01/21 0957 90 20 132/78 / 0836 97 Room Air 01/21 0630 99.1 90 20 132/78 95 Room Air / 2156 98.0 96 20 126/70 96 Room Air / 1850 95 Room Air / 1452 98.7 74 20 120/70 95 Intake & Output 01/21 1600 02 0800 07/ 0000 Intake Total 410 Output Total 600 360 Balance -600 50 Intake, IV 130 Intake, Oral 280 Number 1 Bowel Movements Output, Urine 600 360 Assessment Patient has got malignant cells in the urine patient scheduled to have cystoscopy as an outpatient on . Currently on Cipro for septic arthritis of the knee secondary to Escherichia coli. Patient needs ambulation and prepare for short-term rehabilitation.
[2017-01-21] MEDS ORDERED: FLOMAX0.4 M1 PO (11:02)
[2017-01-21] MEDS ORDERED: CIPROFLOXACIN750 M1 PO (14:48)
[2017-01-21 14:54] VITALS: BP 120/60
[2017-01-21 22:12] VITALS: BP 138/70
[2017-01-22 06:48] VITALS: BP 130/80
[2017-01-22 08:07] LABS: ABSOLUTE BASOPHIL COUNT 0 /CUMM (0.0-0.2); ABSOLUTE EOSINOPHIL COUNT 0.4 /CUMM (0.0-0.7); ABSOLUTE GRANULOCYTE CT 5.2 /CUMM (1.4-6.5); ABSOLUTE LYMPH COUNT 0.8 /CUMM (1.2-3.4); ABSOLUTE MONOCYTE COUNT 0.6 /CUMM (0.10-0.60); BASOPHIL % 0.6 % (0.0-2.0); EOSINOPHIL % 6.2 % (0-5); GRANULOCYTE % 72.6 % (42.2-75.2); HEMATOCRIT 27.1 % (42-52); MEAN CORPUSCULAR HGB CONC 32.6 G/DL (33.0-37.0); MEAN CORPUSCULAR VOLUME 88.9 FL (80.0-94.0); MEAN PLATELET VOLUME 8.1 FL (7.4-10.4); PLATELET COUNT 370 /CUMM (130-400); RBC DISTRIBUTION WIDTH 14.6 % (11.5-14.5); RED BLOOD CELL CT 3.05 /CUMM (4.70-6.10); WHITE BLOOD CELL COUNT 7.2 /CUMM (4.8-10.8)
--- NOTE | 2017-01-22 08:37 | PN- Housestaff ---
Subjective Follow-up For: Left knee septic arthritis-s/p washout procedure Acute kidney injury on Chronic kidney disease Bacterimia Gross hematuria secondary to Painting's trauma History of atrial fibrillation Atypical epithelial cells in urine favoring diagnosis of carcinoma Complaints: no complaints Subjective: I have seen and examined the patient. The patient is sitting comfortably in the chair on oxygen. He has an indwelling Painting's catheter.No overnight events to report. cystoscopy planned. will be discharged today Review of Systems Constitutional: Reports: no symptoms. Cardiovascular: Reports: no symptoms. Denies: see HPI, chest pain, orthopena, palpitations. Respiratory: Denies: cough, short of breath, sputum production, stridor. Gastrointestinal: Denies: constipation, nausea, vomiting. Genitourinary: Reports: no symptoms. Musculoskeletal: Reports: no symptoms. Objective Last 24 Hrs of Vital Signs/I&O Vital Signs Date Time Temp Pulse Resp B/P B/P Pulse O2 O2 Flow FiO2 Mean Ox Delivery Rate 01/22 0754 94 Room Air Room Air 01/22 0648 97.6 54 16 130/80 96 Room Air 01/21 2212 97.6 84 20 138/70 95 Room Air 01/21 1815 95 Room Air 01/21 1454 97.5 101 20 120/60 97 Intake & Output 01/22 1600 01/22 0800 01/22 0000 Intake Total 1050 Output Total 550 1450 Balance -550 -400 Intake, IV 250 Intake, Oral 800 Number 4 Bowel Movements Output, Urine 550 1450 Physical Exam General Appearance: Alert, Oriented X3, Cooperative Skin: non vesicular aand non dermatomal rash lower abd and lower back Skin Temp/Moisture Exam: Cool/Dry HEENT: Atraumatic Neck: Supple Cardiovascular: Normal S1, Normal S2 Lungs: diminished breath sounds on both sides at the base Abdomen: soft, No Tenderness, abdomen is globular bowel sounds are present Neurological: Normal Speech Extremities: bipedal edema Current Medications: Current Medications Sig/Festus Start time Last Medication Dose Route Stop Time Status Admin Acetaminophen 650 MG .STK-MED ONE 01/21 1750 DC PO 01/21 1751 Acetaminophen 650 MG Q6P PRN 01/13 1600 AC 01/21 PO 0958 Acetaminophen 1,000 MG Q6P PRN 01/13 1600 AC 01/21 IV 1753 Albuterol Sulfate 3 ML TID 01/14 1000 AC 01/22 INH 0752 Albuterol Sulfate 3 ML Q4H PRN 01/13 1645 AC INH Atorvastatin Calcium 10 MG 1500 01/17 1500 AC 01/21 PO 1754 Ciprofloxacin 750 MG DAILY 01/20 1026 AC 01/21 PO 01/24 1025 0958 Diltiazem HCl 360 MG 1500 01/17 1500 AC 01/21 PO 1753 Docusate Sodium 100 MG DAILY NEEDED PRN 01/19 0615 AC 01/20 PO 0802 Finasteride 5 MG DAILY 01/17 1000 AC 01/21 PO 0957 Hydromorphone HCl 2 MG ONCE PRN 01/19 1100 DC 01/21 IV 2210 Insulin Aspart 0 TIDAC 01/14 0800 AC 01/16 SC 1200 Lidocaine 1 PAT Q24H 01/13 1600 AC 01/21 EXT 1752 Nystatin 1 EVARISTO TID 01/18 2200 AC 01/21 TOP 2115 Polyethylene Glycol 17 GM DAILY 01/19 1000 AC 01/21 PO 0959 Rivaroxaban 15 MG DAILY 01/18 1000 AC 01/21 PO 0958 Senna 187 MG AT BEDTIME 01/19 2200 AC 01/21 PO 1753 Tamsulosin HCl 0.4 MG DAILY 01/19 1000 AC 01/21 PO 0957 Last 24 Hrs of Lab/Federico Results Last 24 Hrs of Labs/Mics: Laboratory Tests 01/22/17 0633: Anion Gap 9, Estimated GFR 36 L, BUN/Creatinine Ratio 17.8, CBC w Diff NO MAN DIFF REQ, RBC 3.05 L, MCV 88.9, MCH 29.0, RDW 14.6 H, MPV 8.1, Gran % 72.6, Lymphocytes % 11.6 L, Monocytes % 9.0, Eosinophils % 6.2 H, Basophils % 0.6, Absolute Granulocytes 5.2, Absolute Lymphocytes 0.8 L, Absolute Monocytes 0.6, Absolute Eosinophils 0.4, Absolute Basophils 0, PUBS MCHC 32.6 L Lines/Diet/Fluids Catheters/Tubes: painting Painting Still Needed? Yes Assessment/Plan Assessment: This is a 87-year-old male presented to the [facility] emergency department with chief complaint of left knee pain, swelling, redness. 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 There is a moderate knee joint effusion.There are no acute fractures -No DVT on doppler US. -cxr- negative Left knee arthrocentesis twice in the emergency room Cell counts [id number] WBC, Gross Pus, Positive for gram-negative rods- e.coli Blood cultures positive for Escherichia coli bacteremia #Left knee septic arthritis * He is status post left knee arthroscopic irrigation and debridement with synovectomy- day8 * Continue antibiotics -ciprofloxicin 750 mg by mouth daily - day9. he needs 4-6 weeks of antibiotics.check weekly ESR. * Continue Ciprofloxacin for 6 weeks (until February 25), after which will need to consider lifelong antibiotic suppression * blood culturesx2 - ecoli- no source of infection found so far * Out of bed with physical therapy * patient is weightbearing as tolerated * Recommended short-term rehabilitation * PRN pain medication * GI and DVT prophylaxis * Urine shows atypical cells favoring carcinoma (likely source) Cystoscopy planned on # atrial fibrillation status post pacemaker placement, currently rate controlled -continue Cardizem 360 mg CD for rate control; -elevated [id number] and on Xarelto 20 mg po daily. #diabetes not on diabetic medication. -Diabetes diets, -fingersticks 3 times a day before meals, -insulin aspart ss 3 times a day before meals, -HbA1c - 6.1 # History of hypertension- hold losartan and Lasix cr 2.9, raised to 3.6 on admission. trending down 2.0 today Improving creatinine with hydration Avoid nsaids Avoid nephrotoxins continue gentle hydration #.LALO ON history of CKD (gradual worsening of renal function) possibly due to sepsis versus uncontrolled diabetes or uncontrolled hypertension. * nephrology consulted * cr 2.9 on admission trending down 2.2 today * Avoid nsaids and nephrotoxins * Monitoring ins and outs * Daily weights * nephrology on board Gross hematuria s/p Foleys insertion painting was inserted for I and O and resulted in light pink U/O-no clots. Pt reports minimal voiding difficulties at home. gross hematuria likely due to mild trauma from painting insertion, exacerbated by Xeralto. * Started Proscar 5mg PO daily. * Started Flomax * Patient has problems with urination after removal of Painting's catheter 2016. Dr. Henderson on board. He placed him on Foleys catheter again. * Patient needs long-term Foleys catheter. RECOMMENDED TURP procedure in future. * URINE: MARKEDLY ATYPICAL EPITHELIAL CELLS FAVORING DIAGNOSIS OF CARCINOMA. RECOMMEND CYSTOSCOPY. dr. Fernando was notified. * Talked to patient and family and updated them with current situation * Cystoscopy planned on * Will be discharged with the painting cather #history of COPD on albuterol- incentive spirometry, TRC Neb [id number] prn # history of coronary artery disease: status post angioplasty left circumflex artery Atorvastatin 10 mg po daily # tachy-rosalva syndrome Status post single pacemaker placement #Chronic extremity swelling Lasix 20 mg at home Hold the Lasix for now Because of acute kidney injury Pain management with Tylenol and morphine-avoidance NSAIDs Full code DVT prophylaxis-xaralto cc2 diet Problem List: 1. Acute kidney injury 2. Effusion of left knee joint 3. Septic joint 4. Afib Pain Ratin Pain Location: h Pain Goal: Pain 4 or less Pain Plan: Tylenol and morphine-avoidance NSAIDs Tomorrow's Labs & Rationales: discharging DVT/Prophylaxis: mechanical (xaralto)
--- NOTE | 2017-01-22 11:06 | PN- Att Addend ---
Attending Addendum Attending Brief Note No new issues no major changes on physical examination vital signs are stable. Will be going to short-term rehabilitation today to [facility], I will follow patient there see discharge summary and orders Laboratory Tests 01/22/17 0633: Anion Gap 9, Estimated GFR 36 L, BUN/Creatinine Ratio 17.8, CBC w Diff NO MAN DIFF REQ, RBC 3.05 L, MCV 88.9, MCH 29.0, RDW 14.6 H, MPV 8.1, Gran % 72.6, Lymphocytes % 11.6 L, Monocytes % 9.0, Eosinophils % 6.2 H, Basophils % 0.6, Absolute Granulocytes 5.2, Absolute Lymphocytes 0.8 L, Absolute Monocytes 0.6, Absolute Eosinophils 0.4, Absolute Basophils 0, PUBS MCHC 32.6 L 01/21/17 0755: Anion Gap 11, Estimated GFR 32 L, BUN/Creatinine Ratio 20.0, CBC w Diff NO MAN DIFF REQ, RBC 3.09 L, MCV 88.1, MCH 28.7, RDW 14.6 H, MPV 8.4, Gran % 78.3 H, Lymphocytes % 7.6 L, Monocytes % 10.0 H, Eosinophils % 3.8, Basophils % 0.3, Absolute Granulocytes 5.5, Absolute Lymphocytes 0.5 L, Absolute Monocytes 0.7 H, Absolute Eosinophils 0.3, Absolute Basophils 0, PUBS MCHC 32.6 L 01/20/17 0725: Anion Gap 12, Estimated GFR 28 L, BUN/Creatinine Ratio 20.0, CBC w Diff NO MAN DIFF REQ, RBC 3.06 L, MCV 89.6, MCH 29.2, RDW 14.6 H, MPV 8.3, Gran % 74.3, Lymphocytes % 10.3 L, Monocytes % 12.1 H, Eosinophils % 3.0, Basophils % 0.3, Absolute Granulocytes 4.9, Absolute Lymphocytes 0.7 L, Absolute Monocytes 0.8 H, Absolute Eosinophils 0.2, Absolute Basophils 0, PUBS MCHC 32.6 L 01/19/17 1130: Troponin I < 0.01 Patient will come back on for a cystoscopy
--- NOTE | 2017-01-22 11:36 | PN- Infect Dx ---
Subjective Subjective: Afebrile. He notes some swelling in the right knee. Objective Last 24 Hrs of Vital Signs/I&O Vital Signs Date Time Temp Pulse Resp B/P B/P Pulse O2 O2 Flow FiO2 Mean Ox Delivery Rate 01/22 0754 94 Room Air Room Air 01/22 0648 97.6 54 16 130/80 96 Room Air 01/21 2212 97.6 84 20 138/70 95 Room Air 01/21 1815 95 Room Air 01/21 1454 97.5 101 20 120/60 97 Intake & Output 01/22 1600 01/22 0800 01/22 0000 Intake Total 1050 Output Total 550 1450 Balance -550 -400 Intake, IV 250 Intake, Oral 800 Number 4 Bowel Movements Output, Urine 550 1450 Physical Exam Other Physical Findings: He appears comfortable in no acute distress Extremities left knee with increasing range of motion, with no erythema; right knee with no tenderness or erythema and with good range of motion Results Last 24 Hours of Lab Results: Laboratory Tests 01/22 06 Chemistry Sodium (137 - 145 mmol/L) 138 Potassium (3.5 - 5.1 mmol/L) 4.8 Chloride (98 - 107 mmol/L) 107 Carbon Dioxide (22 - 30 mmol/L) 23 Anion Gap (5 - 16) 9 BUN (9 - 20 mg/dL) 32 H Creatinine (0.7 - 1.2 mg/dL) 1.8 H Estimated GFR (>60 ml/min) 36 L BUN/Creatinine Ratio (7 - 25 %) 17.8 Hematology CBC w Diff NO MAN DIFF REQ WBC (4.8 - 10.8 /CUMM) 7.2 RBC (4.70 - 6.10 /CUMM) 3.05 L Hgb (14.0 - 18.0 G/DL) 8.8 L Hct (42 - 52 %) 27.1 L MCV (80.0 - 94.0 FL) 88.9 MCH (27.0 - 31.0 PG) 29.0 RDW (11.5 - 14.5 %) 14.6 H Plt Count (130 - 400 /CUMM) 370 MPV (7.4 - 10.4 FL) 8.1 Gran % (42.2 - 75.2 %) 72.6 Lymphocytes % (20.5 - 51.1 %) 11.6 L Monocytes % (1.7 - 9.3 %) 9.0 Eosinophils % (0 - 5 %) 6.2 H Basophils % (0.0 - 2.0 %) 0.6 Absolute Granulocytes (1.4 - 6.5 /CUMM) 5.2 Absolute Lymphocytes (1.2 - 3.4 /CUMM) 0.8 L Absolute Monocytes (0.10 - 0.60 /CUMM) 0.6 Absolute Eosinophils (0.0 - 0.7 /CUMM) 0.4 Absolute Basophils (0.0 - 0.2 /CUMM) 0 PUBS MCHC (33.0 - 37.0 G/DL) 32.6 L Urine cytology January 16 reveals markedly atypical epithelial cells favoring the diagnosis of carcinoma Last 24 Hours of Federico Results: No recent cultures Assessment/Plan Impression: Stable with temperatures and white blood cell count remaining normal on Ciprofloxacin now 8 days status post arthroscopic irrigation and debridement for an infected left knee prosthesis secondary to Escherichia coli, presumably secondary to seeding from a bacteremia of unclear source. The urine cytology results are noted and he is scheduled for a cystoscopy after discharge. The Knott catheter was reinserted because of urinary retention and he is apparently to be discharged with this catheter. Suggestion: 1. Repeat ESR in the a.m. and follow weekly 2. Await outpatient cystoscopy 3. Continue Ciprofloxacin for 6 weeks (until February 25), after which will need to consider lifelong antibiotic suppression
[2017-01-22 14:08] VITALS: BP 130/80
[2017-01-22 15:23] VITALS: BP 130/80
== END 2017-01-22 15:45 | DRG 485 ==
LOC: ERH 08:23 → CRI 14:45 → 2NA 14:45 → ERHI 14:45 → ENRESERV 16:00 → ENTRNSPT 17:02 → 2NB 17:15 → CMPTRNSPT 18:07 → 2NB 20:46 → ENTRNSPT 01-14 10:37 → EDTRNSPTSTS 01-14 10:39 → CMPTRNSPT 01-14 10:46 → CRI 01-14 16:27 → 2NA 01-16 18:56
PROVIDERS: Emergency Medicine; Hospitalist; Internal Medicine; Student in an Organized Health Care Education/Training Program; ADMIT Internal Medicine
PROC: 0S9C3ZX Drainage of Right Knee Joint, Percutaneous Approach, Diagnostic (ICD-10-PCS; 2017-01-13)
PROC: 0SBD4ZZ Excision of Left Knee Joint, Percutaneous Endoscopic Approach (ICD-10-PCS; principal; 2017-01-14)
PROC: 3E1U38Z Irrigation of Joints using Irrigating Substance, Percutaneous Approach (ICD-10-PCS; 2017-01-14)
DX: T84.53XA Infection and inflammatory reaction due to internal right knee prosthesis, initial encounter (principal); A41.51 Sepsis due to Escherichia coli [E. coli]; N17.0 Acute kidney failure with tubular necrosis; M00.862 Arthritis due to other bacteria, left knee; E11.22 Type 2 diabetes mellitus with diabetic chronic kidney disease; I49.5 Sick sinus syndrome; I27.2 Other secondary pulmonary hypertension; C68.9 Malignant neoplasm of urinary organ, unspecified; T83.83XA Hemorrhage due to genitourinary prosthetic devices, implants and grafts, initial encounter; M02.361 Reiter's disease, right knee; J44.9 Chronic obstructive pulmonary disease, unspecified; R31.0 Gross hematuria; N18.3 Chronic kidney disease, stage 3 (moderate); E66.9 Obesity, unspecified; Z68.34 Body mass index [BMI] 34.0-34.9, adult; B96.20 Unspecified Escherichia coli [E. coli] as the cause of diseases classified elsewhere; I12.9 Hypertensive chronic kidney disease with stage 1 through stage 4 chronic kidney disease, or unspecified chronic kidney disease; N40.1 Benign prostatic hyperplasia with lower urinary tract symptoms; R33.8 Other retention of urine; I25.10 Atherosclerotic heart disease of native coronary artery without angina pectoris; I48.91 Unspecified atrial fibrillation; Z95.5 Presence of coronary angioplasty implant and graft; Z95.0 Presence of cardiac pacemaker; Z96.653 Presence of artificial knee joint, bilateral; R09.02 Hypoxemia; Y84.6 Urinary catheterization as the cause of abnormal reaction of the patient, or of later complication, without mention of misadventure at the time of the procedure; Y92.239 Unspecified place in hospital as the place of occurrence of the external cause; Z85.51 Personal history of malignant neoplasm of bladder; G89.29 Other chronic pain; M54.9 Dorsalgia, unspecified; Z87.891 Personal history of nicotine dependence; Z79.01 Long term (current) use of anticoagulants; N13.9 Obstructive and reflux uropathy, unspecified; H91.90 Unspecified hearing loss, unspecified ear; F32.9 Major depressive disorder, single episode, unspecified; Y79.2 Prosthetic and other implants, materials and accessory orthopedic devices associated with adverse incidents
CPT/HCPCS: 2NAP; 2NBP; 84133; 84300; 87070; 87075; CCU; 36415; 73562-LT; 74176; 76775; 78582; 81001; 82436; 82570; 87040; 87086; 88305; 93005; 93010; 94799; 96365; 96372; 96375; 97110-GO; 97116-GO; 97161-GP; 97530-GO; A9540; A9558; J0131; J0696; J1170; J3370; J7040

== ENCOUNTER 2017-01-29 17:54 | Inpatient (IN) | payer OTHER ==
[~2017-01-29] VITALS: Ht 170.2 cm; Wt 102.1 kg
[~2017-01-29 17:54] MED LIST changes: +CIPROFLOXACIN750 M1 PO; +FINASTERIDE5 M1 PO; +FLOMAX0.4 M1 PO
--- NOTE | 2017-01-29 18:08 | NUR ---
PT BIBA FROM [facility] FOR INCREASE IN LAB VALUES AND NEW CHF. PER EMS, PATIENT STATED SOB YESTERDAY AND STAFF MIGUEL LABS THIS MORNING, AND INCREASED RENAL LABS PROMPTED TRANSFER TO [facility]. EMS PT IN NAD UPON THEIR ARRTIVAL AT FACILITY, O2 SAT AT 100% ON RA; 2L O2 VIA NC APPLIED FOR COMFORT. HYPOTENSIVE. PER PT, HE IS HAVING NO RESP SX. C/O ONGOING CP x 1 MONTH OR MORE, WITH NO CHANGE WITH MOBILITY OR REST.
--- NOTE | 2017-01-29 18:08 | ED GENERAL ADULT ---
History of Present Illness General Chief Complaint: General Adult Stated Complaint: IRREGULAR LABS Source: patient, family, old records, EMS Exam Limitations: no limitations Vital Signs & Intake/Output Vital Signs & Intake/Output Vital Signs Date Time Temp Pulse Resp B/P B/P Pulse O2 O2 Flow FiO2 Mean Ox Delivery Rate 01/30 1715 97 Nasal 2.0L Cannula 01/30 1644 98.5 63 20 106/56 98 Nasal 2.0L Cannula 01/30 1552 97.1 64 18 98/53 95 01/30 0956 97.9 71 20 100/52 01/30 0955 97.9 71 20 100/52 96 Nasal 2.0L Cannula 01/30 0833 97 Nasal 2.0L Cannula 01/30 0747 98.0 55 18 149/98 95 Nasal 2.0L Cannula 01/30 0738 98.0 55 20 149/98 95 Nasal 2.0L Cannula 01/30 0509 97.4 55 20 88/56 96 01/30 0052 97.2 57 19 95/54 100 Nasal 2.0L Cannula 01/29 2315 97 Nasal 2.0L Cannula 01/29 2304 90/51 01/29 2147 96.5 60 17 89/62 97 Room Air 2.0L ED Intake and Output 01/30 0000 01/29 1200 Intake Total 250 Output Total Balance 250 Intake, IV 250 Patient 235 lb Weight Weight Reported by Patient Measurement Method Allergies Coded Allergies: NO KNOWN ALLERGIES (11/15/15) Reconcile Medications Acetaminophen (Pain Reliever) 325 MG TABLET 2 TAB PO Q6H PRN PAIN/TEMP>101 ( Reported) Acetaminophen (Acephen) 650 MG SUPP.RECT 1 SUPP SC Q6H PRN PAIN/TEMP>101 ( Reported) Albuterol Sulfate (Proair Hfa) 90 MCG HFA.AER.AD 2 PUF INH Q4H PRN SOB/DYSPNEA (Reported) Atorvastatin Calcium 10 MG TABLET 1 TAB PO DAILY CHOLESTEROL (Reported) Bisacodyl (Dulcolax) 10 MG SUPP.RECT 1 SUP RC DAILY PRN CONSTIPATION ( Reported) Ciprofloxacin HCl 750 MG TABLET 1 TAB PO DAILY knee infection please take ciprofloxacin daily one tablet till February 25. Diltiazem HCl (Cardizem Cd) 360 MG CAP.ER.24H 1 CAP PO DAILY HEART/BP ( Reported) Finasteride 5 MG TABLET 5 MG PO DAILY urine retention Furosemide 20 MG TABLET 1 TAB PO BID DIURETIC (Reported) Losartan (Cozaar) 100 MG TABLET 1 TAB PO DAILY BP (Reported) Magnesium Hydroxide (Milk Of Magnesia) 400 MG/5 ML ORAL.SUSP 30 ML PO Q3D PRN CONSTIPATION (Reported) Na Phos,M-B/Na Phos,Di-Ba (Fleet Enema) 19 GRAM-7 GRAM/118 ML ENEMA 1 E RC DAILY PRN CONSTIPATION (Reported) Naloxone HCl (Narcan) 4 MG/ACTUATION SPRAY 4 MG NATALIA AD PRN OPIOID INDUCED RESP. DEPRESSIO (Reported) Oxycodone HCl (Oxycontin) 10 MG TAB.ER.12H 1 TAB PO Q12H PAIN (Reported) Oxycodone HCl 10 MG TABLET 1 TAB PO Q4H PRN MODERATE/SEVERE PAIN (Reported) Oxycodone HCl 5 MG TABLET 1 TAB PO Q4H PRN MILD PAIN (Reported) Rivaroxaban (Xarelto) 20 MG TABLET 1 TAB PO DAILY BLOOD THINNER (Reported) with food Tamsulosin HCl (Flomax) 0.4 MG CAP.ER.24H 1 TAB PO DAILY BPH Triage Nurses Notes Reviewed? yes Onset: Abrupt Duration: day(s): (1), constant Timing: recent history Injury Environment: [facility] Severity: moderate Severity Numbers: 6 No Modifying Factors: none Associated Symptoms: confusion per family, dyspnea, cp HPI: 87 year old male with history hypertension, diabetes, chronic renal insufficiency, coronary artery disease, status post angioplasty, atrial fibrillation, maintained on Xarelto, tachybradycardia syndrome, status post pacemaker placement 2 years prior to admission, status post post bilateral knee replacements 12 years prior to admission recently admitted for septic arthritis [facility] for evaluation after he had outpatient blood work today that revealed a creatinine of 4.5 BNP of 4300. According to the patient he states that he has had trouble breathing over the past few months, the patient's son is at bedside states that he has been more lethargic and confused at the rehabilitation facility is currently at. Patient denies any shortness of breath or chest pain at this time. (YENY HERNANDEZ) Past History Medical History Any Pertinent Medical History? see below for history Neurological: NONE EENT: reports that he has issues with his vision. 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 He apparently had implants presumably after cataracts. 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 His creatinine at that point was 2.0. 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 No (YENY HERNANDEZ) Review of Systems Review of Systems Constitutional: Reports: see HPI. Comments Review of systems: See HPI, All other systems negative. Constitutional, no chills no fever, no malaise HEENT: No visual changes no sore throat no congestion Cardiovascular: No chest pain , no palpitation Skin: no rashes, no change in skin Respiratory: No dyspnea no cough no sputum GI: No nausea no vomiting, no diarrhea, : No dysuria Muscle skeletal: No joint pain, no joint swelling, no back pain, no neck pain, Neurologic: No numbness confusion, no headache Psych: No stress Heme/endocrine: No bruising Immunology: No lymphadenopathy (YENY HERNANDEZ) Physical Exam Physical Exam General Appearance: well developed/nourished, no apparent distress, alert Comments: Well-developed well-nourished person in no acute distress HEENT: Normal EENT exam; PERRL, EOMI, HEAD is atraumatic. moist mucous membranes. Neck: Supple, no lymphadenopathy, normal range of motion without Back: Nontender, no CVA tenderness. Full range of motion Cardiovascular: Regular rate and rhythms no murmurs rubs or gallops, normal JVP Respiratory: DIMINISHED BREATH SOUNDS B/L, No respiratory distress. Patient speaking in full complete sentences. Breath sounds clear to auscultation bilaterally: NO W/R/R Abdomen: Soft, nontender nondistended, no appreciable organomegaly. Normal bowel sounds. No rebound/guarding No ascites. Extremity: 1+B/L edema, full range of motion of extremities, normal and equal pulses bilaterally, 5 out of 5 strength noted to bilateral upper and lower extremities Neuro: Alert oriented x3, motor sensory normal, cranial nerves II through XII grossly intact. There were no obvious focal neurologic abnormalities. Skin: No appreciable rash on exposed skin, skin is warm and dry. Psych: Mood and affect is normal, memory and judgment is normal. Core Measures ACS in differential dx? No CVA/TIA Diagnosis: No Severe Sepsis Present: No Septic Shock Present: No (ALEX PANDA,YENY) Progress Differential Diagnoses I considered the following diagnoses in my evaluation of the patient: CHF acute on chronic renal sufficiency electrolyte abnormality dehydration Plan of Care: Orders Procedure Date/time Status CBC WITHOUT DIFFERENTIAL 01/31 0600 Active BASIC ELECTROLYTES PLUS BUN&CR 01/31 0600 Active Knott, Insertion/Removal/Asses 01/30 1820 Active Knott, Insertion/Removal/Asses 01/30 1818 Active WESTERGREN SED RATE 01/30 1754 Active URINALYSIS 01/30 1105 Complete TROPONIN LEVEL 01/30 06 Complete CBC WITHOUT DIFFERENTIAL 01/30 0600 Complete BASIC ELECTROLYTES PLUS BUN&CR 01/30 0600 Complete EKG 01/30 0600 Active PHOSPHORUS 01/30 0503 Complete MAGNESIUM 01/30 0503 Complete HEPATIC FUNCTION PANEL 01/30 0503 Complete CREATINE PHOSPHOKINASE 01/30 0503 Complete CALCIUM 01/30 0503 Complete Teach/Educate 01/30 0233 Active Pain Treatment and Response 01/30 0233 Active Nutritional Intake, Monitor 01/30 0233 Active Isolation 01/30 0233 Active Patient Care Conference 01/30 0233 Active CULTURE,URINE 01/30 0158 Active Lab Add-on Test 01/30 UNK Active Weight 01/30 UNK Active Intake & Output 01/30 UNK Active MISSING MEDICATION FORM 01/30 UNK Active Pathway - chart 01/30 2228 Active House Staff 01/30 2228 Active Patient Data 01/30 2228 Active Code Status 01/30 2228 Active Current Medications Sig/Festus Start time Last Medication Dose Stop Time Status Admin Diltiazem HCl 300 MG DAILY 01/31 1000 AC (Cardizem CD) Atorvastatin Calcium 10 MG 1700 01/30 1700 AC 01/30 (Lipitor) 1726 Ciprofloxacin 750 MG DAILY 01/30 1000 AC 01/30 (Cipro) 02/03 0959 0956 Finasteride 5 MG DAILY 01/30 1000 AC 01/30 (Proscar) 0956 Rivaroxaban 20 MG DAILY 01/30 1000 CAN (Xarelto) Tamsulosin HCl 0.4 MG DAILY 01/30 1000 AC 01/30 (Flomax) 0956 Bisacodyl 10 MG DAILY PRN 01/29 2330 AC (Dulcolax Supp) Albuterol Sulfate 2 PUF Q4H PRN 01/29 2315 AC (Ventolin) Acetaminophen 650 MG Q6P PRN 01/29 2230 AC (Tylenol) Acetaminophen/ 1 TAB Q6P PRN 01/29 223 AC Hydrocodone Bitart (Vicodin) Hydromorphone HCl 1 MG Q6P PRN 01/29 223 AC (Dilaudid) Laboratory Tests 01/30/17 1633: ESR Westergren Pending 01/30/17 1125: Urinalysis LIGHT H, Urine Color YEL, Urine Clarity HAZY H, Urine pH 5.5, Ur Specific Sumner >= 1.030, Urine Protein 100 H, Urine Ketones NEG, Urine Nitrite NEG, Urine Bilirubin NEG, Urine Urobilinogen 0.2, Ur Leukocyte Esterase MOD H, Ur Microscopic SEDIMENT EXAMINED, Urine RBC 15-25 H, Urine WBC 10-15 H , Ur Epithelial Cells FEW, Urine Bacteria MOD H, Micro UA Comment BUDDING YEAST H, Urine Hemoglobin LARGE H, Urine Glucose NEG 01/30/17 0503: Anion Gap 11, Estimated GFR 12 L, BUN/Creatinine Ratio 14.3, Calcium 7.9 L, Phosphorus 6.7 H, Magnesium 2.3, Total Bilirubin 0.7, Direct Bilirubin 0.5 H, AST 41, ALT 51, Alkaline Phosphatase 191 H, Creatine Kinase 106, Troponin I < 0.01, Total Protein 5.4 L, Albumin 2.9 L, CBC w Diff NO MAN DIFF REQ, RBC 2.91 L, MCV 88.0, MCH 28.4, RDW 14.6 H, MPV 7.8, Gran % 74.8, Lymphocytes % 8.4 L, Monocytes % 12.1 H, Eosinophils % 4.2, Basophils % 0.5, Absolute Granulocytes 4.5, Absolute Lymphocytes 0.5 L, Absolute Monocytes 0.7 H, Absolute Eosinophils 0.3, Absolute Basophils 0, PUBS MCHC 32.3 L Microbiology 01/30 0448 URINE ROUT: Urine Culture - RECD Labs were reviewed from the patient's outpatient lab draw from 2:00 this afternoon patient's primary care physician Dr. Fernando was in the department to evaluate the patient advised to give 20 mg IV Lasix at this time given x-ray findings. Will admit to telemetry case d/w dr faith agrees with plan Given patient's hypotension Lasix was held with give 250 bolus of normal saline patient mentating well at this time 97% on 2 L he is not dyspneic at present no chest pain. (ALEX PANDA,YENY) Diagnostic Imaging: Viewed by Me: Radiology Read. Discussed w/RAD: Radiology Read. Radiology Impression: PATIENT: FARTUN SIM PRESENT AGE: 87 PATIENT ACCOUNT NO: [id number] : 30 LOCATION: [facility] ORDERING PHYSICIAN: YENY PANDA SERVICE DATE: 01/29/17 EXAM TYPE: RAD - XRY- PORTABLE CHEST XRAY EXAMINATION: CHEST 1 VIEW CLINICAL INFORMATION: Dyspnea, edema. COMPARISON: 01/14/2017. TECHNIQUE: An AP view of the chest is provided. FINDINGS: The cardiac silhouette is prominent, but stable. A single lead pacer is in unchanged position. There are neither pleural effusions nor pneumothoraces. There is interstitial prominence present throughout both lungs. There are neither pleural effusions nor pneumothoraces. The osseous structures are stable. IMPRESSION: Stable cardiomegaly with mild interstitial prominence throughout both lungs likely indicative of mild vascular congestion. No consolidations. DICTATED BY: MARY ARROYO MD DATE/TIME DICTATED:01/29/171823 GASOLINE TRACTOR OPERATOR:CEDRIC DATE/TIME TRANSCRIBED:01/29/171823 CONFIDENTIAL, DO NOT COPY WITHOUT APPROPRIATE AUTHORIZATION. <Electronically signed in Other Vendor System> SIGNED BY: MARY ARROYO MD 01/29/171827 Initial ED EKG: normal intervals, normal p-waves, normal QRS complex, pacemaker rhythm Prior EKG: unchanged Rhythm Strip: paced (YENY HERNANDEZ) Departure Departure Disposition: STILL A PATIENT Condition: Stable Clinical Impression Primary Impression: Acute on chronic renal insufficiency Secondary Impressions: CHF (congestive heart failure) Referrals: ANJALI FERNANDO MD (PCP/Family) Departure Forms: Customer Survey General Discharge Information Admission Note Spoke With: ANJALI FERNANDO MD Documentation of Exam: Documentation of any treatments & extenuating circumstances including Concerns Regarding Discharge (functional status, medication knowledge or non-compliance, living conditions, etc.) that warrant an admission rather than observation: [ Cardiology consult nephrology consult telemetry monitoring, gentle hydration versus diuresis premature discharge would BE medically harmful (YENY HERNANDEZ) Critical Care Note Critical Care Note Critical Care Time: non-applicable (YENY HERNANDEZ)
--- NOTE | 2017-01-29 18:28 | RADIOLOGY REPORT ---
EXAMINATION: CHEST 1 VIEW CLINICAL INFORMATION: Dyspnea, edema. COMPARISON: 01/14/2017. TECHNIQUE: An AP view of the chest is provided. FINDINGS: The cardiac silhouette is prominent, but stable. A single lead pacer is in unchanged position. There are neither pleural effusions nor pneumothoraces. There is interstitial prominence present throughout both lungs. There are neither pleural effusions nor pneumothoraces. The osseous structures are stable. IMPRESSION: Stable cardiomegaly with mild interstitial prominence throughout both lungs likely indicative of mild vascular congestion. No consolidations.
--- NOTE | 2017-01-29 18:44 | Admission Certification ---
Admission Certification Certification Statement - As attending physician, I certify that at the time of - admission, based on clinical presentation, severity of - symptoms, need for further diagnostic testing and - therapeutic interventions, and risk of adverse outcomes - without in-hospital treatment, in my clinical assessment, - this patient requires an acute hospital stay for a minimum - of two nights or longer. I have also considered psychsocial - factors such as support system, advanced age, financial - issues, cognitive issues, and failed out-patient treatments, - past re-admission history, safety of patient, and lack of - compliance as applicable. Specific rationale supporting this admission is: Change in mental status, renal function, probably worsening congestive heart failure.
--- NOTE | 2017-01-29 18:49 | PN- Att Addend ---
Attending Addendum Attending Brief Note 87-year-old white male pain at short-term rehabilitation after episode of septic arthritis and sepsis. Was doing reasonably well yesterday patient's daughter noticed that the patient was very confused discontinued until this morning blood work was ordered was found to have worsening of his renal failure, was sent to the emergency room. Patient is a little brighter now maybe a little short of breath chest x-ray showed increased congestion and also noted to have abnormal renal function patient will be admitted to telemetry have cardiology reevaluation and treat accordingly and he also my need to have renal involvement again patient still on Cipro for his infection BUN is 63 From 28 and creatinine were 4.5 from 1.8 potassium 5.1 , hemoglobin down to 8.2 W BCs 5600 Chest x-ray showed mild vascular congestion.
[2017-01-29] MEDS ORDERED: OXYCONTIN10 M1 PO (19:23)
[2017-01-29] MEDS ORDERED: XARELTO20 M2 PO (19:27)
[2017-01-29] MEDS ORDERED: NARCAN4 MG NAS (19:30)
[2017-01-29] MEDS ORDERED: ATORVASTATIN CA10 M1 PO (19:31)
[2017-01-29] MEDS ORDERED: COZAAR100 M1 PO (19:31)
[2017-01-29] MEDS ORDERED: FUROSEMIDE20 M1 PO (19:32)
[2017-01-29] MEDS ORDERED: CARDIZEM CD360 M1 PO (19:32)
[2017-01-29] MEDS ORDERED: MILK OF MA400 MG/52 PO (19:34)
[2017-01-29] MEDS ORDERED: PROAIR HFA8.5 GM INH (19:34)
[2017-01-29] MEDS ORDERED: DULCOLAX10 M1 RC (19:35)
[2017-01-29] MEDS ORDERED: FLEET ENEMA133 ML RC (19:35)
[2017-01-29] MEDS ORDERED: OXYCODONE HCL10 M2 PO (19:36)
[2017-01-29] MEDS ORDERED: OXYCODONE HCL5 M1 PO (19:37)
--- NOTE | 2017-01-29 19:37 | NUR ---
SON RAFAELA AT BEDSIDE. PT DENIES ANY COMPLAINT
[2017-01-29] MEDS ORDERED: ACEPHEN650 M1 PR (19:38)
[2017-01-29] MEDS ORDERED: PAIN RELIEVER325 MG PO (19:38)
--- NOTE | 2017-01-29 19:50 | NUR ---
PLEASE CALL PT'S SON RAFAELA AT [phone] IF ANY CHANGE. HE WILL RETURN AT APPROX 6AM
--- NOTE | 2017-01-29 20:36 | NUR ---
PT REMAINS ON TELEMETRY; PACED RHYTHM IN 60s.
--- NOTE | 2017-01-29 21:46 | NUR ---
HOUSE STAFF AT BEDSIDE
--- NOTE | 2017-01-29 22:28 | History & Physical ---
See Addendum General Information and HPI MD Statement: I have seen and personally examined FARTUN SIM and documented this H&P. The patient is a 87 year old M who presented with a patient stated chief complaint of lethargy and confusion for one day []. Source of Information: patient, family Exam Limitations: not alert/orientated, clinical condition History of Present Illness: Patient is 87-year-old male with past medical history significant for diabetes, hypertension, chronic renal insufficiency, coronary artery disease, status post angioplasty, atrial fibrillation on his Route toe, tachybradycardia syndrome status post pacemaker placement, status post bilateral knee replacement was recently admitted at [facility] from January 13 to January 22 with chief complaint of septic arthritis and was sent to nursing facility with a prolonged course of antibiotics to February 25 was sent in from facility with worsening confusion and lethargy for last 1-2 days. Patient was alert but confused so most of the history was taken from his daughter on phone. According to her patient was lethargic and confused with the last few days in the facility and her confusion worse worse today and also did labs which were drawn at the facility showed worsening creatinine and that's why patient was sent to [facility]. As per previous records patient was supposed to see Dr. Henderson on January 25 but according to daughter he was never sent to Dr. Henderson's office and she is not sure if any procedure was done since his discharge. Patient still has 40s catheter. His blood pressure any are dropped down to 85/47 and was given 250 mils of normal saline bolus and blood pressure came up to 95/50 . He denied any chest pain, palpitations, dizziness, headache, shortness of breath , any urinary or bowel complaints. Labs from today were WBC count 5.6, hemoglobin 8.2, hematocrit 25.7, platelet count 329, sodium 131, potassium 5.1, chloride 96, creatinine 4.5 which was previously 1.85 days ago, BUNs and 63, calcium 8.3, Urinalysis showed negative ketones, negative nitrates, moderate leukocyte Estrace, packed WBCs, 15-25 RBCs. Chest x-ray shows stable cardiomegaly with mild interstitial prominence throughout both lungs likely indicative of mild posterior congestion but no consolidations Allergies/Medications Allergies: Coded Allergies: NO KNOWN ALLERGIES (11/15/15) Home Med list Acetaminophen (Pain Reliever) 325 MG TABLET 2 TAB PO Q6H PRN PAIN/TEMP>101 ( Reported) Acetaminophen (Acephen) 650 MG SUPP.RECT 1 SUPP TX Q6H PRN PAIN/TEMP>101 ( Reported) Albuterol Sulfate (Proair Hfa) 90 MCG HFA.AER.AD 2 PUF INH Q4H PRN SOB/DYSPNEA (Reported) Atorvastatin Calcium 10 MG TABLET 1 TAB PO DAILY CHOLESTEROL (Reported) Bisacodyl (Dulcolax) 10 MG SUPP.RECT 1 SUP RC DAILY PRN CONSTIPATION ( Reported) Ciprofloxacin HCl 750 MG TABLET 1 TAB PO DAILY knee infection please take ciprofloxacin daily one tablet till February 25. Diltiazem HCl (Cardizem Cd) 360 MG CAP.ER.24H 1 CAP PO DAILY HEART/BP ( Reported) Finasteride 5 MG TABLET 5 MG PO DAILY urine retention Furosemide 20 MG TABLET 1 TAB PO BID DIURETIC (Reported) Losartan (Cozaar) 100 MG TABLET 1 TAB PO DAILY BP (Reported) Magnesium Hydroxide (Milk Of Magnesia) 400 MG/5 ML ORAL.SUSP 30 ML PO Q3D PRN CONSTIPATION (Reported) Na Phos,M-B/Na Phos,Di-Ba (Fleet Enema) 19 GRAM-7 GRAM/118 ML ENEMA 1 E RC DAILY PRN CONSTIPATION (Reported) Naloxone HCl (Narcan) 4 MG/ACTUATION SPRAY 4 MG NATALIA AD PRN OPIOID INDUCED RESP. DEPRESSIO (Reported) Oxycodone HCl (Oxycontin) 10 MG TAB.ER.12H 1 TAB PO Q12H PAIN (Reported) Oxycodone HCl 10 MG TABLET 1 TAB PO Q4H PRN MODERATE/SEVERE PAIN (Reported) Oxycodone HCl 5 MG TABLET 1 TAB PO Q4H PRN MILD PAIN (Reported) Rivaroxaban (Xarelto) 20 MG TABLET 1 TAB PO DAILY BLOOD THINNER (Reported) with food Tamsulosin HCl (Flomax) 0.4 MG CAP.ER.24H 1 TAB PO DAILY BPH Compliance With Home Meds: GOOD Past History Travel History Traveled to [place] past 21 day No Medical History Neurological: NONE EENT: reports that he has issues with his vision. He is due to see his mental health case manager on February 08. He apparently had implants presumably after cataracts. 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 His creatinine at that point was 2.0. 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 yes Functional Ability ADLs Independent: dressing, eating, toileting, bathing. Ambulation: independent IADLs Independent: shopping, housework, finances, food prep, telephone, transportation , medication admin. Review of Systems Review of Systems Constitutional: Reports: weakness. EENTM: Denies: blurred vision, double vision. Cardiovascular: Denies: chest pain, palpitations. Respiratory: Denies: cough, hemoptysis. GI: Denies: abdominal pain, constipation. Genitourinary: Reports: see HPI. Musculoskeletal: Reports: see HPI. Exam & Diagnostic Data Last 24 Hrs of Vital Signs/I&O Vital Signs Date Time Temp Pulse Resp B/P B/P Pulse O2 O2 Flow FiO2 Mean Ox Delivery Rate 01/30 0052 97.2 57 19 95/54 100 Nasal 2.0L Cannula 01/29 2304 90/51 01/29 2147 96.5 60 17 89/62 97 Room Air 2.0L 01/29 1936 96.1 61 16 84/45 97 Nasal 2.5L Cannula 01/29 181 97 Nasal 2.0L Cannula 01/29 181 96.3 60 14 85/47 97 Nasal 2.0L Cannula Intake & Output 01/30 0800 01/30 0000 01/29 1600 Intake Total 250 Output Total Balance 250 Intake, IV 250 Patient 235 lb Weight Weight Reported by Patient Measurement Method Physical Exam General Appearance Alert, not oriented to time person and place Skin No Significant Lesion HEENT PERRLA, EOMI Neck No JVD Cardiovascular Regular Rate, Normal S1, Normal S2 Lungs Clear to Auscultation Abdomen Normal Bowel Sounds Extremities mild to moderate bilateral lower extremity edema Last 24 Hrs of Labs/Federico: Microbiology 01/30 0158 URINE ROUT: Urine Culture - ORD Diagnostic Data CXR Results IMPRESSION: Stable cardiomegaly with mild interstitial prominence throughout both lungs likely indicative of mild vascular congestion. No consolidations. Assessment/Plan Assessment: Patient is 87-year-old male with past medical history significant for diabetes, hypertension, chronic renal insufficiency, coronary artery disease, status post angioplasty, atrial fibrillation on his Route toe, tachybradycardia syndrome status post pacemaker placement, status post bilateral knee replacement was recently admitted at [facility] from January 13 to January 22 with chief complaint of septic arthritis and was sent to nursing facility with a prolonged course of antibiotics to February 25 was sent in from facility with worsening confusion and lethargy for last 1-2 days most likely due to worsening renal function we'll rule out urinary tract infection. Chest x-ray was suggestive of pulmonary congestion is likely underlying CHF exacerbation. We will admit patient on telemetry floor and will take care for following problems Problem list 1. Lethargy and worsening confusion could be due to acute on chronic kidney injury which could be multifactorial due to medications versus UTI 2. CHF with reduced ejection fraction 3. History of atrial fibrillation on his at L2 4. CAD status post angioplasty 5. Acute on chronic kidney injury 6. History of septic arthritis on ciprofloxacin for 4-6 weeks considering lifelong prophylaxis 7. History of tachybradycardia syndrome status post pacemaker placement Plan 1. We will admit patient on telemetry floor 2. Continuous telemetry monitoring 3. Cardiology evaluation in a.m. 4. We will hold nephrotoxic medications including started and furosemide for now pending cardiology evaluation at 5. We will request urology evaluation in a.m. as patient was supposed to see Dr. Henderson on and January 25. She might have underlying bladder malignancy. 6. We will request nephrology evaluation in a.m. 7. We will request ID evaluation in a.m. For reevaluating his current antibiotics. 8. We will continue his ciprofloxacin for now 9. Even though chest x-ray suggestive of posterior congestion given his elevated creatinine we will hold any diuresis for now and will await for cardiology input. Patient is full code Pharmacological DVT prophylaxis with 0 L2 Heart healthy diet. As Ranked By This Provider Problem List: 1. Acute on chronic renal insufficiency Core Measures/Miscellaneous Acute Coronary Syndrome ACS Diagnosis: No Cerebrovascular Accident CVA/TIA Diagnosis: No Congestive Heart Failure CHF Diagnosis: No VTE (View Protocol) VTE Risk Factors: Acute medical illness, Age > 40 No Mech VTE prophylaxis d/t: No contraindications No VTE Pharm Prophylaxis d/t: No contraindications VTE Diagnosis: No VTE Type: NONE VTE Confirmed by (Test): NONE Sepsis (View Protocol) Severe Sepsis Present: No Septic Shock Septic Shock Present: No BC x2: Yes Lactic Acid: No IV ABX Broad Spectrum: Yes Focused Exam Completed: Yes NS/LR 30ml/kg w/in 3hrs: Yes IV Vasopressors started: No Miscellaneous Documentation Attending Case Discussed With: Dr. Anjali Fernando Primary Care Physician: ANJALI FERNANDO MD Patient sees these Specialists Cardiology Level of Patient Care: Telemetry Resident Review Statement Resident Statement: examined this patient, discussed with sales management intern, agreed with sales management intern Other Findings: admitted by resident
[2017-01-30 05:30] LABS: ABSOLUTE BASOPHIL COUNT 0 /CUMM (0.0-0.2); ABSOLUTE EOSINOPHIL COUNT 0.3 /CUMM (0.0-0.7); ABSOLUTE GRANULOCYTE CT 4.5 /CUMM (1.4-6.5); ABSOLUTE LYMPH COUNT 0.5 /CUMM (1.2-3.4); ABSOLUTE MONOCYTE COUNT 0.7 /CUMM (0.10-0.60); BASOPHIL % 0.5 % (0.0-2.0); EOSINOPHIL % 4.2 % (0-5); GRANULOCYTE % 74.8 % (42.2-75.2); HEMATOCRIT 25.6 % (42-52); MEAN CORPUSCULAR HGB 28.4 PG (27.0-31.0); MEAN CORPUSCULAR HGB CONC 32.3 G/DL (33.0-37.0); MEAN PLATELET VOLUME 7.8 FL (7.4-10.4); PLATELET COUNT 296 /CUMM (130-400); RBC DISTRIBUTION WIDTH 14.6 % (11.5-14.5); RED BLOOD CELL CT 2.91 /CUMM (4.70-6.10)
--- NOTE | 2017-01-30 07:33 | NUR ---
ASSUMED CARE OF PT AT THIS TIME, PT AWOKEN FOR VITAL SIGNS AND REPOSITIONING. PT CONFUSED TO TIMES, ALERT TO SELF, UNSURE OF WHERE HE IS AT TIMES. SON AT BEDSIDE.
[2017-01-30 07:47] VITALS: BP 149/98
--- NOTE | 2017-01-30 08:02 | PN- Housestaff ---
Subjective Follow-up For: CHF A-fib Acute on CKD Subjective: Patient states he feels fine at the moment Review of Systems Constitutional: Reports: see HPI. Objective Last 24 Hrs of Vital Signs/I&O Vital Signs Date Time Temp Pulse Resp B/P B/P Pulse O2 O2 Flow FiO2 Mean Ox Delivery Rate 01/30 0956 97.9 71 20 100/52 01/30 0955 97.9 71 20 100/52 96 Nasal 2.0L Cannula 01/30 0833 97 Nasal 2.0L Cannula 01/30 0747 98.0 55 18 149/98 95 Nasal 2.0L Cannula 01/30 0738 98.0 55 20 149/98 95 Nasal 2.0L Cannula 01/30 0509 97.4 55 20 88/56 96 01/30 0052 97.2 57 19 95/54 100 Nasal 2.0L Cannula 01/29 2315 97 Nasal 2.0L Cannula 01/29 2304 90/51 01/29 2147 96.5 60 17 89/62 97 Room Air 2.0L 01/29 1936 96.1 61 16 84/45 97 Nasal 2.5L Cannula 01/29 1814 97 Nasal 2.0L Cannula 01/29 1813 96.3 60 14 85/47 97 Nasal 2.0L Cannula Intake & Output 01/30 1600 01/30 0800 01/30 0000 Intake Total 50 250 Output Total 400 435 Balance -350 -435 250 Intake, IV 250 Intake, Oral 50 Output, Urine 400 435 Patient 235 lb Weight Weight Reported by Patient Measurement Method Physical Exam General Appearance: Alert, Oriented X3, Cooperative, No Acute Distress HEENT: Atraumatic, PERRLA Cardiovascular: Normal S1, Normal S2 Lungs: Clear to Auscultation Abdomen: Distended Extremities: 2+ bilateral edema Current Medications: Current Medications Sig/Festus Start time Last Medication Dose Route Stop Time Status Admin Acetaminophen 650 MG Q6P PRN 01/29 2230 AC PO Acetaminophen/ 1 TAB Q6P PRN 01/29 223 AC Hydrocodone Bitart PO Albuterol Sulfate 2 PUF Q4H PRN 01/29 2315 AC INH Atorvastatin Calcium 10 MG 1700 01/30 1700 AC PO Bisacodyl 10 MG DAILY PRN 01/29 2330 AC [place] Ciprofloxacin 750 MG DAILY 01/30 1000 AC 01/30 PO 02/03 0959 0956 Diltiazem HCl 360 MG DAILY 01/30 1000 AC 01/30 PO 0956 Finasteride 5 MG DAILY 01/30 1000 AC 01/30 PO 0956 Furosemide 0 .STK-MED ONE 01/29 1857 DC IV Furosemide 20 MG ONCE ONE 01/29 1830 CAN IV 01/29 1831 Hydromorphone HCl 1 MG Q6P PRN 01/29 2230 AC IV Rivaroxaban 20 MG DAILY 01/30 1000 CAN PO Sodium Chloride 250 ML BOLUS ONE 01/29 1900 DC 01/29 IV 01/29 1959 2030 Tamsulosin HCl 0.4 MG DAILY 01/30 1000 AC 01/30 PO 0956 Last 24 Hrs of Lab/Federico Results Last 24 Hrs of Labs/Mics: Laboratory Tests 01/30/17 1125: Urinalysis LIGHT H, Urine Color YEL, Urine Clarity HAZY H, Urine pH 5.5, Ur Specific [place] >= 1.030, Urine Protein 100 H, Urine Ketones NEG, Urine Nitrite NEG, Urine Bilirubin NEG, Urine Urobilinogen 0.2, Ur Leukocyte Esterase MOD H, Ur Microscopic SEDIMENT EXAMINED, Urine RBC 15-25 H, Urine WBC 10-15 H , Ur Epithelial Cells FEW, Urine Bacteria MOD H, Micro UA Comment BUDDING YEAST H, Urine Hemoglobin LARGE H, Urine Glucose NEG 01/30/17 0503: Anion Gap 11, Estimated GFR 12 L, BUN/Creatinine Ratio 14.3, Calcium 7.9 L, Phosphorus 6.7 H, Magnesium 2.3, Total Bilirubin 0.7, Direct Bilirubin 0.5 H, AST 41, ALT 51, Alkaline Phosphatase 191 H, Creatine Kinase 106, Troponin I < 0.01, Total Protein 5.4 L, Albumin 2.9 L, CBC w Diff NO MAN DIFF REQ, RBC 2.91 L, MCV 88.0, MCH 28.4, RDW 14.6 H, MPV 7.8, Gran % 74.8, Lymphocytes % 8.4 L, Monocytes % 12.1 H, Eosinophils % 4.2, Basophils % 0.5, Absolute Granulocytes 4.5, Absolute Lymphocytes 0.5 L, Absolute Monocytes 0.7 H, Absolute Eosinophils 0.3, Absolute Basophils 0, PUBS MCHC 32.3 L Microbiology 01/30 0448 URINE ROUT: Urine Culture - RECD Orders Radiology Findings: US-RENAL/KIDNEY 01/30/17 IMPRESSION: 1. There is no evidence of hydronephrosis. There are no echogenic renal calculi. 2. The bladder is decompressed with a Knott catheter in position. 01/29/17-1758 PORTABLE CHEST XRAY IMPRESSION: Stable cardiomegaly with mild interstitial prominence throughout both lungs likely indicative of mild vascular congestion. No consolidations. Assessment/Plan Assessment: Mr. Parikh is a 87 yo M with a PMH of diabetes, hypertension, chronic renal insufficiency, coronary artery disease, status post angioplasty, atrial fibrillation on his Route toe, tachybradycardia syndrome status post pacemaker placement, status post bilateral knee replacement was recently admitted at [facility] from January 13 to January 22 with chief complaint of septic arthritis transferred to Telemetry for CHF, A-fib, Acute on CKD, worsening lethargy. P: 1.A-fib/CHF * Continue telemetry * Dr. Briones consulted 2.Acute on CKD * renal US ordered * Urology consulted * Continue cipro 750mg PO, UA positive for moderate bacteria and esterase 3. Septic arthritis * ID consulted Problem List: 1. Septic joint 2. Acute on chronic renal insufficiency 3. CHF (congestive heart failure) 4. Afib 5. CAD (coronary artery disease) Pain Ratin Pain Location: N/A Pain Goal: Remain pain free Pain Plan: N/A Tomorrow's Labs & Rationales: BEP for infection
--- NOTE | 2017-01-30 08:10 | NUR ---
PT PROVIDED WITH BREAKFAST TRAY, PT ONYL TOOK A FEW BITES OF EGGS AND STATES HE DOESNT WANT TO EAT RIGHT NOW, PT DRANK A CUP OF ICE WATER. SON AT BEDSIDE
--- NOTE | 2017-01-30 08:57 | Cons- Nephrology ---
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 Known mod, stage 3B , CKD w baseline Cr hi 1s associated w nonnephrotic range proteinuria & course last mo complicated by LALO to Cr mid 3s before returning to baseline. 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 Found hypotensive on admit to 80s systolic requiring IV NS & Cr elevated again from 1.8 --> 4.7. On outpt ARB & Lasix but no record any IV contrast or NSAID. Other outpt meds included rivaroxaban. Denies SOB, cough, or rigors. No rash. Knott remains in place & nonoliguric. Allergies/Medications Allergies: Coded Allergies: NO KNOWN ALLERGIES (11/15/15) Home Med List: Acetaminophen (Pain Reliever) 325 MG TABLET 2 TAB PO Q6H PRN PAIN/TEMP>101 ( Reported) Acetaminophen (Acephen) 650 MG SUPP.RECT 1 SUPP MS Q6H PRN PAIN/TEMP>101 ( Reported) Albuterol Sulfate (Proair Hfa) 90 MCG HFA.AER.AD 2 PUF INH Q4H PRN SOB/DYSPNEA (Reported) Atorvastatin Calcium 10 MG TABLET 1 TAB PO DAILY CHOLESTEROL (Reported) Bisacodyl (Dulcolax) 10 MG SUPP.RECT 1 SUP RC DAILY PRN CONSTIPATION ( Reported) Ciprofloxacin HCl 750 MG TABLET 1 TAB PO DAILY knee infection please take ciprofloxacin daily one tablet till February 25. Diltiazem HCl (Cardizem Cd) 360 MG CAP.ER.24H 1 CAP PO DAILY HEART/BP ( Reported) Finasteride 5 MG TABLET 5 MG PO DAILY urine retention Furosemide 20 MG TABLET 1 TAB PO BID DIURETIC (Reported) Losartan (Cozaar) 100 MG TABLET 1 TAB PO DAILY BP (Reported) Magnesium Hydroxide (Milk Of Magnesia) 400 MG/5 ML ORAL.SUSP 30 ML PO Q3D PRN CONSTIPATION (Reported) Na Phos,M-B/Na Phos,Di-Ba (Fleet Enema) 19 GRAM-7 GRAM/118 ML ENEMA 1 E RC DAILY PRN CONSTIPATION (Reported) Naloxone HCl (Narcan) 4 MG/ACTUATION SPRAY 4 MG NATALIA AD PRN OPIOID INDUCED RESP. DEPRESSIO (Reported) Oxycodone HCl (Oxycontin) 10 MG TAB.ER.12H 1 TAB PO Q12H PAIN (Reported) Oxycodone HCl 10 MG TABLET 1 TAB PO Q4H PRN MODERATE/SEVERE PAIN (Reported) Oxycodone HCl 5 MG TABLET 1 TAB PO Q4H PRN MILD PAIN (Reported) Rivaroxaban (Xarelto) 20 MG TABLET 1 TAB PO DAILY BLOOD THINNER (Reported) with food Tamsulosin HCl (Flomax) 0.4 MG CAP.ER.24H 1 TAB PO DAILY BPH Current Medications: Current Medications Sig/Festus Start time Last Medication Dose Route Stop Time Status Admin Acetaminophen 650 MG Q6P PRN 01/29 2230 AC PO Acetaminophen/ 1 TAB Q6P PRN 01/29 2230 AC Hydrocodone Bitart PO Albuterol Sulfate 2 PUF Q4H PRN 01/29 2315 AC INH Atorvastatin Calcium 10 MG 1700 01/30 1700 AC PO Bisacodyl 10 MG DAILY PRN 01/29 2330 AC MS Ciprofloxacin 750 MG DAILY 01/30 1000 AC PO 02/03 0959 Diltiazem HCl 360 MG DAILY 01/30 1000 AC PO Finasteride 5 MG DAILY 01/30 1000 AC PO Furosemide 0 .STK-MED ONE 01/29 1857 DC IV Furosemide 20 MG ONCE ONE 01/29 1830 CAN IV 01/29 1831 Hydromorphone HCl 1 MG Q6P PRN 01/29 2230 AC IV Rivaroxaban 20 MG DAILY 01/30 1000 AC PO Sodium Chloride 250 ML BOLUS ONE 01/29 1900 DC 01/29 IV 01/29 1959 2030 Tamsulosin HCl 0.4 MG DAILY 01/30 1000 AC PO Review of Systems Review of Systems Constitutional: Reports: fever. EENTM: Reports: no symptoms. Cardiovascular: Reports: no symptoms. Respiratory: Reports: no symptoms. GI: Reports: no symptoms. Genitourinary: Reports: no symptoms. Musculoskeletal: Reports: no symptoms. Skin: Reports: no symptoms. Neurological/Psychological: Reports: no symptoms. Hematologic/Endocrine: Reports: no symptoms. Immunologic/Allergic: Reports: no symptoms. All Other Systems: Reviewed and Negative Past History Travel History Traveled to [place] past 21 day No Medical History Neurological: NONE EENT: reports that he has issues with his vision. 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 He apparently had implants presumably after cataracts. 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 His creatinine at that point was 2.0. 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 Intermediate Facility Smoking Status: Former Smoker ETOH Use: denies use Living Will? yes Functional Ability ADLs Independent: dressing, eating, toileting, bathing. Ambulation: independent IADLs Independent: shopping, housework, finances, food prep, telephone, transportation , medication admin. Exam & Diagnostic Data Vital Signs and I&O Vital Signs Date Time Temp Pulse Resp B/P B/P Pulse O2 O2 Flow FiO2 Mean Ox Delivery Rate 01/30 0833 97 Nasal 2.0L Cannula 01/30 0747 98.0 55 18 149/98 95 Nasal 2.0L Cannula 01/30 0738 98.0 55 20 149/98 95 Nasal 2.0L Cannula 01/30 0509 97.4 55 20 88/56 96 01/30 0052 97.2 57 19 95/54 100 Nasal 2.0L Cannula 01/29 2315 97 Nasal 2.0L Cannula 01/29 2304 90/51 01/297 96.5 60 17 89/62 97 Room Air 2.0L 01/29 1936 96.1 61 16 84/45 97 Nasal 2.5L Cannula 01/29 1814 97 Nasal 2.0L Cannula 01/29 1813 96.3 60 14 85/47 97 Nasal 2.0L Cannula Intake & Output 01/30 040 Intake Total 250 Output Total 210 225 Balance -210 25 Intake, IV 250 Output, Urine 210 225 Patient 235 lb Weight Weight Reported by Patient Measurement Method Physical Exam General Appearance: well developed/nourished, no apparent distress, alert Head: atraumatic, normal appearance Eyes: Bilateral: normal appearance. 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, disoriented to place Skin: intact, normal color, warm/dry Lymphatic: no anterior cervical precious, no axillary adenopathy Results Pertinent Lab Results: Laboratory Tests 01/30 0503 Chemistry Sodium (137 - 145 mmol/L) 132 L Potassium (3.5 - 5.1 mmol/L) 5.1 Chloride (98 - 107 mmol/L) 98 Carbon Dioxide (22 - 30 mmol/L) 23 Anion Gap (5 - 16) 11 BUN (9 - 20 mg/dL) 67 H Creatinine (0.7 - 1.2 mg/dL) 4.7 H Estimated GFR (>60 ml/min) 12 L BUN/Creatinine Ratio (7 - 25 %) 14.3 Troponin I (<0.11 ng/ml) < 0.01 Hematology CBC w Diff NO MAN DIFF REQ WBC (4.8 - 10.8 /CUMM) 6.0 RBC (4.70 - 6.10 /CUMM) 2.91 L Hgb (14.0 - 18.0 G/DL) 8.3 L Hct (42 - 52 %) 25.6 L MCV (80.0 - 94.0 FL) 88.0 MCH (27.0 - 31.0 PG) 28.4 RDW (11.5 - 14.5 %) 14.6 H Plt Count (130 - 400 /CUMM) 296 MPV (7.4 - 10.4 FL) 7.8 Gran % (42.2 - 75.2 %) 74.8 Lymphocytes % (20.5 - 51.1 %) 8.4 L Monocytes % (1.7 - 9.3 %) 12.1 H Eosinophils % (0 - 5 %) 4.2 Basophils % (0.0 - 2.0 %) 0.5 Absolute Granulocytes (1.4 - 6.5 /CUMM) 4.5 Absolute Lymphocytes (1.2 - 3.4 /CUMM) 0.5 L Absolute Monocytes (0.10 - 0.60 /CUMM) 0.7 H Absolute Eosinophils (0.0 - 0.7 /CUMM) 0.3 Absolute Basophils (0.0 - 0.2 /CUMM) 0 PUBS MCHC (33.0 - 37.0 G/DL) 32.3 L Imaging/Other Studies: An AP view of the chest is provided. FINDINGS: The cardiac silhouette is prominent, but stable. A single lead pacer is in unchanged position. There are neither pleural effusions nor pneumothoraces. There is interstitial prominence present throughout both lungs. There are neither pleural effusions nor pneumothoraces. The osseous structures are stable. IMPRESSION: Stable cardiomegaly with mild interstitial prominence throughout both lungs likely indicative of mild vascular congestion. No consolidations. Assessment/Plan Assessment/Recommendations Assessment: 1. LALO: major differential between prerenal due to hypotension in face of YUDITH interruption vs ATN due to same as well as possible ongoing sepsis. With suspicion for urologic cancer, needs upper tract obstruction excluded despite ongoing Knott. Will check u/a to screen for superimposed infection associated GN or Cipro induced AIN but less likely. Need to avoid rivaroxaban & other non Vit K anti coagulants in face LALO. 2. CKD: mod, stage 3B, likely due to HTN & DM. Recommendations: 1. renal US 2. u/a 3. d/c rivaroxaban 4. no ACEI or ARB for now 5. check LFTS, CK, Ca, phosp, Mg 6. repeat chemistries in AM
--- NOTE | 2017-01-30 09:01 | NUR ---
NEPHROLOGY AT BEDSIDE, PER SALVAGE INSPECTOR WOOD PARTS, XARELTO TO BE DISCONTINUED, BANK NOTE DESIGNER PAGED AND AWARE TO DC MEDICATION.
--- NOTE | 2017-01-30 09:56 | NUR ---
PT MEDICATED WITH MEDS PER EMAR AT THIS TIME
--- NOTE | 2017-01-30 10:16 | NUR ---
PT TO US VIA STRETCHER
--- NOTE | 2017-01-30 10:41 | NUR ---
PT BACK FROM US, FAMILY AT BEDSIDE. PLACED BACK ON MEDIA PRODUCTION SUPPORT MANAGER. OFFESR NO COMPLAINTS
--- NOTE | 2017-01-30 11:13 | ULTRASOUND REPORT ---
EXAMINATION: US RETROPERITONEAL COMPLETE (RENAL) CLINICAL INFORMATION: Suspicion for bladder cancer. COMPARISON: Renal ultrasound 01/19/2017. TECHNIQUE: Real-time imaging of the kidneys and bladder. FINDINGS: RIGHT KIDNEY: 11.0 x 6.0 x 5.6 cm (SAG x AP x TRV). The kidney is normal in size, contour, and echogenicity. Renal cortical thickness is normal. No calculi or focal parenchymal lesions. No hydronephrosis. LEFT KIDNEY: 11.6 x 6.6 x 5.8 cm (SAG x AP x TRV). The kidney is normal in size, contour, and echogenicity. Renal cortical thickness is normal. No calculi or focal parenchymal lesions. No hydronephrosis. BLADDER: The bladder is empty; the patient has a Knott catheter in position. Ureteral jets were not demonstrated. IMPRESSION: 1. There is no evidence of hydronephrosis. There are no echogenic renal calculi. 2. The bladder is decompressed with a Knott catheter in position.
--- NOTE | 2017-01-30 12:41 | NUR ---
PT [facility] RESTING ON STRETCHER AT THIS TIME, FAMILY REMAINS AT BEDSIDE. NO CHANGE IN PT CONDITION. WILL CTM
--- NOTE | 2017-01-30 13:45 | NUR ---
PT SLEEPING ON/OFF IN ROOM AT THIS TIME, [facility] AT [facility]. PT EASILY AROUSBLE UPON ENTERING ROOM. PT STATING HE IS AT [facility] WHEN ASKED WHERE HE IS. PT DENIES SOB, REMAINS ON 2L OXYGEN VIA NASAL CANNULA.
--- NOTE | 2017-01-30 14:46 | NUR ---
PT HAS BED ASSIGNMENT 172-1
--- NOTE | 2017-01-30 15:41 | Cons- Infect Disease ---
General Information and HPI Consulting Request Date of Consult: 01/30/17 Requested By: YVONNE TUTTLE MD Reason for Consult: Altered mental status Source of Information: patient, old records History of Present Illness: This is an 87-year-old man with a history of diabetes, coronary artery disease, atrial fibrillation, status post pacemaker, hypertension, chronic renal insufficiency, bladder cancer, status post TURBT 6 years prior to admission, status post bilateral knee replacements 13 years prior to admission, hospitalized 2 1/2 weeks prior to admission with an infected left knee prosthesis presumably secondary to seeding from an Escherichia coli bacteremia, status post arthroscopic irrigation and debridement with retention of the prosthesis, treated with Ciprofloxacin, with workup for the source of Escherichia coli bacteremia nonrevealing, with his hospital course complicated by acute renal failure, superimposed on his chronic renal failure, and urinary retention, for which a Knott catheter was placed, with urine cytology revealing markedly atypical epithelial cells suggesting carcinoma, discharged to a rehabilitation facility on Ciprofloxacin with a Kntot catheter in place, admitted on January 29 after he was sent to the emergency room because of worsening renal function, shortness of breath and altered mental status. On admission he was afebrile with a blood pressure of 85/47. Laboratory data revealed a white blood cell count of 6000, BUN/creatinine 63 and 4.5, sodium 131, proBNP 4310. Urinalysis 15-25 RBC/packed WBCs. Chest x-ray revealed stable cardiomegaly with mild interstitial prominence. Renal ultrasound was negative for hydronephrosis. He was continued on Ciprofloxacin. He has remained afebrile since admission. Presently he offers no specific complaints. Allergies/Medications Allergies: Coded Allergies: NO KNOWN ALLERGIES (11/15/15) Home Med List: Acetaminophen (Pain Reliever) 325 MG TABLET 2 TAB PO Q6H PRN PAIN/TEMP>101 ( Reported) Acetaminophen (Acephen) 650 MG SUPP.RECT 1 SUPP SD Q6H PRN PAIN/TEMP>101 ( Reported) Albuterol Sulfate (Proair Hfa) 90 MCG HFA.AER.AD 2 PUF INH Q4H PRN SOB/DYSPNEA (Reported) Atorvastatin Calcium 10 MG TABLET 1 TAB PO DAILY CHOLESTEROL (Reported) Bisacodyl (Dulcolax) 10 MG SUPP.RECT 1 SUP RC DAILY PRN CONSTIPATION ( Reported) Ciprofloxacin HCl 750 MG TABLET 1 TAB PO DAILY knee infection please take ciprofloxacin daily one tablet till February 25. Diltiazem HCl (Cardizem Cd) 360 MG CAP.ER.24H 1 CAP PO DAILY HEART/BP ( Reported) Finasteride 5 MG TABLET 5 MG PO DAILY urine retention Furosemide 20 MG TABLET 1 TAB PO BID DIURETIC (Reported) Losartan (Cozaar) 100 MG TABLET 1 TAB PO DAILY BP (Reported) Magnesium Hydroxide (Milk Of Magnesia) 400 MG/5 ML ORAL.SUSP 30 ML PO Q3D PRN CONSTIPATION (Reported) Na Phos,M-B/Na Phos,Di-Ba (Fleet Enema) 19 GRAM-7 GRAM/118 ML ENEMA 1 E RC DAILY PRN CONSTIPATION (Reported) Naloxone HCl (Narcan) 4 MG/ACTUATION SPRAY 4 MG NATALIA AD PRN OPIOID INDUCED RESP. DEPRESSIO (Reported) Oxycodone HCl (Oxycontin) 10 MG TAB.ER.12H 1 TAB PO Q12H PAIN (Reported) Oxycodone HCl 10 MG TABLET 1 TAB PO Q4H PRN MODERATE/SEVERE PAIN (Reported) Oxycodone HCl 5 MG TABLET 1 TAB PO Q4H PRN MILD PAIN (Reported) Rivaroxaban (Xarelto) 20 MG TABLET 1 TAB PO DAILY BLOOD THINNER (Reported) with food Tamsulosin HCl (Flomax) 0.4 MG CAP.ER.24H 1 TAB PO DAILY BPH Past History Travel History Traveled to [place] past 21 day No Medical History Neurological: NONE Cardiovascular: AFIB, CAD (s/p angioplasty), hypertension, tachy-rosalva syndrome Respiratory: asthma, pulmonary hypertension Gastrointestinal: PANCREATITIS Hepatic: NONE Renal: chronic kidney disease, his last visit with Sumit Donohue MD was on 11/2015 area and Sumit Donohue MD described the patient as having 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 His creatinine at that point was 2.0. 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 Care Home Facility Smoking Status: Former Smoker ETOH Use: denies use Living Will? yes Functional Ability ADLs Independent: dressing, eating, toileting, bathing. Ambulation: independent IADLs Independent: shopping, housework, finances, food prep, telephone, transportation , medication admin. Review of Systems Review of Systems All Other Systems: Reviewed and Negative Exam & Diagnostic Data Last 24 Hrs of Vital Signs/I&O Vital Signs Date Time Temp Pulse Resp B/P B/P Pulse O2 O2 Flow FiO2 Mean Ox Delivery Rate 01/30 0956 97.9 71 20 100/52 01/30 0955 97.9 71 20 100/52 96 Nasal 2.0L Cannula 01/30 0833 97 Nasal 2.0L Cannula 01/30 0747 98.0 55 18 149/98 95 Nasal 2.0L Cannula 01/30 0738 98.0 55 20 149/98 95 Nasal 2.0L Cannula 01/30 0509 97.4 55 20 88/56 96 01/30 0052 97.2 57 19 95/54 100 Nasal 2.0L Cannula 01/29 2315 97 Nasal 2.0L Cannula 01/29 2304 90/51 01/29 2147 96.5 60 17 89/62 97 Room Air 2.0L 01/29 1936 96.1 61 16 84/45 97 Nasal 2.5L Cannula 01/29 1814 97 Nasal 2.0L Cannula 01/29 1813 96.3 60 14 85/47 97 Nasal 2.0L Cannula Intake & Output 01/30 1600 01/30 0800 01/30 0000 Intake Total 50 250 Output Total 400 435 Balance -350 -435 250 Intake, IV 250 Intake, Oral 50 Output, Urine 400 435 Patient 235 lb Weight Weight Reported by Patient Measurement Method Physical Exam Other Physical Findings: He is awake and alert, disoriented to place and time, but in no acute distress. He is afebrile. Skin reveals no rash. HEENT exam is negative. Neck is supple with no adenopathy. Lungs are clear. Heart regular rhythm with no murmur. Abdomen is obese, soft, mildly tender on palpation on the right, with no guarding or rebound, with positive bowel sounds. Back no CVA tenderness. Extremities 2+ edema both lower extremities; bilateral knee swelling, left slightly more than right, with no erythema, tenderness or warmth over the left knee and with fair range of motion. Neuro is without focality. Knott catheter is in place. Last 24 Hours of Lab Results: Laboratory Tests 01/30 01/30 1125 0503 Chemistry Sodium (137 - 145 mmol/L) 132 L Potassium (3.5 - 5.1 mmol/L) 5.1 Chloride (98 - 107 mmol/L) 98 Carbon Dioxide (22 - 30 mmol/L) 23 Anion Gap (5 - 16) 11 BUN (9 - 20 mg/dL) 67 H Creatinine (0.7 - 1.2 mg/dL) 4.7 H Estimated GFR (>60 ml/min) 12 L BUN/Creatinine Ratio (7 - 25 %) 14.3 Calcium (8.4 - 10.2 mg/dL) 7.9 L Phosphorus (2.5 - 4.5 mg/dL) 6.7 H Magnesium (1.6 - 2.3 mg/dL) 2.3 Total Bilirubin (0.2 - 1.3 mg/dL) 0.7 Direct Bilirubin (< 0.4 mg/dL) 0.5 H AST (17 - 59 U/L) 41 ALT (21 - 72 U/L) 51 Alkaline Phosphatase (< 127 U/L) 191 H Creatine Kinase (55 - 170 U/L) 106 Troponin I (<0.11 ng/ml) < 0.01 Total Protein (6.3 - 8.2 g/dL) 5.4 L Albumin (3.5 - 5.0 g/dL) 2.9 L Hematology CBC w Diff NO MAN DIFF REQ WBC (4.8 - 10.8 /CUMM) 6.0 RBC (4.70 - 6.10 /CUMM) 2.91 L Hgb (14.0 - 18.0 G/DL) 8.3 L Hct (42 - 52 %) 25.6 L MCV (80.0 - 94.0 FL) 88.0 MCH (27.0 - 31.0 PG) 28.4 RDW (11.5 - 14.5 %) 14.6 H Plt Count (130 - 400 /CUMM) 296 MPV (7.4 - 10.4 FL) 7.8 Gran % (42.2 - 75.2 %) 74.8 Lymphocytes % (20.5 - 51.1 %) 8.4 L Monocytes % (1.7 - 9.3 %) 12.1 H Eosinophils % (0 - 5 %) 4.2 Basophils % (0.0 - 2.0 %) 0.5 Absolute Granulocytes (1.4 - 6.5 /CUMM) 4.5 Absolute Lymphocytes (1.2 - 3.4 /CUMM) 0.5 L Absolute Monocytes (0.10 - 0.60 /CUMM) 0.7 H Absolute Eosinophils (0.0 - 0.7 /CUMM) 0.3 Absolute Basophils (0.0 - 0.2 /CUMM) 0 PUBS MCHC (33.0 - 37.0 G/DL) 32.3 L Urines Urinalysis LIGHT H Urine Color (YEL,AMB,STR) YEL Urine Clarity (CLEAR) HAZY H Urine pH (5.0 - 8.0) 5.5 Ur Specific Horatio (1.001 - 1.035) >= 1.030 Urine Protein (NEG,<30 MG/DL) 100 H Urine Ketones (NEG) NEG Urine Nitrite (NEG) NEG Urine Bilirubin (NEG) NEG Urine Urobilinogen (0.1 - 1.0 EU/dl) 0.2 Ur Leukocyte Esterase (NEG) MOD H Ur Microscopic SEDIMENT EXAMINED Urine RBC (0 - 5 /HPF) 15-25 H Urine WBC (0 - 2 /HPF) 10-15 H Ur Epithelial Cells (NONE,FEW) FEW Urine Bacteria (NEG/NONE) MOD H Micro UA Comment BUDDING YEAST H Urine Hemoglobin (NEG) LARGE H Urine Glucose (N MG/DL) NEG Last 24 Hours of Federico Results: Urine culture January 29 approximately 25,000 colonies of yeast Diagnostic Data Recent Imaging Findings: Chest x-ray January 29 stable cardiomegaly with mild interstitial prominence throughout both lungs Renal ultrasound January 30 no evidence of hydronephrosis Assessment/Plan Assessment/Plan Impression: This is an 87-year-old man with a history of diabetes, coronary artery disease, atrial fibrillation, status post pacemaker, hypertension, chronic renal insufficiency, bladder cancer, status post TURBT 6 years prior to admission, status post bilateral knee replacements 13 years prior to admission, hospitalized 2 1/2 weeks prior to admission with an infected left knee prosthesis secondary to Escherichia coli, status post irrigation and debridement with retention of the prosthesis, with his postop course complicated by urinary retention, discharged on Ciprofloxacin with a Knott catheter, admitted on January 29 with worsening renal function, increased shortness of breat and altered mental status, found to be afebrile and hypotensive with a normal white blood cell count and with acute renal failure. The etiology of his renal failure is unclear. It does not appear that he is septic, with temperatures and white blood cell count normal, and his left knee exam appears improved from his last hospitalization. His mental status is somewhat altered but is also of unclear etiology. His hypotension may be medication related or secondary to dehydration , given his elevated BUN/creatinine. His positive urine culture likely represent colonization from the Knott catheter and should not require treatment. His recent urine cytology was abnormal suggesting the possibility of a recurrence of his bladder cancer. His abdominal tenderness is of unclear significance and, if it persists, further evaluation may be warranted. Suggestion: 1. Repeat ESR 2. Urology evaluation regarding his bladder cancer and BPH 3. Continue Ciprofloxacin 750 mg po every 24 hours Consult Acknowledgment - Thank you for your consult request.
--- NOTE | 2017-01-30 15:53 | NUR ---
PT GIVEN FOOD TRAY BUT NOT HUNGRY AT THIS TIME.
[2017-01-30 16:44] VITALS: BP 106/56
--- NOTE | 2017-01-30 17:19 | PN- Att Addend ---
Attending Addendum Attending Brief Note Patient in bed, maybe still a little confused. Vital signs are stable has no fever no major changes on physical nephrology assessing the patient acute renal insufficiency also working up the possibility of an infection appreciated infectious diseases input and recommendations and will check on the cultures. 24 TOTALS 01/30 0000 01/29 0000 Intake Total 250 Output Total Balance 250 Intake, IV 250 Patient 235 lb Weight Weight Reported by Patient Measurement Method Current Medications Sig/Festus Start time Last Medication Dose Route Stop Time Status Admin Acetaminophen 650 MG Q6P PRN 01/29 2230 AC PO Acetaminophen/ 1 TAB Q6P PRN 01/29 223 AC Hydrocodone Bitart PO Albuterol Sulfate 2 PUF Q4H PRN 01/29 2315 AC INH Atorvastatin Calcium 10 MG 1700 01/30 1700 AC PO Bisacodyl 10 MG DAILY PRN 01/29 2330 AC MT Ciprofloxacin 750 MG DAILY 01/30 1000 AC 01/30 PO 02/03 0959 0956 Diltiazem HCl 360 MG DAILY 01/30 1000 AC 01/30 PO 0956 Finasteride 5 MG DAILY 01/30 1000 AC 01/30 PO 0956 Furosemide 0 .STK-MED ONE 01/29 1857 DC IV Furosemide 20 MG ONCE ONE 01/29 1830 CAN IV 01/29 1831 Hydromorphone HCl 1 MG Q6P PRN 01/29 223 AC IV Rivaroxaban 20 MG DAILY 01/30 1000 CAN PO Sodium Chloride 250 ML BOLUS ONE 01/29 1900 DC 01/29 IV 01/29 1959 2030 Tamsulosin HCl 0.4 MG DAILY 01/30 1000 AC 01/30 PO 0956 Laboratory Tests 01/30/17 1125: Urinalysis LIGHT H, Urine Color YEL, Urine Clarity HAZY H, Urine pH 5.5, Ur Specific [place] >= 1.030, Urine Protein 100 H, Urine Ketones NEG, Urine Nitrite NEG, Urine Bilirubin NEG, Urine Urobilinogen 0.2, Ur Leukocyte Esterase MOD H, Ur Microscopic SEDIMENT EXAMINED, Urine RBC 15-25 H, Urine WBC 10-15 H , Ur Epithelial Cells FEW, Urine Bacteria MOD H, Micro UA Comment BUDDING YEAST H, Urine Hemoglobin LARGE H, Urine Glucose NEG 01/30/17 0503: Anion Gap 11, Estimated GFR 12 L, BUN/Creatinine Ratio 14.3, Calcium 7.9 L, Phosphorus 6.7 H, Magnesium 2.3, Total Bilirubin 0.7, Direct Bilirubin 0.5 H, AST 41, ALT 51, Alkaline Phosphatase 191 H, Creatine Kinase 106, Troponin I < 0.01, Total Protein 5.4 L, Albumin 2.9 L, CBC w Diff NO MAN DIFF REQ, RBC 2.91 L, MCV 88.0, MCH 28.4, RDW 14.6 H, MPV 7.8, Gran % 74.8, Lymphocytes % 8.4 L, Monocytes % 12.1 H, Eosinophils % 4.2, Basophils % 0.5, Absolute Granulocytes 4.5, Absolute Lymphocytes 0.5 L, Absolute Monocytes 0.7 H, Absolute Eosinophils 0.3, Absolute Basophils 0, PUBS MCHC 32.3 L Microbiology Date/Time Procedure - Status Source Growth 01/30 2798 Urine Culture - RECD URINE ROUT
--- NOTE | 2017-01-30 17:19 | Cons- Cardiology ---
General Information and HPI Consulting Request Date of Consult: 01/30/17 Requested By: YVONNE TUTTLE MD History of Present Illness: Souleymane is an 87 year old male with history of borderline diabetes, dyslipidemia, coronary artery disease, atrial fibrillation and renal insufficiency. 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 At the present time this patient is confused an cannot offer any reasonable history. At his baseline he does have exertional shortness of breath without chest discomfort, lightheadedness or palpitations. The patient was just admitted for a septic left prosthetic knee and was treated with antibiotics. At the [facility] he was noted to have worsening mental status with low blood pressure in the 85 systolic range and markedly increased serum creatinine. There is also concern regarding a urologic cancer. Mild pulmonary vascular congestion is noted on chest X-ray. Cardiac workup has included a cardiac cathin 2009. In 1991 her underwent PCI of the LCX with repeat PCI to the same vessel in 1992 and 2001. His last stress test showed a small mid to apical inferior fixed defect without ischemia. His echo showed normal EF of 55% with mild left ventricular hypertrophy. He also was noted to have mild RV enlkargement anbd moderate ot severe left atrial enlargement. In regard to his cardiac valves he has mild aortic stenosis with severe sclerosis, mild mitral and moderate to severe tricuspid regurgitation. Ther eis mild pulmonary valve regurgitation with moderate pulmonary hypertension. A prior CT scan showed multiple pulmonary nodules. Allergies/Medications Allergies: Coded Allergies: NO KNOWN ALLERGIES (11/15/15) Home Med List: Acetaminophen (Pain Reliever) 325 MG TABLET 2 TAB PO Q6H PRN PAIN/TEMP>101 ( Reported) Acetaminophen (Acephen) 650 MG SUPP.RECT 1 SUPP NE Q6H PRN PAIN/TEMP>101 ( Reported) Albuterol Sulfate (Proair Hfa) 90 MCG HFA.AER.AD 2 PUF INH Q4H PRN SOB/DYSPNEA (Reported) Atorvastatin Calcium 10 MG TABLET 1 TAB PO DAILY CHOLESTEROL (Reported) Bisacodyl (Dulcolax) 10 MG SUPP.RECT 1 SUP RC DAILY PRN CONSTIPATION ( Reported) Ciprofloxacin HCl 750 MG TABLET 1 TAB PO DAILY knee infection please take ciprofloxacin daily one tablet till February 25. Diltiazem HCl (Cardizem Cd) 360 MG CAP.ER.24H 1 CAP PO DAILY HEART/BP ( Reported) Finasteride 5 MG TABLET 5 MG PO DAILY urine retention Furosemide 20 MG TABLET 1 TAB PO BID DIURETIC (Reported) Losartan (Cozaar) 100 MG TABLET 1 TAB PO DAILY BP (Reported) Magnesium Hydroxide (Milk Of Magnesia) 400 MG/5 ML ORAL.SUSP 30 ML PO Q3D PRN CONSTIPATION (Reported) Na Phos,M-B/Na Phos,Di-Ba (Fleet Enema) 19 GRAM-7 GRAM/118 ML ENEMA 1 E RC DAILY PRN CONSTIPATION (Reported) Naloxone HCl (Narcan) 4 MG/ACTUATION SPRAY 4 MG NATALIA AD PRN OPIOID INDUCED RESP. DEPRESSIO (Reported) Oxycodone HCl (Oxycontin) 10 MG TAB.ER.12H 1 TAB PO Q12H PAIN (Reported) Oxycodone HCl 10 MG TABLET 1 TAB PO Q4H PRN MODERATE/SEVERE PAIN (Reported) Oxycodone HCl 5 MG TABLET 1 TAB PO Q4H PRN MILD PAIN (Reported) Rivaroxaban (Xarelto) 20 MG TABLET 1 TAB PO DAILY BLOOD THINNER (Reported) with food Tamsulosin HCl (Flomax) 0.4 MG CAP.ER.24H 1 TAB PO DAILY BPH Review of Systems Review of Systems: A review of systems is not obtainable. 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 His creatinine at that point was 2.0. 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 Senior Living Facility Smoking Status: Former Smoker ETOH Use: denies use Living Will? yes Functional Ability ADLs Independent: dressing, eating, toileting, bathing. Ambulation: independent IADLs Independent: shopping, housework, finances, food prep, telephone, transportation , medication admin. Exam & Diagnostic Data Vital Signs and I&O Vital Signs Date Time Temp Pulse Resp B/P B/P Pulse O2 O2 Flow FiO2 Mean Ox Delivery Rate 01/30 1644 98.5 63 20 106/56 98 Nasal 2.0L Cannula 01/30 1552 97.1 64 18 98/53 95 01/30 0956 97.9 71 20 100/52 01/30 0955 97.9 71 20 100/52 96 Nasal 2.0L Cannula 01/30 0833 97 Nasal 2.0L Cannula 01/30 0747 98.0 55 18 149/98 95 Nasal 2.0L Cannula 01/30 0738 98.0 55 20 149/98 95 Nasal 2.0L Cannula 01/30 0509 97.4 55 20 88/56 96 01/30 0052 97.2 57 19 95/54 100 Nasal 2.0L Cannula 01/29 2315 97 Nasal 2.0L Cannula 01/29 2304 90/51 01/29 2147 96.5 60 17 89/62 97 Room Air 2.0L 01/29 1936 96.1 61 16 84/45 97 Nasal 2.5L Cannula 01/29 1814 97 Nasal 2.0L Cannula 01/29 1813 96.3 60 14 85/47 97 Nasal 2.0L Cannula Intake & Output 01/30 1600 01/30 0800 01/30 0000 01/29 1600 01/29 0800 01/29 0000 Intake Total 50 250 Output Total 400 435 Balance -350 -435 250 Intake, IV 250 Intake, Oral 50 Output, Urine 400 435 Patient 235 lb Weight Weight Reported by Patient Measurement Method Physical Exam: General: WD/overweight male in NAD; awake and responsive but confused HEENT: NC/AT, PERRL, EOMI Neck: no JVD, no carotid bruit Heart: RRR with ectopy and 2/6 systolic murmur Lungs: clear bilaterally ABdomen: soft, obese, NT, +ve bowel sounds Extremities: 2+ leg edema bilaterally Assessment/Plan Assessment/Plan * This patient has mild pulmonary vascular congestion and leg edema that is likely related to an acute worsening of his renal function although mild heart failure cannot be excluded. In consideration of his borderline blood pressure I would be careful to avoid overdiuresing this patient. * Renal failure. I suspect this patient had a prerenal state that worsened his already present renal insufficiency. It should be noted that he already carries a history of bladder cancer and I believe some atypical cells were also discovered in his urine. For now I would hold all medications that may worsen renal function including his Losartan and Lasix. * In consideration of this patient's hypotension I would decrease his Cardizem to 300mg daily with careful monitoring of his heart rate. It should be noted that in the setting of his pulmonary hypertension he likely will need higher filling pressures an may not tolerate dehydration well. * Continue to anticoagulate for atrial fibrillation. If any invasive procedure is anticipated then we should switch to IV heparin. * Obtain an echocardiogram to assess his current LV function and RV pressures. Consult Acknowledgment - Thank you for your consult request.
--- NOTE | 2017-01-30 18:58 | Cons- Urology ---
General Information and HPI Consulting Request Date of Consult: 01/30/17 Requested By: Pa ORLANDO, DO: Emergency Med. Reason for Consult: bph-retention Source of Information: patient, old records Exam Limitations: poor historian History of Present Illness: 87 yr old admitted for CHF exacerbation; painting recently placed to facilitate good urinary drainage. Otherwise, no acute complaints at this time. Allergies/Medications Allergies: Coded Allergies: NO KNOWN ALLERGIES (11/15/15) Home Med List: Acetaminophen (Pain Reliever) 325 MG TABLET 2 TAB PO Q6H PRN PAIN/TEMP>101 ( Reported) Acetaminophen (Acephen) 650 MG SUPP.RECT [address] Q6H PRN PAIN/TEMP>101 ( Reported) Albuterol Sulfate (Proair Hfa) 90 MCG HFA.AER.AD 2 PUF INH Q4H PRN SOB/DYSPNEA (Reported) Atorvastatin Calcium 10 MG TABLET 1 TAB PO DAILY CHOLESTEROL (Reported) Bisacodyl (Dulcolax) 10 MG SUPP.RECT 1 SUP RC DAILY PRN CONSTIPATION ( Reported) Ciprofloxacin HCl 750 MG TABLET 1 TAB PO DAILY knee infection please take ciprofloxacin daily one tablet till February 25. Diltiazem HCl (Cardizem Cd) 360 MG CAP.ER.24H 1 CAP PO DAILY HEART/BP ( Reported) Finasteride 5 MG TABLET 5 MG PO DAILY urine retention Furosemide 20 MG TABLET 1 TAB PO BID DIURETIC (Reported) Losartan (Cozaar) 100 MG TABLET 1 TAB PO DAILY BP (Reported) Magnesium Hydroxide (Milk Of Magnesia) 400 MG/5 ML ORAL.SUSP 30 ML PO Q3D PRN CONSTIPATION (Reported) Na Phos,M-B/Na Phos,Di-Ba (Fleet Enema) 19 GRAM-7 GRAM/118 ML ENEMA 1 E RC DAILY PRN CONSTIPATION (Reported) Naloxone HCl (Narcan) 4 MG/ACTUATION SPRAY 4 MG NATALIA AD PRN OPIOID INDUCED RESP. DEPRESSIO (Reported) Oxycodone HCl (Oxycontin) 10 MG TAB.ER.12H 1 TAB PO Q12H PAIN (Reported) Oxycodone HCl 10 MG TABLET 1 TAB PO Q4H PRN MODERATE/SEVERE PAIN (Reported) Oxycodone HCl 5 MG TABLET 1 TAB PO Q4H PRN MILD PAIN (Reported) Rivaroxaban (Xarelto) 20 MG TABLET 1 TAB PO DAILY BLOOD THINNER (Reported) with food Tamsulosin HCl (Flomax) 0.4 MG CAP.ER.24H 1 TAB PO DAILY BPH Current Medications: Current Medications Sig/Festus Start time Last Medication Dose Route Stop Time Status Admin Acetaminophen 650 MG Q6P PRN 01/29 2230 AC PO Acetaminophen/ 1 TAB Q6P PRN 01/29 2230 AC Hydrocodone Bitart PO Albuterol Sulfate 2 PUF Q4H PRN 01/29 2315 AC INH Atorvastatin Calcium 10 MG 1700 01/30 1700 AC 01/30 PO 1726 Bisacodyl 10 MG DAILY PRN 01/[address] Ciprofloxacin 750 MG DAILY 01/30 1000 AC 01/30 PO 02/03 0959 0956 Diltiazem HCl 300 MG DAILY 01/31 1000 AC PO Diltiazem HCl 360 MG DAILY 01/30 1000 DC 01/30 PO 0956 Finasteride 5 MG DAILY 01/30 1000 AC 01/30 PO 0956 Furosemide 0 .STK-MED ONE 01/29 1857 DC IV Hydromorphone HCl 1 MG Q6P PRN 01/29 223 AC IV Rivaroxaban 20 MG DAILY 01/30 1000 CAN PO Sodium Chloride 250 ML BOLUS ONE 01/29 1900 DC 01/29 IV 01/29 1959 2030 Tamsulosin HCl 0.4 MG DAILY 01/30 1000 AC 01/30 PO 0956 Past History Medical History Neurological: NONE Cardiovascular: AFIB, CAD (s/p angioplasty), hypertension, tachy-rosalva syndrome s/p PPM Respiratory: asthma, pulmonary hypertension Gastrointestinal: PANCREATITIS Hepatic: NONE Renal: chronic kidney disease, his last visit with Sumit Donohue MD was on 11/2015 area and Sumit Donohue MD described the patient as having 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 His creatinine at that point was 2.0. 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 [facility] Smoking Status: Former Smoker ETOH Use: denies use Living Will? yes Functional Ability ADLs Independent: dressing, eating, toileting, bathing. Ambulation: independent IADLs Independent: shopping, housework, finances, food prep, telephone, transportation , medication admin. Employment History Retired? yes Review of Systems Review of Systems Constitutional: Reports: weakness. EENTM: Denies: no symptoms. Cardiovascular: Reports: edema. Respiratory: Denies: no symptoms. GI: Reports: bloating, constipation. Genitourinary: Reports: see HPI. Musculoskeletal: Denies: no symptoms. Skin: Denies: no symptoms. Exam & Diagnostic Data Vital Signs and I&O Vital Signs Date Time Temp Pulse Resp B/P B/P Pulse O2 O2 Flow FiO2 Mean Ox Delivery Rate 01/30 1715 97 Nasal 2.0L Cannula 01/30 1644 98.5 63 20 106/56 98 Nasal 2.0L Cannula 01/30 1552 97.1 64 18 98/53 95 01/30 0956 97.9 71 20 100/52 01/30 0955 97.9 71 20 100/52 96 Nasal 2.0L Cannula 01/30 0833 97 Nasal 2.0L Cannula 01/30 0747 98.0 55 18 149/98 95 Nasal 2.0L Cannula 01/30 0738 98.0 55 20 149/98 95 Nasal 2.0L Cannula 01/30 0509 97.4 55 20 88/56 96 01/30 0052 97.2 57 19 95/54 100 Nasal 2.0L Cannula 01/29 2315 97 Nasal 2.0L Cannula 01/29 2304 90/51 01/29 2147 96.5 60 17 89/62 97 Room Air 2.0L 01/29 1936 96.1 61 16 84/45 97 Nasal 2.5L Cannula Intake & Output 01/30 1600 01/30 0800 01/30 0000 01/29 1600 01/29 0800 01/29 0000 Intake Total 50 250 Output Total 400 435 Balance -350 -435 250 Intake, IV 250 Intake, Oral 50 Output, Urine 400 435 Patient 235 lb Weight Weight Reported by Patient Measurement Method Physical Exam General Appearance: well developed/nourished, no apparent distress Head: atraumatic Eyes: Bilateral: normal appearance. Neck: normal inspection, supple, full range of motion Respiratory: normal breath sounds Cardiovascular: regular rate/rhythm Gastrointestinal: distention Back: no vertebral tenderness Extremities: mild edema bilat. LE Neurologic/Psych: no motor/sensory deficits, awake, oriented x 3 Skin: intact, normal color, warm/dry Reproductive: Normal male genitalia Last 24 Hours of Labs: Laboratory Tests 01/30 01/30 1633 1125 Hematology ESR [place] Pending Urines Urinalysis LIGHT H Urine Color (YEL,AMB,STR) YEL Urine Clarity (CLEAR) HAZY H Urine pH (5.0 - 8.0) 5.5 Ur Specific [place] (1.001 - 1.035) >= 1.030 Urine Protein (NEG,<30 MG/DL) 100 H Urine Ketones (NEG) NEG Urine Nitrite (NEG) NEG Urine Bilirubin (NEG) NEG Urine Urobilinogen (0.1 - 1.0 EU/dl) 0.2 Ur Leukocyte Esterase (NEG) MOD H Ur Microscopic SEDIMENT EXAMINED Urine RBC (0 - 5 /HPF) 15-25 H Urine WBC (0 - 2 /HPF) 10-15 H Ur Epithelial Cells (NONE,FEW) FEW Urine Bacteria (NEG/NONE) MOD H Micro UA Comment BUDDING YEAST H Urine Hemoglobin (NEG) LARGE H Urine Glucose (N MG/DL) NEG 01/30 0503 Chemistry Sodium (137 - 145 mmol/L) 132 L Potassium (3.5 - 5.1 mmol/L) 5.1 Chloride (98 - 107 mmol/L) 98 Carbon Dioxide (22 - 30 mmol/L) 23 Anion Gap (5 - 16) 11 BUN (9 - 20 mg/dL) 67 H Creatinine (0.7 - 1.2 mg/dL) 4.7 H Estimated GFR (>60 ml/min) 12 L BUN/Creatinine Ratio (7 - 25 %) 14.3 Calcium (8.4 - 10.2 mg/dL) 7.9 L Phosphorus (2.5 - 4.5 mg/dL) 6.7 H Magnesium (1.6 - 2.3 mg/dL) 2.3 Total Bilirubin (0.2 - 1.3 mg/dL) 0.7 Direct Bilirubin (< 0.4 mg/dL) 0.5 H AST (17 - 59 U/L) 41 ALT (21 - 72 U/L) 51 Alkaline Phosphatase (< 127 U/L) 191 H Creatine Kinase (55 - 170 U/L) 106 Troponin I (<0.11 ng/ml) < 0.01 Total Protein (6.3 - 8.2 g/dL) 5.4 L Albumin (3.5 - 5.0 g/dL) 2.9 L Hematology CBC w Diff NO MAN DIFF REQ WBC (4.8 - 10.8 /CUMM) 6.0 RBC (4.70 - 6.10 /CUMM) 2.91 L Hgb (14.0 - 18.0 G/DL) 8.3 L Hct (42 - 52 %) 25.6 L MCV (80.0 - 94.0 FL) 88.0 MCH (27.0 - 31.0 PG) 28.4 RDW (11.5 - 14.5 %) 14.6 H Plt Count (130 - 400 /CUMM) 296 MPV (7.4 - 10.4 FL) 7.8 Gran % (42.2 - 75.2 %) 74.8 Lymphocytes % (20.5 - 51.1 %) 8.4 L Monocytes % (1.7 - 9.3 %) 12.1 H Eosinophils % (0 - 5 %) 4.2 Basophils % (0.0 - 2.0 %) 0.5 Absolute Granulocytes (1.4 - 6.5 /CUMM) 4.5 Absolute Lymphocytes (1.2 - 3.4 /CUMM) 0.5 L Absolute Monocytes (0.10 - 0.60 /CUMM) 0.7 H Absolute Eosinophils (0.0 - 0.7 /CUMM) 0.3 Absolute Basophils (0.0 - 0.2 /CUMM) 0 PUBS MCHC (33.0 - 37.0 G/DL) 32.3 L Imaging Results: PATIENT: FARTUN SIM PRESENT AGE: 87 PATIENT ACCOUNT NO: [id number] : 30 LOCATION: [facility] ORDERING PHYSICIAN: JOSÉ SANTIAGO MD SERVICE DATE: 01/30/17- EXAM TYPE: US - US-RENAL/KIDNEY EXAMINATION: US RETROPERITONEAL COMPLETE (RENAL) CLINICAL INFORMATION: Suspicion for bladder cancer. COMPARISON: Renal ultrasound 01/19/2017. TECHNIQUE: Real-time imaging of the kidneys and bladder. FINDINGS: RIGHT KIDNEY: 11.0 x 6.0 x 5.6 cm (SAG x AP x TRV). The kidney is normal in size, contour, and echogenicity. Renal cortical thickness is normal. No calculi or focal parenchymal lesions. No hydronephrosis. LEFT KIDNEY: 11.6 x 6.6 x 5.8 cm (SAG x AP x TRV). The kidney is normal in size, contour, and echogenicity. Renal cortical thickness is normal. No calculi or focal parenchymal lesions. No hydronephrosis. BLADDER: The bladder is empty; the patient has a Painting catheter in position. Ureteral jets were not demonstrated. IMPRESSION: 1. There is no evidence of hydronephrosis. There are no echogenic renal calculi. 2. The bladder is decompressed with a Painting catheter in position. Assessment/Plan Assessment/Plan chf exacerbation: keep painting for diuresis Copies To: HAIR CERVANTES MD Consult Acknowledgment - Thank you for your consult request. Attending Review Statement Attending Statement Attending Statement: examined this patient Attending Assessment/Plan: CHF exacerbation: renal US unremarkable: KEEP painting for diuresis.
[2017-01-30 22:03] VITALS: BP 114/54
--- NOTE | 2017-01-31 07:05 | PN- Housestaff ---
Subjective Follow-up For: Acute on CKD CHF exacerbation AMS Tele-Events Since Last Visit: Pacing HR 62-68 Subjective: Patient has no complaints. No acute events ovrnight. Review of Systems Constitutional: Reports: see HPI. Objective Last 24 Hrs of Vital Signs/I&O Vital Signs Date Time Temp Pulse Resp B/P B/P Pulse O2 O2 Flow FiO2 Mean Ox Delivery Rate 01/31 1526 97.6 68 16 120/50 98 Nasal 2.0L Cannula 01/31 1011 60 104/68 01/31 0930 Nasal 2.0L Cannula 01/31 0707 98.4 60 14 104/68 97 Nasal 2.0L Cannula 01/31 0000 Nasal 2.0L Cannula 01/30 2203 98.7 61 20 114/54 95 Nasal 2.5L Cannula 01/30 1715 97 Nasal 2.0L Cannula 01/30 1644 98.5 63 20 106/56 98 Nasal 2.0L Cannula 01/30 1552 97.1 64 18 98/53 95 Intake & Output 01/31 1600 01/31 0800 01/31 0000 Intake Total 500 120 450 Output Total 400 350 300 Balance 100 -230 150 Intake, Oral 500 120 450 Output, Urine 400 350 300 Patient 235 lb Weight Weight Yolanda Lift Measurement Method Physical Exam General Appearance: Alert, Oriented X3, Cooperative, No Acute Distress HEENT: Atraumatic, PERRLA Cardiovascular: Normal S1, Normal S2 Lungs: Decreased breath sounds Abdomen: Normal Bowel Sounds, Soft, No Tenderness Extremities: 2+ Bilateral edema Current Medications: Current Medications Sig/Festus Start time Last Medication Dose Route Stop Time Status Admin Acetaminophen 650 MG Q6P PRN 01/29 2230 AC PO Acetaminophen/ 1 TAB Q6P PRN 01/29 2230 AC 01/31 Hydrocodone Bitart PO 1129 Albuterol Sulfate 2 PUF Q4H PRN 01/29 2315 AC INH Atorvastatin Calcium 10 MG 1700 01/30 1700 AC 01/30 PO 1726 Bisacodyl 10 MG DAILY PRN 01/29 2330 AC AR Ciprofloxacin 750 MG DAILY 01/30 1000 AC 01/31 PO 02/03 0959 1011 Diltiazem HCl 300 MG DAILY 01/31 1000 AC 01/31 PO 1011 Diltiazem HCl 360 MG DAILY 01/30 1000 DC 01/30 PO 0956 Finasteride 5 MG DAILY 01/30 1000 AC 01/31 PO 1011 Hydromorphone HCl 1 MG Q6P PRN 01/29 2230 AC IV Patient Medication 1 ED .STK-MED ONE 01/31 1437 [place] Teaching ED 01/31 1438 Tamsulosin HCl 0.4 MG DAILY 01/30 1000 AC 01/31 PO 1011 Last 24 Hrs of Lab/Federico Results Last 24 Hrs of Labs/Mics: Laboratory Tests 01/31/17 0706: Anion Gap 12, Estimated GFR 11 L, BUN/Creatinine Ratio 15.1, CBC w Diff NO MAN DIFF REQ, RBC 2.66 L, MCV 87.4, MCH 28.0, RDW 14.3, MPV 8.1, Gran % 70.7, Lymphocytes % 13.3 L, Monocytes % 12.1 H, Eosinophils % 3.2, Basophils % 0.7, Absolute Granulocytes 4.2, Absolute Lymphocytes 0.8 L, Absolute Monocytes 0.7 H, Absolute Eosinophils 0.2, Absolute Basophils 0, PUBS MCHC 32.0 L 01/30/17 1633: ESR Westergren 122 H Orders ECHO Findings: PENDING Radiology Findings: 01/30/17 US-RENAL/KIDNEY IMPRESSION: 1. There is no evidence of hydronephrosis. There are no echogenic renal calculi. 2. The bladder is decompressed with a Painting catheter in position. Assessment/Plan Assessment: Mr. Parikh is a 87 yo M with a PMH of diabetes, hypertension, chronic renal insufficiency, coronary artery disease, status post angioplasty, atrial fibrillation on his Route toe, tachybradycardia syndrome status post pacemaker placement, status post bilateral knee replacement was recently admitted at [facility] from January 13 to January 22 with chief complaint of septic arthritis currently on telemetry for CHF, A-fib, Acute on CKD, worsening lethargy and confusion. P: 1.A-fib Patient has chronic a-fib being anticoagulated with Xarelto. He has a permanent single-chamber pace maker by [employer]. Patient was on Diltiazem 360mg ER but due to his persistent hypotension on admission it was decreased. * Continue telemetry * Continue Diltiazem 300mg PO * Xarelto held due to renal function 2. CHF exacerbation Patient complained of SOB at the rehabilitation facility prior to presenting to ED. He stated that he had been experiencing SOB for a couple of mouths prior to admission. On arrival to [place] ED patient had no respiratory symptoms or chest pain but had an elevated BNP-4300 on outpatient blood work. On examination in the ED his breath sounds were diminished billaterally but he denied dyspnea. CXR showed pulmonary congestion most likely due to CHF. * Continue telemetry * Dr. 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 He had an elevated CR-4.5 on outpatient blood work prior to ED admission. 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 His acute RF is likely due to his hypotension. * renal US negative for any acute pathology * Urology consulted, chronic painting kept for diuresis * CR 4.9-Losartan, Lasix and Xarelto held due to renal function 3. Septic arthritis Patient had bilateral knee replacements 12 years ago prior to admission and was recently admitted for septic arthritis with a wbc count of 75,000, repeat count of 114,000 and gram stain pos for gram neg rods. * Continue cipro 4-6 weeks 4. Anemia * Hgb 7.5, CBC ordered to monitor H/H Problem List: 1. Afib 2. Acute on chronic renal insufficiency 3. CHF (congestive heart failure) 4. Septic joint 5. HTN (hypertension) 6. CAD (coronary artery disease) Pain Ratin Pain Location: n/a Alt Method for Pain Treatment: Other(free text) Pain Goal: Remain pain free Pain Plan: n/a Tomorrow's Labs & Rationales: CBC to monitor anemia BEP to monitor CR
[2017-01-31 07:07] VITALS: BP 104/68
[2017-01-31 08:05] LABS: ABSOLUTE BASOPHIL COUNT 0 /CUMM (0.0-0.2); ABSOLUTE EOSINOPHIL COUNT 0.2 /CUMM (0.0-0.7); ABSOLUTE GRANULOCYTE CT 4.2 /CUMM (1.4-6.5); ABSOLUTE LYMPH COUNT 0.8 /CUMM (1.2-3.4); ABSOLUTE MONOCYTE COUNT 0.7 /CUMM (0.10-0.60); BASOPHIL % 0.7 % (0.0-2.0); EOSINOPHIL % 3.2 % (0-5); GRANULOCYTE % 70.7 % (42.2-75.2); HEMATOCRIT 23.3 % (42-52); MEAN CORPUSCULAR VOLUME 87.4 FL (80.0-94.0); MEAN PLATELET VOLUME 8.1 FL (7.4-10.4); PLATELET COUNT 265 /CUMM (130-400); RBC DISTRIBUTION WIDTH 14.3 % (11.5-14.5); RED BLOOD CELL CT 2.66 /CUMM (4.70-6.10); WHITE BLOOD CELL COUNT 5.9 /CUMM (4.8-10.8)
--- NOTE | 2017-01-31 09:43 | PN- Nephrology ---
Assessment/Plan Assessment: 1. LALO: little change - suspect nonoliguric ATN post hypotension. No renal replacement indication 2. CKD: mod, stage 3, due to DM & HTN; baseline Cr hi 1s Suggestion: 1. continue off YUDITH interruption 2. recheck labs in AM Subjective Subjective: Denies SOB or cough No uremic sx Nonoliguric Objective Vital Signs and I&Os Vital Signs Date Time Temp Pulse Resp B/P B/P Pulse O2 O2 Flow FiO2 Mean Ox Delivery Rate 01/31 07 98.4 60 14 104/68 97 Nasal 2.0L Cannula 01/31 0000 Nasal 2.0L Cannula 01/30 2203 98.7 61 20 114/54 95 Nasal 2.5L Cannula 01/30 1715 97 Nasal 2.0L Cannula 01/30 1644 98.5 63 20 106/56 98 Nasal 2.0L Cannula 01/30 1552 97.1 64 18 98/53 95 01/30 0956 97.9 71 20 100/52 01/30 0955 97.9 71 20 100/52 96 Nasal 2.0L Cannula Intake & Output 01/31 1600 01/31 0400 01/30 1600 01/30 0400 01/29 1600 01/29 0400 Intake Total 120 450 50 250 Output Total 350 300 610 225 Balance -230 150 -560 25 Intake, IV 250 Intake, Oral 120 450 50 Output, Urine 350 300 610 225 Patient 226 lb 235 lb Weight Weight Yolanda Lift Reported by Patient Measurement Method Physical Exam General Appearance: well developed/nourished, no apparent distress, alert Head: normal appearance Ears, Nose, Throat: normal ENT inspection Neck: normal inspection Respiratory: no respiratory distress, quiet respiration, lungs clear Cardiovascular: irregularly irregular Abdomen: soft, non-tender Extremities: swelling, legs wrapped Skin: intact, normal color, warm/dry Current Medications: Current Medications Sig/Festus Start time Last Medication Dose Route Stop Time Status Admin Acetaminophen 650 MG Q6P PRN 01/29 2230 AC PO Acetaminophen/ 1 TAB Q6P PRN 01/29 223 AC Hydrocodone Bitart PO Albuterol Sulfate 2 PUF Q4H PRN 01/29 2315 AC INH Atorvastatin Calcium 10 MG 1700 01/30 1700 AC 01/30 PO 1726 Bisacodyl 10 MG DAILY PRN 01/29 2330 AC CO Ciprofloxacin 750 MG DAILY 01/30 1000 AC 01/30 PO 02/03 0959 0956 Diltiazem HCl 300 MG DAILY 01/31 1000 AC PO Diltiazem HCl 360 MG DAILY 01/30 1000 DC 01/30 PO 0956 Finasteride 5 MG DAILY 01/30 1000 AC 01/30 PO 0956 Hydromorphone HCl 1 MG Q6P PRN 01/29 2230 AC IV Tamsulosin HCl 0.4 MG DAILY 01/30 1000 AC 01/30 PO 0956 Results Pertinent Lab Results: Laboratory Tests 01/31 01/30 07 1633 Chemistry Sodium (137 - 145 mmol/L) 131 L Potassium (3.5 - 5.1 mmol/L) 5.2 H Chloride (98 - 107 mmol/L) 98 Carbon Dioxide (22 - 30 mmol/L) 21 L Anion Gap (5 - 16) 12 BUN (9 - 20 mg/dL) 74 H Creatinine (0.7 - 1.2 mg/dL) 4.9 H Estimated GFR (>60 ml/min) 11 L BUN/Creatinine Ratio (7 - 25 %) 15.1 Hematology CBC w Diff NO MAN DIFF REQ WBC (4.8 - 10.8 /CUMM) 5.9 RBC (4.70 - 6.10 /CUMM) 2.66 L Hgb (14.0 - 18.0 G/DL) 7.5 L Hct (42 - 52 %) 23.3 L MCV (80.0 - 94.0 FL) 87.4 MCH (27.0 - 31.0 PG) 28.0 RDW (11.5 - 14.5 %) 14.3 Plt Count (130 - 400 /CUMM) 265 MPV (7.4 - 10.4 FL) 8.1 Gran % (42.2 - 75.2 %) 70.7 Lymphocytes % (20.5 - 51.1 %) 13.3 L Monocytes % (1.7 - 9.3 %) 12.1 H Eosinophils % (0 - 5 %) 3.2 Basophils % (0.0 - 2.0 %) 0.7 Absolute Granulocytes (1.4 - 6.5 /CUMM) 4.2 Absolute Lymphocytes (1.2 - 3.4 /CUMM) 0.8 L Absolute Monocytes (0.10 - 0.60 /CUMM) 0.7 H Absolute Eosinophils (0.0 - 0.7 /CUMM) 0.2 Absolute Basophils (0.0 - 0.2 /CUMM) 0 PUBS MCHC (33.0 - 37.0 G/DL) 32.0 L ESR Westergren (0 - 10 MM) 122 H 01/30 01/30 1125 0503 Chemistry Sodium (137 - 145 mmol/L) 132 L Potassium (3.5 - 5.1 mmol/L) 5.1 Chloride (98 - 107 mmol/L) 98 Carbon Dioxide (22 - 30 mmol/L) 23 Anion Gap (5 - 16) 11 BUN (9 - 20 mg/dL) 67 H Creatinine (0.7 - 1.2 mg/dL) 4.7 H Estimated GFR (>60 ml/min) 12 L BUN/Creatinine Ratio (7 - 25 %) 14.3 Calcium (8.4 - 10.2 mg/dL) 7.9 L Phosphorus (2.5 - 4.5 mg/dL) 6.7 H Magnesium (1.6 - 2.3 mg/dL) 2.3 Total Bilirubin (0.2 - 1.3 mg/dL) 0.7 Direct Bilirubin (< 0.4 mg/dL) 0.5 H AST (17 - 59 U/L) 41 ALT (21 - 72 U/L) 51 Alkaline Phosphatase (< 127 U/L) 191 H Creatine Kinase (55 - 170 U/L) 106 Troponin I (<0.11 ng/ml) < 0.01 Total Protein (6.3 - 8.2 g/dL) 5.4 L Albumin (3.5 - 5.0 g/dL) 2.9 L Hematology CBC w Diff NO MAN DIFF REQ WBC (4.8 - 10.8 /CUMM) 6.0 RBC (4.70 - 6.10 /CUMM) 2.91 L Hgb (14.0 - 18.0 G/DL) 8.3 L Hct (42 - 52 %) 25.6 L MCV (80.0 - 94.0 FL) 88.0 MCH (27.0 - 31.0 PG) 28.4 RDW (11.5 - 14.5 %) 14.6 H Plt Count (130 - 400 /CUMM) 296 MPV (7.4 - 10.4 FL) 7.8 Gran % (42.2 - 75.2 %) 74.8 Lymphocytes % (20.5 - 51.1 %) 8.4 L Monocytes % (1.7 - 9.3 %) 12.1 H Eosinophils % (0 - 5 %) 4.2 Basophils % (0.0 - 2.0 %) 0.5 Absolute Granulocytes (1.4 - 6.5 /CUMM) 4.5 Absolute Lymphocytes (1.2 - 3.4 /CUMM) 0.5 L Absolute Monocytes (0.10 - 0.60 /CUMM) 0.7 H Absolute Eosinophils (0.0 - 0.7 /CUMM) 0.3 Absolute Basophils (0.0 - 0.2 /CUMM) 0 PUBS MCHC (33.0 - 37.0 G/DL) 32.3 L Urines Urinalysis LIGHT H Urine Color (YEL,AMB,STR) YEL Urine Clarity (CLEAR) HAZY H Urine pH (5.0 - 8.0) 5.5 Ur Specific [place] (1.001 - 1.035) >= 1.030 Urine Protein (NEG,<30 MG/DL) 100 H Urine Ketones (NEG) NEG Urine Nitrite (NEG) NEG Urine Bilirubin (NEG) NEG Urine Urobilinogen (0.1 - 1.0 EU/dl) 0.2 Ur Leukocyte Esterase (NEG) MOD H Ur Microscopic SEDIMENT EXAMINED Urine RBC (0 - 5 /HPF) 15-25 H Urine WBC (0 - 2 /HPF) 10-15 H Ur Epithelial Cells (NONE,FEW) FEW Urine Bacteria (NEG/NONE) MOD H Micro UA Comment BUDDING YEAST H Urine Hemoglobin (NEG) LARGE H Urine Glucose (N MG/DL) NEG Imaging/Other Studies: Renal US: RIGHT KIDNEY: 11.0 x 6.0 x 5.6 cm (SAG x AP x TRV). The kidney is normal in size, contour, and echogenicity. Renal cortical thickness is normal. No calculi or focal parenchymal lesions. No hydronephrosis. LEFT KIDNEY: 11.6 x 6.6 x 5.8 cm (SAG x AP x TRV). The kidney is normal in size, contour, and echogenicity. Renal cortical thickness is normal. No calculi or focal parenchymal lesions. No hydronephrosis. BLADDER: The bladder is empty; the patient has a Knott catheter in position. Ureteral jets were not demonstrated. CXR: IMPRESSION: Stable cardiomegaly with mild interstitial prominence throughout both lungs likely indicative of mild vascular congestion. No consolidations.
--- NOTE | 2017-01-31 10:04 | Patient Discharge Instructions ---
Discharge Instructions General Discharge Information You were seen/treated for: Acute kidney injury on CKD CHF exacerbation left knee Septic arthritis status post cystoscopy Atrial fibrillation You had these procedures: None Special Instructions: Please follow-up with your primary care doctor in 1-2 weeks after discharge Please follow-up with your ballet professor in 1-2 weeks after discharge Please follow-up with urologist Dr. Henderson within 1-2 weeks after discharge. Needs outpatient follow-up with Dr. Henderson to set an appointment for TURP procedure Continue Knott catheter meanwhile. Follow-up with your lead technical writer in 1-2 weeks after discharge Follow-up with infectious disease specialist in 1-2 weeks after discharge Please continue taking ciprofloxacin daily 750 mg till February 25. Then follow-up with Dr. Casey Yusuf MD regarding lifelong antibiotic requirement Diet Recommended Diet: Heart Healthy Activity Full Activity/No Limits: Yes Acute Coronary Syndrome Inclusion Criteria At DC or during hospital stay patient has or had the following: ACS DIAGNOSIS No Discharge Core Measures Meds if any: Prescribed or Continued at Discharge Meds if any: NOT Prescribed or Continued at Discharge Congestive Heart Failure Inclusion Criteria At DC or during hospital stay patient has or had the following: CHF DIAGNOSIS Yes Discharge Core Measures Meds if any: Prescribed or Continued at Discharge Meds if any: NOT Prescribed or Continued at Discharge Cerebrovascular accident Inclusion Criteria At DC or during hospital stay patient has or had the following: CVA/TIA Diagnosis No Discharge Core Measures Meds if any: Prescribed or Continued at Discharge Meds if any: NOT Prescribed or Continued at Discharge Venous thromboembolism Inclusion Criteria VTE Diagnosis No VTE Type NONE VTE Confirmed by (Test) NONE Discharge Core Measures - Per Current guidelines, there needs to be overlap - treatment for the first 5 days of Warfarin therapy. - If discharged on Warfarin prior to 5 days of - overlap therapy, the patient will need to be - assessed for post discharge needs including - *Post discharge parental anticoagulation - *Warfarin and/or parental anticoagulation education - *Follow up date to check INR post discharge At least 5 days overlap therapy as Inpatient No Meds if any: Prescribed or Continued at Discharge Note: Overlap Therapy is Warfarin and Anticoagulant Meds if any: NOT Prescribed or Continued at Discharge
--- NOTE | 2017-01-31 11:00 | PN- Infect Dx ---
Subjective Subjective: Afebrile. He complains of disorientation Objective Last 24 Hrs of Vital Signs/I&O Vital Signs Date Time Temp Pulse Resp B/P B/P Pulse O2 O2 Flow FiO2 Mean Ox Delivery Rate 01/31 1011 60 104/68 01/31 0707 98.4 60 14 104/68 97 Nasal 2.0L Cannula 01/31 0000 Nasal 2.0L Cannula 01/30 2203 98.7 61 20 114/54 95 Nasal 2.5L Cannula 01/30 1715 97 Nasal 2.0L Cannula 01/30 1644 98.5 63 20 106/56 98 Nasal 2.0L Cannula 01/30 1552 97.1 64 18 98/53 95 Intake & Output 01/31 1600 01/31 0800 01/31 0000 Intake Total 120 450 Output Total 350 300 Balance -230 150 Intake, Oral 120 450 Output, Urine 350 300 Patient 226 lb Weight Weight Yolanda Lift Measurement Method Physical Exam Other Physical Findings: He is awake and alert in no acute distress. He is oriented 3 but intermittently confused. Lungs bibasilar crackles Heart regular rhythm with no murmur Abdomen is obese, minimally tender on palpation diffusely, with no guarding or rebound, positive bowel sounds Extremities good range of motion of the left knee with no erythema, warmth or tenderness Knott catheter remains in place Results Last 24 Hours of Lab Results: Laboratory Tests 01/31 01/30 0706 1633 Chemistry Sodium (137 - 145 mmol/L) 131 L Potassium (3.5 - 5.1 mmol/L) 5.2 H Chloride (98 - 107 mmol/L) 98 Carbon Dioxide (22 - 30 mmol/L) 21 L Anion Gap (5 - 16) 12 BUN (9 - 20 mg/dL) 74 H Creatinine (0.7 - 1.2 mg/dL) 4.9 H Estimated GFR (>60 ml/min) 11 L BUN/Creatinine Ratio (7 - 25 %) 15.1 Hematology CBC w Diff NO MAN DIFF REQ WBC (4.8 - 10.8 /CUMM) 5.9 RBC (4.70 - 6.10 /CUMM) 2.66 L Hgb (14.0 - 18.0 G/DL) 7.5 L Hct (42 - 52 %) 23.3 L MCV (80.0 - 94.0 FL) 87.4 MCH (27.0 - 31.0 PG) 28.0 RDW (11.5 - 14.5 %) 14.3 Plt Count (130 - 400 /CUMM) 265 MPV (7.4 - 10.4 FL) 8.1 Gran % (42.2 - 75.2 %) 70.7 Lymphocytes % (20.5 - 51.1 %) 13.3 L Monocytes % (1.7 - 9.3 %) 12.1 H Eosinophils % (0 - 5 %) 3.2 Basophils % (0.0 - 2.0 %) 0.7 Absolute Granulocytes (1.4 - 6.5 /CUMM) 4.2 Absolute Lymphocytes (1.2 - 3.4 /CUMM) 0.8 L Absolute Monocytes (0.10 - 0.60 /CUMM) 0.7 H Absolute Eosinophils (0.0 - 0.7 /CUMM) 0.2 Absolute Basophils (0.0 - 0.2 /CUMM) 0 PUBS MCHC (33.0 - 37.0 G/DL) 32.0 L ESR Westergren (0 - 10 MM) 122 H 01/30 1125 Urines Urinalysis LIGHT H Urine Color (YEL,AMB,STR) YEL Urine Clarity (CLEAR) HAZY H Urine pH (5.0 - 8.0) 5.5 Ur Specific [place] (1.001 - 1.035) >= 1.030 Urine Protein (NEG,<30 MG/DL) 100 H Urine Ketones (NEG) NEG Urine Nitrite (NEG) NEG Urine Bilirubin (NEG) NEG Urine Urobilinogen (0.1 - 1.0 EU/dl) 0.2 Ur Leukocyte Esterase (NEG) MOD H Ur Microscopic SEDIMENT EXAMINED Urine RBC (0 - 5 /HPF) 15-25 H Urine WBC (0 - 2 /HPF) 10-15 H Ur Epithelial Cells (NONE,FEW) FEW Urine Bacteria (NEG/NONE) MOD H Micro UA Comment BUDDING YEAST H Urine Hemoglobin (NEG) LARGE H Urine Glucose (N MG/DL) NEG Last 24 Hours of Federico Results: Urine culture January 30 pending Urine culture January 29 approximately 25,000 colonies of yeast Assessment/Plan Impression: Acute renal failure superimposed on his chronic renal failure felt by Renal to be secondary to nonoliguric ATN from hypotension. He has no rash, fever or significant eosinophilia to suggest interstitial nephritis, for example secondary to Ciprofloxacin. 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 His ESR remains elevated, but is nonspecific and, given the improvement in his left knee, is unlikely to effect any change in his current management. He is quite anemic and this may warrant further evaluation. Suggestion: 1. Further evaluation/management of his anemia per Medicine 2. Continue Ciprofloxacin
[2017-01-31 15:26] VITALS: BP 120/50
--- NOTE | 2017-01-31 18:22 | PN- Att Addend ---
Attending Addendum Attending Brief Note Patient looking a little better still, a little confused at times. His vital signs are stable, he has no fever. Appreciate ID and nephrology's inputs and recommendations. His white count remains normal his urine culture has not been too remarkable. His still anemic and his BUN and creatinine are still elevated. To continue working on his anemia and renal problems Intake & Output 01/31 1600 01/31 0400 01/30 1600 01/30 0400 01/29 1600 01/29 0400 Intake Total 620 450 50 250 Output Total 1050 300 610 225 Balance -430 150 -560 25 Intake, IV 250 Intake, Oral 620 450 50 Output, Urine 1050 300 610 225 Patient 235 lb 235 lb Weight Weight Yolanda Lift Reported by Patient Measurement Method Current Medications Sig/Festus Start time Last Medication Dose Route Stop Time Status Admin Acetaminophen 650 MG Q6P PRN 01/29 2230 AC PO Acetaminophen/ 1 TAB Q6P PRN 01/29 2230 AC 01/31 Hydrocodone Bitart PO 1129 Albuterol Sulfate 2 PUF Q4H PRN 01/29 2315 AC INH Atorvastatin Calcium 10 MG 1700 01/30 1700 AC 01/31 PO 1701 Bisacodyl 10 MG DAILY PRN 01/29 2330 AC KS Ciprofloxacin 750 MG DAILY 01/30 1000 AC 01/31 PO 02/03 0959 1011 Diltiazem HCl 300 MG DAILY 01/31 1000 AC 01/31 PO 1011 Finasteride 5 MG DAILY 01/30 1000 AC 01/31 PO 1011 Hydromorphone HCl 1 MG Q6P PRN 01/29 2230 AC IV Patient Medication 1 ED .STK-MED ONE 01/31 1437 [place] Teaching ED 01/31 1438 Tamsulosin HCl 0.4 MG DAILY 01/30 1000 AC 01/31 PO 1011 Laboratory Tests 01/31/17 0706: Anion Gap 12, Estimated GFR 11 L, BUN/Creatinine Ratio 15.1, CBC w Diff NO MAN DIFF REQ, RBC 2.66 L, MCV 87.4, MCH 28.0, RDW 14.3, MPV 8.1, Gran % 70.7, Lymphocytes % 13.3 L, Monocytes % 12.1 H, Eosinophils % 3.2, Basophils % 0.7, Absolute Granulocytes 4.2, Absolute Lymphocytes 0.8 L, Absolute Monocytes 0.7 H, Absolute Eosinophils 0.2, Absolute Basophils 0, PUBS MCHC 32.0 L 01/30/17 1633: ESR Westergren 122 H 01/30/17 1125: Urinalysis LIGHT H, Urine Color YEL, Urine Clarity HAZY H, Urine pH 5.5, Ur Specific [place] >= 1.030, Urine Protein 100 H, Urine Ketones NEG, Urine Nitrite NEG, Urine Bilirubin NEG, Urine Urobilinogen 0.2, Ur Leukocyte Esterase MOD H, Ur Microscopic SEDIMENT EXAMINED, Urine RBC 15-25 H, Urine WBC 10-15 H , Ur Epithelial Cells FEW, Urine Bacteria MOD H, Micro UA Comment BUDDING YEAST H, Urine Hemoglobin LARGE H, Urine Glucose NEG 01/30/17 0503: Anion Gap 11, Estimated GFR 12 L, BUN/Creatinine Ratio 14.3, Calcium 7.9 L, Phosphorus 6.7 H, Magnesium 2.3, Total Bilirubin 0.7, Direct Bilirubin 0.5 H, AST 41, ALT 51, Alkaline Phosphatase 191 H, Creatine Kinase 106, Troponin I < 0.01, Total Protein 5.4 L, Albumin 2.9 L, CBC w Diff NO MAN DIFF REQ, RBC 2.91 L, MCV 88.0, MCH 28.4, RDW 14.6 H, MPV 7.8, Gran % 74.8, Lymphocytes % 8.4 L, Monocytes % 12.1 H, Eosinophils % 4.2, Basophils % 0.5, Absolute Granulocytes 4.5, Absolute Lymphocytes 0.5 L, Absolute Monocytes 0.7 H, Absolute Eosinophils 0.3, Absolute Basophils 0, PUBS MCHC 32.3 L Microbiology 01/31 448 URINE ROUT: Urine Culture - RES GRAM POSITIVE COCCI Microbiology 01/31 448 URINE ROUT: Urine Culture - RES GRAM POSITIVE COCCI
--- NOTE | 2017-01-31 21:07 | PN- Cardiology ---
Subjective Subjective: * Souleymane is more lucid today. No complaints of shortness of breath. * mostly ventricular paced rhythm * decreased H/H * BUN, creatinine and potassium continue to trend up Objective Vital Signs and I&Os Vital Signs Date Time Temp Pulse Resp B/P B/P Pulse O2 O2 Flow FiO2 Mean Ox Delivery Rate 01/31 1526 97.6 68 16 120/50 98 Nasal 2.0L Cannula 01/31 1525 Nasal 2.0L Cannula 01/31 1011 60 104/68 01/31 0930 Nasal 2.0L Cannula 01/31 0707 98.4 60 14 104/68 97 Nasal 2.0L Cannula 01/31 0000 Nasal 2.0L Cannula 01/30 2203 98.7 61 20 114/54 95 Nasal 2.5L Cannula Intake & Output 01/31 1600 01/31 0800 01/31 0000 01/30 1600 01/30 0800 01/30 0000 Intake Total 500 120 450 50 250 Output Total 700 350 300 400 435 Balance -200 -230 150 -350 -435 250 Intake, IV 250 Intake, Oral 500 120 450 50 Output, Urine 700 350 300 400 435 Patient 235 lb 235 lb Weight Weight Yolanda Lift Reported by Patient Measurement Method Physical Exam: General: WD/overweight male in NAD; awake and responsive but confused Neck: no JVD, no carotid bruit Heart: RRR with ectopy and 2/6 systolic murmur Lungs: clear bilaterally Extremities: 2+ leg edema bilaterally Assessment/Plan Assessment/Plan * This patient has mild pulmonary vascular congestion and leg edema that is likely related to an acute worsening of his renal function although mild heart failure cannot be excluded. Blood pressure is improved and his breathing is comfortable. Would hold off on diuretics at this time. * Renal failure. I suspect this patient had a prerenal state that worsened his already present renal insufficiency. It should be noted that he already carries a history of bladder cancer and I believe some atypical cells were also discovered in his urine. For now I would hold all medications that may worsen renal function including his Losartan and Lasix. * Continue Cardizem ar 300mg daily with careful monitoring of his heart rate. It should be noted that in the setting of his pulmonary hypertension he likely will need higher filling pressures an may not tolerate dehydration well. * Begin IV heparin in AM. * Obtain an echocardiogram to assess his current LV function and RV pressures. Continue telemetry? Yes
[2017-01-31 22:00] VITALS: BP 108/60
[2017-02-01 07:32] VITALS: BP 132/64
--- NOTE | 2017-02-01 07:54 | PN- Housestaff ---
Subjective Follow-up For: AMS Acute on CKD CHF exacrbation Tele-Events Since Last Visit: A-flutter HR low 60s Subjective: Patient has no complaints. No acute events ovrnight Review of Systems Constitutional: Reports: see HPI. Objective Last 24 Hrs of Vital Signs/I&O Vital Signs Date Time Temp Pulse Resp B/P B/P Pulse O2 O2 Flow FiO2 Mean Ox Delivery Rate 02/01 0915 69 132/64 02/01 0830 96 Nasal 2.0L Cannula 02/01 0732 98.1 69 17 132/64 96 02/01 0000 Nasal 2.0L Cannula 01/31 2200 98.3 61 16 108/60 99 Nasal 2.0L Cannula 01/31 1526 97.6 68 16 120/50 98 Nasal 2.0L Cannula 01/31 1525 Nasal 2.0L Cannula Intake & Output 02/01 1600 02/01 0800 02/01 0000 Intake Total 240 240 400 Output Total 350 250 Balance 240 -110 150 Intake, Oral 240 240 400 Number 1 Bowel Movements Output, Urine 350 250 Patient 229 lb Weight Weight Chair scale Measurement Method Physical Exam General Appearance: Alert, Oriented X3, Cooperative, No Acute Distress HEENT: Atraumatic, PERRLA Cardiovascular: Normal S1, Normal S2 Lungs: Clear to Auscultation, Normal Air Movement Abdomen: Normal Bowel Sounds, Soft, No Tenderness Extremities: 2+ Bilateral edema Current Medications: Current Medications Sig/Festus Start time Last Medication Dose Route Stop Time Status Admin Acetaminophen 650 MG Q6P PRN 01/29 2230 AC PO Acetaminophen/ 1 TAB Q6P PRN 01/29 2230 AC 01/31 Hydrocodone Bitart PO 1129 Albuterol Sulfate 2 PUF Q4H PRN 01/29 2315 AC INH Atorvastatin Calcium 10 MG 1700 01/30 1700 AC 01/31 PO 1701 Bisacodyl 10 MG DAILY PRN 01/29 2330 AC MO Ciprofloxacin 750 MG DAILY 01/30 1000 AC 02/01 PO 02/03 0959 0914 Diltiazem HCl 300 MG DAILY 01/31 1000 AC 02/01 PO 0913 Finasteride 5 MG DAILY 01/30 1000 AC 02/01 PO 0915 Heparin Sodium 25,000 UNIT Q24H 02/01 0800 AC 02/01 (Porcine) IV 0846 Sodium Chloride 500 ML Hydromorphone HCl 1 MG Q6P PRN 01/29 2230 AC IV Patient Medication 1 ED .K-MED ONE 01/[address] [facility] ED 01/31 1438 Tamsulosin HCl 0.4 MG DAILY 01/30 1000 AC 02/01 PO 0915 Last 24 Hrs of Lab/Federico Results Last 24 Hrs of Labs/Mics: Laboratory Tests 02/01/17 0650: Anion Gap 12, Estimated GFR 13 L, BUN/Creatinine Ratio 16.4, Iron 22 L, TIBC 286, Ferritin 142.0, Vitamin B12 > 1000 H, Folate > 20.0 H, CBC w Diff NO MAN DIFF REQ, RBC 3.07 L, MCV 86.8, MCH 28.1, RDW 14.4, MPV 8.4, Gran % 77.0 H, Lymphocytes % 9.1 L, Monocytes % 10.1 H, Eosinophils % 3.6, Basophils % 0.2, Absolute Granulocytes 4.9, Absolute Lymphocytes 0.6 L, Absolute Monocytes 0.6, Absolute Eosinophils 0.2, Absolute Basophils 0, PUBS MCHC 32.4 L Assessment/Plan Assessment: Mr. Parikh is a 87 yo M with a PMH of diabetes, hypertension, chronic renal insufficiency, coronary artery disease, status post angioplasty, atrial fibrillation on his Route toe, tachybradycardia syndrome status post pacemaker placement, status post bilateral knee replacement was recently admitted at [facility] from January 13 to January 22 with chief complaint of septic arthritis currently on telemetry for CHF, A-fib, Acute on CKD, worsening lethargy and confusion. P: 1.A-fib Patient has chronic a-fib being anticoagulated with Xarelto. He has a permanent single-chamber pace maker by [employer]. Patient was on Diltiazem 360mg ER but due to his persistent hypotension on admission it was decreased. * Continue telemetry * Continue Diltiazem 300mg PO * Xarelto held due to renal function * Start heparin IV 2. CHF exacerbation Patient complained of SOB at the rehabilitation facility prior to presenting to ED. He stated that he had been experiencing SOB for a couple of mouths prior to admission. On arrival to [facility] patient had no respiratory symptoms or chest pain but had an elevated BNP-4300 on outpatient blood work. On examination in the ED his breath sounds were diminished billaterally but he denied dyspnea. CXR showed pulmonary congestion most likely due to CHF. * Continue telemetry * Dr. 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 He had an elevated CR-4.5 on outpatient blood work prior to ED admission. 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 His acute RF is likely due to his hypotension. * renal US negative for any acute pathology * Urology consulted, chronic painting kept for diuresis * CR 4.9-Losartan, Lasix and Xarelto held due to renal function 3. Septic arthritis Patient had bilateral knee replacements 12 years ago prior to admission and was recently admitted for septic arthritis with a wbc count of 75,000, repeat count of 114,000 and gram stain pos for gram neg rods. * Continue cipro 4-6 weeks 4. Anemia * Hgb 7.5, CBC ordered to monitor H/H Problem List: 1. Afib 2. CHF (congestive heart failure) 3. Acute on chronic renal insufficiency 4. Septic joint Pain Ratin Pain Location: N/A Pain Goal: Remain pain free Pain Plan: N/A Tomorrow's Labs & Rationales: CBC to monitor anemia BEP to monitor renal function
[2017-02-01 08:23] LABS: ABSOLUTE BASOPHIL COUNT 0 /CUMM (0.0-0.2); ABSOLUTE EOSINOPHIL COUNT 0.2 /CUMM (0.0-0.7); ABSOLUTE GRANULOCYTE CT 4.9 /CUMM (1.4-6.5); ABSOLUTE LYMPH COUNT 0.6 /CUMM (1.2-3.4); ABSOLUTE MONOCYTE COUNT 0.6 /CUMM (0.10-0.60); BASOPHIL % 0.2 % (0.0-2.0); EOSINOPHIL % 3.6 % (0-5); HEMATOCRIT 26.6 % (42-52); MEAN CORPUSCULAR HGB 28.1 PG (27.0-31.0); MEAN CORPUSCULAR HGB CONC 32.4 G/DL (33.0-37.0); MEAN CORPUSCULAR VOLUME 86.8 FL (80.0-94.0); MEAN PLATELET VOLUME 8.4 FL (7.4-10.4); PLATELET COUNT 271 /CUMM (130-400); RBC DISTRIBUTION WIDTH 14.4 % (11.5-14.5); RED BLOOD CELL CT 3.07 /CUMM (4.70-6.10); WHITE BLOOD CELL COUNT 6.3 /CUMM (4.8-10.8)
--- NOTE | 2017-02-01 10:27 | PN- Nephrology ---
Assessment/Plan Assessment: 1. LALO: suspect nonoliguric ATN post hypotension; GFR starting to improve - no renal replacement indication 2. CKD: mod, stage 3, due to DM & HTN; baseline Cr hi 1s Suggestion: 1. continue off YUDITH interruption 2. recheck labs in AM Subjective Subjective: Much more alert & less confused No SOB No uremic sx Nonoliguric Objective Vital Signs and I&Os Vital Signs Date Time Temp Pulse Resp B/P B/P Pulse O2 O2 Flow FiO2 Mean Ox Delivery Rate 02/01 0915 69 132/64 02/01 0732 98.1 69 17 132/64 96 02/01 0000 Nasal 2.0L Cannula 01/31 2200 98.3 61 16 108/60 99 Nasal 2.0L Cannula 01/31 1526 97.6 68 16 120/50 98 Nasal 2.0L Cannula 01/31 1525 Nasal 2.0L Cannula Intake & Output 02/01 1600 02/01 0400 01/31 1600 01/31 0400 01/30 1600 01/30 0400 Intake Total 240 400 620 450 50 250 Output Total 632 019 7382 300 610 225 Balance -110 150 -430 150 -560 25 Intake, IV 250 Intake, Oral 240 400 620 450 50 Output, Urine 997 139 3576 300 610 225 Patient 229 lb 235 lb 235 lb Weight Weight Chair scale Yolanda Lift Reported by Patient Measurement Method Physical Exam General Appearance: well developed/nourished, no apparent distress, alert Head: atraumatic, normal appearance Ears, Nose, Throat: normal ENT inspection Neck: normal inspection Respiratory: normal breath sounds, no respiratory distress, quiet respiration, lungs clear Cardiovascular: irregularly irregular Abdomen: soft, non-tender Extremities: tenderness Neurologic/Psychiatric: awake, alert, oriented x 3 Current Medications: Current Medications Sig/Festus Start time Last Medication Dose Route Stop Time Status Admin Acetaminophen 650 MG Q6P PRN 01/29 2230 AC PO Acetaminophen/ 1 TAB Q6P PRN 01/29 2230 AC 01/31 Hydrocodone Bitart PO 1129 Albuterol Sulfate 2 PUF Q4H PRN 01/29 2315 AC INH Atorvastatin Calcium 10 MG 1700 01/30 1700 AC 01/31 PO 1701 Bisacodyl 10 MG DAILY PRN 01/29 2330 AC GA Ciprofloxacin 750 MG DAILY 01/30 1000 AC 02/01 PO 02/03 0959 0914 Diltiazem HCl 300 MG DAILY 01/31 1000 AC 02/01 PO 0913 Finasteride 5 MG DAILY 01/30 1000 AC 02/01 PO 0915 Heparin Sodium 25,000 UNIT Q24H 02/01 0800 AC 02/01 (Porcine) IV 0846 Sodium Chloride 500 ML Hydromorphone HCl 1 MG Q6P PRN 01/29 2230 AC IV Patient Medication 1 ED .STK-MED ONE 01/31 1437 [facility] Teaching ED 01/31 1438 Tamsulosin HCl 0.4 MG DAILY 01/30 1000 AC 02/01 PO 0915 Results Pertinent Lab Results: Laboratory Tests 02/01 01/31 0650 0706 Chemistry Sodium (137 - 145 mmol/L) 133 L 131 L Potassium (3.5 - 5.1 mmol/L) 4.8 5.2 H Chloride (98 - 107 mmol/L) 100 98 Carbon Dioxide (22 - 30 mmol/L) 20 L 21 L Anion Gap (5 - 16) 12 12 BUN (9 - 20 mg/dL) 72 H 74 H Creatinine (0.7 - 1.2 mg/dL) 4.4 H 4.9 H Estimated GFR (>60 ml/min) 13 L 11 L BUN/Creatinine Ratio (7 - 25 %) 16.4 15.1 Iron (49 - 181 ug/dL) 22 L TIBC (261 - 462 ug/dL) 286 Ferritin (17.9 - 464 ng/mL) 142.0 Vitamin B12 (239 - 931 pg/mL) > 1000 H Folate (2.76 - 20.0 ng/mL) > 20.0 H Hematology CBC w Diff NO MAN DIFF REQ NO MAN DIFF REQ WBC (4.8 - 10.8 /CUMM) 6.3 5.9 RBC (4.70 - 6.10 /CUMM) 3.07 L 2.66 L Hgb (14.0 - 18.0 G/DL) 8.6 L 7.5 L Hct (42 - 52 %) 26.6 L 23.3 L MCV (80.0 - 94.0 FL) 86.8 87.4 MCH (27.0 - 31.0 PG) 28.1 28.0 RDW (11.5 - 14.5 %) 14.4 14.3 Plt Count (130 - 400 /CUMM) 271 265 MPV (7.4 - 10.4 FL) 8.4 8.1 Gran % (42.2 - 75.2 %) 77.0 H 70.7 Lymphocytes % (20.5 - 51.1 %) 9.1 L 13.3 L Monocytes % (1.7 - 9.3 %) 10.1 H 12.1 H Eosinophils % (0 - 5 %) 3.6 3.2 Basophils % (0.0 - 2.0 %) 0.2 0.7 Absolute Granulocytes (1.4 - 6.5 /CUMM) 4.9 4.2 Absolute Lymphocytes (1.2 - 3.4 /CUMM) 0.6 L 0.8 L Absolute Monocytes (0.10 - 0.60 /CUMM) 0.6 0.7 H Absolute Eosinophils (0.0 - 0.7 /CUMM) 0.2 0.2 Absolute Basophils (0.0 - 0.2 /CUMM) 0 0 PUBS MCHC (33.0 - 37.0 G/DL) 32.4 L 32.0 L 01/30 01/30 1633 1125 Hematology ESR Westergren (0 - 10 MM) 122 H Urines Urinalysis LIGHT H Urine Color (YEL,AMB,STR) YEL Urine Clarity (CLEAR) HAZY H Urine pH (5.0 - 8.0) 5.5 Ur Specific [place] (1.001 - 1.035) >= 1.030 Urine Protein (NEG,<30 MG/DL) 100 H Urine Ketones (NEG) NEG Urine Nitrite (NEG) NEG Urine Bilirubin (NEG) NEG Urine Urobilinogen (0.1 - 1.0 EU/dl) 0.2 Ur Leukocyte Esterase (NEG) MOD H Ur Microscopic SEDIMENT EXAMINED Urine RBC (0 - 5 /HPF) 15-25 H Urine WBC (0 - 2 /HPF) 10-15 H Ur Epithelial Cells (NONE,FEW) FEW Urine Bacteria (NEG/NONE) MOD H Micro UA Comment BUDDING YEAST H Urine Hemoglobin (NEG) LARGE H Urine Glucose (N MG/DL) NEG 01/30 0503 Chemistry Sodium (137 - 145 mmol/L) 132 L Potassium (3.5 - 5.1 mmol/L) 5.1 Chloride (98 - 107 mmol/L) 98 Carbon Dioxide (22 - 30 mmol/L) 23 Anion Gap (5 - 16) 11 BUN (9 - 20 mg/dL) 67 H Creatinine (0.7 - 1.2 mg/dL) 4.7 H Estimated GFR (>60 ml/min) 12 L BUN/Creatinine Ratio (7 - 25 %) 14.3 Calcium (8.4 - 10.2 mg/dL) 7.9 L Phosphorus (2.5 - 4.5 mg/dL) 6.7 H Magnesium (1.6 - 2.3 mg/dL) 2.3 Total Bilirubin (0.2 - 1.3 mg/dL) 0.7 Direct Bilirubin (< 0.4 mg/dL) 0.5 H AST (17 - 59 U/L) 41 ALT (21 - 72 U/L) 51 Alkaline Phosphatase (< 127 U/L) 191 H Creatine Kinase (55 - 170 U/L) 106 Troponin I (<0.11 ng/ml) < 0.01 Total Protein (6.3 - 8.2 g/dL) 5.4 L Albumin (3.5 - 5.0 g/dL) 2.9 L Hematology CBC w Diff NO MAN DIFF REQ WBC (4.8 - 10.8 /CUMM) 6.0 RBC (4.70 - 6.10 /CUMM) 2.91 L Hgb (14.0 - 18.0 G/DL) 8.3 L Hct (42 - 52 %) 25.6 L MCV (80.0 - 94.0 FL) 88.0 MCH (27.0 - 31.0 PG) 28.4 RDW (11.5 - 14.5 %) 14.6 H Plt Count (130 - 400 /CUMM) 296 MPV (7.4 - 10.4 FL) 7.8 Gran % (42.2 - 75.2 %) 74.8 Lymphocytes % (20.5 - 51.1 %) 8.4 L Monocytes % (1.7 - 9.3 %) 12.1 H Eosinophils % (0 - 5 %) 4.2 Basophils % (0.0 - 2.0 %) 0.5 Absolute Granulocytes (1.4 - 6.5 /CUMM) 4.5 Absolute Lymphocytes (1.2 - 3.4 /CUMM) 0.5 L Absolute Monocytes (0.10 - 0.60 /CUMM) 0.7 H Absolute Eosinophils (0.0 - 0.7 /CUMM) 0.3 Absolute Basophils (0.0 - 0.2 /CUMM) 0 PUBS MCHC (33.0 - 37.0 G/DL) 32.3 L Imaging/Other Studies: Renal US: RIGHT KIDNEY: 11.0 x 6.0 x 5.6 cm (SAG x AP x TRV). The kidney is normal in size, contour, and echogenicity. Renal cortical thickness is normal. No calculi or focal parenchymal lesions. No hydronephrosis. LEFT KIDNEY: 11.6 x 6.6 x 5.8 cm (SAG x AP x TRV). The kidney is normal in size, contour, and echogenicity. Renal cortical thickness is normal. No calculi or focal parenchymal lesions. No hydronephrosis. BLADDER: The bladder is empty; the patient has a Knott catheter in position. Ureteral jets were not demonstrated. IMPRESSION: 1. There is no evidence of hydronephrosis. There are no echogenic renal calculi.
--- NOTE | 2017-02-01 11:02 | PN- Infect Dx ---
Subjective Subjective: Afebrile without complaints Objective Last 24 Hrs of Vital Signs/I&O Vital Signs Date Time Temp Pulse Resp B/P B/P Pulse O2 O2 Flow FiO2 Mean Ox Delivery Rate 02/01 0915 69 132/64 02/01 0732 98.1 69 17 132/64 96 02/01 0000 Nasal 2.0L Cannula 01/31 2200 98.3 61 16 108/60 99 Nasal 2.0L Cannula 01/31 1526 97.6 68 16 120/50 98 Nasal 2.0L Cannula 01/31 1525 Nasal 2.0L Cannula Intake & Output 02/01 1600 02/01 0800 02/01 0000 Intake Total 240 400 Output Total 350 250 Balance -110 150 Intake, Oral 240 400 Output, Urine 350 250 Patient 229 lb Weight Weight Chair scale Measurement Method Physical Exam Other Physical Findings: He appears comfortable in no acute distress Lungs are clear Heart regular rhythm with no murmur Extremities good range of motion both knees, with no erythema, tenderness or significant swelling of the left knee Knott catheter remains in place Results Last 24 Hours of Lab Results: Laboratory Tests 02/01 0650 Chemistry Sodium (137 - 145 mmol/L) 133 L Potassium (3.5 - 5.1 mmol/L) 4.8 Chloride (98 - 107 mmol/L) 100 Carbon Dioxide (22 - 30 mmol/L) 20 L Anion Gap (5 - 16) 12 BUN (9 - 20 mg/dL) 72 H Creatinine (0.7 - 1.2 mg/dL) 4.4 H Estimated GFR (>60 ml/min) 13 L BUN/Creatinine Ratio (7 - 25 %) 16.4 Iron (49 - 181 ug/dL) 22 L TIBC (261 - 462 ug/dL) 286 Ferritin (17.9 - 464 ng/mL) 142.0 Vitamin B12 (239 - 931 pg/mL) > 1000 H Folate (2.76 - 20.0 ng/mL) > 20.0 H Hematology CBC w Diff NO MAN DIFF REQ WBC (4.8 - 10.8 /CUMM) 6.3 RBC (4.70 - 6.10 /CUMM) 3.07 L Hgb (14.0 - 18.0 G/DL) 8.6 L Hct (42 - 52 %) 26.6 L MCV (80.0 - 94.0 FL) 86.8 MCH (27.0 - 31.0 PG) 28.1 RDW (11.5 - 14.5 %) 14.4 Plt Count (130 - 400 /CUMM) 271 MPV (7.4 - 10.4 FL) 8.4 Gran % (42.2 - 75.2 %) 77.0 H Lymphocytes % (20.5 - 51.1 %) 9.1 L Monocytes % (1.7 - 9.3 %) 10.1 H Eosinophils % (0 - 5 %) 3.6 Basophils % (0.0 - 2.0 %) 0.2 Absolute Granulocytes (1.4 - 6.5 /CUMM) 4.9 Absolute Lymphocytes (1.2 - 3.4 /CUMM) 0.6 L Absolute Monocytes (0.10 - 0.60 /CUMM) 0.6 Absolute Eosinophils (0.0 - 0.7 /CUMM) 0.2 Absolute Basophils (0.0 - 0.2 /CUMM) 0 PUBS MCHC (33.0 - 37.0 G/DL) 32.4 L Last 24 Hours of Federico Results: Urine culture January 30 greater than 100,000 colonies of gram-positive cocci Assessment/Plan Impression: Stable with renal function improving, mental status improving and with temperatures and white blood cell count remaining normal on Ciprofloxacin now 18 days status post arthroscopic irrigation and debridement for 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 His ESR remains elevated but is nonspecific and, given the improvement in his left knee, is unlikely to effect any change in his current management. His positive urine culture likely represent colonization secondary to the Knott catheter and should not require treatment. Suggestion: 1. Will need Urology follow-up regarding his abnormal urine cytology and BPH 2. Continue Ciprofloxacin
[2017-02-01 15:11] VITALS: BP 124/60
--- NOTE | 2017-02-01 16:16 | Discharge Summary ---
Visit Information Visit Dates Admission Date: 01/29/17 Discharge Date: 02/07/2017 Hospital Course Course Attending Physician: YVONNE TUTTLE MD Primary Care Physician: ANJALI SALGADO MD Other Care Providers: MD Dr. Anali Hernandez Dr. 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 According to family, patient was lethargic and confused with the last few days in the facility and his confusion was worse and also did labs which were drawn at the facility showed worsening creatinine and that's why patient was sent to [facility]. As per previous records patient was supposed to see Dr. Henderson on January 25 but according to daughter he was never sent to Dr. Henderson's office and she is not sure if any procedure was done since his discharge. Patient on Foleys catheter at the time of admission. Vitals at the time of admission afebrile, heart rate 60, respiratory rate 14, blood pressure 85/47, saturating at 97% on 2 L. His blood pressure dropped down to 85/47 and was given 250 mls of normal saline bolus and blood pressure came up to 95/50. Labs- WBC count 5.6, hemoglobin 8.2, hematocrit 25.7, platelet count 329 sodium 131, potassium 5.1, chloride 96, creatinine 4.5 which was previously 1.85 Urinalysis showed negative ketones, negative nitrates, moderate leukocyte Estrace, packed WBCs, 15-25 RBCs. Chest x-ray shows stable cardiomegaly with mild interstitial prominence throughout both lungs likely indicative of mild posterior congestion but no consolidations Problem list 1. Lethargy and worsening confusion from acute on chronic kidney injury 2. 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 History of atrial fibrillation on xaralto 4. CAD status post angioplasty 5. Acute on chronic kidney injury 6. History of septic arthritis on ciprofloxacin for 4-6 weeks considering lifelong prophylaxis 7. History of tachybradycardia syndrome status post pacemaker placement LALO ON history of CKD Patient with multiple medical problems including diabetes, hypertension presented to hospital with fever and increased confusion. He has stage IIIB chronic kidney disease with a baseline creatinine 1.8 associated with nonnephrotic range proteinuria. Also has history of urine retention with Knott catheter in place. He was found hypotensive on admission to 80s systolic requiring IV fluids. His creatinine elevated 4.7 on admission. gradual worsening of renal functions from uncontrolled diabetes/uncontrolled hypertension. He is on losartan and Lasix. Not received any IV contrast or NSAIDS. Acute kidney injury on chronic kidney disease most from prerenal due to hypotension and acute tubular necrosis from sepsis. With the suspicion for urologic cancer, we ruled out upper urinary tract obstruction. Renal ultrasound negative for hydronephrosis. RIVAROXABAN was held in the setting of acute kidney injury. Losartan and Lasix were held in the hospital because of acute kidney injury. Creatinine improved to 2 from 4.7. He was on IV heparin drip for anticoagulation. He was started on rivaroxaban 15mg once kidney function tests were improved. Restarted losartan and Lasix. 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 He was discharged to a rehabilitation facility on Ciprofloxacin. Patient needs to be on ciprofloxacin 750 mg by mouth daily till February 25 to complete 6 weeks of antibiotic course for left knee septic arthritis s/p prosthesis infection. He needs lifelong suppression with antibiotics for left knee infected prosthesis as per infectious disease recommendation. history of atrial fibrillation status post pacemaker placement, currently rate controlled Patient usually takes Cardizem 360 mg daily for rate control. However Dr. Briones recommended to lower Cardizem to 300 mg because of hypotension. Usually takes rivaroxaban 20 mg daily for anticoagulation. Xarelto was on hold in the hospital because of acute kidney injury. Patient was on IV heparin drip in the hospital until kidney function tests improved. Later xeralalto 15 mg was started. Discharged on Cardizem 300 mg and Xarelto 15 mg for atrial fibrillation history of diabetes not on diabetic medication. Diabetes diets. Fingersticks and insulin sliding scale HbA1c - 6.1 History of hypertension. Losartan was on hold in the hospital because of acute kidney injury. Later kidney function tests improved. losartan and Lasix cowan restarted Urine retention s/p Foleys insertion During last admission he has History of gross hematuria. He was placed on Foleys catheter because of urine retention from BPH. We continued his Foleys catheter in the hospital. We continued finasteride and tamsulosin. Dr. Henderson urologist was consulted. Advised to keep Foleys catheter for now. Urine analysis is positive for marked atypical epithelial cells suggestive of malignancy. Patient underwent cystoscopy 02/06/2017. He is status post cystoscopy-no mass was found. Benign prostate hypertrophy was seen. Advised to follow-up with Dr. Henderson as an outpatient. Needs outpatient follow-up with Dr. Henderson to set an appointment for TURP procedure. Continue Knott catheter meanwhile. history of COPD on albuterol- incentive spirometry Received [facility] [id number] as needed history of coronary artery disease: status post angioplasty left circumflex artery Continued Atorvastatin 10 mg po daily tachy-rosalva syndrome Status post single pacemaker placement Chronic extremity swelling He is on Lasix 20 mg at home. Lasix on hold in the hospital because of acute kidney injury. Lasix restarted once kidney function tests improved Patient is full code Pharmacological DVT prophylaxis Heart healthy diet. Complications: none Allergies: Coded Allergies: NO KNOWN ALLERGIES (11/15/15) Significant Procedures: none Pertinent Lab Results: Renal ultrasound BLADDER: The bladder is empty; the patient has a Knott catheter in position. Ureteral jets were not demonstrated. IMPRESSION: 1. There is no evidence of hydronephrosis. There are no echogenic renal calculi. 2. The bladder is decompressed with a Knott catheter in position. cxr FINDINGS: The cardiac silhouette is prominent, but stable. A single lead pacer is in unchanged position. There are neither pleural effusions nor pneumothoraces. There is interstitial prominence present throughout both lungs. There are neither pleural effusions nor pneumothoraces. The osseous structures are stable. IMPRESSION: Stable cardiomegaly with mild interstitial prominence throughout both lungs likely indicative of mild vascular congestion. No consolidations. echo CONCLUSIONS 1. Normal EF of 60% with paradoxical septal motion consistent with pacemaker activation. 2. Mild right ventricular enlargment. 3. Pacemaker lead is noted. 4. Moderate left atiral enlargment. 5. Mild mitral regurgitation. 6. Mild to moderate tricuspid regurgitation. 7. Aortic slcerosis with decreased leaflet excursion without hemodynamically significant aortic stenosis. 8. Moderate pulmnonary hypertension. CXR IMPRESSION: Findings are suspicious for mild pulmonary edema in the setting of an enlarged heart (suggestive of a cardiomyopathy), pacer lead (suggestive of cardiac arrhythmia), and trace right pleural effusion. Clinical correlation requested. Findings are similar to the previous exam. Disposition Summary Disposition Principal Diagnosis: Lethargic, worsening confusion Acute kidney injury on chronic kidney disease Acute on chronic CHF exacerbation Left knee septic arthritis on ciprofloxacin Additional Diagnosis: atrial fibrillation Urine positive for atypical cells suggestive of bladder malignancy s/p cystoscopy Discharge Disposition: SNF Discharge Instructions General Discharge Information Code Status: Full Code Patient's Diet: As tolerated Patient's Activity: As tolerated Follow-Up Instructions/Appts: Please follow-up with your primary care doctor in 1-2 weeks after discharge 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 Henderson within 1-2 weeks after discharge. Needs outpatient follow-up with Dr. Henderson to set an appointment for TURP procedure Continue Knott catheter meanwhile. Follow-up with your supervisor cytology in 1-2 weeks after discharge Follow-up with infectious disease specialist in 1-2 weeks after discharge Please continue taking ciprofloxacin daily 750 mg till February 25. Then follow-up with Dr. Casey Yusuf MD regarding lifelong antibiotic requirement Medications at Discharge Discharge Medications: Stop taking the following medications: Rivaroxaban (Xarelto) 20 MG TABLET ORAL DAILY Diltiazem HCl (Cardizem Cd) 360 MG CAP.ER.24H ORAL DAILY Qty = 90 Continue taking these medications: Finasteride (Finasteride) 5 MG TABLET 5 Milligram ORAL DAILY Qty = 30 Comments: Last Taken: 01/22/17 Time: 10:00 AM Tamsulosin HCl (Flomax) 0.4 MG CAP.ER.24H 1 Tablet ORAL DAILY Qty = 30 Comments: Last Taken: 01/22/17 Time: 10:00 AM Ciprofloxacin HCl (Ciprofloxacin HCl) 750 MG TABLET 1 Tablet ORAL DAILY Qty = 34 Instructions: please take ciprofloxacin daily one tablet till February 25. Comments: Last Taken: 01/22/17 Time: 10:00 AM Oxycodone HCl (Oxycontin) 10 MG TAB.ER.12H 1 Tablet ORAL Q12H Naloxone HCl (Narcan) 4 MG/ACTUATION SPRAY 4 Milligram In the nose As Directed as needed for OPIOID INDUCED RESP. DEPRESSIO Losartan (Cozaar) 100 MG TABLET 1 Tablet ORAL DAILY Atorvastatin Calcium (Atorvastatin Calcium) 10 MG TABLET 1 Tablet ORAL DAILY Qty = 90 Furosemide (Furosemide) 20 MG TABLET 1 Tablet ORAL TWICE DAILY Qty = 90 Albuterol Sulfate (Proair Hfa) 90 MCG HFA.AER.AD 2 Puff Inhale through mouth Q4H as needed for SOB/DYSPNEA Qty = 9 Magnesium Hydroxide (Milk Of Magnesia) 400 MG/5 ML ORAL.SUSP 30 Milliliters ORAL Every 3 days as needed for CONSTIPATION Na Phos,M-B/Na Phos,Di-Ba (Fleet Enema) 19 GRAM-7 GRAM/118 ML ENEMA 1 Enema RECTAL DAILY as needed for CONSTIPATION Bisacodyl (Dulcolax) 10 MG SUPP.RECT 1 Suppository RECTAL DAILY as needed for CONSTIPATION Oxycodone HCl (Oxycodone HCl) 10 MG TABLET 1 Tablet ORAL Q4H as needed for MODERATE/SEVERE PAIN Oxycodone HCl (Oxycodone HCl) 5 MG TABLET 1 Tablet ORAL Q4H as needed for MILD PAIN Acetaminophen (Pain Reliever) 325 MG TABLET 2 Tablet ORAL Q6H as needed for PAIN/TEMP>101 Acetaminophen (Acephen) 650 MG SUPP.RECT 1 SUPPOSITORY RECTALLY Q6H as needed for PAIN/TEMP>101 Start taking the following new medications: Diltiazem HCl (Cardizem Cd) 120 MG CAP.ER.24H 300 Milligram ORAL DAILY Qty = 30 No Refills Rivaroxaban (Xarelto) 15 MG TABLET 15 Milligram ORAL DAILY Qty = 30 No Refills Copies To: DAMIAN THOMPSON,ANJALI
--- NOTE | 2017-02-01 17:29 | PN- Cardiology ---
Subjective Subjective: * Patient is a bit uncomfortable lying in bed but otherwise denies chest discomfort, shortness of breath, lightheadedness or palpitations. * atrial fibrillation with ventricular demand pacing * creatinine is only midly improved * H/H remains low but appears to be well tolerated Objective Vital Signs and I&Os Vital Signs Date Time Temp Pulse Resp B/P B/P Pulse O2 O2 Flow FiO2 Mean Ox Delivery Rate 02/01 1511 97.6 78 20 124/60 99 Nasal 2.0L Cannula 02/01 0915 69 132/64 02/01 0830 96 Nasal 2.0L Cannula 02/01 0732 98.1 69 17 132/64 96 02/01 0000 Nasal 2.0L Cannula 01/31 2200 98.3 61 16 108/60 99 Nasal 2.0L Cannula Intake & Output 02/01 1600 02/01 0800 02/01 0000 01/31 1600 01/31 0800 01/31 0000 Intake Total 1090 240 400 500 120 450 Output Total 350 250 700 350 300 Balance 1090 -110 150 -200 -230 150 Intake, IV 250 Intake, Oral 840 240 400 500 120 450 Number 1 Bowel Movements Output, Urine 350 250 700 350 300 Patient 229 lb 235 lb Weight Weight Chair scale Yolanda Lift Measurement Method Physical Exam: General: WD/overweight male in NAD; alert and oriented x 3 Neck: no JVD, no carotid bruit Heart: RRR with ectopy and 2/6 systolic murmur Lungs: clear bilaterally Extremities: 2+ leg edema bilaterally Assessment/Plan Assessment/Plan * This patient had mild pulmonary vascular congestion but his lungs are currently clear and his leg edema in minimal. Mild heart failure was a likely contributor but I would not diurese at this point in time due to his renal insufficiency and due to him lack of symptoms. Blood pressure is improved and his breathing is comfortable. * Renal failure. I suspect this patient had a prerenal state that worsened his already present renal insufficiency. It should be noted that he already carries a history of bladder cancer and I believe some atypical cells were also discovered in his urine. For now I would hold all medications that may worsen renal function including his Losartan and Lasix. * Continue Cardizem ar 300mg daily with careful monitoring of his heart rate. It should be noted that in the setting of his pulmonary hypertension he likely will need higher filling pressures an may not tolerate dehydration well. * Begin IV heparin today. * Obtain an echocardiogram to assess his current LV function and RV pressures. Continue telemetry? Yes
[2017-02-01 17:59] LABS: PTT 74 SEC (25-37)
--- NOTE | 2017-02-01 18:10 | PN- Att Addend ---
Attending Addendum Attending Brief Note Patient looks and feels better when better spirits brighter alert and oriented today his and family at the bedside vital signs are stable has no fever no new changes on physical, kidney function slightly improved. Appreciate ID and nephrology inputs and recommendations she was evaluated by urology and scheduled for cystoscopy in a.m. patient will be nothing by mouth after midnight Intake & Output 02/01 1600 02/01 0400 01/31 1600 01/31 0400 01/30 1600 01/30 0400 Intake Total 1330 400 620 450 50 250 Output Total 312 161 6430 300 610 225 Balance 980 150 -430 150 -560 25 Intake, IV 250 250 Intake, Oral 1080 400 620 450 50 Number 1 Bowel Movements Output, Urine 485 315 7509 300 610 225 Patient 229 lb 235 lb 235 lb Weight Weight Chair scale Yolanda Lift Reported by Patient Measurement Method Current Medications Sig/Festus Start time Last Medication Dose Route Stop Time Status Admin Acetaminophen 650 MG Q6P PRN 01/29 2230 AC PO Acetaminophen/ 1 TAB Q6P PRN 01/29 2230 AC 01/31 Hydrocodone Bitart PO 1129 Albuterol Sulfate 2 PUF Q4H PRN 01/29 2315 AC INH Atorvastatin Calcium 10 MG 1700 01/30 1700 AC 02/01 PO 1725 Bisacodyl 10 MG DAILY PRN 01/29 2330 AC MS Ciprofloxacin 750 MG DAILY 01/30 1000 AC 02/01 PO 02/03 0959 0914 Diltiazem HCl 300 MG DAILY 01/31 1000 AC 02/01 PO 0913 Finasteride 5 MG DAILY 01/30 1000 AC 02/01 PO 0915 Heparin Sodium 25,000 UNIT Q24H 02/01 0800 AC 02/01 (Porcine) IV 0846 Sodium Chloride 500 ML Hydromorphone HCl 1 MG Q6P PRN 01/29 2230 AC IV Tamsulosin HCl 0.4 MG DAILY 01/30 1000 AC 02/01 PO 0915 Laboratory Tests 02/01/17 1700: APTT 74 H 02/01/17 0650: Anion Gap 12, Estimated GFR 13 L, BUN/Creatinine Ratio 16.4, Iron 22 L, TIBC 286, Ferritin 142.0, Vitamin B12 > 1000 H, Folate > 20.0 H, CBC w Diff NO MAN DIFF REQ, RBC 3.07 L, MCV 86.8, MCH 28.1, RDW 14.4, MPV 8.4, Gran % 77.0 H, Lymphocytes % 9.1 L, Monocytes % 10.1 H, Eosinophils % 3.6, Basophils % 0.2, Absolute Granulocytes 4.9, Absolute Lymphocytes 0.6 L, Absolute Monocytes 0.6, Absolute Eosinophils 0.2, Absolute Basophils 0, PUBS MCHC 32.4 L 01/31/17 0706: Anion Gap 12, Estimated GFR 11 L, BUN/Creatinine Ratio 15.1, CBC w Diff NO MAN DIFF REQ, RBC 2.66 L, MCV 87.4, MCH 28.0, RDW 14.3, MPV 8.1, Gran % 70.7, Lymphocytes % 13.3 L, Monocytes % 12.1 H, Eosinophils % 3.2, Basophils % 0.7, Absolute Granulocytes 4.2, Absolute Lymphocytes 0.8 L, Absolute Monocytes 0.7 H, Absolute Eosinophils 0.2, Absolute Basophils 0, PUBS MCHC 32.0 L 01/30/17 1633: ESR Westergren 122 H 01/30/17 1125: Urinalysis LIGHT H, Urine Color YEL, Urine Clarity HAZY H, Urine pH 5.5, Ur Specific [place] >= 1.030, Urine Protein 100 H, Urine Ketones NEG, Urine Nitrite NEG, Urine Bilirubin NEG, Urine Urobilinogen 0.2, Ur Leukocyte Esterase MOD H, Ur Microscopic SEDIMENT EXAMINED, Urine RBC 15-25 H, Urine WBC 10-15 H , Ur Epithelial Cells FEW, Urine Bacteria MOD H, Micro UA Comment [place] YEAST H, Urine Hemoglobin LARGE H, Urine Glucose NEG 01/30/17 0503: Anion Gap 11, Estimated GFR 12 L, BUN/Creatinine Ratio 14.3, Calcium 7.9 L, Phosphorus 6.7 H, Magnesium 2.3, Total Bilirubin 0.7, Direct Bilirubin 0.5 H, AST 41, ALT 51, Alkaline Phosphatase 191 H, Creatine Kinase 106, Troponin I < 0.01, Total Protein 5.4 L, Albumin 2.9 L, CBC w Diff NO MAN DIFF REQ, RBC 2.91 L, MCV 88.0, MCH 28.4, RDW 14.6 H, MPV 7.8, Gran % 74.8, Lymphocytes % 8.4 L, Monocytes % 12.1 H, Eosinophils % 4.2, Basophils % 0.5, Absolute Granulocytes 4.5, Absolute Lymphocytes 0.5 L, Absolute Monocytes 0.7 H, Absolute Eosinophils 0.3, Absolute Basophils 0, PUBS MCHC 32.3 L Microbiology 01/31 448 URINE ROUT: Urine Culture - COMP YEAST Microbiology 01/31 448 URINE ROUT: Urine Culture - COMP YEAST
[2017-02-01 22:24] VITALS: BP 140/72
[2017-02-02 06:03] LABS: PTT 84 SEC (25-37)
[2017-02-02 06:04] LABS: ABSOLUTE BASOPHIL COUNT 0 /CUMM (0.0-0.2); ABSOLUTE EOSINOPHIL COUNT 0.5 /CUMM (0.0-0.7); ABSOLUTE MONOCYTE COUNT 0.6 /CUMM (0.10-0.60); BASOPHIL % 0.1 % (0.0-2.0); EOSINOPHIL % 7.5 % (0-5); GRANULOCYTE % 66.9 % (42.2-75.2); HEMATOCRIT 24.2 % (42-52); MEAN CORPUSCULAR HGB 28.1 PG (27.0-31.0); MEAN CORPUSCULAR HGB CONC 32.3 G/DL (33.0-37.0); MEAN CORPUSCULAR VOLUME 86.9 FL (80.0-94.0); PLATELET COUNT 259 /CUMM (130-400); RBC DISTRIBUTION WIDTH 14.4 % (11.5-14.5); RED BLOOD CELL CT 2.78 /CUMM (4.70-6.10)
[2017-02-02 06:49] VITALS: BP 136/74
--- NOTE | 2017-02-02 08:12 | PN- Housestaff ---
Subjective Follow-up For: AMS Acute on CKD A-fib CHF Septic arthritis Abnormal UA Subjective: Patient has no complaints. No acute events overnight. Review of Systems Constitutional: Reports: see HPI. Objective Last 24 Hrs of Vital Signs/I&O Vital Signs Date Time Temp Pulse Resp B/P B/P Pulse O2 O2 Flow FiO2 Mean Ox Delivery Rate 02/04 0634 98.4 62 20 140/70 94 Room Air 02/03 2244 97.8 73 16 108/60 95 Room Air 02/03 1600 97 Room Air 02/03 1523 97.9 86 18 118/58 95 Room Air Intake & Output 02/04 1600 02/04 0800 02/04 0000 Intake Total 200 448 390 Output Total 375 450 Balance 200 73 -60 Intake, IV 208 200 Intake, Oral 200 240 190 Number 1 Bowel Movements Output, Urine 375 450 Patient 120 lb Weight Weight Chair scale Measurement Method Physical Exam General Appearance: Alert, Oriented X3, Cooperative, No Acute Distress HEENT: Atraumatic, PERRLA Cardiovascular: Normal S1, Normal S2 Lungs: Clear to Auscultation Abdomen: Normal Bowel Sounds, Soft, No Tenderness Extremities: 2+ B/L edema Assessment/Plan Assessment: Mr. Parikh is a 87 yo M with a PMH of diabetes, hypertension, chronic renal insufficiency, coronary artery disease, status post angioplasty, atrial fibrillation on his Route toe, tachybradycardia syndrome status post pacemaker placement, status post bilateral knee replacement was recently admitted at [facility] from January 13 to January 22 with chief complaint of septic arthritis currently on telemetry for CHF, A-fib, Acute on CKD, worsening lethargy and confusion. P: 1.A-fib Patient has chronic a-fib being anticoagulated with Xarelto. He has a permanent single-chamber pace maker by [employer]. Patient was on Diltiazem 360mg ER but due to his persistent hypotension on admission it was decreased. * Continue telemetry * Continue Diltiazem 300mg PO * Xarelto held due to renal function * Continue heparin IV 2. CHF exacerbation Patient complained of SOB at the rehabilitation facility prior to presenting to ED. He stated that he had been experiencing SOB for a couple of mouths prior to admission. On arrival to [facility] ED patient had no respiratory symptoms or chest pain but had an elevated BNP-4300 on outpatient blood work. On examination in the ED his breath sounds were diminished billaterally but he denied dyspnea. CXR showed pulmonary congestion most likely due to CHF. 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 He had an elevated CR-4.5 on outpatient blood work prior to ED admission. 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 His acute RF is likely due to his hypotension. * renal US negative for any acute pathology * chronic painting kept for diuresis * CR trending done * GFR improving 3. Septic arthritis Patient had bilateral knee replacements 12 years ago prior to admission and was recently admitted for septic arthritis with a wbc count of 75,000, repeat count of 114,000 and gram stain pos for gram neg rods. * Continue cipro 4-6 weeks 4. Anemia * Continue to monitor CBC 5. UA pos for atypical epithelial cells * cytoscopy scheduled * NPO DVT prophylaxis-Heparin IV Problem List: 1. HTN (hypertension) 2. Afib 3. CAD (coronary artery disease) 4. Acute on chronic renal insufficiency 5. Septic joint 6. CHF (congestive heart failure) Pain Ratin Pain Location: N/A Pain Goal: Remain pain free Pain Plan: Dilaudid PRN Tomorrow's Labs & Rationales: CBC to monitor anemia BEP to monitor renal function Consulting Request: Consulting Specialty: Infectious Disease
--- NOTE | 2017-02-02 08:46 | ECHOCARDIOGRAM REPORT ---
FARTUN SIM Age: 87 : 1930 Gender: M Exam Date: 02/01/2017 18:18 Exam Location: [address] Ht (in): 67 Wt (lb): 234 BSA: 2.28 BP: 104 / 68 Ordering Physician: RUSH PARK MD Referring Physician: Akash Briones MD, PhD Technologist: Jeannette Cassidy [facility] Room Number: 172 Indications: AFIB/FLUTTER Rhythm: Atrial fibrillation Technical Quality: technically limited FINDINGS Left Ventricle Normal left ventricular size, wall thickness and systolic function with no obvious regional wall motion abnormalities. Parodoxical septal motion is noted consistent with pacemaker activation. The ejection fraction is visually estimated at 60%. Right Ventricle The right ventricle is mildly enlarged with normal function. A pacemaker lead is noted in the right cardiac chambers. Right Atrium The right atrium is normal in size. Left Atrium The left atrium is moderately enlarged. The interatrial septum is intact. Mitral Valve The mitral valve is normal in structure and function. There is mild mitral regurgitation. Aortic Valve Moderately thickened and sclerotic aortic valve with decreased leaflet excursion. No significant stenosis. There is no aortic regurgitation. Tricuspid Valve The tricuspid valve is normal in structure and function. There is mild to moderate tricuspid regurgitation. Pulmonary artery systolic pressure is moderately elevated to 46.5mmHg. Pulmonic Valve Structurally normal pulmonic valve. There is no pulmonic regurgitation. Pericardium Normal pericardium without effusion. No pleural effusion. Great Vessels Normal aortic root dimension. The aortic arch and great vessels are well seen and are normal. CONCLUSIONS 1. Normal EF of 60% with paradoxical septal motion consistent with pacemaker activation. 2. Mild right ventricular enlargment. 3. Pacemaker lead is noted. 4. Moderate left atiral enlargment. 5. Mild mitral regurgitation. 6. Mild to moderate tricuspid regurgitation. 7. Aortic slcerosis with decreased leaflet excursion without hemodynamically significant aortic stenosis. 8. Moderate pulmnonary hypertension. Akash Briones M.D. (Electronically Signed) Final Date: 02 February 2017 08:45 MEASUREMENTS (Male / Female) Normal Values 2D ECHO LV Diastolic Diameter PLAX 5.1 cm 4.2 - 5.9 / 3.9 - 5.3 cm LV Systolic Diameter PLAX 3.3 cm 2.1 - 4.0 cm LV Fractional Shortening PLAX 35.3 % 25 - 46 % LV Ejection Fraction 2D Teich 64.4 % IVS Diastolic Thickness 1.0 cm LVPW Diastolic Thickness 1.1 cm LV Relative Wall Thickness 0.4 RV Internal Dim ED PLAX 4.0 cm 1.9 - 3.8 cm LVOT Diameter 2.1 cm Aortic Root Diameter 2.9 cm LA Systolic Diameter LX 4.9 cm 3.0 - 4.0 / 2.7 - 3.8 cm LA Volume 65.0 cm 18 - 58 / 22 - 52 cm Ascending Aorta Diameter 3.1 cm DOPPLER AV Peak Velocity 182.0 cm/s AV Peak Gradient 13.2 mmHg AV Mean Velocity 135.0 cm/s AV Mean Gradient 8.0 mmHg AV Velocity Time Integral 43.9 cm LVOT Peak Velocity 143.0 cm/s LVOT Peak Gradient 8.2 mmHg LVOT Mean Velocity 96.9 cm/s LVOT Mean Gradient 4.0 mmHg LVOT Velocity Time Integral 31.8 cm LVOT Stroke Volume 110.1 cm AV Area Cont Eq vti 2.5 cm AV Area Cont Eq pk 2.7 cm MV Peak Velocity 147.0 cm/s MV Peak Gradient 8.6 mmHg MV Mean Velocity 67.9 cm/s MV Mean Gradient 3.0 mmHg Mitral E Point Velocity 108.0 cm/s MV PHT Velocity 150.0 cm/s MV Deceleration [place] 469.0 cm/s MV Pressure Half Time 95.9 ms MV Area PHT 2.3 cm MV Deceleration Time 153.0 ms TR Peak Velocity 322.0 cm/s TR Peak Gradient 41.5 mmHg Right Atrial Pressure 5.0 mmHg Pulmonary Artery Systolic Pressu 46.5 mmHg Right Ventricular Systolic Press 46.5 mmHg PV Peak Velocity 90.9 cm/s PV Peak Gradient 3.3 mmHg PV Mean Velocity 65.9 cm/s PV Mean Gradient 2.0 mmHg PV Velocity Time Integral 17.6 cm LV E' Lateral Velocity 13.4 cm/s Mitral E to LV E' Lateral Ratio 8.1 LV E' Septal Velocity 8.0 cm/s Mitral E to LV E' Septal Ratio 13.6
--- NOTE | 2017-02-02 09:18 | PN- Nephrology ---
Assessment/Plan Assessment: 1. LALO: likely nonoliguric ATN post hypotension; GFR improving - no renal replacement indication 2. CKD: mod, stage 3, due to DM & HTN; baseline Cr hi 1s Suggestion: 1. continue w/o YUDITH interruption for now 2. recheck labs in AM Subjective Subjective: Feeling well w/o SOB or uremic sx MS continues to improve Nonoligurtic Objective Vital Signs and I&Os Vital Signs Date Time Temp Pulse Resp B/P B/P Pulse O2 O2 Flow FiO2 Mean Ox Delivery Rate 02/02 0649 98.1 63 18 136/74 97 Nasal Cannula 02/01 2224 98.2 75 20 140/72 95 Nasal 2.0L Cannula 02/01 2202 Nasal 2.0L Cannula 02/01 1511 97.6 78 20 124/60 99 Nasal 2.0L Cannula 02/01 0915 69 132/64 Intake & Output 02/02 1600 02/02 0400 02/01 1600 02/01 0400 01/31 1600 01/31 0400 Intake Total 344 652 7680 400 620 450 Output Total 550 1250 575 164 8463 300 Balance -350 -1000 980 150 -430 150 Intake, IV 250 Intake, Oral 182 353 1131 400 620 450 Number 1 Bowel Movements Output, Urine 550 1250 785 068 4651 300 Patient 223 lb 229 lb 235 lb Weight Weight Chair scale Yolanda Lift Measurement Method Physical Exam General Appearance: well developed/nourished, no apparent distress Head: atraumatic, normal appearance Ears, Nose, Throat: normal ENT inspection Neck: normal inspection Respiratory: normal breath sounds, no respiratory distress, quiet respiration, lungs clear Cardiovascular: irregularly irregular Abdomen: soft, non-tender Extremities: swelling Neurologic/Psychiatric: awake, alert Skin: intact, normal color Current Medications: Current Medications Sig/Festus Start time Last Medication Dose Route Stop Time Status Admin Acetaminophen 650 MG Q6P PRN 01/29 2230 AC PO Acetaminophen/ 1 TAB Q6P PRN 01/29 223 AC 02/01 Hydrocodone Bitart PO 2145 Albuterol Sulfate 2 PUF Q4H PRN 01/29 2315 AC INH Atorvastatin Calcium 10 MG 1700 01/30 1700 AC 02/01 PO 1725 Bisacodyl 10 MG DAILY PRN 01/29 2330 AC DC Ciprofloxacin 750 MG DAILY 01/30 1000 AC 02/01 PO 02/03 0959 0914 Diltiazem HCl 300 MG DAILY 01/31 1000 AC 02/01 PO 0913 Finasteride 5 MG DAILY 01/30 1000 AC 02/01 PO 0915 Heparin Sodium 25,000 UNIT Q24H 02/01 0800 AC 02/02 (Porcine) IV 0424 Sodium Chloride 500 ML Hydromorphone HCl 1 MG Q6P PRN 01/29 2230 AC IV Tamsulosin HCl 0.4 MG DAILY 01/30 1000 AC 02/01 PO 0915 Results Pertinent Lab Results: Laboratory Tests 02/02 02/01 0520 1700 Chemistry Sodium (137 - 145 mmol/L) 135 L Potassium (3.5 - 5.1 mmol/L) 4.8 Chloride (98 - 107 mmol/L) 103 Carbon Dioxide (22 - 30 mmol/L) 22 Anion Gap (5 - 16) 10 BUN (9 - 20 mg/dL) 66 H Creatinine (0.7 - 1.2 mg/dL) 3.5 H Estimated GFR (>60 ml/min) 17 L BUN/Creatinine Ratio (7 - 25 %) 18.9 Coagulation APTT (25 - 37 SEC) 84 H 74 H Hematology CBC w Diff NO MAN DIFF REQ WBC (4.8 - 10.8 /CUMM) 6.0 RBC (4.70 - 6.10 /CUMM) 2.78 L Hgb (14.0 - 18.0 G/DL) 7.8 L Hct (42 - 52 %) 24.2 L MCV (80.0 - 94.0 FL) 86.9 MCH (27.0 - 31.0 PG) 28.1 RDW (11.5 - 14.5 %) 14.4 Plt Count (130 - 400 /CUMM) 259 MPV (7.4 - 10.4 FL) 8.0 Gran % (42.2 - 75.2 %) 66.9 Lymphocytes % (20.5 - 51.1 %) 16.0 L Monocytes % (1.7 - 9.3 %) 9.5 H Eosinophils % (0 - 5 %) 7.5 H Basophils % (0.0 - 2.0 %) 0.1 Absolute Granulocytes (1.4 - 6.5 /CUMM) 4.0 Absolute Lymphocytes (1.2 - 3.4 /CUMM) 1.0 L Absolute Monocytes (0.10 - 0.60 /CUMM) 0.6 Absolute Eosinophils (0.0 - 0.7 /CUMM) 0.5 Absolute Basophils (0.0 - 0.2 /CUMM) 0 PUBS MCHC (33.0 - 37.0 G/DL) 32.3 L 02/01 01/31 0650 0706 Chemistry Sodium (137 - 145 mmol/L) 133 L 131 L Potassium (3.5 - 5.1 mmol/L) 4.8 5.2 H Chloride (98 - 107 mmol/L) 100 98 Carbon Dioxide (22 - 30 mmol/L) 20 L 21 L Anion Gap (5 - 16) 12 12 BUN (9 - 20 mg/dL) 72 H 74 H Creatinine (0.7 - 1.2 mg/dL) 4.4 H 4.9 H Estimated GFR (>60 ml/min) 13 L 11 L BUN/Creatinine Ratio (7 - 25 %) 16.4 15.1 Iron (49 - 181 ug/dL) 22 L TIBC (261 - 462 ug/dL) 286 Ferritin (17.9 - 464 ng/mL) 142.0 Vitamin B12 (239 - 931 pg/mL) > 1000 H Folate (2.76 - 20.0 ng/mL) > 20.0 H Hematology CBC w Diff NO MAN DIFF REQ NO MAN DIFF REQ WBC (4.8 - 10.8 /CUMM) 6.3 5.9 RBC (4.70 - 6.10 /CUMM) 3.07 L 2.66 L Hgb (14.0 - 18.0 G/DL) 8.6 L 7.5 L Hct (42 - 52 %) 26.6 L 23.3 L MCV (80.0 - 94.0 FL) 86.8 87.4 MCH (27.0 - 31.0 PG) 28.1 28.0 RDW (11.5 - 14.5 %) 14.4 14.3 Plt Count (130 - 400 /CUMM) 271 265 MPV (7.4 - 10.4 FL) 8.4 8.1 Gran % (42.2 - 75.2 %) 77.0 H 70.7 Lymphocytes % (20.5 - 51.1 %) 9.1 L 13.3 L Monocytes % (1.7 - 9.3 %) 10.1 H 12.1 H Eosinophils % (0 - 5 %) 3.6 3.2 Basophils % (0.0 - 2.0 %) 0.2 0.7 Absolute Granulocytes (1.4 - 6.5 /CUMM) 4.9 4.2 Absolute Lymphocytes (1.2 - 3.4 /CUMM) 0.6 L 0.8 L Absolute Monocytes (0.10 - 0.60 /CUMM) 0.6 0.7 H Absolute Eosinophils (0.0 - 0.7 /CUMM) 0.2 0.2 Absolute Basophils (0.0 - 0.2 /CUMM) 0 0 PUBS MCHC (33.0 - 37.0 G/DL) 32.4 L 32.0 L 01/30 01/30 1633 1125 Hematology ESR Westergren (0 - 10 MM) 122 H Urines Urinalysis LIGHT H Urine Color (YEL,AMB,STR) YEL Urine Clarity (CLEAR) HAZY H Urine pH (5.0 - 8.0) 5.5 Ur Specific [place] (1.001 - 1.035) >= 1.030 Urine Protein (NEG,<30 MG/DL) 100 H Urine Ketones (NEG) NEG Urine Nitrite (NEG) NEG Urine Bilirubin (NEG) NEG Urine Urobilinogen (0.1 - 1.0 EU/dl) 0.2 Ur Leukocyte Esterase (NEG) MOD H Ur Microscopic SEDIMENT EXAMINED Urine RBC (0 - 5 /HPF) 15-25 H Urine WBC (0 - 2 /HPF) 10-15 H Ur Epithelial Cells (NONE,FEW) FEW Urine Bacteria (NEG/NONE) MOD H Micro UA Comment BUDDING YEAST H Urine Hemoglobin (NEG) LARGE H Urine Glucose (N MG/DL) NEG Imaging/Other Studies: Echo: CONCLUSIONS 1. Normal EF of 60% with paradoxical septal motion consistent with pacemaker activation. 2. Mild right ventricular enlargment. 3. Pacemaker lead is noted. 4. Moderate left atiral enlargment. 5. Mild mitral regurgitation. 6. Mild to moderate tricuspid regurgitation. 7. Aortic slcerosis with decreased leaflet excursion without hemodynamically significant aortic stenosis. 8. Moderate pulmnonary hypertension.
--- NOTE | 2017-02-02 10:55 | PN- Att Addend ---
Attending Addendum Attending Brief Note Patient sitting in the chair, no major changes since yesterday. Not clear if it patient is going for a cystoscopy, did not see note from urology yesterday. Appreciate nephrologists and director economic's input and recommendations regarding to his acute on chronic renal failure and his congestive heart failure vital signs are stable no fever, no major changes on physical. His H&H has dropped some we will monitor closely and if it drops more consider transfusion also monitored closely his kidney function Intake & Output 02/02 0400 01/31 0400 Intake Total 955 956 3850 400 620 450 Output Total 550 1250 268 959 2411 300 Balance -350 -1000 980 150 -430 150 Intake, IV 250 Intake, Oral 672 740 0336 400 620 450 Number 1 Bowel Movements Output, Urine 550 1250 102 707 9998 300 Patient 223 lb 229 lb 235 lb Weight Weight Chair scale Yolanda Lift Measurement Method Laboratory Tests 02/02/17 0520: Anion Gap 10, Estimated GFR 17 L, BUN/Creatinine Ratio 18.9, APTT 84 H, CBC w Diff NO MAN DIFF REQ, RBC 2.78 L, MCV 86.9, MCH 28.1, RDW 14.4, MPV 8.0, Gran % 66.9, Lymphocytes % 16.0 L, Monocytes % 9.5 H, Eosinophils % 7.5 H, Basophils % 0.1, Absolute Granulocytes 4.0, Absolute Lymphocytes 1.0 L, Absolute Monocytes 0.6, Absolute Eosinophils 0.5, Absolute Basophils 0, PUBS MCHC 32.3 L 02/01/17 1700: APTT 74 H 02/01/17 0650: Anion Gap 12, Estimated GFR 13 L, BUN/Creatinine Ratio 16.4, Iron 22 L, TIBC 286, Ferritin 142.0, Vitamin B12 > 1000 H, Folate > 20.0 H, CBC w Diff NO MAN DIFF REQ, RBC 3.07 L, MCV 86.8, MCH 28.1, RDW 14.4, MPV 8.4, Gran % 77.0 H, Lymphocytes % 9.1 L, Monocytes % 10.1 H, Eosinophils % 3.6, Basophils % 0.2, Absolute Granulocytes 4.9, Absolute Lymphocytes 0.6 L, Absolute Monocytes 0.6, Absolute Eosinophils 0.2, Absolute Basophils 0, PUBS MCHC 32.4 L 01/31/17 0706: Anion Gap 12, Estimated GFR 11 L, BUN/Creatinine Ratio 15.1, CBC w Diff NO MAN DIFF REQ, RBC 2.66 L, MCV 87.4, MCH 28.0, RDW 14.3, MPV 8.1, Gran % 70.7, Lymphocytes % 13.3 L, Monocytes % 12.1 H, Eosinophils % 3.2, Basophils % 0.7, Absolute Granulocytes 4.2, Absolute Lymphocytes 0.8 L, Absolute Monocytes 0.7 H, Absolute Eosinophils 0.2, Absolute Basophils 0, PUBS MCHC 32.0 L 01/30/17 1633: ESR [place] 122 H 01/30/17 1125: Urinalysis LIGHT H, Urine Color YEL, Urine Clarity HAZY H, Urine pH 5.5, Ur Specific [place] >= 1.030, Urine Protein 100 H, Urine Ketones NEG, Urine Nitrite NEG, Urine Bilirubin NEG, Urine Urobilinogen 0.2, Ur Leukocyte Esterase MOD H, Ur Microscopic SEDIMENT EXAMINED, Urine RBC 15-25 H, Urine WBC 10-15 H , Ur Epithelial Cells FEW, Urine Bacteria MOD H, Micro UA Comment BUDDING YEAST H, Urine Hemoglobin LARGE H, Urine Glucose NEG
--- NOTE | 2017-02-02 10:59 | PN- Infect Dx ---
Subjective Subjective: Afebrile without complaints Objective Last 24 Hrs of Vital Signs/I&O Vital Signs Date Time Temp Pulse Resp B/P B/P Pulse O2 O2 Flow FiO2 Mean Ox Delivery Rate 02/02 1007 Nasal 2.0L Cannula 02/02 0649 98.1 63 18 136/74 97 Nasal Cannula 02/01 2224 98.2 75 20 140/72 95 Nasal 2.0L Cannula 02/01 2202 Nasal 2.0L Cannula 02/01 1511 97.6 78 20 124/60 99 Nasal 2.0L Cannula Intake & Output 02/02 1600 02/02 0800 02/02 0000 Intake Total 200 250 Output Total 550 1250 Balance -350 -1000 Intake, Oral 200 250 Output, Urine 550 1250 Patient 223 lb Weight Physical Exam Other Physical Findings: He appears comfortable in no acute distress Lungs are clear Heart regular rhythm with no murmur Extremities left knee with no significant inflammation and with improved range of motion Knott catheter remains in place Results Last 24 Hours of Lab Results: Laboratory Tests 02/02 02/01 0520 1700 Chemistry Sodium (137 - 145 mmol/L) 135 L Potassium (3.5 - 5.1 mmol/L) 4.8 Chloride (98 - 107 mmol/L) 103 Carbon Dioxide (22 - 30 mmol/L) 22 Anion Gap (5 - 16) 10 BUN (9 - 20 mg/dL) 66 H Creatinine (0.7 - 1.2 mg/dL) 3.5 H Estimated GFR (>60 ml/min) 17 L BUN/Creatinine Ratio (7 - 25 %) 18.9 Coagulation APTT (25 - 37 SEC) 84 H 74 H Hematology CBC w Diff NO MAN DIFF REQ WBC (4.8 - 10.8 /CUMM) 6.0 RBC (4.70 - 6.10 /CUMM) 2.78 L Hgb (14.0 - 18.0 G/DL) 7.8 L Hct (42 - 52 %) 24.2 L MCV (80.0 - 94.0 FL) 86.9 MCH (27.0 - 31.0 PG) 28.1 RDW (11.5 - 14.5 %) 14.4 Plt Count (130 - 400 /CUMM) 259 MPV (7.4 - 10.4 FL) 8.0 Gran % (42.2 - 75.2 %) 66.9 Lymphocytes % (20.5 - 51.1 %) 16.0 L Monocytes % (1.7 - 9.3 %) 9.5 H Eosinophils % (0 - 5 %) 7.5 H Basophils % (0.0 - 2.0 %) 0.1 Absolute Granulocytes (1.4 - 6.5 /CUMM) 4.0 Absolute Lymphocytes (1.2 - 3.4 /CUMM) 1.0 L Absolute Monocytes (0.10 - 0.60 /CUMM) 0.6 Absolute Eosinophils (0.0 - 0.7 /CUMM) 0.5 Absolute Basophils (0.0 - 0.2 /CUMM) 0 PUBS MCHC (33.0 - 37.0 G/DL) 32.3 L Last 24 Hours of Federico Results: Urine culture January 30 has been reidentified as greater than 100,000 colonies of yeast Assessment/Plan Impression: Stable with renal function continuing to improve and with temperatures and white blood cell count remaining normal on Ciprofloxacin now 19 days status post arthroscopic irrigation and debridement for 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 His ESR remains elevated but is nonspecific and, given the improvement in his left knee, is unlikely to effect any change in his current management. His positive urine culture for yeast likely represent colonization secondary to the Knott catheter and should not require treatment. Suggestion: 1. Will need Urology follow-up regarding his abnormal urine cytology and BPH 2. Continue Ciprofloxacin to complete a 6 week course (until February 25) after which we will need to consider lifelong antibiotic suppression 3. Weekly ESR while on Ciprofloxacin
[2017-02-02 14:22] VITALS: BP 118/68
--- NOTE | 2017-02-02 20:28 | PN- Cardiology ---
Subjective Subjective: * Patient is breathing comfortably. * atrial fibrillation * creatinine improved to 3.5 * persistent anemia * normal EF on echo Objective Vital Signs and I&Os Vital Signs Date Time Temp Pulse Resp B/P B/P Pulse O2 O2 Flow FiO2 Mean Ox Delivery Rate 02/02 1422 97.6 84 18 118/68 100 Nasal 2.0L Cannula 02/02 1114 998.1 63 18 136/74 02/02 1007 Nasal 2.0L Cannula 02/02 0649 98.1 63 18 136/74 97 Nasal Cannula 02/01 2224 98.2 75 20 140/72 95 Nasal 2.0L Cannula 02/01 2202 Nasal 2.0L Cannula Intake & Output 02/02 1600 02/02 0800 02/02 0000 02/01 1600 02/01 0800 02/01 0000 Intake Total 122 249 4478 240 400 Output Total 383 987 0550 350 250 Balance -700 -350 -1000 1090 -110 150 Intake, IV 250 Intake, Oral 200 250 840 240 400 Number 1 Bowel Movements Output, Urine 227 227 7789 350 250 Patient 223 lb 229 lb Weight Weight Chair scale Measurement Method Physical Exam: General: WD/overweight male in NAD; alert and oriented x 3 Neck: no JVD, no carotid bruit Heart: RRR with ectopy and 2/6 systolic murmur Lungs: clear bilaterally Extremities: 2+ leg edema bilaterally Assessment/Plan Assessment/Plan * This patient had mild pulmonary vascular congestion but his lungs are currently clear and his leg edema in minimal. Mild heart failure was a likely contributor but I would not diurese at this point in time due to his renal insufficiency and due to him lack of symptoms. Blood pressure is improved and his breathing is comfortable. * Renal failure. I suspect this patient had a prerenal state that worsened his already present renal insufficiency. It should be noted that he already carries a history of bladder cancer and I believe some atypical cells were also discovered in his urine. For now I would hold all medications that may worsen renal function including his Losartan and Lasix. * Continue Cardizem ar 300mg daily with careful monitoring of his heart rate. It should be noted that in the setting of his pulmonary hypertension he likely will need higher filling pressures an may not tolerate dehydration well. * Restart anticoagulation with Xarelto 15mg daily tommorrow unless a procedure is anticipated. Continue telemetry? Yes
[2017-02-02 20:30] LABS: PTT 81 SEC (25-37)
[2017-02-02 23:25] VITALS: BP 140/78
[2017-02-03 06:48] VITALS: BP 110/60
[2017-02-03 08:35] LABS: PTT 77 SEC (25-37)
[2017-02-03 08:41] LABS: ABSOLUTE BASOPHIL COUNT 0 /CUMM (0.0-0.2); ABSOLUTE EOSINOPHIL COUNT 0.5 /CUMM (0.0-0.7); ABSOLUTE MONOCYTE COUNT 0.5 /CUMM (0.10-0.60); BASOPHIL % 0.4 % (0.0-2.0); EOSINOPHIL % 7.8 % (0-5); GRANULOCYTE % 66.6 % (42.2-75.2); HEMATOCRIT 24.9 % (42-52); MEAN CORPUSCULAR HGB 28.4 PG (27.0-31.0); MEAN CORPUSCULAR HGB CONC 32.9 G/DL (33.0-37.0); MEAN CORPUSCULAR VOLUME 86.4 FL (80.0-94.0); MEAN PLATELET VOLUME 8.3 FL (7.4-10.4); PLATELET COUNT 285 /CUMM (130-400); RBC DISTRIBUTION WIDTH 14.2 % (11.5-14.5); RED BLOOD CELL CT 2.88 /CUMM (4.70-6.10)
--- NOTE | 2017-02-03 10:59 | PN- Att Addend ---
Attending Addendum Attending Brief Note Patient this morning has no complaints. General Appearance: Alert, No Acute Distress Skin: Grossly normal HEENT: [place] Neck: Supple, No JVD Cardiovascular: Irregular rhythm Lungs: Clear to Auscultation, Normal Air Movement Abdomen: Normal Bowel Sounds, Soft, No Tenderness Neurological: Normal Speech, Strength at 5/5 X4 Ext, Cranial Nerves 3-12 NL, Reflexes 2+ Extremities: Left knee swelling Vascular: Normal Pulses Assessment Patient is currently on Cipro for left septic knee arthritis. He appears to be responding. Acute kidney injury secondary to hypotension is gradually improving. At this point xarelto is on hold for kidney injury and he is on heparin drip. We're also waiting for urology follow-up for abnormal urine cytology and BPH. Plan Discuss with urology regarding inpatient cystoscopy Continue Cipro Continue to monitor kidney function daily Continue heparin drip Continue other medications Current Medications Sig/Festus Start time Last Medication Dose Route Stop Time Status Admin Acetaminophen 650 MG Q6P PRN 01/29 2230 AC PO Acetaminophen/ 1 TAB Q6P PRN 01/29 2230 AC 02/02 Hydrocodone Bitart PO 2113 Albuterol Sulfate 2 PUF Q4H PRN 01/29 2315 AC INH Atorvastatin Calcium 10 MG 1700 01/30 1700 AC 02/02 PO 1722 Bisacodyl 10 MG DAILY PRN 01/29 2330 AC IN Ciprofloxacin 750 MG DAILY 01/30 1000 DC 02/02 PO 02/03 0959 1115 Diltiazem HCl 300 MG DAILY 01/31 1000 AC 02/03 PO 0915 Finasteride 5 MG DAILY 01/30 1000 AC 02/03 PO 0914 Heparin Sodium 25,000 UNIT Q24H 02/01 0800 AC 02/03 (Porcine) IV 0100 Sodium Chloride 500 ML Hydromorphone HCl 1 MG Q6P PRN 01/29 2230 AC IV Tamsulosin HCl 0.4 MG DAILY 01/30 1000 AC 02/03 PO 0914 Laboratory Tests 02/03 02/03 02/02 0635 0615 1836 Chemistry Sodium (137 - 145 mmol/L) 138 Potassium (3.5 - 5.1 mmol/L) 4.8 Chloride (98 - 107 mmol/L) 104 Carbon Dioxide (22 - 30 mmol/L) 24 Anion Gap (5 - 16) 10 BUN (9 - 20 mg/dL) 53 H Creatinine (0.7 - 1.2 mg/dL) 2.9 H Estimated GFR (>60 ml/min) 21 L BUN/Creatinine Ratio (7 - 25 %) 18.3 Coagulation APTT (25 - 37 SEC) 77 H 81 H Hematology CBC w Diff NO MAN DIFF REQ WBC (4.8 - 10.8 /CUMM) 6.0 RBC (4.70 - 6.10 /CUMM) 2.88 L Hgb (14.0 - 18.0 G/DL) 8.2 L Hct (42 - 52 %) 24.9 L MCV (80.0 - 94.0 FL) 86.4 MCH (27.0 - 31.0 PG) 28.4 RDW (11.5 - 14.5 %) 14.2 Plt Count (130 - 400 /CUMM) 285 MPV (7.4 - 10.4 FL) 8.3 Gran % (42.2 - 75.2 %) 66.6 Lymphocytes % (20.5 - 51.1 %) 16.2 L Monocytes % (1.7 - 9.3 %) 9.0 Eosinophils % (0 - 5 %) 7.8 H Basophils % (0.0 - 2.0 %) 0.4 Absolute Granulocytes (1.4 - 6.5 /CUMM) 4.0 Absolute Lymphocytes (1.2 - 3.4 /CUMM) 1.0 L Absolute Monocytes (0.10 - 0.60 /CUMM) 0.5 Absolute Eosinophils (0.0 - 0.7 /CUMM) 0.5 Absolute Basophils (0.0 - 0.2 /CUMM) 0 PUBS MCHC (33.0 - 37.0 G/DL) 32.9 L Vital Signs Date Time Temp Pulse Resp B/P B/P Pulse O2 O2 Flow FiO2 Mean Ox Delivery Rate 02/03 0914 75 110/60 02/03 0648 97.9 75 20 110/60 98 Nasal 2.0L Cannula 02/03 0000 Nasal 2.0L Cannula 02/02 2325 96.8 74 20 140/78 98 Nasal 2.0L Cannula 02/02 1422 97.6 84 18 118/68 100 Nasal 2.0L Cannula 02/02 1114 998.1 63 18 136/74
[2017-02-03 15:23] VITALS: BP 118/58
[2017-02-03 20:03] LABS: PTT 74 SEC (25-37)
--- NOTE | 2017-02-03 20:52 | PN- Housestaff ---
Subjective Follow-up For: AMS Acute on CKD CHF exacrbation Complaints: no complaints Tele-Events Since Last Visit: patient is in aflutter, some [id number] spikes, 68-98 no events. Subjective: Patient has no complaints, is feeling well. Review of Systems Constitutional: Reports: no symptoms. Objective Last 24 Hrs of Vital Signs/I&O Vital Signs Date Time Temp Pulse Resp B/P B/P Pulse O2 O2 Flow FiO2 Mean Ox Delivery Rate 02/03 1600 97 Room Air 02/03 1523 97.9 86 18 118/58 95 Room Air 02/03 0914 75 110/60 02/03 0800 98 Nasal 2.0L Cannula 02/03 0648 97.9 75 20 110/60 98 Nasal 2.0L Cannula 02/03 0000 Nasal 2.0L Cannula 02/02 2325 96.8 74 20 140/78 98 Nasal 2.0L Cannula Intake & Output 02/03 1600 02/03 0800 02/03 0000 Intake Total 1008 100 Output Total 650 800 500 Balance 358 -800 -400 Intake, IV 208 Intake, Oral 800 100 Output, Urine 650 800 500 Patient 224 lb Weight Weight Chair scale Measurement Method Physical Exam General Appearance: Alert, Cooperative, No Acute Distress Skin: No Rashes, No Breakdown, No Significant Lesion Skin Temp/Moisture Exam: Warm/Dry Sepsis Skin Exam (color): Normal for Ethnicity HEENT: Atraumatic, PERRLA Neck: Supple Cardiovascular: No Murmurs, Rubs Lungs: Clear to Auscultation, Normal Air Movement Abdomen: Normal Bowel Sounds, Soft, No Tenderness Extremities: left knee swelling and 2+ edema bilaterally Vascular: Pulses Symmetrical Current Medications: Current Medications Sig/Festus Start time Last Medication Dose Route Stop Time Status Admin Acetaminophen 650 MG Q6P PRN 01/29 2230 AC PO Acetaminophen/ 1 TAB Q6P PRN 01/29 2230 AC 02/03 Hydrocodone Bitart PO 2030 Albuterol Sulfate 2 PUF Q4H PRN 01/29 2315 AC INH Atorvastatin Calcium 10 MG 1700 01/30 1700 AC 02/03 PO 1635 Bisacodyl 10 MG DAILY PRN 01/29 2330 AC GA Ciprofloxacin 750 MG DAILY 02/03 1108 AC 02/03 PO 02/07 1107 1309 Ciprofloxacin 750 MG DAILY 01/30 1000 DC 02/02 PO 02/03 0959 1115 Diltiazem HCl 300 MG DAILY 01/31 1000 AC 02/03 PO 0915 Finasteride 5 MG DAILY 01/30 1000 AC 02/03 PO 0914 Heparin Sodium 25,000 UNIT Q24H 02/01 0800 AC 02/03 (Porcine) IV 0100 Sodium Chloride 500 ML Hydromorphone HCl 1 MG Q6P PRN 01/29 2230 AC IV Polyethylene Glycol 17 GM DAILY 02/03 183 AC 02/03 PO 2030 Senna/Docusate Sodium 2 TAB DAILY 02/03 1839 AC 02/03 PO 2030 Tamsulosin HCl 0.4 MG DAILY 01/30 1000 AC 02/03 PO 0914 Last 24 Hrs of Lab/Federico Results Last 24 Hrs of Labs/Mics: Laboratory Tests 02/03/17 1900: APTT 74 H 02/03/17 0635: APTT 77 H 02/03/17 0615: Anion Gap 10, Estimated GFR 21 L, BUN/Creatinine Ratio 18.3, CBC w Diff NO MAN DIFF REQ, RBC 2.88 L, MCV 86.4, MCH 28.4, RDW 14.2, MPV 8.3, Gran % 66.6, Lymphocytes % 16.2 L, Monocytes % 9.0, Eosinophils % 7.8 H, Basophils % 0.4, Absolute Granulocytes 4.0, Absolute Lymphocytes 1.0 L, Absolute Monocytes 0.5, Absolute Eosinophils 0.5, Absolute Basophils 0, PUBS MCHC 32.9 L Lines/Diet/Fluids Catheters/Tubes: painting Painting Still Needed? Yes Assessment/Plan Assessment: Mr. Parikh is a 87 yo M with a PMH of diabetes, hypertension, chronic renal insufficiency, coronary artery disease, status post angioplasty, atrial fibrillation on his Route toe, tachybradycardia syndrome status post pacemaker placement, status post bilateral knee replacement was recently admitted at [facility] from January 13 to January 22 with chief complaint of septic arthritis currently on telemetry for CHF, A-fib, Acute on CKD, worsening lethargy and confusion. P: 1.A-fib Patient has chronic a-fib being anticoagulated with Xarelto. He has a permanent single-chamber pace maker by [employer]. Patient was on Diltiazem 360mg ER but due to his persistent hypotension on admission it was decreased. * Continue telemetry * Continue Diltiazem 300mg PO * Xarelto held due to renal function * Start heparin IV 2. CHF exacerbation Patient complained of SOB at the rehabilitation facility prior to presenting to ED. He stated that he had been experiencing SOB for a couple of mouths prior to admission. On arrival to [place] ED patient had no respiratory symptoms or chest pain but had an elevated BNP-4300 on outpatient blood work. On examination in the ED his breath sounds were diminished billaterally but he denied dyspnea. CXR showed pulmonary congestion most likely due to CHF. His lungs are currently clear. And his leg edema has gotten better as per patient. Blood pressure is normal. * Continue telemetry * Dr. 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 He had an elevated CR-4.5 on outpatient blood work prior to ED admission. 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 His acute RF is likely due to his hypotension and is improving * renal US negative for any acute pathology * Urology consulted, chronic painting kept for diuresis * CR is now 2.9-Losartan, Lasix and Xarelto held due to renal function. He is currently on heparin drip 3. Septic arthritis Patient had bilateral knee replacements 12 years ago prior to admission and was recently admitted for septic arthritis with a wbc count of 75,000, repeat count of 114,000 and gram stain pos for gram neg rods. * Continue cipro 4-6 weeks, is gradually improving. 4. Anemia * Hgb 8.2, CBC ordered to monitor H/H Problem List: 1. Afib 2. Acute on chronic renal insufficiency 3. CHF (congestive heart failure) 4. Septic joint Pain Ratin Pain Location: NA Pain Goal: Remain pain free Pain Plan: NA Tomorrow's Labs & Rationales: . Consulting Request: Consulting Specialty: Infectious Disease
[2017-02-03 22:44] VITALS: BP 108/60
[2017-02-04 06:34] VITALS: BP 140/70
[2017-02-04 08:25] LABS: ABSOLUTE BASOPHIL COUNT 0 /CUMM (0.0-0.2); ABSOLUTE EOSINOPHIL COUNT 0.6 /CUMM (0.0-0.7); ABSOLUTE GRANULOCYTE CT 3.6 /CUMM (1.4-6.5); ABSOLUTE LYMPH COUNT 1.1 /CUMM (1.2-3.4); ABSOLUTE MONOCYTE COUNT 0.6 /CUMM (0.10-0.60); BASOPHIL % 0.5 % (0.0-2.0); EOSINOPHIL % 10.4 % (0-5); GRANULOCYTE % 60.3 % (42.2-75.2); HEMATOCRIT 25.8 % (42-52); MEAN CORPUSCULAR HGB 28.4 PG (27.0-31.0); MEAN CORPUSCULAR HGB CONC 32.6 G/DL (33.0-37.0); MEAN CORPUSCULAR VOLUME 86.9 FL (80.0-94.0); MEAN PLATELET VOLUME 8.3 FL (7.4-10.4); PLATELET COUNT 276 /CUMM (130-400); RBC DISTRIBUTION WIDTH 14.4 % (11.5-14.5); RED BLOOD CELL CT 2.97 /CUMM (4.70-6.10)
[2017-02-04 08:32] LABS: PTT 82 SEC (25-37)
--- NOTE | 2017-02-04 09:40 | PN- Housestaff ---
Subjective Follow-up For: AMS Acute on CKD Afib Septic arthritis Subjective: Patient has no complaints overnight. No acute events overnight Review of Systems Constitutional: Reports: see HPI. Objective Last 24 Hrs of Vital Signs/I&O Vital Signs Date Time Temp Pulse Resp B/P B/P Pulse O2 O2 Flow FiO2 Mean Ox Delivery Rate 02/04 1054 62 140/70 02/04 0634 98.4 62 20 140/70 94 Room Air 02/03 2244 97.8 73 16 108/60 95 Room Air 02/03 1600 97 Room Air 02/03 1523 97.9 86 18 118/58 95 Room Air Intake & Output 02/04 1600 02/04 0800 02/04 0000 Intake Total 200 448 390 Output Total 375 450 Balance 200 73 -60 Intake, IV 208 200 Intake, Oral 200 240 190 Number 1 Bowel Movements Output, Urine 375 450 Patient 120 lb Weight Weight Chair scale Measurement Method Physical Exam General Appearance: Alert, Oriented X3, Cooperative, No Acute Distress HEENT: Atraumatic, PERRLA Cardiovascular: Normal S1, Normal S2 Lungs: Clear to Auscultation Abdomen: Normal Bowel Sounds, Soft, No Tenderness Extremities: 2+ bilateral edema Current Medications: Current Medications Sig/Festus Start time Last Medication Dose Route Stop Time Status Admin Acetaminophen 650 MG Q6P PRN 01/29 2230 AC PO Acetaminophen/ 1 TAB Q6P PRN 01/29 2230 AC 02/04 Hydrocodone Bitart PO 1053 Albuterol Sulfate 2 PUF Q4H PRN 01/29 2315 AC INH Atorvastatin Calcium 10 MG 1700 01/30 1700 AC 02/03 PO 1635 Bisacodyl 10 MG DAILY PRN 01/29 2330 AC MS Ciprofloxacin 750 MG DAILY 02/03 1108 AC 02/04 PO 02/07 1107 1053 Diltiazem HCl 300 MG DAILY 01/31 1000 AC 02/04 PO 1054 Finasteride 5 MG DAILY 01/30 1000 AC 02/04 PO 1053 Heparin Sodium 25,000 UNIT Q24H 02/01 0800 AC 02/04 (Porcine) IV 0234 Sodium Chloride 500 ML Hydromorphone HCl 1 MG Q6P PRN 01/29 2230 AC 02/03 IV 2332 Polyethylene Glycol 17 GM DAILY 02/03 183 AC 02/03 PO 2030 Senna/Docusate Sodium 2 TAB DAILY 02/03 183 AC 02/04 PO 1053 Tamsulosin HCl 0.4 MG DAILY 01/30 1000 AC 02/04 PO 1054 Last 24 Hrs of Lab/Federico Results Last 24 Hrs of Labs/Mics: Laboratory Tests 02/04/17 0700: APTT 82 H 02/04/17 0620: Anion Gap 9, Estimated GFR 26 L, BUN/Creatinine Ratio 17.9, CBC w Diff NO MAN DIFF REQ, RBC 2.97 L, MCV 86.9, MCH 28.4, RDW 14.4, MPV 8.3, Gran % 60.3, Lymphocytes % 18.8 L, Monocytes % 10.0 H, Eosinophils % 10.4 H, Basophils % 0.5, Absolute Granulocytes 3.6, Absolute Lymphocytes 1.1 L, Absolute Monocytes 0.6, Absolute Eosinophils 0.6, Absolute Basophils 0, PUBS MCHC 32.6 L 02/03/17 1900: APTT 74 H Assessment/Plan Assessment: Mr. Parikh is a 87 yo M with a PMH of diabetes, hypertension, chronic renal insufficiency, coronary artery disease, status post angioplasty, atrial fibrillation on his Route toe, tachybradycardia syndrome status post pacemaker placement, status post bilateral knee replacement was recently admitted at [facility] from January 13 to January 22 with chief complaint of septic arthritis currently on telemetry for CHF, A-fib, Acute on CKD, worsening lethargy and confusion. P: 1.A-fib Patient has chronic a-fib being anticoagulated with Xarelto. He has a permanent single-chamber pace maker by [employer]. Patient was on Diltiazem 360mg ER but due to his persistent hypotension on admission it was decreased. * Continue telemetry * Continue Diltiazem 300mg PO * Xarelto held due to renal function * Continue heparin IV 2. CHF exacerbation Patient complained of SOB at the rehabilitation facility prior to presenting to ED. He stated that he had been experiencing SOB for a couple of mouths prior to admission. On arrival to [place] ED patient had no respiratory symptoms or chest pain but had an elevated BNP-4300 on outpatient blood work. On examination in the ED his breath sounds were diminished billaterally but he denied dyspnea. CXR showed pulmonary congestion most likely due to CHF. 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 He had an elevated CR-4.5 on outpatient blood work prior to ED admission. 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 His acute RF is likely due to his hypotension. * renal US negative for any acute pathology * Urology consulted, chronic painting kept for diuresis * CR trending down * GFR improving 3. Septic arthritis Patient had bilateral knee replacements 12 years ago prior to admission and was recently admitted for septic arthritis with a wbc count of 75,000, repeat count of 114,000 and gram stain pos for gram neg rods. * Continue cipro 4-6 weeks 4. Anemia * Continue to monitor CBC 5. UA pos for atypical epithelial cells * cytoscopy pending, will f/u with Urology 02/05/17 * NPO Problem List: 1. Afib 2. HTN (hypertension) 3. Acute on chronic renal insufficiency 4. Septic joint 5. CAD (coronary artery disease) Pain Ratin Pain Location: N/A Pain Goal: Remain pain free Pain Plan: N/A Tomorrow's Labs & Rationales: CBC and CR Stable Consulting Request: Consulting Specialty: Infectious Disease
--- NOTE | 2017-02-04 11:01 | PN- Student ---
Subjective Subjective: Tele Events: Aflutter, single pacing, up to 117 Complaints: none Subjective: No issues overnight. Patient denies pain, SOB, n/v, f/c. Objective Objective: Current Medications Sig/Festus Start time Last Medication Dose Route Stop Time Status Admin Acetaminophen 650 MG Q6P PRN 01/29 2230 AC PO Acetaminophen/ 1 TAB Q6P PRN 01/29 2230 AC 02/03 Hydrocodone Bitart PO 2030 Albuterol Sulfate 2 PUF Q4H PRN 01/29 2315 AC INH Atorvastatin Calcium 10 MG 1700 01/30 1700 AC 02/03 PO 1635 Bisacodyl 10 MG DAILY PRN 01/29 2330 AC NE Ciprofloxacin 750 MG DAILY 02/03 1108 AC 02/03 PO 02/07 1107 1309 Diltiazem HCl 300 MG DAILY 01/31 1000 AC 02/03 PO 0915 Finasteride 5 MG DAILY 01/30 1000 AC 02/03 PO 0914 Heparin Sodium 25,000 UNIT Q24H 02/01 0800 AC 02/04 (Porcine) IV 0234 Sodium Chloride 500 ML Hydromorphone HCl 1 MG Q6P PRN 01/29 2230 AC 02/03 IV 2332 Polyethylene Glycol 17 GM DAILY 02/03 1839 AC 02/03 PO 2030 Senna/Docusate Sodium 2 TAB DAILY 02/03 1839 AC 02/03 PO 2030 Tamsulosin HCl 0.4 MG DAILY 01/30 1000 AC 02/03 PO 0914 Vital Signs Date Time Temp Pulse Resp B/P B/P Pulse O2 O2 Flow FiO2 Mean Ox Delivery Rate 02/04 0634 98.4 62 20 140/70 94 Room Air 02/03 2244 97.8 73 16 108/60 95 Room Air 02/03 1600 97 Room Air 02/03 1523 97.9 86 18 118/58 95 Room Air Intake & Output 02/04 1600 02/04 0800 02/04 0000 Intake Total 200 448 390 Output Total 375 450 Balance 200 73 -60 Intake, IV 208 200 Intake, Oral 200 240 190 Number 1 Bowel Movements Output, Urine 375 450 Patient 120 lb Weight Weight Chair scale Measurement Method Physical Exam: Gen: No apparent distress, AOx3 HEENT: atraumatic, PERRLA Neck: supple, no lymphadenopathy Skin: No rashes, no breakdown Cardiovascular: No murmurs, rubs, gallops Lungs: clear to auscultation B/L Abdomen: normoactive bowel sounds, no tenderness to palpation Extremities: 2+ edema B/L Results Results: Laboratory Tests 02/04/17 0700: APTT 82 H 02/04/17 0620: Anion Gap 9, Estimated GFR 26 L, BUN/Creatinine Ratio 17.9, CBC w Diff NO MAN DIFF REQ, RBC 2.97 L, MCV 86.9, MCH 28.4, RDW 14.4, MPV 8.3, Gran % 60.3, Lymphocytes % 18.8 L, Monocytes % 10.0 H, Eosinophils % 10.4 H, Basophils % 0.5, Absolute Granulocytes 3.6, Absolute Lymphocytes 1.1 L, Absolute Monocytes 0.6, Absolute Eosinophils 0.6, Absolute Basophils 0, PUBS MCHC 32.6 L 02/03/17 1900: APTT 74 H 02/03/17 0635: APTT 77 H 02/03/17 0615: Anion Gap 10, Estimated GFR 21 L, BUN/Creatinine Ratio 18.3, CBC w Diff NO MAN DIFF REQ, RBC 2.88 L, MCV 86.4, MCH 28.4, RDW 14.2, MPV 8.3, Gran % 66.6, Lymphocytes % 16.2 L, Monocytes % 9.0, Eosinophils % 7.8 H, Basophils % 0.4, Absolute Granulocytes 4.0, Absolute Lymphocytes 1.0 L, Absolute Monocytes 0.5, Absolute Eosinophils 0.5, Absolute Basophils 0, PUBS MCHC 32.9 L 02/02/17 1836: APTT 81 H 02/02/17 0520: Anion Gap 10, Estimated GFR 17 L, BUN/Creatinine Ratio 18.9, APTT 84 H, CBC w Diff NO MAN DIFF REQ, RBC 2.78 L, MCV 86.9, MCH 28.1, RDW 14.4, MPV 8.0, Gran % 66.9, Lymphocytes % 16.0 L, Monocytes % 9.5 H, Eosinophils % 7.5 H, Basophils % 0.1, Absolute Granulocytes 4.0, Absolute Lymphocytes 1.0 L, Absolute Monocytes 0.6, Absolute Eosinophils 0.5, Absolute Basophils 0, PUBS MCHC 32.3 L 02/01/17 1700: APTT 74 H Assessment/Plan Assessment: Mr. Parikh is a 87 yo M with a PMH of diabetes, hypertension, chronic renal insufficiency, coronary artery disease, status post angioplasty, atrial fibrillation on his Route toe, tachybradycardia syndrome status post pacemaker placement, status post bilateral knee replacement was recently admitted at [facility] from January 13 to January 22 with chief complaint of septic arthritis currently on telemetry for CHF, A-fib, Acute on CKD, worsening lethargy and confusion. Vitals: Temp: 98.4, Pulse: 62, HR: 20, BP: 140/70, O2: 94% on room air Plan: A-fib Patient has chronic a-fib being anticoagulated with Xarelto. He has a permanent single-chamber pace maker by [employer]. Patient was on Diltiazem 360mg ER but due to his persistent hypotension on admission it was decreased. * Continue telemetry * Continue Diltiazem 300mg PO * Xarelto held due to renal function * Continue heparin IV CHF exacerbation Patient complained of SOB at the rehabilitation facility prior to presenting to ED. He stated that he had been experiencing SOB for a couple of mouths prior to admission. On arrival to [place] ED patient had no respiratory symptoms or chest pain but had an elevated BNP-4300 on outpatient blood work. On examination in the ED his breath sounds were diminished billaterally but he denied dyspnea. CXR showed pulmonary congestion most likely due to CHF. His lungs are currently clear. And his leg edema has gotten better as per patient. Blood pressure is normal. * Continue telemetry * Dr. 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 He had an elevated CR-4.5 on outpatient blood work prior to ED admission. 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 His acute RF is likely due to his hypotension and is improving * renal US negative for any acute pathology * Urology consulted, chronic painting kept for diuresis * CR is trending down to 2.4-Losartan, Lasix and Xarelto held due to renal function. He is currently on heparin drip Septic arthritis Patient had bilateral knee replacements 12 years ago prior to admission and was recently admitted for septic arthritis with a wbc count of 75,000, repeat count of 114,000 and gram stain pos for gram neg rods. * Continue cipro 4-6 weeks, is gradually improving. Anemia * Hgb now 8.4, CBC ordered to monitor H/H
--- NOTE | 2017-02-04 11:06 | PN- Att Addend ---
Attending Addendum Attending Brief Note Patient this morning has no complaints. General Appearance: Alert, No Acute Distress Skin: Grossly normal HEENT: PEERLA Neck: Supple, No JVD Cardiovascular: Irregular rhythm Lungs: Clear to Auscultation, Normal Air Movement Abdomen: Normal Bowel Sounds, Soft, No Tenderness Neurological: Normal Speech, Strength at 5/5 X4 Ext, Cranial Nerves 3-12 NL, Reflexes 2+ Extremities: Left knee swelling Vascular: Normal Pulses Assessment Patient is currently on Cipro for left septic knee arthritis. Acute kidney injury secondary to hypotension is gradually improving. At this point xarelto is on hold for kidney injury and he is on heparin drip. We're also waiting for urology follow-up for abnormal urine cytology and BPH. Plan Discuss with urology regarding inpatient cystoscopy Continue Cipro Continue to monitor kidney function daily Continue heparin drip Continue other medications Current Medications Sig/Festus Start time Last Medication Dose Route Stop Time Status Admin Acetaminophen 650 MG Q6P PRN 01/29 2230 AC PO Acetaminophen/ 1 TAB Q6P PRN 01/29 2230 AC 02/04 Hydrocodone Bitart PO 1053 Albuterol Sulfate 2 PUF Q4H PRN 01/29 2315 AC INH Atorvastatin Calcium 10 MG 1700 01/30 1700 AC 02/03 PO 1635 Bisacodyl 10 MG DAILY PRN 01/29 2330 AC MA Ciprofloxacin 750 MG DAILY 02/03 1108 AC 02/04 PO 02/07 1107 1053 Diltiazem HCl 300 MG DAILY 01/31 1000 AC 02/04 PO 1054 Finasteride 5 MG DAILY 01/30 1000 AC 02/04 PO 1053 Heparin Sodium 25,000 UNIT Q24H 02/01 0800 AC 02/04 (Porcine) IV 0234 Sodium Chloride 500 ML Hydromorphone HCl 1 MG Q6P PRN 01/29 2230 AC 02/03 IV 2332 Polyethylene Glycol 17 GM DAILY 02/03 183 AC 02/03 PO 2030 Senna/Docusate Sodium 2 TAB DAILY 02/03 183 AC 02/04 PO 1053 Tamsulosin HCl 0.4 MG DAILY 01/30 1000 AC 02/04 PO 1054 Laboratory Tests 02/04 02/04 02/03 0700 0620 1900 Chemistry Sodium (137 - 145 mmol/L) 138 Potassium (3.5 - 5.1 mmol/L) 4.8 Chloride (98 - 107 mmol/L) 105 Carbon Dioxide (22 - 30 mmol/L) 23 Anion Gap (5 - 16) 9 BUN (9 - 20 mg/dL) 43 H Creatinine (0.7 - 1.2 mg/dL) 2.4 H Estimated GFR (>60 ml/min) 26 L BUN/Creatinine Ratio (7 - 25 %) 17.9 Coagulation APTT (25 - 37 SEC) 82 H 74 H Hematology CBC w Diff NO MAN DIFF REQ WBC (4.8 - 10.8 /CUMM) 6.0 RBC (4.70 - 6.10 /CUMM) 2.97 L Hgb (14.0 - 18.0 G/DL) 8.4 L Hct (42 - 52 %) 25.8 L MCV (80.0 - 94.0 FL) 86.9 MCH (27.0 - 31.0 PG) 28.4 RDW (11.5 - 14.5 %) 14.4 Plt Count (130 - 400 /CUMM) 276 MPV (7.4 - 10.4 FL) 8.3 Gran % (42.2 - 75.2 %) 60.3 Lymphocytes % (20.5 - 51.1 %) 18.8 L Monocytes % (1.7 - 9.3 %) 10.0 H Eosinophils % (0 - 5 %) 10.4 H Basophils % (0.0 - 2.0 %) 0.5 Absolute Granulocytes (1.4 - 6.5 /CUMM) 3.6 Absolute Lymphocytes (1.2 - 3.4 /CUMM) 1.1 L Absolute Monocytes (0.10 - 0.60 /CUMM) 0.6 Absolute Eosinophils (0.0 - 0.7 /CUMM) 0.6 Absolute Basophils (0.0 - 0.2 /CUMM) 0 PUBS MCHC (33.0 - 37.0 G/DL) 32.6 L Vital Signs Date Time Temp Pulse Resp B/P B/P Pulse O2 O2 Flow FiO2 Mean Ox Delivery Rate 02/04 1054 62 140/70 07 0634 98.4 62 20 140/70 94 Room Air 02/03 2244 97.8 73 16 108/60 95 Room Air 02/03 1600 97 Room Air 02/03 1523 97.9 86 18 118/58 95 Room Air
[2017-02-04 14:49] VITALS: BP 148/70
[2017-02-04 19:08] LABS: PTT 73 SEC (25-37)
[2017-02-04 22:48] VITALS: BP 142/70
[2017-02-05 06:37] VITALS: BP 150/70
[2017-02-05 08:28] LABS: PTT 66 SEC (25-37)
--- NOTE | 2017-02-05 08:52 | PN- Student ---
Subjective Subjective: Tele Events: Aflutter, single pacing 61-67 Complaints: none Subjective: no issues overnight. Patient denies any pain. No fevers/chills. No SOB. Objective Objective: Exam General: No apparent distress, cooperative, AOx3 HEENT: Atraumatic, EOMI, PERRLA Neck: Soft, No lymphadenopathy Skin: No rashes or breakdown Heart: Irregular rhythm. Lungs: Clear to auscultation B/L Abdomen: Normoactive bowel sounds, No tenderness to palpation Extremities: 2+ edema B/L feet Current Medications Sig/Festus Start time Last Medication Dose Route Stop Time Status Admin Acetaminophen 650 MG Q6P PRN 01/29 2230 AC PO Acetaminophen/ 1 TAB Q6P PRN 01/29 2230 AC 02/04 Hydrocodone Bitart PO 1939 Albuterol Sulfate 2 PUF Q4H PRN 01/29 2315 AC INH Atorvastatin Calcium 10 MG 1700 01/30 1700 AC 02/04 PO 1603 Bisacodyl 10 MG DAILY PRN 01/29 2330 AC MO Ciprofloxacin 750 MG DAILY 02/03 1108 AC 02/04 PO 02/07 1107 1053 Diltiazem HCl 300 MG DAILY 01/31 1000 AC 02/04 PO 1054 Finasteride 5 MG DAILY 01/30 1000 AC 02/04 PO 1053 Heparin Sodium 25,000 UNIT Q24H 02/01 0800 AC 02/04 (Porcine) IV 0234 Sodium Chloride 500 ML Hydromorphone HCl 1 MG Q6P PRN 01/29 2230 AC 02/04 IV 2157 Polyethylene Glycol 17 GM DAILY 02/03 183 AC 02/03 PO 2030 Senna/Docusate Sodium 2 TAB DAILY 02/03 1839 AC 02/04 PO 1053 Tamsulosin HCl 0.4 MG DAILY 01/30 1000 AC 02/04 PO 1054 Vital Signs Date Time Temp Pulse Resp B/P B/P Pulse O2 O2 Flow FiO2 Mean Ox Delivery Rate 02/05 0637 97.8 52 16 150/70 92 Room Air 02/04 2248 97.4 77 16 142/70 94 Room Air 02/04 1449 97.4 95 18 148/70 93 Room Air 02/04 1054 62 140/70 Intake & Output 02/05 1600 02/05 0800 02/05 0000 Intake Total 448 520 Output Total 500 500 Balance -52 20 Intake, IV 208 220 Intake, Oral 240 300 Output, Urine 500 500 Patient 225 lb Weight Weight Chair scale Measurement Method Results Results: Laboratory Tests 02/05/17 0622: APTT Pending 02/04/17 1830: APTT 73 H 02/04/17 0700: APTT 82 H 02/04/17 0620: Anion Gap 9, Estimated GFR 26 L, BUN/Creatinine Ratio 17.9, CBC w Diff NO MAN DIFF REQ, RBC 2.97 L, MCV 86.9, MCH 28.4, RDW 14.4, MPV 8.3, Gran % 60.3, Lymphocytes % 18.8 L, Monocytes % 10.0 H, Eosinophils % 10.4 H, Basophils % 0.5, Absolute Granulocytes 3.6, Absolute Lymphocytes 1.1 L, Absolute Monocytes 0.6, Absolute Eosinophils 0.6, Absolute Basophils 0, PUBS MCHC 32.6 L 02/03/17 1900: APTT 74 H 02/03/17 0635: APTT 77 H 02/03/17 0615: Anion Gap 10, Estimated GFR 21 L, BUN/Creatinine Ratio 18.3, CBC w Diff NO MAN DIFF REQ, RBC 2.88 L, MCV 86.4, MCH 28.4, RDW 14.2, MPV 8.3, Gran % 66.6, Lymphocytes % 16.2 L, Monocytes % 9.0, Eosinophils % 7.8 H, Basophils % 0.4, Absolute Granulocytes 4.0, Absolute Lymphocytes 1.0 L, Absolute Monocytes 0.5, Absolute Eosinophils 0.5, Absolute Basophils 0, PUBS MCHC 32.9 L 02/02/17 1836: APTT 81 H Assessment/Plan Assessment: Assessment: Mr. Parikh is a 87 yo M with a PMH of diabetes, hypertension, chronic renal insufficiency, coronary artery disease, status post angioplasty, atrial fibrillation on his Route toe, tachybradycardia syndrome status post pacemaker placement, status post bilateral knee replacement was recently admitted at [facility] from January 13 to January 22 with chief complaint of septic arthritis currently on telemetry for CHF, A-fib, Acute on CKD, worsening lethargy and confusion. Vitals: Temp: 97.8 HR: 52 RR: 16 BP: 150/70 O2 sat: 92% on room Plan: A-fib Patient has chronic a-fib being anticoagulated with Xarelto. He has a permanent single-chamber pace maker by [employer]. Patient was on Diltiazem 360mg ER but due to his persistent hypotension on admission it was decreased. * Continue telemetry * Continue Diltiazem 300mg PO * Xarelto held due to renal function * Continue heparin IV CHF exacerbation Patient complained of SOB at the rehabilitation facility prior to presenting to ED. He stated that he had been experiencing SOB for a couple of mouths prior to admission. On arrival to [facility] ED patient had no respiratory symptoms or chest pain but had an elevated BNP-4300 on outpatient blood work. On examination in the ED his breath sounds were diminished billaterally but he denied dyspnea. CXR showed pulmonary congestion most likely due to CHF. His lungs are currently clear. And his leg edema has gotten better as per patient. Blood pressure is normal. * Continue telemetry * Dr. Briones consulted * ECHO results normal LV function Atypical epithelial cells on UA * Cystoscopy today? 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 He had an elevated CR-4.5 on outpatient blood work prior to ED admission. 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 His acute RF is likely due to his hypotension and is improving * renal US negative for any acute pathology * Urology consulted, chronic painting kept for diuresis * Losartan, Lasix and Xarelto held due to renal function. He is currently on heparin drip Septic arthritis Patient had bilateral knee replacements 12 years ago prior to admission and was recently admitted for septic arthritis with a wbc count of 75,000, repeat count of 114,000 and gram stain pos for gram neg rods. * Continue cipro 4-6 weeks, is gradually improving.
--- NOTE | 2017-02-05 09:00 | PN- Housestaff ---
Subjective Follow-up For: AMS Acute on CKD Afib Atypical epithelial cells Septic arthritis Review of Systems Constitutional: Reports: see HPI. Objective Last 24 Hrs of Vital Signs/I&O Vital Signs Date Time Temp Pulse Resp B/P B/P Pulse O2 O2 Flow FiO2 Mean Ox Delivery Rate 02/05 0958 150/70 02/05 0637 97.8 52 16 150/70 92 Room Air 02/04 2248 97.4 77 16 142/70 94 Room Air 02/04 1449 97.4 95 18 148/70 93 Room Air Intake & Output 02/05 1600 02/05 0800 02/05 0000 Intake Total 448 520 Output Total 500 500 Balance -52 20 Intake, IV 208 220 Intake, Oral 240 300 Output, Urine 500 500 Patient 225 lb Weight Weight Chair scale Measurement Method Physical Exam General Appearance: Alert, Oriented X3, Cooperative, No Acute Distress HEENT: Atraumatic, PERRLA Cardiovascular: Normal S1, Normal S2 Lungs: Clear to Auscultation, Normal Air Movement Abdomen: Normal Bowel Sounds, Soft, No Tenderness Extremities: No Cyanosis, No Edema Current Medications: Current Medications Sig/Festus Start time Last Medication Dose Route Stop Time Status Admin Acetaminophen 650 MG Q6P PRN 01/29 2230 AC PO Acetaminophen/ 1 TAB Q6P PRN 01/29 2230 AC 02/04 Hydrocodone Bitart PO 1939 Albuterol Sulfate 2 PUF Q4H PRN 01/29 2315 AC INH Atorvastatin Calcium 10 MG 1700 01/30 1700 AC 02/04 PO 1603 Bisacodyl 10 MG DAILY PRN 01/29 2330 AC CO Ciprofloxacin 750 MG DAILY 02/03 1108 AC 02/05 PO 02/07 1107 0959 Diltiazem HCl 300 MG DAILY 01/31 1000 AC 02/05 PO 0958 Finasteride 5 MG DAILY 01/30 1000 AC 02/05 PO 0958 Heparin Sodium 25,000 UNIT Q24H 02/01 0800 AC 02/04 (Porcine) IV 0234 Sodium Chloride 500 ML Hydromorphone HCl 1 MG Q6P PRN 01/29 2230 AC 02/04 IV 2157 Polyethylene Glycol 17 GM DAILY 02/03 1839 AC 02/05 PO 1000 Senna/Docusate Sodium 2 TAB DAILY 02/03 1839 AC 02/05 PO 0958 Tamsulosin HCl 0.4 MG DAILY 01/30 1000 AC 02/05 PO 0958 Last 24 Hrs of Lab/Federico Results Last 24 Hrs of Labs/Mics: Laboratory Tests 02/05/17 0622: APTT 66 H 02/04/17 1830: APTT 73 H Assessment/Plan Assessment: Mr. Parikh is a 87 yo M with a PMH of diabetes, hypertension, chronic renal insufficiency, coronary artery disease, status post angioplasty, atrial fibrillation on his Route toe, tachybradycardia syndrome status post pacemaker placement, status post bilateral knee replacement was recently admitted at [facility] from January 13 to January 22 with chief complaint of septic arthritis currently on telemetry for CHF, A-fib, Acute on CKD, worsening lethargy and confusion. P: 1.A-fib Patient has chronic a-fib being anticoagulated with Xarelto. He has a permanent single-chamber pace maker by [employer]. Patient was on Diltiazem 360mg ER but due to his persistent hypotension on admission it was decreased. * Continue telemetry * Continue Diltiazem 300mg PO * Xarelto held due to renal function * Continue heparin IV for now 2. CHF exacerbation Patient complained of SOB at the rehabilitation facility prior to presenting to ED. He stated that he had been experiencing SOB for a couple of mouths prior to admission. On arrival to [place] ED patient had no respiratory symptoms or chest pain but had an elevated BNP-4300 on outpatient blood work. On examination in the ED his breath sounds were diminished billaterally but he denied dyspnea. CXR showed pulmonary congestion most likely due to CHF. 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 He had an elevated CR-4.5 on outpatient blood work prior to ED admission. 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 His acute RF is likely due to his hypotension. * renal US negative for any acute pathology * Urology consulted, chronic painting kept for diuresis * CR trending down * GFR improving 3. Septic arthritis Patient had bilateral knee replacements 12 years ago prior to admission and was recently admitted for septic arthritis with a wbc count of 75,000, repeat count of 114,000 and gram stain pos for gram neg rods. * Continue cipro 4-6 weeks 4. Anemia * Continue to monitor H/H 5. UA pos for atypical epithelial cells Patient's cystoscopy was canceled Sunday due to AMS on examination. Call placed to Dr. Henderson office to inquire about the next schedule date. Left message with Tiffanie. Waiting call back. * cystoscopy pending * NPO 6. BPH * Continue home meds Problem List: 1. Septic joint 2. Afib 3. HTN (hypertension) 4. CAD (coronary artery disease) 5. CHF (congestive heart failure) 6. Acute on chronic renal insufficiency Pain Ratin Pain Location: N/A Pain Goal: Remain pain free Pain Plan: N/A Tomorrow's Labs & Rationales: CBC for anemia BEP for renal function Consulting Request: Consulting Specialty: Infectious Disease
--- NOTE | 2017-02-05 09:55 | PN- Nephrology ---
Assessment/Plan Assessment: 1. LALO: likely nonoliguric ATN post hypotension; GFR improving - 2. CKD: mod, stage 3, his serum creatinine was 2.0 when he saw Sumit Donohue MD last. 3. Diabetes mellitus 4. Hypertension Suggestion: 1. No change in therapy 2. Dietary restrictions. He has a history of heart disease as well as chronic kidney disease. On entering the room, a can of salted peanuts was seen on the patient's bedside table. Given a history of heart failure and chronic kidney disease, salted peanuts would seem not to be a healthy choice. 3. May wish to instruct patient and family with regards to a low-salt diet Subjective Subjective: Feels well sitting up in a chair Objective Vital Signs and I&Os Vital Signs Date Time Temp Pulse Resp B/P B/P Pulse O2 O2 Flow FiO2 Mean Ox Delivery Rate 02/05 0958 150/70 02/05 0637 97.8 52 16 150/70 92 Room Air 02/04 2248 97.4 77 16 142/70 94 Room Air 02/04 1449 97.4 95 18 148/70 93 Room Air Intake & Output 02/05 1600 02/05 0400 02/04 1600 02/04 0400 02/03 1600 02/03 0400 Intake Total 647 748 6723 390 1008 100 Output Total 500 500 629 036 2230 500 Balance -52 20 391 -60 -442 -400 Intake, IV 208 220 416 200 208 Intake, Oral 240 300 800 190 800 100 Number 2 Bowel Movements Output, Urine 500 500 859 443 7321 500 Patient 225 lb 120 lb 224 lb Weight Weight Chair scale Chair scale Chair scale Measurement Method Physical Exam: General Appearance: well developed/nourished, no apparent distress Head: atraumatic, normal appearance Ears, Nose, Throat: normal ENT inspection Neck: normal inspection Respiratory: normal breath sounds, no respiratory distress, quiet respiration, lungs clear Cardiovascular: irregularly irregular Abdomen: soft, non-tender Extremities: swelling Neurologic/Psychiatric: awake, alert Skin: intact, normal color Current Medications: Current Medications Sig/Festus Start time Last Medication Dose Route Stop Time Status Admin Acetaminophen 650 MG Q6P PRN 01/29 2230 AC PO Acetaminophen/ 1 TAB Q6P PRN 01/29 2230 AC 02/04 Hydrocodone Bitart PO 1938 Albuterol Sulfate 2 PUF Q4H PRN 07/10 2315 AC INH Atorvastatin Calcium 10 MG 1700 01/30 1700 AC 02/04 PO 1603 Bisacodyl 10 MG DAILY PRN 01/29 2330 AC TX Ciprofloxacin 750 MG DAILY 02/03 1108 AC 02/04 PO 02/07 1107 1053 Diltiazem HCl 300 MG DAILY 01/31 1000 AC 02/04 PO 1054 Finasteride 5 MG DAILY 01/30 1000 AC 02/04 PO 1053 Heparin Sodium 25,000 UNIT Q24H 02/01 0800 AC 02/04 (Porcine) IV 0234 Sodium Chloride 500 ML Hydromorphone HCl 1 MG Q6P PRN 01/29 2230 AC 02/04 IV 2157 Polyethylene Glycol 17 GM DAILY 02/03 183 AC 02/03 PO 2030 Senna/Docusate Sodium 2 TAB DAILY 02/03 183 AC 02/04 PO 1053 Tamsulosin HCl 0.4 MG DAILY 01/30 1000 AC 02/04 PO 1054 Results Pertinent Lab Results: Laboratory Tests 02/05 02/04 02/04 02/04 0622 1830 0700 0620 Chemistry Sodium (137 - 145 mmol/L) 138 Potassium (3.5 - 5.1 mmol/L) 4.8 Chloride (98 - 107 mmol/L) 105 Carbon Dioxide (22 - 30 mmol/L) 23 Anion Gap (5 - 16) 9 BUN (9 - 20 mg/dL) 43 H Creatinine (0.7 - 1.2 mg/dL) 2.4 H Estimated GFR (>60 ml/min) 26 L BUN/Creatinine Ratio (7 - 25 %) 17.9 Coagulation APTT (25 - 37 SEC) 66 H 73 H 82 H Hematology CBC w Diff NO MAN DIFF REQ WBC (4.8 - 10.8 /CUMM) 6.0 RBC (4.70 - 6.10 /CUMM) 2.97 L Hgb (14.0 - 18.0 G/DL) 8.4 L Hct (42 - 52 %) 25.8 L MCV (80.0 - 94.0 FL) 86.9 MCH (27.0 - 31.0 PG) 28.4 RDW (11.5 - 14.5 %) 14.4 Plt Count (130 - 400 /CUMM) 276 MPV (7.4 - 10.4 FL) 8.3 Gran % (42.2 - 75.2 %) 60.3 Lymphocytes % (20.5 - 51.1 %) 18.8 L Monocytes % (1.7 - 9.3 %) 10.0 H Eosinophils % (0 - 5 %) 10.4 H Basophils % (0.0 - 2.0 %) 0.5 Absolute Granulocytes (1.4 - 6.5 /CUMM) 3.6 Absolute Lymphocytes (1.2 - 3.4 /CUMM) 1.1 L Absolute Monocytes (0.10 - 0.60 /CUMM) 0.6 Absolute Eosinophils (0.0 - 0.7 /CUMM) 0.6 Absolute Basophils (0.0 - 0.2 /CUMM) 0 PUBS MCHC (33.0 - 37.0 G/DL) 32.6 L 02/03 02/03 02/03 02/02 1900 0635 0615 1836 Chemistry Sodium (137 - 145 mmol/L) 138 Potassium (3.5 - 5.1 mmol/L) 4.8 Chloride (98 - 107 mmol/L) 104 Carbon Dioxide (22 - 30 mmol/L) 24 Anion Gap (5 - 16) 10 BUN (9 - 20 mg/dL) 53 H Creatinine (0.7 - 1.2 mg/dL) 2.9 H Estimated GFR (>60 ml/min) 21 L BUN/Creatinine Ratio (7 - 25 %) 18.3 Coagulation APTT (25 - 37 SEC) 74 H 77 H 81 H Hematology CBC w Diff NO MAN DIFF REQ WBC (4.8 - 10.8 /CUMM) 6.0 RBC (4.70 - 6.10 /CUMM) 2.88 L Hgb (14.0 - 18.0 G/DL) 8.2 L Hct (42 - 52 %) 24.9 L MCV (80.0 - 94.0 FL) 86.4 MCH (27.0 - 31.0 PG) 28.4 RDW (11.5 - 14.5 %) 14.2 Plt Count (130 - 400 /CUMM) 285 MPV (7.4 - 10.4 FL) 8.3 Gran % (42.2 - 75.2 %) 66.6 Lymphocytes % (20.5 - 51.1 %) 16.2 L Monocytes % (1.7 - 9.3 %) 9.0 Eosinophils % (0 - 5 %) 7.8 H Basophils % (0.0 - 2.0 %) 0.4 Absolute Granulocytes (1.4 - 6.5 /CUMM) 4.0 Absolute Lymphocytes (1.2 - 3.4 /CUMM) 1.0 L Absolute Monocytes (0.10 - 0.60 /CUMM) 0.5 Absolute Eosinophils (0.0 - 0.7 /CUMM) 0.5 Absolute Basophils (0.0 - 0.2 /CUMM) 0 PUBS MCHC (33.0 - 37.0 G/DL) 32.9 L
--- NOTE | 2017-02-05 10:48 | PN- Student ---
Objective Results Results: Laboratory Tests 02/05/17 0622: APTT 66 H 02/04/17 1830: APTT 73 H 02/04/17 0700: APTT 82 H 02/04/17 0620: Anion Gap 9, Estimated GFR 26 L, BUN/Creatinine Ratio 17.9, CBC w Diff NO MAN DIFF REQ, RBC 2.97 L, MCV 86.9, MCH 28.4, RDW 14.4, MPV 8.3, Gran % 60.3, Lymphocytes % 18.8 L, Monocytes % 10.0 H, Eosinophils % 10.4 H, Basophils % 0.5, Absolute Granulocytes 3.6, Absolute Lymphocytes 1.1 L, Absolute Monocytes 0.6, Absolute Eosinophils 0.6, Absolute Basophils 0, PUBS MCHC 32.6 L 02/03/17 1900: APTT 74 H 02/03/17 0635: APTT 77 H 02/03/17 0615: Anion Gap 10, Estimated GFR 21 L, BUN/Creatinine Ratio 18.3, CBC w Diff NO MAN DIFF REQ, RBC 2.88 L, MCV 86.4, MCH 28.4, RDW 14.2, MPV 8.3, Gran % 66.6, Lymphocytes % 16.2 L, Monocytes % 9.0, Eosinophils % 7.8 H, Basophils % 0.4, Absolute Granulocytes 4.0, Absolute Lymphocytes 1.0 L, Absolute Monocytes 0.5, Absolute Eosinophils 0.5, Absolute Basophils 0, PUBS MCHC 32.9 L 02/02/17 1836: APTT 81 H
[2017-02-05 14:36] VITALS: BP 134/72
--- NOTE | 2017-02-05 17:18 | PN- Cardiology ---
Subjective Subjective: * No shortness of breath, chest discomfort or lightheadedness * creatinine improved to his baseline at 2.4 * cystoscopy planned for tomorrow * atrial fibrillation with demand pacing * persistent moderate to severe anemia Objective Vital Signs and I&Os Vital Signs Date Time Temp Pulse Resp B/P B/P Pulse O2 O2 Flow FiO2 Mean Ox Delivery Rate 02/05 1436 98.4 66 18 134/72 96 Room Air 02/05 0958 150/70 02/05 0637 97.8 52 16 150/70 92 Room Air 02/04 2248 97.4 77 16 142/70 94 Room Air Intake & Output 02/05 1600 02/05 0800 02/05 0000 02/04 1600 02/04 0800 02/04 0000 Intake Total 680 448 520 768 448 390 Output Total 650 500 500 450 375 450 Balance 30 -52 20 318 73 -60 Intake, IV 208 220 208 208 200 Intake, Oral 680 240 300 560 240 190 Number 1 2 Bowel Movements Output, Urine 650 500 500 450 375 450 Patient 225 lb 120 lb Weight Weight Chair scale Chair scale Measurement Method Physical Exam: General: WD/overweight male in NAD; alert and oriented x 3 Neck: no JVD, no carotid bruit Heart: RRR with ectopy and 2/6 systolic murmur Lungs: decreased breath sounds at the bases bilaterally without crackles Extremities: 2+ leg edema bilaterally Assessment/Plan Assessment/Plan * This patient has decreased breath sounds at the bases bilaterally. Obtain a chest X-ray. His lower extremity edema has not improved but we have avoided diuresis in the hopes that his renal function would improve. I would not diurese at this point in time. Blood pressure is improved and his breathing is comfortable. * Renal failure. I suspect this patient had a prerenal state that worsened his already present renal insufficiency. It should be noted that he already carries a history of bladder cancer and I believe some atypical cells were also discovered in his urine. For now I would continue to hold all medications that may worsen renal function including his Losartan and Lasix. * Continue Cardizem ar 300mg daily with careful monitoring of his heart rate. It should be noted that in the setting of his pulmonary hypertension he likely will need higher filling pressures an may not tolerate dehydration well. * Restart anticoagulation with Xarelto 15mg daily tommorrow after his procedure. Continue telemetry? Yes
--- NOTE | 2017-02-05 18:35 | PN- Att Addend ---
Attending Addendum Attending Brief Note Patient has no new complaints his brighter than the weekend vital signs are stable he's afebrile and appreciated golf ball trimmer and floodplain manager input and recommendations for this when necessary and creatinine baseline now she's improved than on admission which Would urology see if she should have the cystoscopy before leaving tomorrow or sedative up as an outpatient. Intake & Output 02/05 0400 02/04 040 Intake Total 2120 782 7994 390 1008 100 Output Total 1150 500 044 613 1581 500 Balance -22 20 391 -60 -442 -400 Intake, IV 208 220 416 200 208 Intake, Oral 920 300 800 190 800 100 Number 1 2 Bowel Movements Output, Urine 1150 500 078 833 1278 500 Patient 225 lb 120 lb 224 lb Weight Weight Chair scale Chair scale Chair scale Measurement Method Laboratory Tests 02/05/17 0622: APTT 66 H 02/04/17 1830: APTT 73 H 02/04/17 0700: APTT 82 H 02/04/17 0620: Anion Gap 9, Estimated GFR 26 L, BUN/Creatinine Ratio 17.9, CBC w Diff NO MAN DIFF REQ, RBC 2.97 L, MCV 86.9, MCH 28.4, RDW 14.4, MPV 8.3, Gran % 60.3, Lymphocytes % 18.8 L, Monocytes % 10.0 H, Eosinophils % 10.4 H, Basophils % 0.5, Absolute Granulocytes 3.6, Absolute Lymphocytes 1.1 L, Absolute Monocytes 0.6, Absolute Eosinophils 0.6, Absolute Basophils 0, PUBS MCHC 32.6 L 02/03/17 1900: APTT 74 H 02/03/17 0635: APTT 77 H 02/03/17 0615: Anion Gap 10, Estimated GFR 21 L, BUN/Creatinine Ratio 18.3, CBC w Diff NO MAN DIFF REQ, RBC 2.88 L, MCV 86.4, MCH 28.4, RDW 14.2, MPV 8.3, Gran % 66.6, Lymphocytes % 16.2 L, Monocytes % 9.0, Eosinophils % 7.8 H, Basophils % 0.4, Absolute Granulocytes 4.0, Absolute Lymphocytes 1.0 L, Absolute Monocytes 0.5, Absolute Eosinophils 0.5, Absolute Basophils 0, PUBS MCHC 32.9 L 02/02/17 1836: APTT 81 H
[2017-02-05 22:13] VITALS: BP 142/68
[2017-02-06 07:24] VITALS: BP 140/80
[2017-02-06 07:43] LABS: ABSOLUTE BASOPHIL COUNT 0.1 /CUMM (0.0-0.2); ABSOLUTE EOSINOPHIL COUNT 0.6 /CUMM (0.0-0.7); ABSOLUTE LYMPH COUNT 1.3 /CUMM (1.2-3.4); ABSOLUTE MONOCYTE COUNT 0.7 /CUMM (0.10-0.60); BASOPHIL % 0.9 % (0.0-2.0); EOSINOPHIL % 9.4 % (0-5); GRANULOCYTE % 59.9 % (42.2-75.2); HEMATOCRIT 27.6 % (42-52); MEAN CORPUSCULAR HGB 28.1 PG (27.0-31.0); MEAN CORPUSCULAR HGB CONC 32.5 G/DL (33.0-37.0); MEAN CORPUSCULAR VOLUME 86.7 FL (80.0-94.0); MEAN PLATELET VOLUME 7.8 FL (7.4-10.4); PLATELET COUNT 334 /CUMM (130-400); RBC DISTRIBUTION WIDTH 14.5 % (11.5-14.5); RED BLOOD CELL CT 3.19 /CUMM (4.70-6.10); WHITE BLOOD CELL COUNT 6.7 /CUMM (4.8-10.8)
--- NOTE | 2017-02-06 07:43 | PN- Student ---
Subjective Subjective: Tele Events: Aflutter 61-88 Complaints: none Subjective: no issues overnight. Patient denies pain, SOB, fevers/chills, nausea Objective Objective: Exam General: No apparent distress, AOx3 Skin: No lesions, No breakdowns HEENT: atraumatic, PERRLA Neck: supple, no lymphadenopathy Heart: no m/r/g, normal s1s2 Lungs: clear to auscultation B/L Abdomen: soft, nontender to palpation, normoactive bowel sounds Extremities: 2+ B/L edema in lower extremity Current Medications Sig/Festus Start time Last Medication Dose Route Stop Time Status Admin Acetaminophen 650 MG Q6P PRN 01/29 2230 AC PO Acetaminophen/ 1 TAB Q6P PRN 01/29 2230 AC 02/05 Hydrocodone Bitart PO 2149 Albuterol Sulfate 2 PUF Q4H PRN 01/29 2315 AC INH Atorvastatin Calcium 10 MG 1700 01/30 1700 AC 02/05 PO 1714 Bisacodyl 10 MG DAILY PRN 01/29 2330 AC OK Ciprofloxacin 750 MG DAILY 02/03 1108 AC 02/05 PO 02/07 1107 0959 Diltiazem HCl 300 MG DAILY 01/31 1000 AC 02/05 PO 0958 Finasteride 5 MG DAILY 01/30 1000 AC 02/05 PO 0958 Heparin Sodium 25,000 UNIT Q24H 02/01 0800 DC 02/05 (Porcine) IV 02/06 0300 1719 Sodium Chloride 500 ML Hydromorphone HCl 1 MG Q6P PRN 01/29 2230 AC 02/04 IV 2157 Polyethylene Glycol 17 GM DAILY 02/03 1839 AC 02/05 PO 1000 Rivaroxaban 15 MG DAILY 02/06 1000 AC PO Senna/Docusate Sodium 2 TAB DAILY 02/03 1839 AC 02/05 PO 0958 Tamsulosin HCl 0.4 MG DAILY 01/30 1000 AC 02/05 PO 0958 Vital Signs Date Time Temp Pulse Resp B/P B/P Pulse O2 O2 Flow FiO2 Mean Ox Delivery Rate 02/06 07 98.8 84 20 140/80 95 Room Air Results Results: Laboratory Tests 02/06/17 0659: Sodium Pending, Potassium Pending, Chloride Pending, Carbon Dioxide Pending, Anion Gap Pending, BUN Pending, Creatinine Pending, BUN/Creatinine Ratio Pending , CBC w Diff Pending, WBC Pending, RBC Pending, Hgb Pending, Hct Pending, MCV Pending, MCH Pending, RDW Pending, Plt Count Pending, MPV Pending, PUBS MCHC Pending 02/05/17 0622: APTT 66 H 02/05/17 0600: Sodium Cancelled, Potassium Cancelled, Chloride Cancelled, Carbon Dioxide Cancelled, Anion Gap Cancelled, BUN Cancelled, Creatinine Cancelled, BUN/ Creatinine Ratio Cancelled, CBC w Diff Cancelled, WBC Cancelled, RBC Cancelled, Hgb Cancelled, Hct Cancelled, MCV Cancelled, MCH Cancelled, RDW Cancelled, Plt Count Cancelled, MPV Cancelled, PUBS MCHC Cancelled 02/04/17 1830: APTT 73 H 02/04/17 0700: APTT 82 H 02/04/17 0620: Anion Gap 9, Estimated GFR 26 L, BUN/Creatinine Ratio 17.9, CBC w Diff NO MAN DIFF REQ, RBC 2.97 L, MCV 86.9, MCH 28.4, RDW 14.4, MPV 8.3, Gran % 60.3, Lymphocytes % 18.8 L, Monocytes % 10.0 H, Eosinophils % 10.4 H, Basophils % 0.5, Absolute Granulocytes 3.6, Absolute Lymphocytes 1.1 L, Absolute Monocytes 0.6, Absolute Eosinophils 0.6, Absolute Basophils 0, PUBS MCHC 32.6 L 02/03/17 1900: APTT 74 H Assessment/Plan Assessment: Mr. Parikh is a 87 yo M with a PMH of diabetes, hypertension, chronic renal insufficiency, coronary artery disease, status post angioplasty, atrial fibrillation on his Route toe, tachybradycardia syndrome status post pacemaker placement, status post bilateral knee replacement was recently admitted at from January 13 to January 22 with chief complaint of septic arthritis currently on telemetry for CHF, A-fib, Acute on CKD, worsening lethargy and confusion. Plan: 1.A-fib Patient has chronic a-fib being anticoagulated with Xarelto. He has a permanent single-chamber pace maker by [employer]. Patient was on Diltiazem 360mg ER but due to his persistent hypotension on admission it was decreased. * Continue telemetry * Continue Diltiazem 300mg PO * restart Xarelto 15 mg daily tomorrow after cystoscopy * Continue heparin IV for now 2. CHF exacerbation Patient complained of SOB at the rehabilitation facility prior to presenting to ED. He stated that he had been experiencing SOB for a couple of mouths prior to admission. On arrival to [place] ED patient had no respiratory symptoms or chest pain but had an elevated BNP-4300 on outpatient blood work. On examination in the ED his breath sounds were diminished billaterally but he denied dyspnea. CXR showed pulmonary congestion most likely due to CHF. 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 He had an elevated CR-4.5 on outpatient blood work prior to ED admission. 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 His acute RF is likely due to his hypotension. Patient was eating salted peanuts yesterday. * no change in therapy. * discuss with patient importance of low salt diet 3. Septic arthritis Patient had bilateral knee replacements 12 years ago prior to admission and was recently admitted for septic arthritis with a wbc count of 75,000, repeat count of 114,000 and gram stain pos for gram neg rods. * Continue cipro 4-6 weeks 4. Anemia * Continue to monitor H/H 5. UA pos for atypical epithelial cells Patient's cystoscopy was canceled Sunday due to AMS on examination. Call placed to Dr. Henderson office to inquire about the next schedule date. Left message with Tiffanie. Waiting call back. * cystoscopy pending, should be occuring today * NPO 6. BPH * Continue home meds
--- NOTE | 2017-02-06 07:44 | PN- Housestaff ---
Subjective Follow-up For: AMS Acute on CKD Afib Atypical epithelial cells Septic arthritis Subjective: Patient has no complaints, states he's ready to go down for his cystoscopy. Had a-flutter overnight HR 61-85. Review of Systems Constitutional: Reports: see HPI. Objective Last 24 Hrs of Vital Signs/I&O Vital Signs Date Time Temp Pulse Resp B/P B/P Pulse O2 O2 Flow FiO2 Mean Ox Delivery Rate 02/06 0724 98.8 84 20 140/80 95 Room Air 02/05 2213 98.1 97 18 142/68 96 Room Air 02/05 1436 98.4 66 18 134/72 96 Room Air 02/05 0958 150/70 Intake & Output 02/06 0800 02/06 0000 02/05 1600 Intake Total 600 680 Output Total 575 650 Balance 25 30 Intake, Oral 600 680 Number 1 Bowel Movements Output, Urine 575 650 Patient 225 lb Weight Weight Chair scale Measurement Method Physical Exam General Appearance: Alert, Oriented X3, Cooperative, No Acute Distress HEENT: Atraumatic, PERRLA Neck: Supple, No JVD Cardiovascular: Normal S1, Normal S2 Lungs: Clear to Auscultation, Normal Air Movement Abdomen: Normal Bowel Sounds, Soft, No Tenderness Extremities: No Cyanosis, No Edema Current Medications: Current Medications Sig/Festus Start time Last Medication Dose Route Stop Time Status Admin Acetaminophen 650 MG Q6P PRN 01/29 2230 AC PO Acetaminophen/ 1 TAB Q6P PRN 01/29 2230 AC 02/05 Hydrocodone Bitart PO 2149 Albuterol Sulfate 2 PUF Q4H PRN 01/29 2315 AC INH Atorvastatin Calcium 10 MG 1700 01/30 1700 AC 02/05 PO 1714 Bisacodyl 10 MG DAILY PRN 01/29 2330 AC IA Ciprofloxacin 750 MG DAILY 02/03 1108 AC 02/05 PO 02/07 1107 0959 Diltiazem HCl 300 MG DAILY 01/31 1000 AC 02/05 PO 0958 Finasteride 5 MG DAILY 01/30 1000 AC 02/05 PO 0958 Heparin Sodium 25,000 UNIT Q24H 02/01 0800 DC 02/05 (Porcine) IV 02/06 0300 1719 Sodium Chloride 500 ML Hydromorphone HCl 1 MG Q6P PRN 01/29 2230 AC 02/04 IV 2157 Polyethylene Glycol 17 GM DAILY 02/03 1839 AC 02/05 PO 1000 Rivaroxaban 15 MG DAILY 02/06 1000 AC PO Senna/Docusate Sodium 2 TAB DAILY 02/03 1839 AC 02/05 PO 0958 Tamsulosin HCl 0.4 MG DAILY 01/30 1000 AC 02/05 PO 0958 Last 24 Hrs of Lab/Federico Results Last 24 Hrs of Labs/Mics: Laboratory Tests 02/06/17 0659: Anion Gap 9, Estimated GFR 32 L, BUN/Creatinine Ratio 13.5, CBC w Diff Pending, WBC Pending, RBC Pending, Hgb Pending, Hct Pending, MCV Pending, MCH Pending, RDW Pending, Plt Count Pending, MPV Pending, PUBS MCHC Pending Assessment/Plan Assessment: Mr. Parikh is a 87 yo M with a PMH of diabetes, hypertension, chronic renal insufficiency, coronary artery disease, status post angioplasty, atrial fibrillation on his Route toe, tachybradycardia syndrome status post pacemaker placement, status post bilateral knee replacement was recently admitted at [facility] from January 13 to January 22 with chief complaint of septic arthritis currently on telemetry for CHF, A-fib, Acute on CKD, worsening lethargy and confusion. P: 1.A-fib Patient has chronic a-fib being anticoagulated with Xarelto. He has a permanent single-chamber pace maker by [employer]. Patient was on Diltiazem 360mg ER but due to his persistent hypotension on admission it was decreased. * Continue telemetry * Continue Diltiazem 300mg PO * Xarelto resumed 2. CHF exacerbation Patient complained of SOB at the rehabilitation facility prior to presenting to ED. He stated that he had been experiencing SOB for a couple of mouths prior to admission. On arrival to [place] ED patient had no respiratory symptoms or chest pain but had an elevated BNP-4300 on outpatient blood work. On examination in the ED his breath sounds were diminished billaterally but he denied dyspnea. CXR showed pulmonary congestion most likely due to CHF. 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 He had an elevated CR-4.5 on outpatient blood work prior to ED admission. 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 His acute RF is likely due to his hypotension. * renal US negative for any acute pathology * Urology consulted, chronic painting kept for diuresis * CR trending down * GFR improving 3. Septic arthritis Patient had bilateral knee replacements 12 years ago prior to admission and was recently admitted for septic arthritis with a wbc count of 75,000, repeat count of 114,000 and gram stain pos for gram neg rods. * Continue cipro 4-6 weeks 4. Anemia * Continue to monitor H/H * If hgb < 7, transfuse 5. UA pos for atypical epithelial cells Patient's cystoscopy was canceled Sunday due to AMS on examination. Call placed to Dr. Henderson office to inquire about the next schedule date. Left message with Tiffanie. Waiting call back. * cystoscopy results pending 6. BPH * Continue home meds Problem List: 1. HTN (hypertension) 2. Afib 3. CAD (coronary artery disease) 4. Septic joint 5. CHF (congestive heart failure) 6. Acute on chronic renal insufficiency Pain Ratin Pain Location: N/A Pain Goal: Remain pain free Pain Plan: N/A Tomorrow's Labs & Rationales: CBC BEP Consulting Request: Consulting Specialty: Infectious Disease
[2017-02-06 10:44] VITALS: BP 116/68
--- NOTE | 2017-02-06 12:42 | PN- Nephrology ---
Assessment/Plan Assessment: 1. LALO: Creatinine is now close to his previous baseline 2. CKD: mod, stage 3, his serum creatinine was 2.0 when he saw Sumit Donohue MD last. 3. Diabetes mellitus 4. Hypertension 5. Atypical cells on cytology. He tells me that his cystoscopy was unrevealing. He is wondering when the Knott can be discontinued. I suggested he needs to discuss that with Dr. Henderson. Suggestion: 1. No change in therapy for now Subjective Subjective: Looks and feels well. Objective Vital Signs and I&Os Vital Signs Date Time Temp Pulse Resp B/P B/P Pulse O2 O2 Flow FiO2 Mean Ox Delivery Rate 02/06 1215 116/68 02/06 1044 97.7 80 20 116/68 95 Room Air 02/06 0724 98.8 84 20 140/80 95 Room Air 02/05 2213 98.1 97 18 142/68 96 Room Air 02/05 1436 98.4 66 18 134/72 96 Room Air Intake & Output 02/06 1600 02/06 0400 02/05 1600 02/05 0400 02/04 1600 02/04 0400 Intake Total 560 434 6809 520 1216 390 Output Total 824 487 2959 500 825 450 Balance -492 25 -22 20 391 -60 Intake, IV 208 208 220 416 200 Intake, Oral 0 600 920 300 800 190 Number 1 2 Bowel Movements Output, Urine 404 601 6479 500 825 450 Patient 223 lb 225 lb 120 lb Weight Weight Chair scale Chair scale Chair scale Measurement Method Physical Exam: General Appearance: well developed/nourished, no apparent distress Head: atraumatic, normal appearance Ears, Nose, Throat: normal ENT inspection Neck: normal inspection Respiratory: normal breath sounds, no respiratory distress, quiet respiration, lungs clear Cardiovascular: irregularly irregular Abdomen: soft, non-tender, no masses, no organomegaly Extremities: No lower extremity edema Neurologic/Psychiatric: awake, alert, slightly hard of hearing but moving all extremities Skin: intact, normal color Current Medications: Current Medications Sig/Festus Start time Last Medication Dose Route Stop Time Status Admin Acetaminophen 650 MG Q6P PRN 01/29 2230 AC PO Acetaminophen/ 1 TAB Q6P PRN 01/29 223 AC 02/06 Hydrocodone Bitart PO 1114 Albuterol Sulfate 2 PUF Q4H PRN 01/29 2315 AC INH Atorvastatin Calcium 10 MG 1700 01/30 1700 AC 02/05 PO 1714 Bacitracin 0 .STK-MED ONE 02/06 1130 DC TOP 02/06 1131 Bisacodyl 10 MG DAILY PRN 01/29 2330 AC NE Chlorhexidine 1 GM .STK-MED ONE 02/06 1130 DC Gluconate TOP 02/06 1131 Ciprofloxacin 750 MG DAILY 02/03 1108 AC 02/06 PO 02/07 1107 1228 Diltiazem HCl 300 MG DAILY 01/31 1000 AC 02/06 PO 1228 Finasteride 5 MG DAILY 01/30 1000 AC 02/06 PO 1215 Heparin Sodium 25,000 UNIT Q24H 02/01 0800 DC 02/05 (Porcine) IV 02/06 0300 1719 Sodium Chloride 500 ML Hydromorphone HCl 1 MG Q6P PRN 01/29 2230 AC 02/04 IV 2157 Polyethylene Glycol 17 GM DAILY 02/03 1839 AC 02/06 PO 1215 Rivaroxaban 15 MG DAILY 02/06 1000 AC PO Senna/Docusate Sodium 2 TAB DAILY 02/03 1839 AC 02/06 PO 1214 Tamsulosin HCl 0.4 MG DAILY 01/30 1000 AC 02/06 PO 1215 Results Pertinent Lab Results: Laboratory Tests 02/06 02/05 02/05 0659 0622 0600 Chemistry Sodium (137 - 145 mmol/L) 139 Cancelled Potassium (3.5 - 5.1 mmol/L) 4.7 Cancelled Chloride (98 - 107 mmol/L) 104 Cancelled Carbon Dioxide (22 - 30 mmol/L) 25 Cancelled Anion Gap (5 - 16) 9 Cancelled BUN (9 - 20 mg/dL) 27 H Cancelled Creatinine (0.7 - 1.2 mg/dL) 2.0 H Cancelled Estimated GFR (>60 ml/min) 32 L BUN/Creatinine Ratio (7 - 25 %) 13.5 Cancelled Coagulation APTT (25 - 37 SEC) 66 H Hematology CBC w Diff NO MAN DIFF REQ Cancelled WBC (4.8 - 10.8 /CUMM) 6.7 Cancelled RBC (4.70 - 6.10 /CUMM) 3.19 L Cancelled Hgb (14.0 - 18.0 G/DL) 9.0 L Cancelled Hct (42 - 52 %) 27.6 L Cancelled MCV (80.0 - 94.0 FL) 86.7 Cancelled MCH (27.0 - 31.0 PG) 28.1 Cancelled RDW (11.5 - 14.5 %) 14.5 Cancelled Plt Count (130 - 400 /CUMM) 334 Cancelled MPV (7.4 - 10.4 FL) 7.8 Cancelled Gran % (42.2 - 75.2 %) 59.9 Lymphocytes % (20.5 - 51.1 %) 18.9 L Monocytes % (1.7 - 9.3 %) 10.9 H Eosinophils % (0 - 5 %) 9.4 H Basophils % (0.0 - 2.0 %) 0.9 Absolute Granulocytes (1.4 - 6.5 /CUMM) 4.0 Absolute Lymphocytes (1.2 - 3.4 /CUMM) 1.3 Absolute Monocytes (0.10 - 0.60 /CUMM) 0.7 H Absolute Eosinophils (0.0 - 0.7 /CUMM) 0.6 Absolute Basophils (0.0 - 0.2 /CUMM) 0.1 PUBS MCHC (33.0 - 37.0 G/DL) 32.5 L Cancelled 02/04 02/04 02/04 02/03 1830 0700 0620 1900 Chemistry Sodium (137 - 145 mmol/L) 138 Potassium (3.5 - 5.1 mmol/L) 4.8 Chloride (98 - 107 mmol/L) 105 Carbon Dioxide (22 - 30 mmol/L) 23 Anion Gap (5 - 16) 9 BUN (9 - 20 mg/dL) 43 H Creatinine (0.7 - 1.2 mg/dL) 2.4 H Estimated GFR (>60 ml/min) 26 L BUN/Creatinine Ratio (7 - 25 %) 17.9 Coagulation APTT (25 - 37 SEC) 73 H 82 H 74 H Hematology CBC w Diff NO MAN DIFF REQ WBC (4.8 - 10.8 /CUMM) 6.0 RBC (4.70 - 6.10 /CUMM) 2.97 L Hgb (14.0 - 18.0 G/DL) 8.4 L Hct (42 - 52 %) 25.8 L MCV (80.0 - 94.0 FL) 86.9 MCH (27.0 - 31.0 PG) 28.4 RDW (11.5 - 14.5 %) 14.4 Plt Count (130 - 400 /CUMM) 276 MPV (7.4 - 10.4 FL) 8.3 Gran % (42.2 - 75.2 %) 60.3 Lymphocytes % (20.5 - 51.1 %) 18.8 L Monocytes % (1.7 - 9.3 %) 10.0 H Eosinophils % (0 - 5 %) 10.4 H Basophils % (0.0 - 2.0 %) 0.5 Absolute Granulocytes (1.4 - 6.5 /CUMM) 3.6 Absolute Lymphocytes (1.2 - 3.4 /CUMM) 1.1 L Absolute Monocytes (0.10 - 0.60 /CUMM) 0.6 Absolute Eosinophils (0.0 - 0.7 /CUMM) 0.6 Absolute Basophils (0.0 - 0.2 /CUMM) 0 PUBS MCHC (33.0 - 37.0 G/DL) 32.6 L
--- NOTE | 2017-02-06 13:02 | PN- Att Addend ---
Attending Addendum Attending Brief Note Patient had gone for his cystoscopy this morning but will wait for results. Patient vital signs are stable and no new changes on physical. Appreciate nephrology's input kidney function very close to baseline. Depending on the results of the cystoscopy we'll start disposition plans probably in the morning and also check with neurology see if the patient needs to keep the Knott in Current Medications Sig/Festus Start time Last Medication Dose Route Stop Time Status Admin Acetaminophen 650 MG Q6P PRN 01/29 2230 AC PO Acetaminophen/ 1 TAB Q6P PRN 01/29 2230 AC 02/06 Hydrocodone Bitart PO 1114 Albuterol Sulfate 2 PUF Q4H PRN 01/29 2315 AC INH Atorvastatin Calcium 10 MG 1700 01/30 1700 AC 02/05 PO 1714 Bacitracin 0 .STK-MED ONE 02/06 1130 DC TOP 02/06 1131 Bisacodyl 10 MG DAILY PRN 01/29 2330 AC MA Chlorhexidine 1 GM .STK-MED ONE 02/06 1130 DC Gluconate TOP 02/06 1131 Ciprofloxacin 750 MG DAILY 02/03 1108 AC 02/06 PO 02/07 1107 1228 Diltiazem HCl 300 MG DAILY 01/31 1000 AC 02/06 PO 1228 Finasteride 5 MG DAILY 01/30 1000 AC 02/06 PO 1215 Heparin Sodium 25,000 UNIT Q24H 02/01 0800 DC 02/05 (Porcine) IV 02/06 0300 1719 Sodium Chloride 500 ML Hydromorphone HCl 1 MG Q6P PRN 01/29 2230 AC 02/04 IV 2157 Polyethylene Glycol 17 GM DAILY 02/03 1839 AC 02/06 PO 1215 Rivaroxaban 15 MG DAILY 02/06 1000 AC PO Senna/Docusate Sodium 2 TAB DAILY 02/03 1839 AC 02/06 PO 1214 Tamsulosin HCl 0.4 MG DAILY 01/30 1000 AC 02/06 PO 1215 Laboratory Tests 02/06/17 0659: Anion Gap 9, Estimated GFR 32 L, BUN/Creatinine Ratio 13.5, CBC w Diff NO MAN DIFF REQ, RBC 3.19 L, MCV 86.7, MCH 28.1, RDW 14.5, MPV 7.8, Gran % 59.9, Lymphocytes % 18.9 L, Monocytes % 10.9 H, Eosinophils % 9.4 H, Basophils % 0.9, Absolute Granulocytes 4.0, Absolute Lymphocytes 1.3, Absolute Monocytes 0.7 H, Absolute Eosinophils 0.6, Absolute Basophils 0.1, PUBS MCHC 32.5 L 02/05/17 0622: APTT 66 H 02/05/17 0600: Sodium Cancelled, Potassium Cancelled, Chloride Cancelled, Carbon Dioxide Cancelled, Anion Gap Cancelled, BUN Cancelled, Creatinine Cancelled, BUN/ Creatinine Ratio Cancelled, CBC w Diff Cancelled, WBC Cancelled, RBC Cancelled, Hgb Cancelled, Hct Cancelled, MCV Cancelled, MCH Cancelled, RDW Cancelled, Plt Count Cancelled, MPV Cancelled, PUBS MCHC Cancelled 02/04/17 1830: APTT 73 H Vital Signs Date Time Temp Pulse Resp B/P B/P Pulse O2 O2 Flow FiO2 Mean Ox Delivery Rate 02/06 1215 116/68 02/06 1044 97.7 80 20 116/68 95 Room Air 02/06 0724 98.8 84 20 140/80 95 Room Air 02/05 2213 98.1 97 18 142/68 96 Room Air 02/05 1436 98.4 66 18 134/72 96 Room Air
[2017-02-06 14:21] VITALS: BP 140/68
--- NOTE | 2017-02-06 15:09 | RADIOLOGY REPORT ---
EXAMINATION: XR CHEST CLINICAL INFORMATION: Shortness of breath. Presumptive diagnosis of heart failure. COMPARISON: Several prior chest x-rays, most recent of which is dated 01/29/2017. TECHNIQUE: AP and lateral views of the chest were obtained. FINDINGS: A single lead pacer is in place with tip in the right ventricle, unchanged. The cardiomediastinal silhouette is enlarged, unchanged. Calcification of the aortic arch is seen. Lungs bilaterally are mildly hyperinflated. Central vascular congestion and diffuse perihilar opacities are seen, unchanged from prior exam, consistent with mild pulmonary edema. There is subtle blunting of the right posterior CP angle, perhaps related to pleural thickening or trace pleural effusion. No dense consolidation is seen. No pneumothorax is present. There is a focal nodular density seen along the right side of the mid thoracic spine in the subcarinal area, most consistent with prominent spurring at the right costovertebral junction as seen on prior CT scan from 05/13/2016. IMPRESSION: Findings are suspicious for mild pulmonary edema in the setting of an enlarged heart (suggestive of a cardiomyopathy), pacer lead (suggestive of cardiac arrhythmia), and trace right pleural effusion. Clinical correlation requested. Findings are similar to the previous exam.
[2017-02-06 22:00] VITALS: BP 138/72
[2017-02-07 06:00] VITALS: BP 128/72
--- NOTE | 2017-02-07 07:20 | PN- Housestaff ---
Subjective Follow-up For: AMS Acute on CKD Afib Atypical epithelial cells Septic arthritis Review of Systems Constitutional: Reports: see HPI. Objective Last 24 Hrs of Vital Signs/I&O Vital Signs Date Time Temp Pulse Resp B/P B/P Pulse O2 O2 Flow FiO2 Mean Ox Delivery Rate 02/07 0600 98.0 67 24 128/72 94 Room Air 02/07 0000 Room Air 02/06 2200 97.6 72 20 138/72 95 Room Air 02/06 1421 97.7 58 20 140/68 97 Room Air 02/06 1215 116/68 02/06 1044 97.7 80 20 116/68 95 Room Air Intake & Output 02/07 0800 02/07 0000 02/06 1600 Intake Total 150 440 400 Output Total 450 450 Balance -300 -10 400 Intake, IV 0 Intake, Oral 150 440 400 Number 0 1 Bowel Movements Output, Urine 450 450 Patient 223 lb Weight Weight Chair scale Measurement Method Physical Exam General Appearance: Alert, Oriented X3, Cooperative, No Acute Distress HEENT: Atraumatic, PERRLA Neck: Supple, No JVD Cardiovascular: Normal S1, Normal S2 Lungs: Clear to Auscultation, Normal Air Movement Abdomen: Normal Bowel Sounds, Soft, No Tenderness Extremities: Bilateral dressing dry and intact Current Medications: Current Medications Sig/Festus Start time Last Medication Dose Route Stop Time Status Admin Acetaminophen 650 MG Q6P PRN 01/29 2230 AC PO Acetaminophen/ 1 TAB Q6P PRN 01/29 2230 AC 02/07 [place] 0143 Albuterol Sulfate 2 PUF Q4H PRN 01/29 2315 AC INH Atorvastatin Calcium 10 MG 1700 01/30 1700 AC 02/06 PO 1822 Bacitracin 0 .STK-MED ONE 02/06 1130 DC TOP 02/06 1131 Bisacodyl 10 MG DAILY PRN 01/29 2330 AC MN Chlorhexidine 1 GM .STK-MED ONE 02/06 1130 DC Gluconate [facility] 02/06 1131 Ciprofloxacin 750 MG DAILY 02/03 1108 AC 02/06 PO 02/07 1107 1228 Diltiazem HCl 300 MG DAILY 01/31 1000 AC 02/06 PO 1228 Fentanyl Citrate 300 MCG .STK-MED ONE 02/06 0817 DC IM 02/06 0818 Finasteride 5 MG DAILY 01/30 1000 AC 02/06 PO 1215 Hydromorphone HCl 1 MG Q6P PRN 01/29 2230 AC 02/04 IV 2157 Ketamine HCl 50 MG .STK-MED ONE 02/06 0840 DC IM 02/06 0841 Midazolam HCl 2 MG .STK-MED ONE 02/06 0817 DC IM 02/06 0818 Polyethylene Glycol 17 GM DAILY 02/03 1839 AC 02/06 PO 1215 Rivaroxaban 15 MG DAILY 02/06 1000 AC 02/06 PO 1517 Senna/Docusate Sodium 2 TAB DAILY 02/03 1839 AC 02/06 PO 1214 Tamsulosin HCl 0.4 MG DAILY 01/30 1000 AC 02/06 PO 1215 Last 24 Hrs of Lab/Federico Results Last 24 Hrs of Labs/Mics: Laboratory Tests 02/07/17 0625: Sodium Pending, Potassium Pending, Chloride Pending, Carbon Dioxide Pending, Anion Gap Pending, BUN Pending, Creatinine Pending, BUN/Creatinine Ratio Pending , CBC w Diff Pending, WBC Pending, RBC Pending, Hgb Pending, Hct Pending, MCV Pending, MCH Pending, RDW Pending, Plt Count Pending, MPV Pending, PUBS MCHC Pending Assessment/Plan Assessment: Mr. Parikh is a 87 yo M with a PMH of diabetes, hypertension, chronic renal insufficiency, coronary artery disease, status post angioplasty, atrial fibrillation on his Route toe, tachybradycardia syndrome status post pacemaker placement, status post bilateral knee replacement was recently admitted at [facility] from January 13 to January 22 with chief complaint of septic arthritis currently on telemetry for CHF, A-fib, Acute on CKD, worsening lethargy and confusion. P: 1.A-fib Patient has chronic a-fib being anticoagulated with Xarelto. He has a permanent single-chamber pace maker by [employer]. Patient was on Diltiazem 360mg ER but due to his persistent hypotension on admission it was decreased. * Continue telemetry * Continue Diltiazem 300mg PO * Xarelto resumed 2. CHF exacerbation Patient complained of SOB at the rehabilitation facility prior to presenting to ED. He stated that he had been experiencing SOB for a couple of mouths prior to admission. On arrival to [place] ED patient had no respiratory symptoms or chest pain but had an elevated BNP-4300 on outpatient blood work. On examination in the ED his breath sounds were diminished billaterally but he denied dyspnea. CXR showed pulmonary congestion most likely due to CHF. 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 He had an elevated CR-4.5 on outpatient blood work prior to ED admission. 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 His acute RF is likely due to his hypotension. * renal US negative for any acute pathology * Urology consulted, chronic painting kept for diuresis * CR trending down * GFR improving 3. Septic arthritis Patient had bilateral knee replacements 12 years ago prior to admission and was recently admitted for septic arthritis with a wbc count of 75,000, repeat count of 114,000 and gram stain pos for gram neg rods. * Continue cipro 4-6 weeks (Stop date Feb 25) 4. Anemia * Continue to monitor H/H * If hgb < 7, transfuse 5. UA pos for atypical epithelial cells POD 1-Cystoscopy results showed no mass but enlarged prostate. TURP will be followed as an outpatient 6. BPH * Continue home meds Problem List: 1. Acute on chronic renal insufficiency 2. Afib 3. Septic joint Pain Ratin Pain Location: N/A Pain Goal: Remain pain free Pain Plan: N/A Tomorrow's Labs & Rationales: None Consulting Request: Consulting Specialty: Infectious Disease
[2017-02-07 08:07] LABS: ABSOLUTE BASOPHIL COUNT 0 /CUMM (0.0-0.2); ABSOLUTE EOSINOPHIL COUNT 0.6 /CUMM (0.0-0.7); ABSOLUTE GRANULOCYTE CT 3.9 /CUMM (1.4-6.5); ABSOLUTE LYMPH COUNT 1.4 /CUMM (1.2-3.4); ABSOLUTE MONOCYTE COUNT 0.6 /CUMM (0.10-0.60); BASOPHIL % 0.3 % (0.0-2.0); EOSINOPHIL % 8.6 % (0-5); GRANULOCYTE % 61.3 % (42.2-75.2); HEMATOCRIT 27.2 % (42-52); MEAN CORPUSCULAR HGB 28.3 PG (27.0-31.0); MEAN CORPUSCULAR HGB CONC 32.8 G/DL (33.0-37.0); MEAN CORPUSCULAR VOLUME 86.4 FL (80.0-94.0); MEAN PLATELET VOLUME 7.8 FL (7.4-10.4); PLATELET COUNT 306 /CUMM (130-400); RBC DISTRIBUTION WIDTH 14.7 % (11.5-14.5); RED BLOOD CELL CT 3.14 /CUMM (4.70-6.10); WHITE BLOOD CELL COUNT 6.4 /CUMM (4.8-10.8)
--- NOTE | 2017-02-07 08:19 | PN- Cardiology ---
Subjective Subjective: * Patient is breathing well. * Mild pulmonary edema on chest X-ray * atrial fibrillation with demand pacing * improved H/H Objective Vital Signs and I&Os Vital Signs Date Time Temp Pulse Resp B/P B/P Pulse O2 O2 Flow FiO2 Mean Ox Delivery Rate 02/07 0600 98.0 67 24 128/72 94 Room Air 02/07 0000 Room Air 02/06 2200 97.6 72 20 138/72 95 Room Air 02/06 1421 97.7 58 20 140/68 97 Room Air 02/06 1215 116/68 02/06 1044 97.7 80 20 116/68 95 Room Air Intake & Output 02/07 1600 02/07 0800 02/07 0000 02/06 1600 02/06 0800 02/06 0000 Intake Total 150 440 400 208 600 Output Total 450 450 700 575 Balance -300 -10 400 -492 25 Intake, IV 0 208 Intake, Oral 150 440 400 0 600 Number 0 1 Bowel Movements Output, Urine 450 450 700 575 Patient 223 lb Weight Weight Chair scale Measurement Method Physical Exam: General: WD/overweight male in NAD; alert and oriented x 3 Neck: no JVD, no carotid bruit Heart: RRR with ectopy and 2/6 systolic murmur Lungs: no crackles Extremities: 2+ leg edema bilaterally Assessment/Plan Assessment/Plan * This patient has mild pulmonary edema on his chest X-ray with a small pleural effusion. Nevertheless, he is breathing comfortably and his creatinine is improving. I would hold off on diuretics for now. * Renal failure. I suspect this patient had a prerenal state that worsened his already present renal insufficiency. It should be noted that he already carries a history of bladder cancer and I believe some atypical cells were also discovered in his urine. For now I would continue to hold all medications that may worsen renal function including his Losartan and Lasix. * Continue Cardizem ar 300mg daily with careful monitoring of his heart rate. It should be noted that in the setting of his pulmonary hypertension he likely will need higher filling pressures an may not tolerate dehydration well. * Continue anticoagulation with Xarelto 15mg daily. Continue telemetry? No
[2017-02-07] MEDS ORDERED: CARDIZEM CD120 M2 PO ×2 (10:18→15:44)
[2017-02-07] MEDS ORDERED: XARELTO15 M1 PO ×2 (10:18→15:44)
--- NOTE | 2017-02-07 11:46 | PN- Student ---
Subjective Subjective: Tele-events: Aflutter 63-69 S. pacing Concerns: none Subjective: no issues overnight. Patient denies pain, SOB, fevers/chills, nausea Objective Objective: Exam: General: No apparent distress, AOx3 Skin: No lesions, No breakdowns HEENT: atraumatic, PERRLA Neck: supple, no lymphadenopathy Heart: no m/r/g, normal s1s2 Lungs: clear to auscultation B/L Abdomen: soft, nontender to palpation, normoactive bowel sounds Extremities: 2+ B/L edema in lower extremity Current Medications Sig/Festus Start time Last Medication Dose Route Stop Time Status Admin Acetaminophen 650 MG Q6P PRN 01/29 223 AC PO Acetaminophen/ 1 TAB Q6P PRN 01/29 2230 AC 02/07 Hydrocodone Bitart PO 0143 Albuterol Sulfate 2 PUF Q4H PRN 01/29 2315 AC INH Atorvastatin Calcium 10 MG 1700 01/30 1700 AC 02/06 PO 1822 Bisacodyl 10 MG DAILY PRN 01/29 2330 AC IA Ciprofloxacin 750 MG DAILY 02/03 1108 DC 02/07 PO 02/07 1107 1034 Diltiazem HCl 300 MG DAILY 01/31 1000 AC 02/07 PO 1034 Finasteride 5 MG DAILY 01/30 1000 AC 02/07 PO 1034 Hydromorphone HCl 1 MG Q6P PRN 01/29 2230 AC 02/04 IV 2157 Polyethylene Glycol 17 GM DAILY 02/03 1839 AC 02/06 PO 1215 Rivaroxaban 15 MG DAILY 02/06 1000 AC 02/07 PO 1034 Senna/Docusate Sodium 2 TAB DAILY 02/03 183 AC 02/06 PO 1214 Tamsulosin HCl 0.4 MG DAILY 01/30 1000 AC 02/07 PO 1034 Vital Signs Date Time Temp Pulse Resp B/P B/P Pulse O2 O2 Flow FiO2 Mean Ox Delivery Rate 02/07 1034 67 128/72 02/07 0600 98.0 67 24 128/72 94 Room Air Results Results: Laboratory Tests 02/07/17 0625: Anion Gap 10, Estimated GFR 32 L, BUN/Creatinine Ratio 12.5, CBC w Diff NO MAN DIFF REQ, RBC 3.14 L, MCV 86.4, MCH 28.3, RDW 14.7 H, MPV 7.8, Gran % 61.3, Lymphocytes % 21.1, Monocytes % 8.7, Eosinophils % 8.6 H, Basophils % 0.3, Absolute Granulocytes 3.9, Absolute Lymphocytes 1.4, Absolute Monocytes 0.6, Absolute Eosinophils 0.6, Absolute Basophils 0, PUBS MCHC 32.8 L 02/06/17 0659: Anion Gap 9, Estimated GFR 32 L, BUN/Creatinine Ratio 13.5, CBC w Diff NO MAN DIFF REQ, RBC 3.19 L, MCV 86.7, MCH 28.1, RDW 14.5, MPV 7.8, Gran % 59.9, Lymphocytes % 18.9 L, Monocytes % 10.9 H, Eosinophils % 9.4 H, Basophils % 0.9, Absolute Granulocytes 4.0, Absolute Lymphocytes 1.3, Absolute Monocytes 0.7 H, Absolute Eosinophils 0.6, Absolute Basophils 0.1, PUBS MCHC 32.5 L 02/05/17 0622: APTT 66 H 02/05/17 0600: Sodium Cancelled, Potassium Cancelled, Chloride Cancelled, Carbon Dioxide Cancelled, Anion Gap Cancelled, BUN Cancelled, Creatinine Cancelled, BUN/ Creatinine Ratio Cancelled, CBC w Diff Cancelled, WBC Cancelled, RBC Cancelled, Hgb Cancelled, Hct Cancelled, MCV Cancelled, MCH Cancelled, RDW Cancelled, Plt Count Cancelled, MPV Cancelled, PUBS MCHC Cancelled 02/04/17 1830: APTT 73 H Assessment/Plan Assessment: Mr. Parikh is a 87 yo M with a PMH of diabetes, hypertension, chronic renal insufficiency, coronary artery disease, status post angioplasty, atrial fibrillation on his Route toe, tachybradycardia syndrome status post pacemaker placement, status post bilateral knee replacement was recently admitted at [facility] from January 13 to January 22 with chief complaint of septic arthritis currently on telemetry for CHF, A-fib, Acute on CKD, worsening lethargy and confusion. Plan: 1.A-fib Patient has chronic a-fib being anticoagulated with Xarelto. He has a permanent single-chamber pace maker by [employer]. Patient was on Diltiazem 360mg ER but due to his persistent hypotension on admission it was decreased. * Continue telemetry * Continue Diltiazem 300mg PO * Continue Xarelto 15 mg daily * Continue heparin IV for now 2. CHF exacerbation Patient complained of SOB at the rehabilitation facility prior to presenting to ED. He stated that he had been experiencing SOB for a couple of mouths prior to admission. On arrival to [place] ED patient had no respiratory symptoms or chest pain but had an elevated BNP-4300 on outpatient blood work. On examination in the ED his breath sounds were diminished billaterally but he denied dyspnea. CXR showed pulmonary congestion most likely due to CHF. 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 He had an elevated CR-4.5 on outpatient blood work prior to ED admission. 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 His acute RF is likely due to his hypotension. Creatinine is improving. * no change in therapy. * discuss with patient importance of low salt diet * continue to hold losartan and lasix 3. Septic arthritis Patient had bilateral knee replacements 12 years ago prior to admission and was recently admitted for septic arthritis with a wbc count of 75,000, repeat count of 114,000 and gram stain pos for gram neg rods. * Continue cipro 4-6 weeks 4. Anemia * Continue to monitor H/H 5. UA pos for atypical epithelial cells Patient's cystoscopy was canceled Sunday due to AMS on examination. Call placed to Dr. Henderson office to inquire about the next schedule date. Left message with Tiffanie. Waiting call back. * cystoscopy results pending 6. BPH * Continue home meds
--- NOTE | 2017-02-07 13:32 | PN- Att Addend ---
Attending Addendum Attending Brief Note Patient sitting at the bedside physical therapist in the room with vital signs stable no fever with no new changes on physical, Knott catheter in place have a cystoscopy yesterday. Spoke to Dr. Santiago perez to transfer patient to short- term rehabilitation with the Knott in place and he will follow in a month and then consider TURP see the discharge summary and W 10 and CMR. Will follow patient at [place]. 24 TOTALS 02/07 0000 02/06 0000 Intake Total 1048 1728 Output Total 1150 1725 Balance -102 3 Intake, IV 208 208 Intake, Oral 840 1520 Number 1 1 Bowel Movements Output, Urine 1150 1725 Patient 223 lb 225 lb Weight Weight Chair scale Chair scale Measurement Method Current Medications Sig/Festus Start time Last Medication Dose Route Stop Time Status Admin Acetaminophen 650 MG Q6P PRN 01/29 2230 AC PO Acetaminophen/ 1 TAB Q6P PRN 01/29 2230 AC 02/07 Hydrocodone Bitart PO 1329 Albuterol Sulfate 2 PUF Q4H PRN 01/29 2315 AC INH Atorvastatin Calcium 10 MG 1700 01/30 1700 AC 02/06 PO 1822 Bisacodyl 10 MG DAILY PRN 01/[address] Ciprofloxacin 750 MG DAILY 02/03 1108 DC 02/07 PO 02/07 1107 1034 Diltiazem HCl 300 MG DAILY 01/31 1000 AC 02/07 PO 1034 Finasteride 5 MG DAILY 01/30 1000 AC 02/07 PO 1034 Hydromorphone HCl 1 MG Q6P PRN 01/29 2230 AC 02/04 IV 2157 Polyethylene Glycol 17 GM DAILY 02/03 1839 AC 02/06 PO 1215 Rivaroxaban 15 MG DAILY 02/06 1000 AC 02/07 PO 1034 Senna/Docusate Sodium 2 TAB DAILY 02/03 1839 AC 02/06 PO 1214 Tamsulosin HCl 0.4 MG DAILY 01/30 1000 AC 02/07 PO 1034 Laboratory Tests 02/07/17 0625: Anion Gap 10, Estimated GFR 32 L, BUN/Creatinine Ratio 12.5, CBC w Diff NO MAN DIFF REQ, RBC 3.14 L, MCV 86.4, MCH 28.3, RDW 14.7 H, MPV 7.8, Gran % 61.3, Lymphocytes % 21.1, Monocytes % 8.7, Eosinophils % 8.6 H, Basophils % 0.3, Absolute Granulocytes 3.9, Absolute Lymphocytes 1.4, Absolute Monocytes 0.6, Absolute Eosinophils 0.6, Absolute Basophils 0, PUBS MCHC 32.8 L 02/06/17 0659: Anion Gap 9, Estimated GFR 32 L, BUN/Creatinine Ratio 13.5, CBC w Diff NO MAN DIFF REQ, RBC 3.19 L, MCV 86.7, MCH 28.1, RDW 14.5, MPV 7.8, Gran % 59.9, Lymphocytes % 18.9 L, Monocytes % 10.9 H, Eosinophils % 9.4 H, Basophils % 0.9, Absolute Granulocytes 4.0, Absolute Lymphocytes 1.3, Absolute Monocytes 0.7 H, Absolute Eosinophils 0.6, Absolute Basophils 0.1, PUBS MCHC 32.5 L
[2017-02-07 14:15] VITALS: BP 128/72
[2017-02-07] MEDS ORDERED: FINASTERIDE5 M1 PO (16:08)
[2017-02-07] MEDS ORDERED: FLOMAX0.4 M1 PO (16:08)
[2017-02-07] MEDS ORDERED: CIPROFLOXACIN750 M1 PO (16:08)
[2017-02-07] MEDS ORDERED: VICODIN 5-3001 EACH PO (16:50)
--- NOTE | 2017-02-08 11:27 | Operative Report ---
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
== END 2017-02-07 16:20 | disposition home health service (06) | DRG 291 ==
LOC: ERH 17:54 → 1NO 18:13 → ERHI 18:13 → ENRESERV 01-30 14:40 → ENTRNSPT 01-30 15:46 → EDTRNSPTSTS 01-30 16:04 → 1NO 01-30 16:10 → CMPTRNSPT 01-30 16:23 → 1NO 01-31 09:37 → ENTRNSPT 02-06 09:46 → EDTRNSPTSTS 02-06 10:14 → CMPTRNSPT 02-06 10:35 → ENPENDDIS 02-07 10:55 → 1NO 02-07 16:20
PROVIDERS: Emergency Medicine; Hospitalist; Internal Medicine; Internal Medicine Infectious Disease; Internal Medicine Interventional Cardiology; Student in an Organized Health Care Education/Training Program; ADMIT Internal Medicine
PROC: 0TJB8ZZ Inspection of Bladder, Via Natural or Artificial Opening Endoscopic (ICD-10-PCS; principal; 2017-02-06)
DX: I13.0 Hypertensive heart and chronic kidney disease with heart failure and stage 1 through stage 4 chronic kidney disease, or unspecified chronic kidney disease (principal); N17.0 Acute kidney failure with tubular necrosis; M00.862 Arthritis due to other bacteria, left knee; E11.22 Type 2 diabetes mellitus with diabetic chronic kidney disease; C67.9 Malignant neoplasm of bladder, unspecified; B96.20 Unspecified Escherichia coli [E. coli] as the cause of diseases classified elsewhere; I50.23 Acute on chronic systolic (congestive) heart failure; N18.3 Chronic kidney disease, stage 3 (moderate); I25.10 Atherosclerotic heart disease of native coronary artery without angina pectoris; Z95.0 Presence of cardiac pacemaker; I48.2 Chronic atrial fibrillation; Z79.01 Long term (current) use of anticoagulants; E78.5 Hyperlipidemia, unspecified; Z87.891 Personal history of nicotine dependence; Z96.653 Presence of artificial knee joint, bilateral; N40.1 Benign prostatic hyperplasia with lower urinary tract symptoms; R33.8 Other retention of urine; I27.2 Other secondary pulmonary hypertension; M54.9 Dorsalgia, unspecified; G89.29 Other chronic pain; I35.0 Nonrheumatic aortic (valve) stenosis; I34.0 Nonrheumatic mitral (valve) insufficiency; I36.1 Nonrheumatic tricuspid (valve) insufficiency; D64.9 Anemia, unspecified
CPT/HCPCS: 1NP; ERO; 36415; 76775; 81001; 82436; 87071; 87086; 87147; 93005; 93010; 93306; 97110-GO; 97116-GO; 97161-GP; 97530-GO; J1644; J1940; J3490; J7040